=== PATIENT | female | born 1995 | race Caucasian/White ===

== ENCOUNTER 2017-11-02 18:41 | Emergency (ER) | payer OTHER ==
[2017-11-02 19:13] VITALS: TEMP 98.1
[2017-11-02] MEDS ORDERED: cefTRIAXone 250 MG VIAL IM STA (20:14)
[2017-11-02] MEDS ORDERED: traMADol 50 MG STARTER PACK 3 TAB BTL PO STA (20:55)
--- NOTE | 2017-11-02 20:56 | ED ---
Skin/Abscess/FB HPI - General Chief complaint: Skin/Abscess/Foreign Body Stated complaint: Cyst on abd.pain Time Seen by Provider: 11/02/17 20:04 Source: patient, RN notes reviewed, old records reviewed Mode of arrival: ambulatory Limitations: no limitations - History of Present Illness Initial comments: This patient is a 22 year old female with abcess in right groin for one week. She was seen at [facility] yesterday and started on bactrim and keflex.She has had one day of antibiotics. She reports the area opened up and she requests drainag. She denies any fever or chills. She states that she has no history of resistent infections. She states that it is painful to walk as the area rubs her inner thigh. - Related Data Home Medications Medication Instructions Recorded Confirmed ALPRAZolam [Xanax] 0.25 mg PO TID PRN 11/02/17 11/02/17 Buprenorphine HCl/Naloxone HCl 1 film SL BID 11/02/17 11/02/17 [Suboxone 8 mg-2 mg Sl Film] Previous Rx's Medication Instructions Recorded Cephalexin [Keflex] 500 mg PO Q6HR #40 cap 11/02/17 Ibuprofen [Motrin] 600 mg PO Q8HR PRN #20 tab 11/02/17 Sulfamethox-Tmp 800-160Mg [Bactrim 2 tab PO Q12HR 10 Days 11/02/17 DS 800-160 mg] traMADol HCl [Ultram] 50 mg PO Q4H PRN #10 tab 11/02/17 Allergies Allergy/AdvReac Type Severity Reaction Status Date / Time amoxicillin Allergy Anaphylaxis Verified 11/02/17 20:24 Penicillins Allergy Anaphylaxis Verified 11/02/17 20:24 Review of Systems ROS Statement: Those systems with pertinent positive or pertinent negative responses have been documented in the HPI. ROS Other: All systems not noted in ROS Statement are negative. Past Medical History Past Medical History: No Reported History Additional Past Medical History / Comment(s): Patient had a spontaneous vaginal delivery 35-5/7 weeks gestation on 11/01/2013. She had premature rupture membranes and labor. Patient also reports that she had a delivery last year with Dr. Dallas. History of Any Multi-Drug Resistant Organisms: None Reported Past Surgical History: No Surgical Hx Reported Additional Past Surgical History / Comment(s): vaginal delivery Past Anesthesia/Blood Transfusion Reactions: No Reported Reaction Past Psychological History: Anxiety, Depression Smoking Status: Current every day smoker Past Alcohol Use History: Occasional Past Drug Use History: None Reported - Past Family History Father History Unknown: Yes Family Medical History: No Reported History General Exam - General Exam Comments Initial Comments: This is a 22 year old female. No acute distress. Limitations: no limitations General appearance: alert, in no apparent distress Head exam: Present: atraumatic, normocephalic, normal inspection Eye exam: Present: normal appearance, PERRL, EOMI. Absent: scleral icterus, conjunctival injection, periorbital swelling ENT exam: Present: normal exam, mucous membranes moist Neck exam: Present: normal inspection. Absent: tenderness, meningismus, lymphadenopathy Respiratory exam: Present: normal lung sounds bilaterally. Absent: respiratory distress, wheezes, rales, rhonchi, stridor Cardiovascular Exam: Present: regular rate, normal rhythm, normal heart sounds. Absent: systolic murmur, diastolic murmur, rubs, gallop, clicks GI/Abdominal exam: Present: soft, normal bowel sounds, other (3cm abscess in right groin. Open and has purulent drainage.). Absent: distended, tenderness, guarding, rebound, rigid Extremities exam: Present: normal inspection, full ROM, normal capillary refill. Absent: tenderness, pedal edema, joint swelling, calf tenderness Back exam: Present: normal inspection Course Vital Signs 11/02/17 11/02/17 19:08 21:00 Temperature 98.1 F Pulse Rate 96 88 Respiratory 20 18 Rate Blood Pressure 103/69 125/85 O2 Sat by Pulse 100 98 Oximetry Procedures - Incision & Drainage Site: other (right inguinal region) Size (cm): 3 Anesthetic Used: lidocaine 1% Amount (mLs): 4 I&D Cleaning Method: Iodine Sterile Field Used?: Yes Scalpel Used: #11 I&D Drainage Obtained: Pus, Blood Packing: Iodoform Culture Obtained?: Yes Patient Tolerated Procedure: well, no complications Medical Decision Making - Medical Decision Making 22 year old femramiro with right groin abscess. She has had it for oen week, started antibiotics yesterday. She will increase her bactrim to 2 tabs BID for 10 days, and keflex q6H instead of Q8H. She underwent incision and drainage and the wound was packed. Pus removed and culture obtained. Given IM rocephin. She was given ultram and motrin for pain. Discussed ice packs and soaking in bath. Discussed packing removal in 2 days from surgeon. All questions answered and return parameters discussed. Disposition Clinical Impression: Groin abscess Disposition: HOME SELF-CARE Condition: Good Instructions: Abscess (ED) Additional Instructions: Patient advised to rest, apply ice over the area. Take the antibiotics as prescribed. Return to emergency department if any alarming signs or symptoms occur. Prescriptions: Cephalexin [Keflex] 500 mg PO Q6HR #40 cap Ibuprofen [Motrin] 600 mg PO Q8HR PRN #20 tab PRN Reason: Pain Sulfamethox-Tmp 800-160Mg [Bactrim DS 800-160 mg] 2 tab PO Q12HR 10 Days traMADol HCl [Ultram] 50 mg PO Q4H PRN #10 tab PRN Reason: Pain Referrals: Nel Hummel MD [STAFF PHYSICIAN] - 1-2 days Nonstaff,Physician [Primary Care Provider] - 1-2 days Richa Reyes DO [Doctor of Osteopathic Medicine] - 1-2 days Time of Disposition: 20:53
[2017-11-02 21:37] VITALS: BP 125/85; PULSE 88; RESP 18
== END 2017-11-02 21:38 | disposition home or self-care (01) ==
LOC: EC 18:41
DX: L02.214 Cutaneous abscess of groin (principal); F17.200 Nicotine dependence, unspecified, uncomplicated; Z79.891 Long term (current) use of opiate analgesic; Z88.0 Allergy status to penicillin
CPT/HCPCS: 87070; 87205; 99283; 10061; 96372; J0696

== ENCOUNTER 2017-11-05 15:59 | Emergency (ER) | payer OTHER ==
[2017-11-05 16:19] VITALS: BP 102/62; PULSE 93; RESP 18; TEMP 98.4
--- NOTE | 2017-11-05 16:45 | ED ---
General Adult HPI - General Chief complaint: Skin/Abscess/Foreign Body Stated complaint: abscess/female -revisit Time Seen by Provider: 11/05/17 16:32 Source: patient, RN notes reviewed Mode of arrival: ambulatory Limitations: no limitations - History of Present Illness Initial comments: 22-year-old female presents to the emergent chief complaint of recheck of abscess. She did drink 2 days ago the packing came out and she thought that she should be seen. He states that she started the antibiotics. She denies any fever chills. There is been no nausea or vomiting. She states that she continues to have some discomfort to that area she still has some pain with walking. She denies any other symptoms at this time.Patient denies any recent fever, chills, shortness of breath, chest pain, back pain, abdominal pain, nausea vomiting, numbness or tingling, dysuria or hematuria, constipation or diarrhea, headaches or visual changes, or any other current symptoms. - Related Data Home Medications Medication Instructions Recorded Confirmed ALPRAZolam [Xanax] 0.25 mg PO TID PRN 11/02/17 11/02/17 Buprenorphine HCl/Naloxone HCl 1 film SL BID 11/02/17 11/02/17 [Suboxone 8 mg-2 mg Sl Film] Previous Rx's Medication Instructions Recorded Cephalexin [Keflex] 500 mg PO Q6HR #40 cap 11/02/17 Ibuprofen [Motrin] 600 mg PO Q8HR PRN #20 tab 11/02/17 Sulfamethox-Tmp 800-160Mg [Bactrim 2 tab PO Q12HR 10 Days 11/02/17 DS 800-160 mg] traMADol HCl [Ultram] 50 mg PO Q4H PRN #10 tab 11/02/17 Allergies Allergy/AdvReac Type Severity Reaction Status Date / Time amoxicillin Allergy Anaphylaxis Verified 11/05/17 16:19 Penicillins Allergy Anaphylaxis Verified 11/05/17 16:19 Review of Systems ROS Statement: Those systems with pertinent positive or pertinent negative responses have been documented in the HPI. ROS Other: All systems not noted in ROS Statement are negative. Past Medical History Past Medical History: No Reported History Additional Past Medical History / Comment(s): Patient had a spontaneous vaginal delivery 35-5/7 weeks gestation on 11/01/2013. She had premature rupture membranes and labor. Patient also reports that she had a delivery last year with Dr. Dallas. History of Any Multi-Drug Resistant Organisms: None Reported Past Surgical History: No Surgical Hx Reported Additional Past Surgical History / Comment(s): vaginal delivery Past Anesthesia/Blood Transfusion Reactions: No Reported Reaction Past Psychological History: Anxiety, Depression Smoking Status: Current every day smoker Past Alcohol Use History: Occasional Past Drug Use History: None Reported - Past Family History Father History Unknown: Yes Family Medical History: No Reported History General Exam Limitations: no limitations General appearance: alert, in no apparent distress ENT exam: Present: normal exam, mucous membranes moist Neck exam: Present: normal inspection. Absent: tenderness, meningismus, lymphadenopathy Respiratory exam: Present: normal lung sounds bilaterally. Absent: respiratory distress, wheezes, rales, rhonchi, stridor Neurological exam: Present: alert, oriented X3 Skin exam: Present: warm, dry, intact, other (Well-healing abscess to the right groin that does have some mild drainage no associated induration or erythema) Course Vital Signs 11/05/17 16:15 Temperature 98.4 F Pulse Rate 93 Respiratory 18 Rate Blood Pressure 102/62 O2 Sat by Pulse 98 Oximetry Medical Decision Making - Medical Decision Making 22-year-old female presents for abscess recheck. This time we discussed care we discussed follow-up return parameters all questions. Patient stated that she understood and she is agreement this plan. All questions have been answered. She will be discharged. Disposition Clinical Impression: Abscess of groin, right Disposition: HOME SELF-CARE Condition: Stable Instructions: Abscess (ED), Abscess Incision and Drainage (ED) Additional Instructions: Please use medication as discussed. Please follow up with family doctor if symptoms have not improved over the next two days. Please return to the emergency room if your symptoms increase or worsen or for any other concerns. Referrals: Yonathan Webb MD [STAFF PHYSICIAN] - 1-2 days Time of Disposition: 16:45
== END 2017-11-05 16:50 | disposition home or self-care (01) ==
LOC: EC 15:59
DX: L02.214 Cutaneous abscess of groin (principal); F17.200 Nicotine dependence, unspecified, uncomplicated; Z79.899 Other long term (current) drug therapy; Z88.0 Allergy status to penicillin
CPT/HCPCS: 99282

== ENCOUNTER 2017-12-20 18:20 | Emergency (ER) | payer OTHER ==
[2017-12-20 18:26] VITALS: RESP 20
[2017-12-20] MEDS ORDERED: cefTRIAXone 250 MG VIAL IM STA (20:10)
[2017-12-20] MEDS ORDERED: metroNIDAZOLE 500 MG TAB PO STA (20:10)
[2017-12-20] MEDS ORDERED: AZITHROMYCIN 500 MG TAB PO STA (20:10)
--- NOTE | 2017-12-20 20:42 | ED ---
Female Urogenital HPI - General Chief complaint: Urogenital Stated complaint: TESTING Time Seen by Provider: 12/20/17 19:57 Source: patient Mode of arrival: ambulatory Limitations: no limitations - History of Present Illness Initial comments: 22-year-old female patient presents to the emergency department today with complaints of odorous vaginal discharge, dysuria, and suprapubic discomfort. Patient states that she has been having the symptoms for the last couple of weeks. Patient states that she did have a 3 some with her boyfriend and is concerned she now has an STD. Patient denies any chance of . States that she does have a Mirena IUD. Patient states that she has had bacterial vaginosis before feels she may have this again. Patient states she has been using insertable vaginal gel for this but doesn't seem to be helping her. Patient states that her boyfriend is also having symptoms. She denies any fevers or chills. Denies any nausea or vomiting. Denies any back pain. Denies any abnormal vaginal bleeding. Patient denies any recent rash, shortness breath, chest pain, diarrhea, constipation, back pain, numbness, tingling, dizziness, weakness, headache, visual changes, or any other complaints. - Related Data Home Medications Medication Instructions Recorded Confirmed ALPRAZolam [Xanax] 0.25 mg PO BID PRN 11/02/17 12/20/17 Buprenorphine HCl/Naloxone HCl 1 film SUBLINGUAL BID 11/02/17 12/20/17 [Suboxone 8 mg-2 mg Sl Film] Previous Rx's Medication Instructions Recorded Doxycycline Hyclate [Vibramycin] 100 mg PO BID 14 Days #28 cap 12/20/17 Allergies Allergy/AdvReac Type Severity Reaction Status Date / Time amoxicillin Allergy Anaphylaxis Verified 12/20/17 20:02 Penicillins Allergy Anaphylaxis Verified 12/20/17 20:02 Review of Systems ROS Statement: Those systems with pertinent positive or pertinent negative responses have been documented in the HPI. ROS Other: All systems not noted in ROS Statement are negative. Past Medical History Past Medical History: No Reported History Additional Past Medical History / Comment(s): Patient had a spontaneous vaginal delivery 35-5/7 weeks gestation on 11/01/2013. She had premature rupture membranes and labor. Patient also reports that she had a delivery last year with Dr. Hurtubise. History of Any Multi-Drug Resistant Organisms: None Reported Past Surgical History: No Surgical Hx Reported Additional Past Surgical History / Comment(s): vaginal delivery Past Anesthesia/Blood Transfusion Reactions: No Reported Reaction Past Psychological History: Anxiety, Depression Smoking Status: Current every day smoker Past Alcohol Use History: Occasional Past Drug Use History: None Reported - Past Family History Father History Unknown: Yes Family Medical History: No Reported History General Exam Limitations: no limitations General appearance: alert, in no apparent distress, other (This is a well- developed, well-nourished adult female patient in no acute distress. Vital signs upon presentation are temperature 99.8F, pulse 100, respirations 20, blood pressure 120/69, pulse ox 99% on room air.) Eye exam: Present: normal appearance, PERRL, EOMI. Absent: scleral icterus, conjunctival injection, periorbital swelling ENT exam: Present: normal exam, normal oropharynx, mucous membranes moist Respiratory exam: Present: normal lung sounds bilaterally. Absent: respiratory distress, wheezes, rales, rhonchi, stridor Cardiovascular Exam: Present: regular rate, normal rhythm, normal heart sounds. Absent: systolic murmur, diastolic murmur, rubs, gallop, clicks GI/Abdominal exam: Present: soft, normal bowel sounds. Absent: distended, tenderness, guarding, rebound, rigid External exam: Present: normal external exam Speculum exam: Present: normal speculum exam, vaginal discharge (Thick white), other (Strings noted for IUD). Absent: cervical discharge By manual exam: Present: cervical motion tenderness, adnexal tenderness Neurological exam: Present: alert, oriented X3, CN II-XII intact Psychiatric exam: Present: normal affect, normal mood Skin exam: Present: warm, dry, intact, normal color. Absent: rash Course Vital Signs 12/20/17 12/20/17 18:24 21:03 Temperature 99.8 F H 98 F Pulse Rate 100 80 Respiratory 20 20 Rate Blood Pressure 120/69 130/72 O2 Sat by Pulse 99 97 Oximetry Medical Decision Making - Medical Decision Making 22-year-old female patient presented to the emergency department today for complaints of vaginal discharge, dysuria, pelvic pain. Physical examination did reveal some suprapubic discomfort upon palpation. Pelvic exam revealed a thick white vaginal discharge. Patient had cervical motion tenderness and bilateral adnexal tenderness. Cultures were obtained. Urinalysis did show positive nitrite but no other concerning signs for infection. Patient has been taking Pyridium and did take Pyridium today. This is most likely false positive nitrite result. Urine has been cultured. We will treat patient for STD with Rocephin, azithromycin, and Flagyl. We will start her on doxycycline 100 mg twice a day for possibility of pelvic inflammatory disease. We did discuss risk of HIV given her risky sexual practices, she was educated regarding testing outpatient with the local health department. Return parameters discussed in detail. She is instructed follow with gynecology in her primary care physician. She verbalizes understanding and agrees with this plan. - Lab Data Lab Results 12/20/17 12/20/17 12/20/17 Range/Units 20:13 20:13 20:13 Urine Color Dark Yellow Urine Appearance Cloudy H (Clear) Urine pH 7.5 (5.0-8.0) Ur Specific [place] 1.022 (1.001-1.035) Urine Protein Trace H (Negative) Urine Glucose (UA) Negative (Negative) Urine Ketones Negative (Negative) Urine Blood Negative (Negative) Urine Nitrite Positive H (Negative) Urine Bilirubin 1+ H (Negative) Urine Urobilinogen 4.0 (<2.0) mg/dL Ur Leukocyte Esterase Negative (Negative) Urine RBC 1 (0-5) /hpf Urine WBC 3 (0-5) /hpf Ur Squamous Epith Cells 1 (0-4) /hpf Amorphous Sediment Moderate H (None) /hpf Urine Mucus Occasional H (None) /hpf Urine HCG, Qual Not Detected (Not Detectd) Trichomonas Ag (Rapid) Negative (Negative) Disposition Clinical Impression: STD (female), Pelvic inflammatory disease Disposition: HOME SELF-CARE Condition: Good Instructions: Sexually Transmitted Diseases (ED), Safe Sex (ED) Additional Instructions: 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 Return here immediately for any new, worsening, or concerning symptoms. Prescriptions: Doxycycline Hyclate [Vibramycin] 100 mg PO BID 14 Days #28 cap Is patient prescribed a controlled substance at d/c from ED?: No Referrals: Nonstaff,Physician [Primary Care Provider] - 1-2 days Jin Ware MD [STAFF PHYSICIAN] - 1-2 days Time of Disposition: 20:49
[2017-12-20 20:43] LABS: Amorphous Sediment,Urine Moderate /hpf; Appearance,Urine Cloudy (Clear); Bilirubin,Urine 1+ (Negative); Blood,Urine Negative (Negative); Color,Urine Dark Yellow; Glucose,Urine (UA) Negative (Negative); Ketones,Urine Negative (Negative); Leukocyte Esterase,Urine Negative (Negative); Mucus,Urine Occasional /hpf; Nitrite,Urine Positive (Negative); PH, Urine 7.5 (5.0-8.0); Protein,Urine Trace (Negative); RBC,Urine 1 /hpf (0-5); Specific Gravity,Urine 1.022 (1.001-1.035); Squamous Epithelial Cell,Urine 1 /hpf (0-4); WBC,Urine 3 /hpf (0-5)
[2017-12-20 21:05] VITALS: BP 130/72; PULSE 80; TEMP 98
[2017-12-21 14:55] LABS: C. trachomatis,PCR Negative (Neg,Equiv); Chlamydia trachomatis Source Cervix; N. gonorrhoeae,PCR Negative (Neg,Equiv); Neisseria Source Cervix
== END 2017-12-20 21:05 | disposition home or self-care (01) ==
LOC: EC 18:20
DX: A64 Unspecified sexually transmitted disease (principal); N73.9 Female pelvic inflammatory disease, unspecified; F17.200 Nicotine dependence, unspecified, uncomplicated; Z79.891 Long term (current) use of opiate analgesic; Z88.0 Allergy status to penicillin
CPT/HCPCS: 81001; 81025; 87808; 87491; 87591; 87070; 99283; 96372; J0696; 87205

== ENCOUNTER 2018-09-13 18:17 | Emergency (ER) | payer OTHER ==
[2018-09-13 18:29] VITALS: TEMP 98.2
--- NOTE | 2018-09-13 19:08 | ED ---
General Adult HPI - General Chief complaint: Abdominal Pain Stated complaint: poss miscarrage Time Seen by Provider: 09/13/18 18:39 Source: patient Mode of arrival: ambulatory Limitations: no limitations - Related Data Home Medications Medication Instructions Recorded Confirmed ALPRAZolam [Xanax] 2 mg PO BID 09/13/18 09/13/18 Ciprofloxacin HCl [Cipro] 500 mg PO BID 09/13/18 09/13/18 [id number] Acid 1 cap PO DAILY 09/13/18 09/13/18 [-U Capsule (formulary)] Previous Rx's Medication Instructions Recorded Cephalexin [Keflex] 500 mg PO Q6HR 3 Days #12 cap 09/13/18 Allergies Allergy/AdvReac Type Severity Reaction Status Date / Time amoxicillin Allergy Anaphylaxis Verified 09/13/18 18:50 Penicillins Allergy Anaphylaxis Verified 09/13/18 18:50 Review of Systems ROS Statement: Those systems with pertinent positive or pertinent negative responses have been documented in the HPI. ROS Other: All systems not noted in ROS Statement are negative. Past Medical History Past Medical History: No Reported History Additional Past Medical History / Comment(s): Patient had a spontaneous vaginal delivery 35-5/7 weeks gestation on 11/01/2013. She had premature rupture membranes and labor. Patient also reports that she had a delivery last year with Dr. Dallas. History of Any Multi-Drug Resistant Organisms: None Reported Past Surgical History: No Surgical Hx Reported Additional Past Surgical History / Comment(s): vaginal delivery Past Anesthesia/Blood Transfusion Reactions: No Reported Reaction Past Psychological History: Anxiety, Depression Smoking Status: Current every day smoker Past Alcohol Use History: Occasional Past Drug Use History: None Reported - Past Family History Father History Unknown: Yes Family Medical History: No Reported History General Exam Limitations: no limitations Course Vital Signs 09/13/18 09/13/18 18:26 19:22 Temperature 98.2 F Pulse Rate 97 85 Respiratory 20 16 Rate Blood Pressure 102/65 112/62 O2 Sat by Pulse 100 100 Oximetry Medical Decision Making - Medical Decision Making Dictation was produced using Datezr dictation software. please excuse any grammatical, word or spelling errors. Chief Complaint: 23-year-old female presents with vaginal bleeding and pelvic pain. History of Present Illness: 23-year-old female patient states she's proximally 7 weeks with twins. Patient was seen recently where an ultrasound was performed showing twins. Patient states she is having difficulty establishing care with [facility]. Patient states she is having episodic dark bleeding. The ROS documented in this emergency department record has been reviewed and confirmed by me. Those systems with pertinent positive or negative responses have been documented in the HPI. All other systems are other negative and/or noncontributory. PHYSICAL EXAM: General Impression: Alert and oriented x3, not in acute distress HEENT: Normocephalic atraumatic, extra-ocular movements intact, pupils equal and reactive to light bilaterally, mucous membranes moist. Cardiovascular: Heart regular rate and rhythm, S1&S2 audible, no murmurs, rubs or gallops Chest: Lungs clear to auscultation bilaterally, no rhonchi, no wheeze, no rales Abdomen: Bowel sounds present, abdomen soft, non-tender, non-distended, no organomegaly Musculoskeletal: Pulses present and equal in all extremities, no peripheral edema Motor: Power 5/5 bilaterally, no focal deficits noted Neurological: CN II-XII grossly intact, no focal motor or sensory deficits noted Skin: Intact with no visualized rashes Psych: Normal affect and mood ED course: 23-year-old female presents with pelvic cramping and vaginal bleeding and . Signs upon arrival are within acceptable limits. Laboratory evaluation obtained. Hemoglobin stable. Rest of labs unremarkable. Urinalysis shows 18 white blood cells. Patient given prescription for antibiotics. OB ultrasound shows single live intrauterine and possible second intrauterine gestational sac without pole. Patient refused pelvic exam. Patient given prescription for antibiotics. Discussed patient case with Dr. Petersen who is on OB call. Patient does not have established OB. Patient instructed to call office on Sunday for outpatient OB follow-up. vitamins. Blood is O+. No indication for rhogam. - Lab Data Result diagrams: 09/13/18 18:55 09/13/18 18:55 Lab Results 09/13/18 09/13/18 09/13/18 Range/Units 18:55 18:55 18:55 WBC 7.6 (3.8-10.6) k/uL RBC 4.54 (3.80-5.40) m/uL Hgb 13.8 (11.4-16.0) gm/dL Hct 41.7 (34.0-46.0) % MCV 91.9 (80.0-100.0) fL MCH 30.4 (25.0-35.0) pg MCHC 33.1 (31.0-37.0) g/dL RDW 12.7 (11.5-15.5) % Plt Count 234 (150-450) k/uL Neutrophils % 60 % Lymphocytes % 34 % Monocytes % 4 % Eosinophils % 1 % Basophils % 0 % Neutrophils # 4.5 (1.3-7.7) k/uL Lymphocytes # 2.6 (1.0-4.8) k/uL Monocytes # 0.3 (0-1.0) k/uL Eosinophils # 0.1 (0-0.7) k/uL Basophils # 0.0 (0-0.2) k/uL Sodium 139 (137-145) mmol/L Potassium 3.9 (3.5-5.1) mmol/L Chloride 104 (98-107) mmol/L Carbon Dioxide 27 (22-30) mmol/L Anion Gap 8 mmol/L BUN 7 (7-17) mg/dL Creatinine 0.67 (0.52-1.04) mg/dL Est GFR (CKD-EPI)AfAm >90 (>60 ml/min/1.73 sqM) Est GFR (CKD-EPI)NonAf >90 (>60 ml/min/1.73 sqM) Glucose 79 (74-99) mg/dL Calcium 10.0 (8.4-10.2) mg/dL Total Bilirubin 0.5 (0.2-1.3) mg/dL AST 24 (14-36) U/L ALT 46 (9-52) U/L Alkaline Phosphatase 56 (38-126) U/L Total Protein 7.8 (6.3-8.2) g/dL Albumin 5.0 (3.5-5.0) g/dL Urine Color Urine Appearance (Clear) Urine pH (5.0-8.0) Ur Specific [place] (1.001-1.035) Urine Protein (Negative) Urine Glucose (UA) (Negative) Urine Ketones (Negative) Urine Blood (Negative) Urine Nitrite (Negative) Urine Bilirubin (Negative) Urine Urobilinogen (<2.0) mg/dL Ur Leukocyte Esterase (Negative) Urine RBC (0-5) /hpf Urine WBC (0-5) /hpf Ur Squamous Epith Cells (0-4) /hpf Urine Bacteria (None) /hpf Urine Mucus (None) /hpf Urine HCG, Qual (Not Detectd) Blood Type O Positive Blood Type Recheck No Antibody Screen NEGATIVE Spec Expiration Date 09/16/2018 - 235409/13/18 09/13/18 Range/Units 18:55 18:55 WBC (3.8-10.6) k/uL RBC (3.80-5.40) m/uL Hgb (11.4-16.0) gm/dL Hct (34.0-46.0) % MCV (80.0-100.0) fL MCH (25.0-35.0) pg MCHC (31.0-37.0) g/dL RDW (11.5-15.5) % Plt Count (150-450) k/uL Neutrophils % % Lymphocytes % % Monocytes % % Eosinophils % % Basophils % % Neutrophils # (1.3-7.7) k/uL Lymphocytes # (1.0-4.8) k/uL Monocytes # (0-1.0) k/uL Eosinophils # (0-0.7) k/uL Basophils # (0-0.2) k/uL Sodium (137-145) mmol/L Potassium (3.5-5.1) mmol/L Chloride (98-107) mmol/L Carbon Dioxide (22-30) mmol/L Anion Gap mmol/L BUN (7-17) mg/dL Creatinine (0.52-1.04) mg/dL Est GFR (CKD-EPI)AfAm (>60 ml/min/1.73 sqM) Est GFR (CKD-EPI)NonAf (>60 ml/min/1.73 sqM) Glucose (74-99) mg/dL Calcium (8.4-10.2) mg/dL Total Bilirubin (0.2-1.3) mg/dL AST (14-36) U/L ALT (9-52) U/L Alkaline Phosphatase (38-126) U/L Total Protein (6.3-8.2) g/dL Albumin (3.5-5.0) g/dL Urine Color Yellow Urine Appearance Cloudy H (Clear) Urine pH 6.5 (5.0-8.0) Ur Specific [place] 1.013 (1.001-1.035) Urine Protein Trace H (Negative) Urine Glucose (UA) Negative (Negative) Urine Ketones Negative (Negative) Urine Blood Trace H (Negative) Urine Nitrite Negative (Negative) Urine Bilirubin Negative (Negative) Urine Urobilinogen <2.0 (<2.0) mg/dL Ur Leukocyte Esterase Negative (Negative) Urine RBC 2 (0-5) /hpf Urine WBC 18 H (0-5) /hpf Ur Squamous Epith Cells 29 H (0-4) /hpf Urine Bacteria Rare H (None) /hpf Urine Mucus Occasional H (None) /hpf Urine HCG, Qual Detected (Not Detectd) Blood Type Blood Type Recheck Antibody Screen Spec Expiration Date Disposition Clinical Impression: Threatened Disposition: HOME SELF-CARE Condition: Good Prescriptions: Cephalexin [Keflex] 500 mg PO Q6HR 3 Days #12 cap Is patient prescribed a controlled substance at d/c from ED?: No Referrals: Elisabet Petersen MD [STAFF PHYSICIAN] - 1-2 days Time of Disposition: 21:09
[2018-09-13 19:23] VITALS: RESP 16
[2018-09-13 19:25] LABS: Basophils % (A) 0 %; Eosinophils # (A) 0.1 k/uL (0-0.7); Eosinophils % (A) 1 %; HCT 41.7 % (34.0-46.0); HGB 13.8 gm/dL (11.4-16.0); Lymphocytes # (A) 2.6 k/uL (1.0-4.8); Lymphocytes % (A) 34 %; MCH 30.4 pg (25.0-35.0); MCHC 33.1 g/dL (31.0-37.0); MCV 91.9 fL (80.0-100.0); Mean Platelet Volume 6.9; Monocytes # (A) 0.3 k/uL (0-1.0); Monocytes % (A) 4 %; Neutrophils # (A) 4.5 k/uL (1.3-7.7); Neutrophils % (A) 60 %; Platelet Count 234 k/uL (150-450); RBC 4.54 m/uL (3.80-5.40); RDW 12.7 % (11.5-15.5); WBC 7.6 k/uL (3.8-10.6)
[2018-09-13 19:40] LABS: ALT 46 U/L (9-52); AST 24 U/L (14-36); Alkaline Phosphatase 56 U/L (38-126); Anion Gap 8 mmol/L; Appearance,Urine Cloudy (Clear); Bacteria,Urine Rare /hpf; Bilirubin,Urine Negative (Negative); Blood Urea Nitrogen 7 mg/dL (7-17); Blood,Urine Trace (Negative); Carbon Dioxide 27 mmol/L (22-30); Chloride 104 mmol/L (98-107); Color,Urine Yellow; Glucose 79 mg/dL (74-99); Glucose,Urine (UA) Negative (Negative); Ketones,Urine Negative (Negative); Leukocyte Esterase,Urine Negative (Negative); Mucus,Urine Occasional /hpf; Nitrite,Urine Negative (Negative); PH, Urine 6.5 (5.0-8.0); Potassium 3.9 mmol/L (3.5-5.1); Protein,Urine Trace (Negative); RBC,Urine 2 /hpf (0-5); Sodium 139 mmol/L (137-145); Specific Gravity,Urine 1.013 (1.001-1.035); Squamous Epithelial Cell,Urine 29 /hpf (0-4); Total Bilirubin 0.5 mg/dL (0.2-1.3); Total Protein 7.8 g/dL (6.3-8.2); Urobilinogen,Urine <2.0 mg/dL (<2.0); WBC,Urine 18 /hpf (0-5)
--- NOTE | 2018-09-13 20:53 | US ---
EXAMINATION TYPE: Transabdominal DATE OF EXAM: 11/13/17 COMPARISON: NONE CLINICAL HISTORY: Pain. bleeding in early OB, possible twins seen at other us not performed here EXAM PERFORMED: OBTA/OBTV EXAM MEASUREMENTS: GESTATIONAL AGE / DATING Physician Established: (6 weeks/5 days) EDC: 05/04/2019 Dates by LMP: LMP unknown Dates by First Scan: No previous this is first scan Dates by Current Scan for: (6 weeks/3 days) EDC: 05/06/2019 MATERNAL ANATOMY Uterus: 9.3 x 6.0 x 4.6cm Right Ovary: 3.5 x 2.3 x 2.2cm Left Ovary: 2.1 x 1.5 x 1.1cm Post CDS / Adnexa: no Presence of free fluid: no Presence of corpus luteal cyst: yes, right = 2.0cm Presence of subchorionic bleed: no GESTATION / SURVEY CRL: 0.9cm (6 weeks/6 days) Yolk Sac (normal less than 6mm): 0.3 Heart Rate: 118 bpm Rhythm: Normal IUP: Viable IUP Discernable second sac like structure more fundal with no discernable components within. Possib le resolving twin gestation versus other etiology. IMPRESSION: Single living intrauterine fetus. Possible second intrauterine gestational sac without a pole.
[2018-09-13 21:22] VITALS: BP 116/71; PULSE 93
== END 2018-09-13 21:15 | disposition home or self-care (01) ==
LOC: EC 18:17
DX: O20.0 Threatened abortion (principal); O99.341 Other mental disorders complicating pregnancy, first trimester; F32.9 Major depressive disorder, single episode, unspecified; F41.9 Anxiety disorder, unspecified; O99.331 Smoking (tobacco) complicating pregnancy, first trimester; F17.200 Nicotine dependence, unspecified, uncomplicated; Z3A.01 Less than 8 weeks gestation of pregnancy; Z53.29 Procedure and treatment not carried out because of patient's decision for other reasons; Z79.899 Other long term (current) drug therapy; Z88.0 Allergy status to penicillin
CPT/HCPCS: 36415; 76801; 76817; 80053; 81001; 81025; 85025; 86850; 86900; 86901; 99284

== ENCOUNTER 2018-10-02 14:55 | Emergency (ER) | payer OTHER ==
[2018-10-02 15:03] VITALS: PULSE 75; RESP 18; TEMP 98.6
[2018-10-02 15:16] VITALS: BP 107/66
[2018-10-02] MEDS ORDERED: AZITHROMYCIN 500 MG TAB PO STA (15:44)
--- NOTE | 2018-10-02 15:47 | ED ---
General Adult HPI - General Chief complaint: Abdominal Pain Stated complaint: Back Pain,urogenital Time Seen by Provider: 10/02/18 15:05 Source: patient, RN notes reviewed Mode of arrival: ambulatory Limitations: no limitations - History of Present Illness Initial comments: 23-year-old female presents to the emergency department for a chief complaint of concern for sexually transmitted diseases. Patient is approximately 9 weeks , states her last period was 07/25/2018. Patient states she was diagnosed with a urinary tract infection but lost the prescription and did not have it filled. She states she has been having dysuria since that time. She states her boyfriend is cheating on her and now she is concerned she has an STD. She denies increased vaginal discharge. She does have minimal vaginal bleeding on and off over the past few weeks, this is not worsening recently. Patient recently received an ultrasound 19 days ago here in the emergency department that showed a resolving twin gestation with one live intrauterine . Patient was referred to Dr. Persaud at that time but has not yet followed up. Patient has no other complaints at this time including shortness of breath, chest pain, abdominal pain, nausea or vomiting, headache, or visual changes. - Related Data Home Medications Medication Instructions Recorded Confirmed ALPRAZolam [Xanax] 2 mg PO BID 09/13/18 10/02/18 [id number] Acid 1 cap PO DAILY 09/13/18 10/02/18 [-U Capsule (formulary)] oxyCODONE HCL/ACETAMINOPHEN 1 tab PO ONCE 10/02/18 10/02/18 [Percocet 10-325 mg] Previous Rx's Medication Instructions Recorded Cephalexin [Keflex] 500 mg PO Q6HR 7 Days cap 10/02/18 Allergies Allergy/AdvReac Type Severity Reaction Status Date / Time amoxicillin Allergy Anaphylaxis Verified 10/02/18 16:12 magnesium Allergy Rash/Hives Verified 10/02/18 16:12 Penicillins Allergy Anaphylaxis Verified 10/02/18 16:12 tramadol [From Ultram] Allergy Rash/Hives Verified 10/02/18 16:12 Review of Systems ROS Statement: Those systems with pertinent positive or pertinent negative responses have been documented in the HPI. ROS Other: All systems not noted in ROS Statement are negative. Past Medical History Past Medical History: No Reported History Additional Past Medical History / Comment(s): Patient had a spontaneous vaginal delivery 35-5/7 weeks gestation on 11/01/2013. She had premature rupture membranes and labor. Patient also reports that she had a delivery last year with Dr. Dallas. History of Any Multi-Drug Resistant Organisms: None Reported Past Surgical History: No Surgical Hx Reported Additional Past Surgical History / Comment(s): vaginal delivery Past Anesthesia/Blood Transfusion Reactions: No Reported Reaction Past Psychological History: Anxiety, Depression Smoking Status: Current every day smoker Past Alcohol Use History: None Reported Past Drug Use History: None Reported - Past Family History Father History Unknown: Yes Family Medical History: No Reported History General Exam Limitations: no limitations General appearance: alert, in no apparent distress Head exam: Present: atraumatic, normocephalic, normal inspection Eye exam: Present: normal appearance, PERRL, EOMI. Absent: scleral icterus, conjunctival injection, periorbital swelling ENT exam: Present: normal exam, mucous membranes moist Neck exam: Present: normal inspection. Absent: tenderness, meningismus, lymphadenopathy Respiratory exam: Present: normal lung sounds bilaterally. Absent: respiratory distress, wheezes, rales, rhonchi, stridor Cardiovascular Exam: Present: regular rate, normal rhythm, normal heart sounds. Absent: systolic murmur, diastolic murmur, rubs, gallop, clicks GI/Abdominal exam: Present: soft, tenderness (Minimal suprapubic tenderness), normal bowel sounds. Absent: distended, guarding, rebound, rigid External exam: Present: normal external exam. Absent: erythema, swelling, lesions, lacerations, ecchymosis, other Speculum exam: Present: normal speculum exam. Absent: erythema, vaginal discharge, cervical discharge, vaginal bleeding, foreign body By manual exam: Present: normal by manual exam, adnexal tenderness, uterine tenderness. Absent: cervical motion tenderness Neurological exam: Present: alert, oriented X3, CN II-XII intact Psychiatric exam: Present: normal affect, normal mood Course Vital Signs 10/02/18 14:58 Temperature 98.6 F Pulse Rate 75 Respiratory 18 Rate Blood Pressure 107/66 O2 Sat by Pulse 98 Oximetry Medical Decision Making - Medical Decision Making 23-year-old female presents to the emergency department for a chief complaint of concern for sexually transmitted diseases. Swabs for gonorrhea chlamydia and Trichomonas were done, Trichomonas negative. However gonorrhea and chlamydia pending. Patient would like to be treated empirically for these. Urinalysis does show very minimal evidence of infection but given patient's dysuria she will be treated as she is . Patient recently had an ultrasound done earlier this month here that showed a live intrauterine with a resolving twin gestation. Patient is O+. No need for RhoGAM. She will follow up with [facility] in one to 2 days. Patient states she has been previously referred to Dr. Veloz. She will follow-up for culture results as well. She will return here if she has any worsening symptoms. - Lab Data Lab Results 10/02/18 10/02/18 Range/Units 15:48 15:48 Urine Color Yellow Urine Appearance Cloudy H (Clear) Urine pH 7.0 (5.0-8.0) Ur Specific [place] 1.017 (1.001-1.035) Urine Protein Trace H (Negative) Urine Glucose (UA) Negative (Negative) Urine Ketones Negative (Negative) Urine Blood Negative (Negative) Urine Nitrite Negative (Negative) Urine Bilirubin Negative (Negative) Urine Urobilinogen 2.0 (<2.0) mg/dL Ur Leukocyte Esterase Trace H (Negative) Urine WBC 5 (0-5) /hpf Ur Squamous Epith Cells 21 H (0-4) /hpf Urine Bacteria Many H (None) /hpf Urine Mucus Moderate H (None) /hpf Trichomonas Ag (Rapid) Negative (Negative) Disposition Clinical Impression: Urinary tract infection, Concern about STD in female without diagnosis, Threatened miscarriage Disposition: HOME SELF-CARE Condition: Good Additional Instructions: Please follow up with [facility] in one to 2 days. Follow up on culture results. Return here to the emergency department if you have any worsening symptoms. Prescriptions: Cephalexin [Keflex] 500 mg PO Q6HR 7 Days cap Is patient prescribed a controlled substance at d/c from ED?: No Referrals: Steve Carvajal DO [Doctor of Osteopathic Medicine] - 1-2 days Time of Disposition: 16:59
[2018-10-02 16:01] LABS: Appearance,Urine Cloudy (Clear); Bacteria,Urine Many /hpf; Bilirubin,Urine Negative (Negative); Blood,Urine Negative (Negative); Color,Urine Yellow; Glucose,Urine (UA) Negative (Negative); Ketones,Urine Negative (Negative); Leukocyte Esterase,Urine Trace (Negative); Mucus,Urine Moderate /hpf; Nitrite,Urine Negative (Negative); Protein,Urine Trace (Negative); Specific Gravity,Urine 1.017 (1.001-1.035); Squamous Epithelial Cell,Urine 21 /hpf (0-4); WBC,Urine 5 /hpf (0-5)
[2018-10-02] MEDS ORDERED: cefTRIAXone 250 MG VIAL IM STA (16:43)
[2018-10-02] MEDS ORDERED: CEPHALEXIN 500MG STARTER PACK 4 CAP BTL PO STA (16:58)
[2018-10-04 13:12] LABS: C. trachomatis,PCR Negative (Neg,Equiv); Chlamydia trachomatis Source Vagina
[2018-10-04 13:13] LABS: N. gonorrhoeae,PCR Negative (Neg,Equiv); Neisseria Source Vagina
== END 2018-10-02 17:09 | disposition home or self-care (01) ==
LOC: EC 14:55
DX: O23.41 Unspecified infection of urinary tract in pregnancy, first trimester (principal); O20.0 Threatened abortion; O99.341 Other mental disorders complicating pregnancy, first trimester; F41.9 Anxiety disorder, unspecified; F32.9 Major depressive disorder, single episode, unspecified; O99.331 Smoking (tobacco) complicating pregnancy, first trimester; F17.200 Nicotine dependence, unspecified, uncomplicated; Z79.891 Long term (current) use of opiate analgesic; Z79.899 Other long term (current) drug therapy; Z88.0 Allergy status to penicillin; Z88.8 Allergy status to other drugs, medicaments and biological substances; Z88.5 Allergy status to narcotic agent; Z3A.09 9 weeks gestation of pregnancy
CPT/HCPCS: 36415; 81001; 84702; 87808; 87491; 87591; 87086; 99284; 96372; J0696

== ENCOUNTER 2018-11-28 18:09 | Emergency (ER) | payer OTHER ==
[2018-11-28 18:24] VITALS: RESP 18; TEMP 98.5
--- NOTE | 2018-11-28 19:32 | ED ---
Abdominal Pain HPI - General Chief Complaint: Abdominal Pain Stated Complaint: Fall down stairs, abd pain Time Seen by Provider: 11/28/18 18:29 Source: patient, RN notes reviewed Mode of arrival: ambulatory Limitations: no limitations - History of Present Illness Initial Comments: 23-year-old female presents emergency Department with chief complaint of abdominal cramping and . Patient states she has A2 currently 16 weeks and states that she's had some mild cramping today. Patient states she fell down stairs 6 or 7 days ago on her buttocks denies any abdominal trauma. She has no dysuria. She states it's worse when she stands up she does feel some pulling sensation in her lower abdomen. Patient is concerned as she states that she has not felt the baby move and believes that she's felt that in the past. She denies any nausea and diarrhea constipation patient offers no complaints. - Related Data Home Medications Medication Instructions Recorded Confirmed ALPRAZolam [Xanax] 2 mg PO DAILY PRN 09/13/18 11/28/18 Allergies Allergy/AdvReac Type Severity Reaction Status Date / Time amoxicillin Allergy Anaphylaxis Verified 11/28/18 18:56 magnesium Allergy Rash/Hives Verified 11/28/18 18:56 Penicillins Allergy Anaphylaxis Verified 11/28/18 18:56 tramadol [From Ultram] Allergy Rash/Hives Verified 11/28/18 18:56 Review of Systems ROS Statement: Those systems with pertinent positive or pertinent negative responses have been documented in the HPI. ROS Other: All systems not noted in ROS Statement are negative. Past Medical History Past Medical History: No Reported History Additional Past Medical History / Comment(s): Patient had a spontaneous vaginal delivery 35-5/7 weeks gestation on 11/01/2013. She had premature rupture membranes and labor. Patient also reports that she had a delivery last year with Dr. Dallas. History of Any Multi-Drug Resistant Organisms: None Reported Past Surgical History: No Surgical Hx Reported Additional Past Surgical History / Comment(s): vaginal delivery Past Anesthesia/Blood Transfusion Reactions: No Reported Reaction Past Psychological History: Anxiety, Depression Smoking Status: Current every day smoker Past Alcohol Use History: None Reported Past Drug Use History: None Reported - Past Family History Father History Unknown: Yes Family Medical History: No Reported History General Exam Limitations: no limitations General appearance: alert, in no apparent distress Head exam: Present: atraumatic, normocephalic, normal inspection Neck exam: Present: normal inspection. Absent: tenderness, meningismus, lymphadenopathy Respiratory exam: Present: normal lung sounds bilaterally. Absent: respiratory distress, wheezes, rales, rhonchi, stridor Cardiovascular Exam: Present: regular rate, normal rhythm, normal heart sounds. Absent: systolic murmur, diastolic murmur, rubs, gallop, clicks GI/Abdominal exam: Present: soft, normal bowel sounds. Absent: distended, tenderness, guarding, rebound, rigid Back exam: Present: normal inspection Neurological exam: Present: alert, oriented X3, CN II-XII intact Course Vital Signs 11/28/18 11/28/18 18:22 20:31 Temperature 98.5 F Pulse Rate 89 68 Respiratory 18 18 Rate Blood Pressure 93/60 108/68 O2 Sat by Pulse 99 99 Oximetry Medical Decision Making - Medical Decision Making 23-year-old female presented for abdominal pain cramping . Patient had Compazine heart tone sole child was obtained secondary to possible twin on prior ultrasound. Patient has normal ultrasound single viable IUP will be discharged at this time no signs of infection - Lab Data Lab Results 11/28/18 Range/Units 19:20 Urine Color Yellow Urine Appearance Turbid H (Clear) Urine pH 6.5 (5.0-8.0) Ur Specific [place] 1.024 (1.001-1.035) Urine Protein Trace H (Negative) Urine Glucose (UA) Negative (Negative) Urine Ketones Negative (Negative) Urine Blood Negative (Negative) Urine Nitrite Negative (Negative) Urine Bilirubin Negative (Negative) Urine Urobilinogen 3.0 (<2.0) mg/dL Ur Leukocyte Esterase Small H (Negative) Urine RBC 5 (0-5) /hpf Ur Squamous Epith Cells 4 (0-4) /hpf Urine Bacteria Occasional H (None) /hpf Urine Mucus Moderate H (None) /hpf Urine Yeast (Budding) Many H (None) /hpf Disposition Clinical Impression: Abdominal pain during Disposition: HOME SELF-CARE Condition: Stable Instructions (If sedation given, give patient instructions): Abdominal Pain in (ED) Additional Instructions: Please return to the Emergency Department if symptoms worsen or any other concerns. Is patient prescribed a controlled substance at d/c from ED?: No Referrals: None,Stated [Primary Care Provider] - 1-2 days Time of Disposition: 20:42
[2018-11-28 19:51] LABS: Appearance,Urine Turbid (Clear); Bacteria,Urine Occasional /hpf; Bilirubin,Urine Negative (Negative); Blood,Urine Negative (Negative); Budding Yeast,Urine Many /hpf; Color,Urine Yellow; Glucose,Urine (UA) Negative (Negative); Ketones,Urine Negative (Negative); Leukocyte Esterase,Urine Small (Negative); Mucus,Urine Moderate /hpf; Nitrite,Urine Negative (Negative); PH, Urine 6.5 (5.0-8.0); Protein,Urine Trace (Negative); RBC,Urine 5 /hpf (0-5); Specific Gravity,Urine 1.024 (1.001-1.035); Squamous Epithelial Cell,Urine 4 /hpf (0-4)
--- NOTE | 2018-11-28 20:26 | US ---
EXAMINATION TYPE: US OB >= 14 wk fetus DATE OF EXAM: 11/28/2018 COMPARISON: 09/13/2018 CLINICAL HISTORY: PainFell down the stairs x 2 days ago. Abd pain with spotting once x 1 day ago. TECHNIQUE: Transabdominal (TA) GESTATIONAL AGE / DATING Physician Established: (17 weeks/2 days) EDC: 05/06/2019 Dates by LMP: (17 weeks/2 days) EDC: 05/06/2019 Dates by First Scan: (6 weeks/3 days) EDC: 05/06/2019 Dates by Current Scan: (17 weeks/2 days) EDC: 05/06/2019 SURVEY IUP: Single PLACENTA: Anterior PREVIA: No Previa DEANA: 10.35 cm Normal CERVICAL LENGTH (transabdominal: norm > 3.0cm): 3.2 cm BIOMETRY PRESENTATION: Vertex LIE: Longitudinal BPD: 3.47 cm 16 weeks / 5 days HC: 13.68 cm 17 weeks / 1 days AC: 11.82 cm 17 weeks / 4 days FL: 2.54 cm 17 weeks / 5 days ESTIMATED WEIGHT IN GRAMS: 199.31 grams ESTIMATED WEIGHT IN LBS/OZ: 0 lbs. 7 oz. WEIGHT PERCENTAGE BASED ON ESTABLISHED DATES: 61.3% HC/AC: 1.16cm Normal FL/AC: 21.48cm Normal HEART RATE: 134 bpm RHYTHM: Normal IMPRESSION: There is satisfactory growth compared to last exam. No complicating process seen.
[2018-11-28 20:31] VITALS: BP 108/68; PULSE 68
== END 2018-11-28 20:54 | disposition home or self-care (01) ==
LOC: EC 18:09
DX: O99.89 Other specified diseases and conditions complicating pregnancy, childbirth and the puerperium (principal); R10.9 Unspecified abdominal pain; O99.342 Other mental disorders complicating pregnancy, second trimester; F41.9 Anxiety disorder, unspecified; O99.332 Smoking (tobacco) complicating pregnancy, second trimester; F17.200 Nicotine dependence, unspecified, uncomplicated; Z79.899 Other long term (current) drug therapy; Z88.0 Allergy status to penicillin; Z88.8 Allergy status to other drugs, medicaments and biological substances; Z88.5 Allergy status to narcotic agent; Z3A.16 16 weeks gestation of pregnancy
CPT/HCPCS: 76805; 81001; 99284

== ENCOUNTER 2018-12-09 22:19 | Emergency (ER) | payer OTHER ==
[2018-12-09] MEDS ORDERED: SODIUM CHLORIDE 0.9% 1,000 ML IV ONE (22:33)
--- NOTE | 2018-12-09 22:48 | ED ---
General Adult HPI - General Chief complaint: Abdominal Pain Stated complaint: 19 Weeks Contractions Time Seen by Provider: 12/09/18 22:29 Source: patient Mode of arrival: wheelchair Limitations: no limitations - History of Present Illness Initial comments: this patient is 23-year-old woman who complains of having approximately 3 days of low back and low abdominal cramping discomfort. The patient states that it has been moderate intensity, waxing and waning. She has tried having a friend massage her back which only gave a little bit of relief yesterday. In addition, today the patient states that it felt like she had a gush of some sort of clear fluid from her vagina, that happened on 2 occasions. The patient states that she is approximately 19 weeks estimated by ultrasound. She has not seen the area mechanic yet but states she has appointment coming with Dr. Saleh. The patient denies any pain in the upper part of the abdomen or right upper quadrant. No change in urination or bowel movements. No vaginal bleeding. Onset/Timin -: days(s) Location: back, abdomen Radiation: back, abdomen Quality: dull, other (Cramping) Consistency: intermittent Improves with: none Worsens with: none Associated Symptoms: other (Discharge) Treatments Prior to Arrival: none - Related Data Home Medications Medication Instructions Recorded Confirmed ALPRAZolam [Xanax] 1 mg PO DAILY PRN 12/09/18 12/09/18 Previous Rx's Medication Instructions Recorded Cephalexin [Keflex] 500 mg PO Q6HR #28 cap 12/10/18 Allergies Allergy/AdvReac Type Severity Reaction Status Date / Time amoxicillin Allergy Anaphylaxis Verified 12/09/18 22:46 magnesium Allergy Rash/Hives Verified 12/09/18 22:46 Penicillins Allergy Anaphylaxis Verified 12/09/18 22:46 tramadol [From Ultram] Allergy Rash/Hives Verified 12/09/18 22:46 Patient : Yes Number of weeks : 19 Review of Systems ROS Statement: Those systems with pertinent positive or pertinent negative responses have been documented in the HPI. ROS Other: All systems not noted in ROS Statement are negative. Constitutional: Denies: fever, chills, weakness Respiratory: Denies: cough, dyspnea Cardiovascular: Denies: chest pain, palpitations, orthopnea, edema, syncope Gastrointestinal: Reports: as per HPI, abdominal pain. Denies: nausea, vomiting, diarrhea, constipation Genitourinary: Reports: as per HPI, discharge. Denies: dysuria, frequency, hematuria Musculoskeletal: Reports: as per HPI, back pain Skin: Denies: rash Neurological: Denies: headache, weakness Hematological/Lymphatic: Denies: easy bleeding Past Medical History Past Medical History: No Reported History Additional Past Medical History / Comment(s): Patient had a spontaneous vaginal delivery 35-5/7 weeks gestation on 11/01/2013. She had premature rupture membranes and labor. Patient also reports that she had a deli very last year with Dr. Dallas. History of Any Multi-Drug Resistant Organisms: None Reported Past Surgical History: No Surgical Hx Reported Additional Past Surgical History / Comment(s): vaginal delivery Past Anesthesia/Blood Transfusion Reactions: No Reported Reaction Past Psychological History: Anxiety, Depression Smoking Status: Current every day smoker Past Alcohol Use History: None Reported Past Drug Use History: None Reported - Past Family History Father History Unknown: Yes Family Medical History: No Reported History General Exam Limitations: no limitations General appearance: alert, in no apparent distress Head exam: Present: atraumatic, normocephalic Eye exam: Present: normal appearance. Absent: scleral icterus, conjunctival injection ENT exam: Present: normal oropharynx Respiratory exam: Present: normal lung sounds bilaterally. Absent: respiratory distress, wheezes, rales, rhonchi, stridor Cardiovascular Exam: Present: regular rate, normal rhythm, normal heart sounds. Absent: systolic murmur, diastolic murmur, rubs, gallop GI/Abdominal exam: Present: soft, normal bowel sounds. Absent: distended, tenderness, guarding, rebound, rigid, mass, pulsatile mass, hernia Extremities exam: Present: normal inspection, normal capillary refill. Absent: pedal edema, calf tenderness Back exam: Present: normal inspection. Absent: CVA tenderness (R), CVA tenderness (L) Neurological exam: Present: alert Skin exam: Present: warm, dry, intact, normal color. Absent: rash Course Vital Signs 12/09/18 12/10/18 22:24 00:17 Temperature 98.2 F Pulse Rate 87 69 Respiratory 20 18 Rate Blood Pressure 104/64 107/62 O2 Sat by Pulse 98 98 Oximetry Medical Decision Making - Medical Decision Making Patient is a 23-year-old woman, approximately 19 weeks , here for low abdominal pain and also possible discharge. The case is discussed with Dr. Huang, who had nursing from the labor and delivery unit, and test for amniotic fluid, which is negative. The patient's workup does reveal UTI and this is treated, and prescription provided. We discussed further care and follow-up as well as return parameters. The patient has an appointment with Dr. Therese sahni within the next few days. - Lab Data Result diagrams: 12/09/18 23:00 12/09/18 23:00 Lab Results 12/09/18 12/09/18 12/09/18 Range/Units 23:00 23:00 23:00 WBC 9.0 (3.8-10.6) k/uL RBC 4.07 (3.80-5.40) m/uL Hgb 12.4 (11.4-16.0) gm/dL Hct 36.4 (34.0-46.0) % MCV 89.5 (80.0-100.0) fL MCH 30.6 (25.0-35.0) pg MCHC 34.1 (31.0-37.0) g/dL RDW 13.5 (11.5-15.5) % Plt Count 228 (150-450) k/uL Neutrophils % 66 % Lymphocytes % 27 % Monocytes % 4 % Eosinophils % 2 % Basophils % 0 % Neutrophils # 5.9 (1.3-7.7) k/uL Lymphocytes # 2.4 (1.0-4.8) k/uL Monocytes # 0.3 (0-1.0) k/uL Eosinophils # 0.2 (0-0.7) k/uL Basophils # 0.0 (0-0.2) k/uL Sodium (137-145) mmol/L Potassium (3.5-5.1) mmol/L Chloride (98-107) mmol/L Carbon Dioxide (22-30) mmol/L Anion Gap mmol/L BUN (7-17) mg/dL Creatinine (0.52-1.04) mg/dL Est GFR (CKD-EPI)AfAm (>60 ml/min/1.73 sqM) Est GFR (CKD-EPI)NonAf (>60 ml/min/1.73 sqM) Glucose (74-99) mg/dL Calcium (8.4-10.2) mg/dL Total Bilirubin (0.2-1.3) mg/dL AST (14-36) U/L ALT (9-52) U/L Alkaline Phosphatase (38-126) U/L Total Protein (6.3-8.2) g/dL Albumin (3.5-5.0) g/dL Urine Color Urine Appearance (Clear) Urine pH (5.0-8.0) Ur Specific [place] (1.001-1.035) Urine Protein (Negative) Urine Glucose (UA) (Negative) Urine Ketones (Negative) Urine Blood (Negative) Urine Nitrite (Negative) Urine Bilirubin (Negative) Urine Urobilinogen (<2.0) mg/dL Ur Leukocyte Esterase (Negative) Urine RBC (0-5) /hpf Urine WBC (0-5) /hpf Ur Squamous Epith Cells (0-4) /hpf Urine Bacteria (None) /hpf Urine Mucus (None) /hpf Urine HCG, Qual Detected (Not Detectd) Blood Type O Positive Blood Type Recheck No 12/09/18 12/09/18 Range/Units 23:00 23:00 WBC (3.8-10.6) k/uL RBC (3.80-5.40) m/uL Hgb (11.4-16.0) gm/dL Hct (34.0-46.0) % MCV (80.0-100.0) fL MCH (25.0-35.0) pg MCHC (31.0-37.0) g/dL RDW (11.5-15.5) % Plt Count (150-450) k/uL Neutrophils % % Lymphocytes % % Monocytes % % Eosinophils % % Basophils % % Neutrophils # (1.3-7.7) k/uL Lymphocytes # (1.0-4.8) k/uL Monocytes # (0-1.0) k/uL Eosinophils # (0-0.7) k/uL Basophils # (0-0.2) k/uL Sodium 135 L (137-145) mmol/L Potassium 3.8 (3.5-5.1) mmol/L Chloride 107 (98-107) mmol/L Carbon Dioxide 19 L (22-30) mmol/L Anion Gap 9 mmol/L BUN 4 L (7-17) mg/dL Creatinine 0.38 L (0.52-1.04) mg/dL Est GFR (CKD-EPI)AfAm >90 (>60 ml/min/1.73 sqM) Est GFR (CKD-EPI)NonAf >90 (>60 ml/min/1.73 sqM) Glucose 94 (74-99) mg/dL Calcium 9.0 (8.4-10.2) mg/dL Total Bilirubin 0.3 (0.2-1.3) mg/dL AST 14 (14-36) U/L ALT 26 (9-52) U/L Alkaline Phosphatase 48 (38-126) U/L Total Protein 6.2 L (6.3-8.2) g/dL Albumin 3.5 (3.5-5.0) g/dL Urine Color Yellow Urine Appearance Cloudy H (Clear) Urine pH 6.5 (5.0-8.0) Ur Specific [place] 1.028 (1.001-1.035) Urine Protein 1+ H (Negative) Urine Glucose (UA) Negative (Negative) Urine Ketones Negative (Negative) Urine Blood Negative (Negative) Urine Nitrite Negative (Negative) Urine Bilirubin Negative (Negative) Urine Urobilinogen 2.0 (<2.0) mg/dL Ur Leukocyte Esterase Trace H (Negative) Urine RBC 3 (0-5) /hpf Urine WBC 11 H (0-5) /hpf Ur Squamous Epith Cells 11 H (0-4) /hpf Urine Bacteria Many H (None) /hpf Urine Mucus Many H (None) /hpf Urine HCG, Qual (Not Detectd) Blood Type Blood Type Recheck Disposition Clinical Impression: Abdominal pain during , Urinary tract infection Disposition: HOME SELF-CARE Condition: Good Instructions (If sedation given, give patient instructions): Abdominal Pain in (ED), Urinary Tract Infection in (ED) Prescriptions: Cephalexin [Keflex] 500 mg PO Q6HR #28 cap Is patient prescribed a controlled substance at d/c from ED?: No Referrals: None,Stated [Primary Care Provider] - 1-2 days Morris Saleh DO [REFERRING] - 1-2 days
[2018-12-09 23:13] LABS: Basophils % (A) 0 %; Eosinophils # (A) 0.2 k/uL (0-0.7); Eosinophils % (A) 2 %; HCT 36.4 % (34.0-46.0); HGB 12.4 gm/dL (11.4-16.0); Lymphocytes # (A) 2.4 k/uL (1.0-4.8); Lymphocytes % (A) 27 %; MCH 30.6 pg (25.0-35.0); MCHC 34.1 g/dL (31.0-37.0); MCV 89.5 fL (80.0-100.0); Mean Platelet Volume 7.3; Monocytes # (A) 0.3 k/uL (0-1.0); Monocytes % (A) 4 %; Neutrophils # (A) 5.9 k/uL (1.3-7.7); Neutrophils % (A) 66 %; Platelet Count 228 k/uL (150-450); RBC 4.07 m/uL (3.80-5.40); RDW 13.5 % (11.5-15.5)
[2018-12-09 23:17] LABS: Appearance,Urine Cloudy (Clear); Bacteria,Urine Many /hpf; Bilirubin,Urine Negative (Negative); Blood,Urine Negative (Negative); Color,Urine Yellow; Glucose,Urine (UA) Negative (Negative); Ketones,Urine Negative (Negative); Leukocyte Esterase,Urine Trace (Negative); Mucus,Urine Many /hpf; Nitrite,Urine Negative (Negative); PH, Urine 6.5 (5.0-8.0); Protein,Urine 1+ (Negative); RBC,Urine 3 /hpf (0-5); Specific Gravity,Urine 1.028 (1.001-1.035); Squamous Epithelial Cell,Urine 11 /hpf (0-4); WBC,Urine 11 /hpf (0-5)
[2018-12-09 23:24] LABS: ALT 26 U/L (9-52); AST 14 U/L (14-36); Albumin 3.5 g/dL (3.5-5.0); Alkaline Phosphatase 48 U/L (38-126); Anion Gap 9 mmol/L; Blood Urea Nitrogen 4 mg/dL (7-17); Carbon Dioxide 19 mmol/L (22-30); Chloride 107 mmol/L (98-107); Glucose 94 mg/dL (74-99); Potassium 3.8 mmol/L (3.5-5.1); Sodium 135 mmol/L (137-145); Total Bilirubin 0.3 mg/dL (0.2-1.3); Total Protein 6.2 g/dL (6.3-8.2)
[2018-12-10 00:18] VITALS: RESP 18
--- NOTE | 2018-12-10 00:20 | US ---
Obstetric Ultrasound, Second trimester INDICATION: Pain, cramping COMPARISON: Ultrasound 11/28/18 TECHNIQUE: Real-time sonographic evaluation of the is performed using grayscale and color flow. FINDINGS: There is a single live intrauterine with fetus in vertex presentation. The placenta is anterior, without evidence of previa. Amniotic fluid index measures 12.9 cm, within normal limits. The cervix measures 3.7 cm and appears closed. GESTATIONAL AGE / DATING Physician Established: (18 weeks/6 days) EDC: 10/06/2018 Dates by LMP: (18 weeks/6 days) EDC: 10/06/2018 Dates by First Scan: (17 weeks/2 days) EDC: 10/06/2018 Dates by Current Scan: (19 weeks/3 days) EDC: 05/02/2019 Beta HCG (if available): Not available at this time SURVEY IUP: Single PLACENTA: Anterior PREVIA: No Previa DEANA: 12.88 cm Normal CERVICAL LENGTH (transabdominal: norm > 3.0cm): 3.7 cm BIOMETRY PRESENTATION: Vertex LIE: Longitudinal BPD: 4.22 cm 18 weeks / 5 days HC: 16.53 cm 19 weeks / 2 days AC: 15.15 cm 20 weeks / 3 days FL: 3.28 cm 20 weeks / 2 days ESTIMATED WEIGHT IN GRAMS: 335.94 grams ESTIMATED WEIGHT IN LBS/OZ: 0 lbs. 12 oz. WEIGHT PERCENTAGE BASED ON ESTABLISHED DATES: 97% HC/AC: 1.09cm Normal FL/AC: 77.76cm Normal HEART RATE: 146 bpm RHYTHM: Normal Limited visualization of the anatomy is unremarkable. The maternal ovaries are not identified. IMPRESSION: Single-live intrauterine with EGA of 19 weeks 3 days by sonographic dating. The placenta is anterior. The amniotic fluid index is normal. The cervix is long and closed.
[2018-12-10] MEDS ORDERED: CEPHALEXIN 500 MG CAP PO STA (00:47)
[2018-12-10] MEDS ORDERED: ACETAMINOPHEN TAB 325 MG TAB PO STA (00:47)
[2018-12-10 01:14] VITALS: BP 108/69; PULSE 82; TEMP 98.1
== END 2018-12-10 01:13 | disposition home or self-care (01) ==
LOC: EC 22:19
DX: O23.42 Unspecified infection of urinary tract in pregnancy, second trimester (principal); O26.892 Other specified pregnancy related conditions, second trimester; O99.342 Other mental disorders complicating pregnancy, second trimester; F41.9 Anxiety disorder, unspecified; F32.9 Major depressive disorder, single episode, unspecified; O99.332 Smoking (tobacco) complicating pregnancy, second trimester; F17.200 Nicotine dependence, unspecified, uncomplicated; Z3A.19 19 weeks gestation of pregnancy; Z79.899 Other long term (current) drug therapy
CPT/HCPCS: 36415; 76805; 80053; 81001; 81025; 85025; 86900; 86901; 96360; 96361; 99284

== ENCOUNTER 2019-01-13 20:00 | Emergency (ER) | payer OTHER ==
[2019-01-13 20:16] VITALS: RESP 16; TEMP 97.9
[2019-01-13 21:31] LABS: Amorphous Sediment,Urine Moderate /hpf; Appearance,Urine Turbid (Clear); Bilirubin,Urine Negative (Negative); Blood,Urine Negative (Negative); Color,Urine Yellow; Glucose,Urine (UA) Negative (Negative); Ketones,Urine Negative (Negative); Leukocyte Esterase,Urine Large (Negative); Mucus,Urine Few /hpf; Nitrite,Urine Negative (Negative); Protein,Urine Trace (Negative); RBC,Urine 12 /hpf (0-5); Specific Gravity,Urine 1.022 (1.001-1.035); Squamous Epithelial Cell,Urine 107 /hpf (0-4); WBC,Urine 37 /hpf (0-5)
--- NOTE | 2019-01-13 21:35 | ED ---
Female Urogenital HPI - General Chief complaint: Urogenital Stated complaint: Poss UTI-24 wks Time Seen by Provider: 01/13/19 21:10 Source: patient Mode of arrival: ambulatory Limitations: no limitations - History of Present Illness Initial comments: This patient is 23-year-old woman who complains of having symptoms she believe are consistent with yeast infection. The patient states she has been having approximately 2 days of a thick whitish discharge, vulvar pruritus, and some dysuria. She also has been having some urinary frequency. Patient states she had been seen here for dysuria 2 weeks ago, was treated with a course of Keflex, and discharged. She states that she had taken all but 2 days of that course medication and was feeling better, and then when the symptoms recurred she took the last 2 days and medication but that has not fixing so she presents for further evaluation here. Complaint: dysuria, other Onset/Timin -: days(s) Location: labia Severity: mild Quality: burning Consistency: intermittent Improves with: none Worsens with: urination Patient : Yes Number of weeks : 24 Associated Symptoms: vaginal discharge, dysuria - Related Data Sexually active: No Home Medications Medication Instructions Recorded Confirmed ALPRAZolam [Xanax] 1 mg PO BID 12/09/18 01/13/19 78/Iron/Folate 1/Dha 1 each PO DAILY 01/13/19 01/13/19 [Prenate Dha Softgel] Previous Rx's Medication Instructions Recorded Nitrofurantoin Monohyd/M-Cryst 100 mg PO Q12HR #14 cap 01/13/19 [Macrobid] Allergies Allergy/AdvReac Type Severity Reaction Status Date / Time amoxicillin Allergy Anaphylaxis Verified 01/13/19 20:28 magnesium Allergy Rash/Hives Verified 01/13/19 20:28 Penicillins Allergy Anaphylaxis Verified 01/13/19 20:28 tramadol [From Ultram] Allergy Rash/Hives Verified 01/13/19 20:28 Review of Systems ROS Statement: Those systems with pertinent positive or pertinent negative responses have been documented in the HPI. ROS Other: All systems not noted in ROS Statement are negative. Constitutional: Denies: fever, chills Respiratory: Denies: cough, dyspnea Cardiovascular: Denies: chest pain, palpitations Gastrointestinal: Denies: abdominal pain, vomiting, diarrhea, melena, hematochezia Genitourinary: Reports: dysuria, frequency, discharge (Thick white discharge) Musculoskeletal: Denies: back pain Skin: Reports: pruritus (Vulvar). Denies: rash Neurological: Denies: headache, weakness, numbness Past Medical History Past Medical History: No Reported History Additional Past Medical History / Comment(s): Patient had a spontaneous vaginal delivery 35-5/7 weeks gestation on 11/01/2013. She had premature rupture membranes and labor. Patient also reports that she had a delivery last year with Dr. Dallas. History of Any Multi-Drug Resistant Organisms: None Reported Past Surgical History: No Surgical Hx Reported Additional Past Surgical History / Comment(s): vaginal delivery Past Anesthesia/Blood Transfusion Reactions: No Reported Reaction Past Psychological History: Anxiety, Depression Smoking Status: Current every day smoker Past Alcohol Use History: None Reported Past Drug Use History: None Reported - Past Family History Father History Unknown: Yes Family Medical History: No Reported History General Exam Limitations: no limitations General appearance: alert, in no apparent distress Head exam: Present: atraumatic, normocephalic Eye exam: Present: normal appearance. Absent: scleral icterus, conjunctival injection Respiratory exam: Present: normal lung sounds bilaterally. Absent: respiratory distress, wheezes, rales, rhonchi, stridor Cardiovascular Exam: Present: regular rate, normal rhythm, normal heart sounds. Absent: systolic murmur, diastolic murmur, rubs, gallop GI/Abdominal exam: Present: soft, other (Gravid uterus palpable to a few centimeters above the umbilicus. There are palpable movements. There is no tenderness of the fundus. No abdominal tenderness at all.). Absent: distended, tenderness, guarding, rebound, rigid, mass, pulsatile mass, hernia Extremities exam: Present: normal inspection. Absent: pedal edema, calf tenderness Neurological exam: Present: alert Skin exam: Present: warm, dry, intact, normal color. Absent: rash Course Vital Signs 01/13/19 01/13/19 20:11 21:16 Temperature 97.9 F Pulse Rate 106 H 96 Respiratory 16 Rate Blood Pressure 116/74 119/74 O2 Sat by Pulse 99 100 Oximetry Medical Decision Making - Lab Data Lab Results 01/13/19 Range/Units 21:00 Urine Color Yellow Urine Appearance Turbid H (Clear) Urine pH 7.0 (5.0-8.0) Ur Specific [place] 1.022 (1.001-1.035) Urine Protein Trace H (Negative) Urine Glucose (UA) Negative (Negative) Urine Ketones Negative (Negative) Urine Blood Negative (Negative) Urine Nitrite Negative (Negative) Urine Bilirubin Negative (Negative) Urine Urobilinogen 2.0 (<2.0) mg/dL Ur Leukocyte Esterase Large H (Negative) Urine RBC 12 H (0-5) /hpf Urine WBC 37 H (0-5) /hpf Ur Squamous Epith Cells 107 H (0-4) /hpf Amorphous Sediment Moderate H (None) /hpf Urine Mucus Few H (None) /hpf Disposition Clinical Impression: Urinary tract infection Disposition: HOME SELF-CARE Condition: Fair Instructions (If sedation given, give patient instructions): Urinary Tract Infection in Women (ED) Prescriptions: Nitrofurantoin Monohyd/M-Cryst [Macrobid] 100 mg PO Q12HR #14 cap Is patient prescribed a controlled substance at d/c from ED?: No Referrals: None,Stated [Primary Care Provider] - 1-2 days
[2019-01-13 21:46] VITALS: BP 119/74; PULSE 96
[2019-01-14 14:42] LABS: C. trachomatis,PCR Negative (Neg,Equiv); Chlamydia trachomatis Source Urine; N. gonorrhoeae,PCR Negative (Neg,Equiv); Neisseria Source Urine
== END 2019-01-13 22:52 | disposition home or self-care (01) ==
LOC: EC 20:00
DX: O23.42 Unspecified infection of urinary tract in pregnancy, second trimester (principal); O99.342 Other mental disorders complicating pregnancy, second trimester; F41.9 Anxiety disorder, unspecified; F32.9 Major depressive disorder, single episode, unspecified; O99.332 Smoking (tobacco) complicating pregnancy, second trimester; F17.200 Nicotine dependence, unspecified, uncomplicated; Z3A.24 24 weeks gestation of pregnancy; Z79.899 Other long term (current) drug therapy; Z88.0 Allergy status to penicillin; Z88.5 Allergy status to narcotic agent; Z88.8 Allergy status to other drugs, medicaments and biological substances
CPT/HCPCS: 81001; 87086; 87491; 87591; 99283

== ENCOUNTER 2019-02-16 00:43 | Outpatient (CLI) | payer OTHER ==
[2019-02-16 02:40] VITALS: BP 101/58; PULSE 90; RESP 16; TEMP 98.1
--- NOTE | 2019-02-18 08:25 | P.MSEPDOC ---
Presenting Problems - Arrival Data Date of Arrival on Unit: 02/16/19 Time of Arrival on Unit: 00:45 Mode of Transport: Wheelchair - Complaint OB-Reason for Admission/Chief Complaint: Possible Onset of Labor, Rule Out PROM Comment: claudia 3 days ago, all day yesterday Medical History - Information : 6 Para: 3 Term: 0 : 3 Abortions: Spontaneous or Elective: 2 Number of Living Children: 3 - Gestational Age Gestational Age by EHSAN (wks/days): 29 Weeks and 0 Days - History Complications: Prior , Smoker, Hx. Substance Abuse Comment: xanax abuse. late care. DOM Review of Systems - Review of Systems Constitutional: No problems Breast: No problems ENT: No problems Cardiovascular: No problems Respiratory: No problems Gastrointestinal: No problems Genitourinary: No problems Musculoskeletal: No problems Neurological: No problems Skin: No problems Vital Signs - Temperature Temperature: 98.1 F Temperature Source: Oral - Pulse Right Sitting Brachial Pulse Rate: 90 Pulse Assessment Method: Automatic Cuff - Respirations Respiratory Rate: 16 Oxygen Delivery Method: Room Air - Blood Pressure Right Arm Sitting Blood Pressure: 101/58 Blood Pressure Mean: 72 Blood Pressure Source: Automatic Cuff Medical Screen Scoring (Pre) - Cervical Exam Dilation: 0 cm = 0 Membranes: Intact - Uterine Contractions Frequency: N/A - Maternal Vital Signs Maternal Temperature: N/A Signs of Preeclampsia: N/A Maternal Respirations: N/A - Maternal Trauma Maternal Trauma: N/A - Total Score - Baby A Total Score - Baby A: 0 - Total Score - Baby B Total Score - Baby B: 0 - Total Score - Baby C Total Score - Baby C: 0 - Level of Risk - Baby A Level of Risk - Baby A: Low (0-5) - Level of Risk - Baby B Level of Risk - Baby B: Low (0-5) - Level of Risk - Baby C Level of Risk - Baby C: Low (0-5) Physician Notification (Pre) - Physician Notified Physician Notified Date: 02/16/19 Physician Notified Time: 02:05 Physician/Practitioner Notifed:: Izabella New Order Received: Yes Disposition - Disposition OB Disposition: Discharge to home, Written follow up instructions reviewed Discharge Date: 02/16/19 Discharge Time: 02:15 I agree with the RN Medical Screening Exam: Yes Risk & Benefit of care provided described in d/c instruction: Yes Diagnosis: FALSE LABOR BEFORE 37 COMPLETED WEEKS OF GEST, THIRD TRI
== END 2019-02-16 02:15 | disposition home or self-care (01) ==
LOC: FBPOP 00:43
PROVIDERS: ATTEND Obstetrics & Gynecology
DX: O47.03 False labor before 37 completed weeks of gestation, third trimester (principal); Z3A.29 29 weeks gestation of pregnancy
CPT/HCPCS: 59025; 84112; G0463; 99213

== ENCOUNTER 2019-03-30 13:14 | Outpatient (CLI) | payer OTHER ==
[2019-03-30 15:15] VITALS: BP 109/62; PULSE 86; RESP 18; TEMP 98.4
== END 2019-03-30 14:50 | disposition left against medical advice (07) ==
LOC: FBPOP 13:14
PROVIDERS: ATTEND Obstetrics & Gynecology
DX: R52 Pain, unspecified (principal)
CPT/HCPCS: 59025; G0463; 99213

== ENCOUNTER 2019-04-14 18:35 | Emergency (ER) | payer OTHER ==
[2019-04-14 18:44] VITALS: BP 110/73; PULSE 107; RESP 18; TEMP 97.9
[2019-04-14] MEDS ORDERED: LIDOCAINE 1% INJ 10MG/ML (20 ML MDV) SQ ONE (19:09)
[2019-04-14] MEDS ORDERED: CLINDAMYCIN 150 MG CAP PO STA (19:09)
[2019-04-14] MEDS ORDERED: ACETAMINOPHEN TAB 500 MG TAB PO STA (19:23)
--- NOTE | 2019-04-14 19:25 | ED ---
General Adult HPI - General Chief complaint: Dental/Oral Stated complaint: dental pain, 37wks preg Time Seen by Provider: 04/14/19 18:52 Source: patient Mode of arrival: ambulatory Limitations: no limitations - History of Present Illness Initial comments: 24-year-old female patient presents to the emergency department today for evaluation of right lower dental pain. Patient states that she has had pain for the last week. Patient states she has been taking Tylenol without much relief. States she did see her dentist however they will not perform any seizures since she is 37 weeks . Patient denies any fever or chills. Denies nausea or vomiting. Denies any trismus or difficulty swallowing. Patient states she has multiple broken teeth. Patient denies any recent rash, fever, chills, shortness breath, chest pain, abdominal pain, diarrhea, constipation, back pain, numbness, tingling, dizziness, weakness, hematuria, dysuria, urinary urgency, urinary frequency, headache, visual changes, or any other complaints. - Related Data Home Medications Medication Instructions Recorded Confirmed 78/Iron/Folate 1/Dha 1 cap PO HS 01/13/19 04/14/19 [Prenate Dha Softgel] ALPRAZolam [Xanax] 0.25 mg PO HS 04/14/19 04/14/19 Acetaminophen [Tylenol] 650 mg PO Q6H PRN 04/14/19 04/14/19 Previous Rx's Medication Instructions Recorded Clindamycin HCl [Cleocin] 450 mg PO Q8H #90 cap 04/14/19 Allergies Allergy/AdvReac Type Severity Reaction Status Date / Time amoxicillin Allergy Anaphylaxis Verified 04/14/19 19:00 magnesium Allergy Swelling Verified 04/14/19 19:00 Penicillins Allergy Anaphylaxis Verified 04/14/19 19:00 tramadol [From Ultram] Allergy Rash/Hives Verified 04/14/19 19:00 Review of Systems ROS Statement: Those systems with pertinent positive or pertinent negative responses have been documented in the HPI. ROS Other: All systems not noted in ROS Statement are negative. Past Medical History Past Medical History: No Reported History Additional Past Medical History / Comment(s): Patient had a spontaneous vaginal delivery 35-5/7 weeks gestation on 11/01/2013. She had premature rupture membranes and labor. Patient also reports that she had a delivery last year with Dr. Hurtubise. History of Any Multi-Drug Resistant Organisms: None Reported Past Surgical History: No Surgical Hx Reported Additional Past Surgical History / Comment(s): vaginal delivery Past Anesthesia/Blood Transfusion Reactions: No Reported Reaction Past Psychological History: Anxiety, Depression Smoking Status: Current every day smoker Past Alcohol Use History: None Reported Past Drug Use History: None Reported - Past Family History Father History Unknown: Yes Family Medical History: No Reported History General Exam Limitations: no limitations General appearance: alert, in no apparent distress, other (This is a well- developed, well-nourished adult female patient in no acute distress. Vital signs upon presentation are temperature 97.9F, pulse 107, respirations 18, blood pressure 110/73, pulse ox 98% on room air.) ENT exam: Present: mucous membranes moist, other (Patient has multiple broken t eeth, specifically the right molar. There is mild surrounding erythema. No evidence of drainable abscess. Patient has full range of motion of the jaw a). Absent: normal exam Respiratory exam: Present: normal lung sounds bilaterally. Absent: respiratory distress, wheezes, rales, rhonchi, stridor Cardiovascular Exam: Present: regular rate, normal rhythm, normal heart sounds. Absent: systolic murmur, diastolic murmur, rubs, gallop, clicks Course Vital Signs 04/14/19 18:42 Temperature 97.9 F Pulse Rate 107 H Respiratory 18 Rate Blood Pressure 110/73 O2 Sat by Pulse 98 Oximetry Procedures - Nerve Block Consent Obtained: verbal consent Local Anesthetic Used: Lidocaine 1% Amount of anesthesia used: 3 Side: right Intraoral Nerve Block: inferior alveolar Procedure Successful: Yes Complications: none Patient Tolerated Procedure: well Medical Decision Making - Medical Decision Making 24-year-old female patient presented to the emergency department today for evaluation of right lower dental pain. Physical examination did reveal surrounding gingival erythema but no evidence of drainable abscess. Should have a broken tooth with pulp exposure. She is afebrile with normal vital signs. I did perform an inferior alveolar nerve block which was successful. She was started on clindamycin. She is instructed to follow up with dentistry in her primary care physician for recheck as soon as possible. Return parameters were discussed in detail. She verbalizes understanding and agrees with this plan. Disposition Clinical Impression: Pain, dental Disposition: HOME SELF-CARE Condition: Good Instructions (If sedation given, give patient instructions): Toothache (ED) Additional Instructions: Complete antibiotic prescription in full. Continue tylenol and topical gels for pain relief. Follow up with dentistry and primary care physician as soon as possible. Return to the emergency department for any new, worsening, or concerning symptoms. Prescriptions: Clindamycin HCl [Cleocin] 450 mg PO Q8H #90 cap Is patient prescribed a controlled substance at d/c from ED?: No Referrals: None,Stated [Primary Care Provider] - 1-2 days Time of Disposition: 19:24
== END 2019-04-14 19:56 | disposition home or self-care (01) ==
LOC: EC 18:35
DX: O99.89 Other specified diseases and conditions complicating pregnancy, childbirth and the puerperium (principal); K08.89 Other specified disorders of teeth and supporting structures; O99.333 Smoking (tobacco) complicating pregnancy, third trimester; F17.200 Nicotine dependence, unspecified, uncomplicated; O99.343 Other mental disorders complicating pregnancy, third trimester; F41.9 Anxiety disorder, unspecified; Z79.899 Other long term (current) drug therapy; Z88.0 Allergy status to penicillin; Z88.6 Allergy status to analgesic agent; Z88.8 Allergy status to other drugs, medicaments and biological substances; Z3A.37 37 weeks gestation of pregnancy
CPT/HCPCS: 99282; 64400; J2001

== ENCOUNTER 2019-04-29 13:19 | Inpatient (IN) | payer OTHER ==
[2019-04-29] MEDS ORDERED: LIDOCAINE 0.5% (PF) 5 MG/ML (50 ML SDV) SQ PRN (13:21)
[2019-04-29] MEDS ORDERED: TERBUTALINE 1 MG/ML VIAL SQ PRN (13:21)
[2019-04-29] MEDS ORDERED: OXYTOCIN 10 UNIT/ML 1 ML VIAL IM PRN (13:21)
[2019-04-29] MEDS ORDERED: METHYLERGONOVINE 0.2 MG/ML 1 ML AMP IM PRN (13:21)
[2019-04-29] MEDS ORDERED: CARBOPROST TROMETHAMINE 250 MCG/ML 1 ML AMP IM PRN (13:21)
[2019-04-29] MEDS ORDERED: LACTATED RINGERS 1,000 ML IV SCH (13:30)
[2019-04-29] MEDS ORDERED: diphenhydrAMINE 50 MG CAP PO PRN (13:39)
[2019-04-29] MEDS ORDERED: WITCH HAZEL 1 EACH MED..PAD TOPICAL PRN (13:39)
[2019-04-29] MEDS ORDERED: ZOLPIDEM 5 MG TAB PO PRN (13:39)
[2019-04-29] MEDS ORDERED: HYDROCORTISONE 2.5% RECTAL CREAM 30 GM TUBE RECTAL PRN (13:39)
[2019-04-29] MEDS ORDERED: ACETAMINOPHEN TAB 325 MG TAB PO PRN (13:39)
[2019-04-29] MEDS ORDERED: diphenhydrAMINE 50 MG/ML 1 ML VIAL IVP PRN ×2 (13:39)
[2019-04-29] MEDS ORDERED: diphenhydrAMINE 25 MG CAP PO PRN (13:39)
[2019-04-29] MEDS ORDERED: LANOLIN CREAM 5 GM TUBE TOPICAL PRN (13:39)
[2019-04-29] MEDS ORDERED: BENZOCAINE/MENTHOL SPRAY 1 GM/SPRAY AEROSOL TOPICAL PRN (13:39)
[2019-04-29] MEDS ORDERED: SIMETHICONE 80 MG CHEWABLE PO PRN (13:39)
[2019-04-29 14:11] LABS: Basophils % (A) 0 %; Eosinophils # (A) 0.1 k/uL (0-0.7); Eosinophils % (A) 1 %; HCT 35.8 % (34.0-46.0); HGB 12.3 gm/dL (11.4-16.0); Lymphocytes # (A) 4.2 k/uL (1.0-4.8); Lymphocytes % (A) 30 %; MCH 30.5 pg (25.0-35.0); MCHC 34.5 g/dL (31.0-37.0); MCV 88.6 fL (80.0-100.0); Mean Platelet Volume 7.1; Monocytes # (A) 0.6 k/uL (0-1.0); Monocytes % (A) 4 %; Neutrophils # (A) 8.8 k/uL (1.3-7.7); Neutrophils % (A) 63 %; Platelet Count 272 k/uL (150-450); RBC 4.04 m/uL (3.80-5.40); RDW 13.5 % (11.5-15.5)
[2019-04-29 14:12] VITALS: BMI 27.4
[2019-04-29 14:12] LABS: Appearance,Urine Clear (Clear); Bilirubin,Urine Negative (Negative); Blood,Urine Negative (Negative); Color,Urine Yellow; Glucose,Urine (UA) Negative (Negative); Ketones,Urine Negative (Negative); Leukocyte Esterase,Urine Negative (Negative); Nitrite,Urine Negative (Negative); PH, Urine 6.5 (5.0-8.0); Protein,Urine Negative (Negative); Specific Gravity,Urine 1.009 (1.001-1.035); Urobilinogen,Urine <2.0 mg/dL (<2.0)
[2019-04-29] MEDS: OXYTOCIN 20 UNITS/1000 ML NS 1,000 ML IV SCH ×2 (14:15→17:25)
[2019-04-29] MEDS: IBUPROFEN 600 MG TAB PO PRN (14:20)
[2019-04-29 14:34] LABS: Amphetamine Screen,Urine Not Detected (NotDetected); Barbiturate Screen,Urine Not Detected (NotDetected); Benzodiazepines Screen,Urine Detected (NotDetected); Cocaine Screen,Urine Detected (NotDetected); Methadone Screen, Urine Not Detected (NotDetected); Opiate Screen,Urine Not Detected (NotDetected); Oxycodone Screen, Urine Detected (NotDetected); Phencyclidine Screen,Urine Not Detected (NotDetected); Tricyclic Antidepressant,Urine Not Detected (NotDetected); Urn Cannabinoid Scrn Not Detected (NotDetected)
--- NOTE | 2019-04-29 17:20 | P.HPOB ---
History of Present Illness H&P Date: 04/29/19 Chief Complaint: Intrauterine at term: Active labor Alda is a 24-year-old at approximately 39 weeks gestation based on patient's report. She relates that she's been seeing Dr. Saleh in [facility] for the last several months for her however, no records can be obtained despite requests from our hospital. Her Precis course she denies any issues with. She was brought in through the emergency room department and on arrival to labor and delivery she was dilated to 9 cm. She progressed rapidly in labor and delivered a viable female over an intact perineum. Please see that dictation. Her past medical history to she denies. She denies any family history or surgical history. We will make more times to get records as I suspect that some of this information is not accurate. A drug screen did return positive for benzodiazepines, oxycodone, and cocaine. On physical exam vital signs are stable and afebrile. Heart regular, lungs clear, extremities without pain. Katerine every 2 minutes. Category 1 tracing is noted. At the time of my exam we did do an artificial rupture membranes and she was completely dilated. This was not more than 15 minutes after arrival to the floor I believe. Assessment intrauterine term active labor Plan spontaneous vaginal delivery Past Medical History Past Medical History: No Reported History Additional Past Medical History / Comment(s): Patient had a spontaneous vaginal delivery 35-5/7 weeks gestation on 11/01/2013. She had premature rupture membranes and labor. Patient also reports that she had a delivery last year with Dr. Dallas. History of Any Multi-Drug Resistant Organisms: None Reported Past Surgical History: No Surgical Hx Reported Additional Past Surgical History / Comment(s): vaginal delivery Past Anesthesia/Blood Transfusion Reactions: No Reported Reaction Past Psychological History: Anxiety, Depression Smoking Status: Current every day smoker Past Alcohol Use History: None Reported Past Drug Use History: None Reported Additional Drug Use History / Comment(s): Xanax use - Past Family History Father History Unknown: Yes Family Medical History: No Reported History Medications and Allergies Home Medications Medication Instructions Recorded Confirmed Type 78/Iron/Folate 1/Dha 1 cap PO HS 01/13/19 04/14/19 History [Prenate Dha Softgel] ALPRAZolam [Xanax] 0.25 mg PO HS 04/14/19 04/14/19 History Acetaminophen [Tylenol] 650 mg PO Q6H PRN 04/14/19 04/14/19 History Clindamycin HCl [Cleocin] 450 mg PO Q8H #90 cap 04/14/19 Rx Allergies Allergy/AdvReac Type Severity Reaction Status Date / Time amoxicillin Allergy Anaphylaxis Verified 04/29/19 13:21 magnesium Allergy Swelling Verified 04/29/19 13:21 Penicillins Allergy Anaphylaxis Verified 04/29/19 13:21 tramadol [From Ultram] Allergy Rash/Hives Verified 04/29/19 13:21 Exam Osteopathic Statement: *. No significant issues noted on an osteopathic structural exam other than those noted in the History and Physical/Consult. Vital Signs Temp Pulse Resp BP Pulse Ox 04/29/19 16:00 64 15 111/72 04/29/19 15:43 97.7 F 73 16 103/65 04/29/19 15:05 63 17 121/68 04/29/19 14:38 68 17 105/71 04/29/19 14:24 60 17 113/74 04/29/19 14:13 70 16 109/61 04/29/19 13:54 75 17 109/63 04/29/19 13:43 80 17 108/58 97 Intake and Output 04/29/19 04/29/19 04/29/19 06:59 14:59 22:59 Other: Weight 72.575 kg Results Result Diagrams: 04/29/19 13:30 04/29/19 13:30 Abnormal Lab Results - Last 24 Hours (Table) 04/29/19 04/29/19 Range/Units 13:30 13:30 WBC 14.0 H (3.8-10.6) k/uL Neutrophils # 8.8 H (1.3-7.7) k/uL Ur Oxycodone Screen Detected H (NotDetected) U Benzodiazepines Scrn Detected H (NotDetected) Urine Cocaine Screen Detected H (NotDetected)
--- NOTE | 2019-04-29 17:21 | P.PROBDLV ---
Vaginal Delivery Note - . Vaginal Delivery Note: Alda progressed to complete and pushing with spontaneous vaginal delivery of a viable female over an intact perineum. Falling deliver the head patient had significant pain and was even effectually pushing, rather than placed on the cervix traction on the anterior shoulder I did reach in posteriorly and rotate the posterior shoulder counterclockwise allowing the anterior shoulder easily delivered. Once baby was delivered she was mouth and nares bulb suctioned and placed on mother's abdomen where the umbilical cord was allowed to pulsate for 30 seconds prior to clamping and cutting. Once this was accomplished nursery personnel was present and did assume care. scores were 9 and 9 at one and 5 minutes respectively and the weight was 7 lbs. 1 oz. Placenta was then delivered intact and Pitocin was added to the IV. Both mother and baby were st able following delivery. We'll make further attempts to obtain records from primary tight barrel inspector.
[2019-04-29 20:23] LABS: HIV 1 AB Non-Reactive (Non-Reactive); HIV AB P24 Non-Reactive (Non-Reactive); HIV P24 AG Non-Reactive (Non-Reactive)
[2019-04-29] MEDS: SENNOSIDES-DOCUSATE SODIUM 1 EACH TAB PO SCH (21:15)
[2019-04-29 21:45] VITALS: RESP 16
[2019-04-30] MEDS: IBUPROFEN 600 MG TAB PO PRN ×2 (00:41→07:39)
[2019-04-30] MEDS: SENNOSIDES-DOCUSATE SODIUM 1 EACH TAB PO SCH (07:40)
--- NOTE | 2019-04-30 08:37 | P.DS ---
Providers Date of admission: 04/29/19 13:23 Expected date of discharge: 04/30/19 Attending physician: Malissa Sierra Primary care physician: Stated None - Discharge Diagnosis(es) (1) Normal spontaneous vaginal delivery Current Visit: No Status: Acute Hospital Course: Patient presented with no care in active labor and delivered shortly thereafter. Her urine drug screen was positive for oxycodone, benzodiazepines, and cocaine. She was an altered mental status when she presented in labor. She underwent a normal vaginal delivery with Dr. Carvajal. she had a few episodes of passing very large clots. The uterus was evacuated manually and she was given Methergine, and extra Pitocin. The bleeding is very scant now. CBC will be done this morning to check her hemoglobin. Some of that hemoglobin is stable she will be discharged home today day #1 in stable condition to follow-up with me in 6 weeks. She denies nausea, vomiting, lightheadedness, chest pain, headache, shortness of breath or calf pain. Patient Condition at Discharge: Stable Plan - Discharge Summary New Discharge Prescriptions: New Ibuprofen [Motrin] 600 mg PO Q6HR PRN #30 tab PRN Reason: Mild Pain Or Fever >= 100.5 No Action 78/Iron/Folate 1/Dha [Prenate Dha Softgel] 1 cap PO HS Acetaminophen [Tylenol] 650 mg PO Q6H PRN PRN Reason: Pain ALPRAZolam [Xanax] 0.25 mg PO HS Clindamycin HCl [Cleocin] 450 mg PO Q8H #90 cap Discharge Medication List 78/Iron/Folate 1/Dha [Prenate Dha Softgel] 1 cap PO HS 01/13/19 [History] ALPRAZolam [Xanax] 0.25 mg PO HS 04/14/19 [History] Acetaminophen [Tylenol] 650 mg PO Q6H PRN 04/14/19 [History] Clindamycin HCl [Cleocin] 450 mg PO Q8H #90 cap 04/14/19 [Rx] Ibuprofen [Motrin] 600 mg PO Q6HR PRN #30 tab 04/30/19 [Rx] Follow up Appointment(s)/Referral(s): Malissa Sierra DO [Doctor of Osteopathic Medicine] - 6 Weeks Discharge Disposition: HOME SELF-CARE
[2019-04-30 09:05] LABS: Basophils # (A) 0.1 k/uL (0-0.2); Basophils % (A) 0 %; Eosinophils # (A) 0.2 k/uL (0-0.7); Eosinophils % (A) 1 %; HCT 30.5 % (34.0-46.0); HGB 10.4 gm/dL (11.4-16.0); Lymphocytes # (A) 4.9 k/uL (1.0-4.8); Lymphocytes % (A) 38 %; MCH 30.6 pg (25.0-35.0); MCV 90.2 fL (80.0-100.0); Mean Platelet Volume 7.7; Monocytes # (A) 0.6 k/uL (0-1.0); Monocytes % (A) 4 %; Neutrophils # (A) 7.2 k/uL (1.3-7.7); Neutrophils % (A) 55 %; Platelet Count 298 k/uL (150-450); RBC 3.38 m/uL (3.80-5.40); RDW 15.7 % (11.5-15.5); WBC 13.1 k/uL (3.8-10.6)
[2019-04-30 10:12] VITALS: BP 107/81; PULSE 78; TEMP 97.5
[2019-04-30 16:06] LABS: C. trachomatis,PCR Negative (Neg,Equiv); Chlamydia trachomatis Source Urine; N. gonorrhoeae,PCR Negative (Neg,Equiv); Neisseria Source Urine
== END 2019-04-30 12:45 | disposition home or self-care (01) | DRG 807 ==
LOC: FBPOP 13:19 → 4FBP 13:23
PROVIDERS: ADMIT Obstetrics & Gynecology; ATTEND Obstetrics & Gynecology
PROC: 10E0XZZ Delivery of Products of Conception, External Approach (ICD-10-PCS; principal; 2019-04-29)
DX: O99.334 Smoking (tobacco) complicating childbirth (principal); Z37.0 Single live birth; O99.344 Other mental disorders complicating childbirth; F32.9 Major depressive disorder, single episode, unspecified; F41.9 Anxiety disorder, unspecified; F17.200 Nicotine dependence, unspecified, uncomplicated; Z3A.39 39 weeks gestation of pregnancy; Z79.899 Other long term (current) drug therapy; Z88.5 Allergy status to narcotic agent; Z88.0 Allergy status to penicillin
CPT/HCPCS: 80306; 81003; 82947; 85025; 86762; 86780; 86850; 86900; 86901; 87340; 87390; 87491; 87591; 88307

== ENCOUNTER 2019-06-17 06:31 | Emergency (ER) | payer OTHER ==
[2019-06-17 06:45] VITALS: BP 117/74; PULSE 97; RESP 18; TEMP 98.3
[2019-06-17] MEDS ORDERED: IBUPROFEN 600 MG STARTER PACK 4 TAB BTL PO STA (06:52)
[2019-06-17] MEDS ORDERED: ACET/COD 300 MG/30 MG STARTER PACK 6 TAB BTL PO STA (06:52)
--- NOTE | 2019-06-17 06:54 | ED ---
ENT HPI - General Chief complaint: Dental/Oral Stated complaint: Dental Pain Time Seen by Provider: 06/17/19 06:47 Source: patient, RN notes reviewed Mode of arrival: ambulatory Limitations: no limitations - History of Present Illness Initial comments: This is a 24-year-old female sent emergency Department chief complaint right- sided dental pain. Patient states that symptoms started last 2 days. Patient has right-sided upper and lower dental pain. Patient states she had a problem approximately 2 months ago when she was states that she is not currently. She is appointment in 2 weeks with the dental clinic. Patient states that she cannot tolerate the pain she ran Motrin. Patient denies any. Chills. - Related Data Home Medications Medication Instructions Recorded Confirmed 78/Iron/Folate 1/Dha 1 cap PO HS 01/13/19 04/14/19 [Prenate Dha Softgel] ALPRAZolam [Xanax] 0.25 mg PO HS 04/14/19 04/14/19 Acetaminophen [Tylenol] 650 mg PO Q6H PRN 04/14/19 04/14/19 Previous Rx's Medication Instructions Recorded Clindamycin HCl [Cleocin] 450 mg PO Q8H #90 cap 04/14/19 Ibuprofen [Motrin] 600 mg PO Q6HR PRN #30 tab 04/30/19 Clindamycin HCl 300 mg PO Q6HR #40 cap 06/17/19 Ibuprofen [Motrin] 600 mg PO Q8HR PRN #30 tab 06/17/19 Allergies Allergy/AdvReac Type Severity Reaction Status Date / Time amoxicillin Allergy Anaphylaxis Verified 06/17/19 06:45 magnesium Allergy Swelling Verified 06/17/19 06:45 Penicillins Allergy Anaphylaxis Verified 06/17/19 06:45 tramadol [From Ultram] Allergy Rash/Hives Verified 06/17/19 06:45 Review of Systems ROS Statement: Those systems with pertinent positive or pertinent negative responses have been documented in the HPI. ROS Other: All systems not noted in ROS Statement are negative. Past Medical History Past Medical History: No Reported History Additional Past Medical History / Comment(s): Patient had a spontaneous vaginal delivery 35-5/7 weeks gestation on 11/01/2013. She had premature rupture membranes and labor. Patient also reports that she had a delivery last year with Dr. Dallas. History of Any Multi-Drug Resistant Organisms: None Reported Past Surgical History: No Surgical Hx Reported Additional Past Surgical History / Comment(s): vaginal delivery Past Anesthesia/Blood Transfusion Reactions: No Reported Reaction Past Psychological History: Anxiety, Depression Smoking Status: Current every day smoker Past Alcohol Use History: Occasional Past Drug Use History: None Reported - Past Family History Father History Unknown: Yes Family Medical History: No Reported History General Exam Limitations: no limitations General appearance: alert, in no apparent distress Head exam: Present: atraumatic, normocephalic, normal inspection Eye exam: Present: normal appearance, PERRL, EOMI. Absent: scleral icterus, conjunctival injection, periorbital swelling ENT exam: Present: mucous membranes moist, TM's normal bilaterally, normal external ear exam, other (No trismus). Absent: normal exam (Multiple dental caries, dental fillings noted no drainable abscess) Neck exam: Present: normal inspection, full ROM. Absent: tenderness, meningismus, lymphadenopathy Respiratory exam: Present: normal lung sounds bilaterally. Absent: respiratory distress, wheezes, rales, rhonchi, stridor Cardiovascular Exam: Present: regular rate, normal rhythm, normal heart sounds. Absent: systolic murmur, diastolic murmur, rubs, gallop, clicks Neurological exam: Present: alert, oriented X3, CN II-XII intact Skin exam: Present: warm, dry, intact, normal color. Absent: rash Course Vital Signs 06/17/19 06:43 Temperature 98.3 F Pulse Rate 97 Respiratory 18 Rate Blood Pressure 117/74 O2 Sat by Pulse 96 Oximetry Medical Decision Making - Medical Decision Making Patient was treated for Dental infection, dental pain was started on clindamycin as she has an ALLERGY to penicillin products. Patient given, codeine and ibuprofen. Disposition Clinical Impression: Pain, dental, Dental infection Disposition: HOME SELF-CARE Condition: Stable Instructions (If sedation given, give patient instructions): Toothache (ED) Additional Instructions: Please return to the Emergency Department if symptoms worsen or any other concerns. Prescriptions: Clindamycin HCl 300 mg PO Q6HR #40 cap Ibuprofen [Motrin] 600 mg PO Q8HR PRN #30 tab PRN Reason: Pain Is patient prescribed a controlled substance at d/c from ED?: No Referrals: None,Stated [Primary Care Provider] - 1-2 days Time of Disposition: 06:53
[2019-06-17] MEDS ORDERED: BUPIVACAINE-EPI 0.5%-1:200,000 10 ML VIAL SQ STA (07:01)
[2019-06-17] MEDS ORDERED: BUPIVACAINE (PF) 0.5% 30 ML VIAL SQ STA (07:07)
--- NOTE | 2019-06-17 07:23 | ED ---
Disposition Clinical Impression: Pain, dental, Dental infection Disposition: HOME SELF-CARE Condition: Stable Instructions (If sedation given, give patient instructions): Toothache (ED) Additional Instructions: Please return to the Emergency Department if symptoms worsen or any other concerns. Prescriptions: Clindamycin HCl 300 mg PO Q6HR #40 cap Ibuprofen [Motrin] 600 mg PO Q8HR PRN #30 tab PRN Reason: Pain Is patient prescribed a controlled substance at d/c from ED?: No Referrals: None,Stated [Primary Care Provider] - 1-2 days Procedures - Nerve Block Consent Obtained: verbal consent Local Anesthetic Used: Marcaine 0.5% Amount of anesthesia used: 2 (2ml per injection) Side: right Intraoral Nerve Block: superior alveolar, inferior alveolar Procedure Successful: Yes Complications: none Patient Tolerated Procedure: well, no complications
== END 2019-06-17 07:23 | disposition home or self-care (01) ==
LOC: EC 06:31
DX: K04.7 Periapical abscess without sinus (principal); Z88.0 Allergy status to penicillin; F41.9 Anxiety disorder, unspecified; F32.9 Major depressive disorder, single episode, unspecified; F17.200 Nicotine dependence, unspecified, uncomplicated; Z79.899 Other long term (current) drug therapy; Z88.5 Allergy status to narcotic agent; Z88.8 Allergy status to other drugs, medicaments and biological substances
CPT/HCPCS: 64400; 99282

== ENCOUNTER 2019-06-26 01:32 | Emergency (ER) | payer OTHER ==
[2019-06-26 01:45] VITALS: BP 122/86; PULSE 74; RESP 16; TEMP 98
--- NOTE | 2019-06-26 02:14 | ED ---
ENT HPI - General Chief complaint: Dental/Oral Stated complaint: Dental pain Time Seen by Provider: 06/26/19 01:53 Source: patient Mode of arrival: ambulatory Limitations: no limitations - History of Present Illness Initial comments: Alda is a 24-year-old female presents the ER today requesting digital block. Patient was seen and evaluated earlier in the week, at that time patient was diagnosed with a dental infection, she was treated with a digital block and given antibiotics. Patient stated she did not take the antibiotics as she thought she could go to a dentist they would pull her tooth however upon going to the dentist they advised that because her tooth was infected they could not pull it and advised her to start antibiotics. Patient states that the pain is worsening despite being compliant with antibiotics for the past one day. Denies other symptoms. - Related Data Home Medications Medication Instructions Recorded Confirmed 78/Iron/Folate 1/Dha 1 cap PO HS 01/13/19 04/14/19 [Prenate Dha Softgel] ALPRAZolam [Xanax] 0.25 mg PO HS 04/14/19 04/14/19 Acetaminophen [Tylenol] 650 mg PO Q6H PRN 04/14/19 04/14/19 Previous Rx's Medication Instructions Recorded Clindamycin HCl [Cleocin] 450 mg PO Q8H #90 cap 04/14/19 Ibuprofen [Motrin] 600 mg PO Q6HR PRN #30 tab 04/30/19 Clindamycin HCl 300 mg PO Q6HR #40 cap 06/17/19 Ibuprofen [Motrin] 600 mg PO Q8HR PRN #30 tab 06/17/19 Allergies Allergy/AdvReac Type Severity Reaction Status Date / Time amoxicillin Allergy Anaphylaxis Verified 06/17/19 06:45 magnesium Allergy Swelling Verified 06/17/19 06:45 Penicillins Allergy Anaphylaxis Verified 06/17/19 06:45 tramadol [From Ultram] Allergy Rash/Hives Verified 06/17/19 06:45 Review of Systems ROS Statement: Those systems with pertinent positive or pertinent negative responses have been documented in the HPI. ROS Other: All systems not noted in ROS Statement are negative. Past Medical History Past Medical History: No Reported History Additional Past Medical History / Comment(s): Patient had a spontaneous vaginal delivery 35-5/7 weeks gestation on 11/01/2013. She had premature rupture membranes and labor. Patient also reports that she had a delivery last year with Dr. Dallas. History of Any Multi-Drug Resistant Organisms: None Reported Past Surgical History: No Surgical Hx Reported Additional Past Surgical History / Comment(s): vaginal delivery Past Anesthesia/Blood Transfusion Reactions: No Reported Reaction Past Psychological History: Anxiety, Depression Smoking Status: Current every day smoker Past Alcohol Use History: Occasional Past Drug Use History: None Reported - Past Family History Father History Unknown: Yes Family Medical History: No Reported History General Exam - General Exam Comments Initial Comments: Physical Exam GENERAL: Patient is well-developed and well-nourished. Patient is nontoxic and well-hydrated appears uncomfortable HENT: Normocephalic, Atraumatic. Very poor dentition, multiple dental caries with a broken tooth #31 EYES: PERRL, EOMI PULMONARY: Unlabored respirations. CARDIOVASCULAR: RRR Warm and well perfused extremities ABDOMEN: Non-distended SKIN: No rashes or bruising : Deferred NEUROLOGIC: Alert and oriented Normal speech Normal gait MUSCULOSKELETAL: Moving all extremities with no apparent injury PSYCHIATRIC: No SI/HI Limitations: no limitations Course Vital Signs 06/26/19 01:43 Temperature 98.0 F Pulse Rate 74 Respiratory 16 Rate Blood Pressure 122/86 O2 Sat by Pulse 100 Oximetry Medical Decision Making - Medical Decision Making Patient was seen and evaluated, history is obtained from the patient, risks and benefits of dental block were discussed including risk of permanent nerve damage, vascular injury. Benefits including pain management were discussed. Patient consents to nerve block and a nerve block using lidocaine and bupivacaine was performed. She had good analgesia and was comfortable with plan for discharge home, continued antibiotics and follow up with dentistry. Disposition Clinical Impression: Dental caries Disposition: HOME SELF-CARE Condition: Stable Instructions (If sedation given, give patient instructions): Toothache (ED) Additional Instructions: Continue taking her antibiotics and follow up with the dentist Is patient prescribed a controlled substance at d/c from ED?: No Referrals: None,Stated [Primary Care Provider] - 1-2 days
[2019-06-26] MEDS ORDERED: LIDOCAINE 1% INJ 10MG/ML (20 ML MDV) SQ ONE (02:15)
[2019-06-26] MEDS ORDERED: BUPIVACAINE (PF) 0.5% 30 ML VIAL SQ STA (02:15)
== END 2019-06-26 02:50 | disposition home or self-care (01) ==
LOC: EC 01:32
DX: K02.9 Dental caries, unspecified (principal); S02.5XXA Fracture of tooth (traumatic), initial encounter for closed fracture; F32.9 Major depressive disorder, single episode, unspecified; F41.9 Anxiety disorder, unspecified; F17.200 Nicotine dependence, unspecified, uncomplicated; Z88.0 Allergy status to penicillin; Z88.5 Allergy status to narcotic agent; Z88.8 Allergy status to other drugs, medicaments and biological substances; Z79.899 Other long term (current) drug therapy; X58.XXXA Exposure to other specified factors, initial encounter
CPT/HCPCS: 99282; 64400; J2001

== ENCOUNTER 2019-08-11 18:10 | Emergency (ER) | payer OTHER ==
[2019-08-11 18:47] VITALS: TEMP 99.5
--- NOTE | 2019-08-11 18:47 | ED ---
ENT HPI - General Stated complaint: Dental pain/abcess Time Seen by Provider: 08/11/19 18:50 - History of Present Illness Initial comments: Patient is a 24-year-old female presenting to the emergency department complaints of right-sided dental pain for 2 days. Patient states she's had this pain before. Patient denies fever, chills, nausea, vomiting. Patient states she does have an appointment with the dentist next week. Patient has no other complaints at this time. Upon arrival to the ER, her vital signs are stable. - Related Data Home Medications Medication Instructions Recorded Confirmed 78/Iron/Folate 1/Dha 1 cap PO HS 01/13/19 04/14/19 [Prenate Dha Softgel] ALPRAZolam [Xanax] 0.25 mg PO HS 04/14/19 04/14/19 Acetaminophen [Tylenol] 650 mg PO Q6H PRN 04/14/19 04/14/19 Previous Rx's Medication Instructions Recorded Clindamycin HCl [Cleocin] 450 mg PO Q8H #90 cap 04/14/19 Ibuprofen [Motrin] 600 mg PO Q6HR PRN #30 tab 04/30/19 Ibuprofen [Motrin] 600 mg PO Q8HR PRN #30 tab 06/17/19 Clindamycin HCl 300 mg PO Q6HR #40 cap 08/11/19 Allergies Allergy/AdvReac Type Severity Reaction Status Date / Time amoxicillin Allergy Anaphylaxis Verified 06/17/19 06:45 magnesium Allergy Swelling Verified 06/17/19 06:45 Penicillins Allergy Anaphylaxis Verified 06/17/19 06:45 tramadol [From Ultram] Allergy Rash/Hives Verified 06/17/19 06:45 Review of Systems ROS Statement: Those systems with pertinent positive or pertinent negative responses have been documented in the HPI. ROS Other: All systems not noted in ROS Statement are negative. Past Medical History Past Medical History: No Reported History Additional Past Medical History / Comment(s): Patient had a spontaneous vaginal delivery 35-5/7 weeks gestation on 11/01/2013. She had premature rupture membranes and labor. Patient also reports that she had a delivery last year with Dr. Dallas. History of Any Multi-Drug Resistant Organisms: None Reported Past Surgical History: No Surgical Hx Reported Additional Past Surgical History / Comment(s): vaginal delivery Past Anesthesia/Blood Transfusion Reactions: No Reported Reaction Past Psychological History: Anxiety, Depression Smoking Status: Current every day smoker Past Alcohol Use History: Occasional Past Drug Use History: None Reported - Past Family History Father History Unknown: Yes Family Medical History: No Reported History General Exam - General Exam Comments Initial Comments: GENERAL: Well-appearing, well-nourished and in no acute distress. HEAD: Atraumatic, normocephalic. EYES: Pupils equal round and reactive to light, extraocular movements intact, sclera a nicteric, conjunctiva are normal. ENT: TMs normal, nares patent, oropharynx clear without exudates. Moist mucous membranes. Multiple dental caries, no abscess seen, pain with palpation of the right upper and lower gumlines. NECK: Normal range of motion, supple without lymphadenopathy or JVD. LUNGS: Breath sounds clear to auscultation bilaterally and equal. No wheezes rales or rhonchi. HEART: Regular rate and rhythm without murmurs, rubs or gallops. ABDOMEN: Soft, nontender, normoactive bowel sounds. No guarding, no rebound. No masses appreciated. : Deferred EXTREMITIES: Normal range of motion, no pitting or edema. No clubbing or cyanosis. NEUROLOGICAL: Normal speech, normal gait. PSYCH: Normal mood, normal affect. SKIN: Warm, Dry, normal turgor, no rashes or lesions noted. Course Vital Signs 08/11/19 08/11/19 18:44 18:47 Temperature 99.5 F Pulse Rate 111 H 100 Respiratory 16 15 Rate Blood Pressure 115/78 121/77 O2 Sat by Pulse 97 95 Oximetry Medical Decision Making - Medical Decision Making Patient is a 24-year-old female presenting with dental pain 2 days. Vital signs are stable. No abscess seen to drain. Patient be started on clindamycin for possible dental abscess as well as given Toradol injection today. She was sent home with Tylenol 3 starter pack. Patient will follow up with dentist STEVIE. She is in agreement with this plan of care. Return parameters were discussed with the patient she verbalized understanding. Disposition Clinical Impression: Dental caries, Pain, dental Disposition: HOME SELF-CARE Condition: Stable Instructions (If sedation given, give patient instructions): Dental Abscess (ED) Additional Instructions: Please return to the Emergency Department if symptoms worsen or any other concerns. Take antibiotic as prescribed. Follow-up with dentist STEVIE. Prescriptions: Clindamycin HCl 300 mg PO Q6HR #40 cap Is patient prescribed a controlled substance at d/c from ED?: No Referrals: None,Stated [Primary Care Provider] - 1-2 days
[2019-08-11] MEDS ORDERED: ACET/COD 300 MG/30 MG STARTER PACK 6 TAB BTL PO STA (19:00)
[2019-08-11] MEDS ORDERED: KETOROLAC 60 MG/2 ML VIAL IM STA (19:00)
[2019-08-11 19:08] VITALS: BP 121/77; PULSE 100; RESP 15
== END 2019-08-11 19:20 | disposition home or self-care (01) ==
LOC: EC 18:10
DX: K02.9 Dental caries, unspecified (principal); F41.9 Anxiety disorder, unspecified; F17.200 Nicotine dependence, unspecified, uncomplicated; Z88.0 Allergy status to penicillin; Z88.5 Allergy status to narcotic agent; Z88.8 Allergy status to other drugs, medicaments and biological substances; Z79.899 Other long term (current) drug therapy
CPT/HCPCS: 99282; 96372; J1885

== ENCOUNTER 2019-08-19 23:12 | Emergency (ER) | payer OTHER ==
[2019-08-19 23:17] VITALS: BP 125/87; PULSE 118; RESP 20; TEMP 97.7
[2019-08-19] MEDS ORDERED: cefTRIAXone 250 MG VIAL IM STA (23:40)
[2019-08-19] MEDS ORDERED: AZITHROMYCIN 500 MG TAB PO STA (23:41)
[2019-08-19] MEDS ORDERED: metroNIDAZOLE 500 MG TAB PO STA (23:41)
[2019-08-19] MEDS ORDERED: ACET/COD 300 MG/30 MG STARTER PACK 6 TAB BTL PO STA (23:43)
--- NOTE | 2019-08-20 00:32 | ED ---
ENT HPI - General Chief complaint: Dental/Oral Stated complaint: Dental Pain Time Seen by Provider: 08/19/19 23:32 Source: patient, RN notes reviewed, old records reviewed, Caregiver Mode of arrival: ambulatory Limitations: no limitations - History of Present Illness Initial comments: Patient is a 24-year-old female presented today for evaluation for concern for right upper dental pain. She was seen in the emergency department approximately a week ago for some alert complaints of pain. Patient reports that she also was concerned and wanted to discuss being treated for sexually transmitted infections. She reports that her boyfriend gave her some type of infection she does not know exactly what. He was treated for chlamydia and gonorrhea. Pat ient reports that she has had some vaginal discharge and irritation. She denies any abdominal pain. - Related Data Home Medications Medication Instructions Recorded Confirmed 78/Iron/Folate 1/Dha 1 cap PO HS 01/13/19 04/14/19 [Prenate Dha Softgel] ALPRAZolam [Xanax] 0.25 mg PO HS 04/14/19 04/14/19 Acetaminophen [Tylenol] 650 mg PO Q6H PRN 04/14/19 04/14/19 Previous Rx's Medication Instructions Recorded Clindamycin HCl [Cleocin] 450 mg PO Q8H #90 cap 04/14/19 Ibuprofen [Motrin] 600 mg PO Q6HR PRN #30 tab 04/30/19 Ibuprofen [Motrin] 600 mg PO Q8HR PRN #30 tab 06/17/19 Clindamycin HCl 300 mg PO Q6HR #40 cap 08/11/19 Allergies Allergy/AdvReac Type Severity Reaction Status Date / Time amoxicillin Allergy Anaphylaxis Verified 08/19/19 23:18 magnesium Allergy Swelling Verified 08/19/19 23:18 Penicillins Allergy Anaphylaxis Verified 08/19/19 23:18 tramadol [From Ultram] Allergy Rash/Hives Verified 08/19/19 23:18 Review of Systems ROS Statement: Those systems with pertinent positive or pertinent negative responses have been documented in the HPI. ROS Other: All systems not noted in ROS Statement are negative. Past Medical History Past Medical History: No Reported History Additional Past Medical History / Comment(s): Patient had a spontaneous vaginal delivery 35-5/7 weeks gestation on 11/01/2013. She had premature rupture membranes and labor. Patient also reports that she had a delivery last year with Dr. Dallas. History of Any Multi-Drug Resistant Organisms: None Reported Past Surgical History: No Surgical Hx Reported Additional Past Surgical History / Comment(s): vaginal delivery Past Anesthesia/Blood Transfusion Reactions: No Reported Reaction Past Psychological History: Anxiety, Depression Smoking Status: Current every day smoker Past Alcohol Use History: Occasional Past Drug Use History: None Reported - Past Family History Father History Unknown: Yes Family Medical History: No Reported History General Exam - General Exam Comments Initial Comments: Alert and oriented 24-year-old female. No distress. Limitations: no limitations General appearance: alert, in no apparent distress Head exam: Present: atraumatic, normocephalic, normal inspection Eye exam: Present: normal appearance, PERRL, EOMI. Absent: scleral icterus, conjunctival injection, periorbital swelling ENT exam: Present: normal exam, mucous membranes moist, other (Dental caries.) Neck exam: Present: normal inspection. Absent: tenderness, meningismus, lymphadenopathy Respiratory exam: Present: normal lung sounds bilaterally. Absent: respiratory distress, wheezes, rales, rhonchi, stridor Cardiovascular Exam: Present: regular rate, normal rhythm, normal heart sounds. Absent: systolic murmur, diastolic murmur, rubs, gallop, clicks GI/Abdominal exam: Present: soft, normal bowel sounds. Absent: distended, tenderness, guarding, rebound, rigid Extremities exam: Present: normal inspection, full ROM, normal capillary refill. Absent: tenderness, pedal edema, joint swelling, calf tenderness Back exam: Present: normal inspection Neurological exam: Present: alert, oriented X3, CN II-XII intact Psychiatric exam: Present: normal affect, normal mood Skin exam: Present: warm, dry, intact, normal color. Absent: rash Course Vital Signs 08/19/19 23:14 Temperature 97.7 F Pulse Rate 118 H Respiratory 20 Rate Blood Pressure 125/87 O2 Sat by Pulse 97 Oximetry Medical Decision Making - Medical Decision Making 24-year-old female presented today concern for dental pain. She also mentions was concern for sexually transmitted infections. Complains of some vaginal discharge. Patient was able to provide a urine sample. I discussed the Patient will be treated with IM medications. Before Patient was able to be treated she left without informing staff and left AGAINST MEDICAL ADVICE. Disposition Clinical Impression: Concern about STD in female without diagnosis, Pain due to dental caries Disposition: Left Against Medical Advice Condition: Stable Is patient prescribed a controlled substance at d/c from ED?: No Referrals: None,Stated [Primary Care Provider] - 1-2 days Time of Disposition: 00:30
[2019-08-20 00:51] LABS: Appearance,Urine Clear (Clear); Bilirubin,Urine Negative (Negative); Blood,Urine Negative (Negative); Color,Urine Yellow; Glucose,Urine (UA) Negative (Negative); Ketones,Urine Negative (Negative); Leukocyte Esterase,Urine Trace (Negative); Mucus,Urine Moderate /hpf; Nitrite,Urine Negative (Negative); PH, Urine 6.5 (5.0-8.0); Protein,Urine 1+ (Negative); RBC,Urine 2 /hpf (0-5); Specific Gravity,Urine 1.029 (1.001-1.035); Squamous Epithelial Cell,Urine 2 /hpf (0-4); WBC,Urine 12 /hpf (0-5)
[2019-08-21 11:02] LABS: N. gonorrhoeae,PCR Negative (Neg,Equiv); Neisseria Source Urine
[2019-08-21 11:11] LABS: C. trachomatis,PCR Negative (Neg,Equiv); Chlamydia trachomatis Source Urine
== END 2019-08-20 00:06 | disposition left against medical advice (07) ==
LOC: EC 23:12
DX: K02.9 Dental caries, unspecified (principal); Z71.1 Person with feared health complaint in whom no diagnosis is made; F41.9 Anxiety disorder, unspecified; F32.9 Major depressive disorder, single episode, unspecified; F17.200 Nicotine dependence, unspecified, uncomplicated; Z79.899 Other long term (current) drug therapy; Z88.0 Allergy status to penicillin; Z88.5 Allergy status to narcotic agent; Z88.8 Allergy status to other drugs, medicaments and biological substances
CPT/HCPCS: 81001; 81025; 87491; 87591; 99283

== ENCOUNTER 2019-11-02 01:25 | Emergency (ER) | payer OTHER ==
[2019-11-02 01:32] VITALS: RESP 18; TEMP 97.9
[2019-11-02] MEDS ORDERED: SODIUM CHLORIDE 0.9% 500 ML 500 ML IV ONE (01:50)
[2019-11-02] MEDS ORDERED: ALBUTEROL NEBULIZED 2.5 MG/3 ML INHALATION ONE (01:55)
--- NOTE | 2019-11-02 02:13 | XR ---
EXAMINATION TYPE: XR chest 2V DATE OF EXAM: 11/02/2019 COMPARISON: NONE HISTORY: Cough TECHNIQUE: FINDINGS: Heart and mediastinum are normal. Lungs are clear. Diaphragm is normal. Bony thorax appears normal. IMPRESSION: Normal chest. No change.
[2019-11-02 02:26] LABS: Basophils # (A) 0.1 k/uL (0-0.2); Basophils % (A) 0 %; Eosinophils # (A) 0.1 k/uL (0-0.7); Eosinophils % (A) 1 %; HCT 41.9 % (34.0-46.0); HGB 13.6 gm/dL (11.4-16.0); Lymphocytes # (A) 4.2 k/uL (1.0-4.8); Lymphocytes % (A) 29 %; MCH 27.7 pg (25.0-35.0); MCHC 32.4 g/dL (31.0-37.0); MCV 85.4 fL (80.0-100.0); Mean Platelet Volume 7.2; Monocytes # (A) 0.6 k/uL (0-1.0); Monocytes % (A) 4 %; Neutrophils # (A) 9.5 k/uL (1.3-7.7); Neutrophils % (A) 65 %; Platelet Count 345 k/uL (150-450); RBC 4.91 m/uL (3.80-5.40); RDW 13.9 % (11.5-15.5); WBC 14.8 k/uL (3.8-10.6)
[2019-11-02] MEDS ORDERED: ALBUTEROL INHALER 60 PUFF/8 GM INHALER (BULK) INHALATION ONE (02:30)
[2019-11-02 02:33] LABS: ALT 15 U/L (4-34); AST 20 U/L (14-36); African American GFR (CKD) >90 (>60 ml/min/1.73 sqM); Albumin 4.7 g/dL (3.5-5.0); Alcohol <10 mg/dL; Alkaline Phosphatase 83 U/L (38-126); Anion Gap 10 mmol/L; Blood Urea Nitrogen 9 mg/dL (7-17); Calcium 9.8 mg/dL (8.4-10.2); Carbon Dioxide 26 mmol/L (22-30); Chloride 102 mmol/L (98-107); Glucose 94 mg/dL (74-99); Magnesium 1.9 mg/dL (1.6-2.3); Non-African American GFR(CKD) >90 (>60 ml/min/1.73 sqM); Potassium 4.1 mmol/L (3.5-5.1); Sodium 138 mmol/L (137-145); Total Bilirubin 0.2 mg/dL (0.2-1.3)
[2019-11-02] MEDS ORDERED: ACETAMINOPHEN TAB 325 MG TAB PO STA (03:05)
--- NOTE | 2019-11-02 03:40 | ED ---
General Adult HPI - General Chief complaint: Upper Respiratory Infection Stated complaint: SOB, chest pain Time Seen by Provider: 11/02/19 01:36 Source: patient, RN notes reviewed, old records reviewed Mode of arrival: ambulatory Limitations: no limitations - History of Present Illness Initial comments: 24-year-old female patient no pertinent pmhx presents to ED with chief complaint of cough congestion shortness of breath. Patient reports that she was drinking alcohol heavily earlier today. Reports that she's been having difficulty sleeping. Reports that she is very anxious and feels that she is having difficulty breathing. Denies any pain at this time. Does not believe that she is . Denies any recent travel or positive coronavirus contacts. Denies any other complaints at this time. Systemic: Pt denies fatigue, fever/chills, rash. Pt denies weakness, night sweats, weight loss. Neuro: Pt denies headache, visual disturbances, syncope or pre-syncope. HEENT: Pt denies ocular discharge or irritation, otalgia, rhinorrhea, pharyngit is or notable lymphadenopathy. Cardiopulmonary: Pt denies chest pain, heart palpitations, dyspnea on exertion. Abdominal/GI: Pt denies abdominal pain, n/v/d. : Pt denies dysuria, burning w/ urination, frequency/urgency. Denies new onset urinary or bowel incontinence. MSK: Pt denies myalgia, loss of strength or function in extremities. Neuro: Pt denies new onset weakness, paresthesias. - Related Data Home Medications Medication Instructions Recorded Confirmed 78/Iron/Folate 1/Dha 1 cap PO HS 01/13/19 04/14/19 [Prenate Dha Softgel] ALPRAZolam [Xanax] 0.25 mg PO HS 04/14/19 04/14/19 Acetaminophen [Tylenol] 650 mg PO Q6H PRN 04/14/19 04/14/19 Previous Rx's Medication Instructions Recorded Clindamycin HCl [Cleocin] 450 mg PO Q8H #90 cap 04/14/19 Ibuprofen [Motrin] 600 mg PO Q6HR PRN #30 tab 04/30/19 Ibuprofen [Motrin] 600 mg PO Q8HR PRN #30 tab 06/17/19 Clindamycin HCl 300 mg PO Q6HR #40 cap 08/11/19 Allergies Allergy/AdvReac Type Severity Reaction Status Date / Time amoxicillin Allergy Anaphylaxis Verified 11/02/19 01:27 magnesium Allergy Swelling Verified 11/02/19 01:27 Penicillins Allergy Anaphylaxis Verified 11/02/19 01:27 tramadol [From Ultram] Allergy Rash/Hives Verified 11/02/19 01:27 Review of Systems ROS Statement: Those systems with pertinent positive or pertinent negative responses have been documented in the HPI. ROS Other: All systems not noted in ROS Statement are negative. Past Medical History Past Medical History: No Reported History Additional Past Medical History / Comment(s): Patient had a spontaneous vaginal delivery 35-5/7 weeks gestation on 11/01/2013. She had premature rupture membranes and labor. Patient also reports that she had a delive ry last year with Dr. Dallas. History of Any Multi-Drug Resistant Organisms: None Reported Past Surgical History: No Surgical Hx Reported Additional Past Surgical History / Comment(s): vaginal delivery Past Anesthesia/Blood Transfusion Reactions: No Reported Reaction Past Psychological History: Anxiety, Depression Smoking Status: Current every day smoker Past Alcohol Use History: Occasional Past Drug Use History: None Reported - Past Family History Father History Unknown: Yes Family Medical History: No Reported History General Exam - General Exam Comments Initial Comments: Constitutional: NAD, AOX3, Pt has pleasant affect. HEENT: NC/AT, trachea midline, neck supple, no lymphadenopathy. Posterior pharynx non erythematous, without exudates. External ears appear normal, without discharge. Mucous membranes moist. Eyes PERRLA, EOM intact. There is no scleral icterus. No pallor noted. Cardiopulmonary: RRR, no murmurs, rubs or gallops, no JVD noted. Lungs CTAB in anterior and posterior roque. No peripheral edema. Abdominal exam: Abdomen soft and non-distended. Abdomen non-tender to palpation in all 4 quadrants. Bowel sounds active in LLQ. No hepatosplenomegaly. No ecchymosis Neuro: CN II-XII grossly intact. No nuchal rigidity. No raccon eyes, no brunson sign, no hemotympanum. No cervical spinal tenderness. MSK: No posterior calf tenderness bilaterally, homans sign negative bilaterally. Posterior tibialis and radial pulse +2 bilaterally. Sensation intact in upper and lower extremities. Full active ROM in upper and lower extremities, 5/5 stregnth. Limitations: no limitations Course Vital Signs 11/02/19 01:27 Temperature 97.9 F Pulse Rate 99 Respiratory 18 Rate Blood Pressure 110/80 O2 Sat by Pulse 99 Oximetry Medical Decision Making - Medical Decision Making 24-year-old female patient no pertinent pmhx presents to ED with chief complaint of cough congestion shortness of breath. Patient reports that she was drinking alcohol heavily earlier today. Reports that she's been having difficulty sleeping. Reports that she is very anxious and feels that she is having difficulty breathing. Denies any pain at this time. Does not believe that she is . Denies any recent travel or positive coronavirus contacts. Denies any other complaints at this time. Does not believe that she is . Denies any recent travel or positive coronavirus contacts. Denies any other complaints at this time. Patient vital signs are stable, afebrile. Physical exam dentist acute pathology. Patient is PERC negative. CBC revealed leukocytosis of 14.8. Chest revealed no acute pathology. UA tox screen significant for positive benzodiazepines, opiates, cocaine. These findings were discussed with patient. Patient advised to refrain from or drug usage. Patient was further advises of quarantine for the next 14 days due to cough. Patient to follow with primary care provider tomorrow via phone call. Pt decline substance abuse referrals. At time of discharge patient appears well in no acute distress. Will Return to ER if condition worsens. Patient was given a albuterol inhaler in ED. Case discussed with Dr. Hubbard. - Lab Data Result diagrams: 11/02/19 02:05 11/02/19 02:05 Lab Results 11/02/19 11/02/19 11/02/19 Range/Units 02:03 02:05 02:05 WBC 14.8 H (3.8-10.6) k/uL RBC 4.91 (3.80-5.40) m/uL Hgb 13.6 (11.4-16.0) gm/dL Hct 41.9 (34.0-46.0) % MCV 85.4 (80.0-100.0) fL MCH 27.7 (25.0-35.0) pg MCHC 32.4 (31.0-37.0) g/dL RDW 13.9 (11.5-15.5) % Plt Count 345 (150-450) k/uL Neutrophils % 65 % Lymphocytes % 29 % Monocytes % 4 % Eosinophils % 1 % Basophils % 0 % Neutrophils # 9.5 H (1.3-7.7) k/uL Lymphocytes # 4.2 (1.0-4.8) k/uL Monocytes # 0.6 (0-1.0) k/uL Eosinophils # 0.1 (0-0.7) k/uL Basophils # 0.1 (0-0.2) k/uL Sodium 138 (137-145) mmol/L Potassium 4.1 (3.5-5.1) mmol/L Chloride 102 (98-107) mmol/L Carbon Dioxide 26 (22-30) mmol/L Anion Gap 10 mmol/L BUN 9 (7-17) mg/dL Creatinine 0.62 (0.52-1.04) mg/dL Est GFR (CKD-EPI)AfAm >90 (>60 ml/min/1.73 sqM) Est GFR (CKD-EPI)NonAf >90 (>60 ml/min/1.73 sqM) Glucose 94 (74-99) mg/dL Calcium 9.8 (8.4-10.2) mg/dL Magnesium 1.9 (1.6-2.3) mg/dL Total Bilirubin 0.2 (0.2-1.3) mg/dL AST 20 (14-36) U/L ALT 15 (4-34) U/L Alkaline Phosphatase 83 (38-126) U/L Total Protein 8.0 (6.3-8.2) g/dL Albumin 4.7 (3.5-5.0) g/dL Urine Color Urine Appearance (Clear) Urine pH (5.0-8.0) Ur Specific [place] (1.001-1.035) Urine Protein (Negative) Urine Glucose (UA) (Negative) Urine Ketones (Negative) Urine Blood (Negative) Urine Nitrite (Negative) Urine Bilirubin (Negative) Urine Urobilinogen (<2.0) mg/dL Ur Leukocyte Esterase (Negative) Urine RBC (0-5) /hpf Urine WBC (0-5) /hpf Ur Squamous Epith Cells (0-4) /hpf Hyaline Casts (0-2) /lpf Urine Mucus (None) /hpf Urine HCG, Qual Not Detected (Not Detectd) Urine Opiates Screen (NotDetected) Ur Oxycodone Screen (NotDetected) Urine Methadone Screen (NotDetected) Ur Propoxyphene Screen (NotDetected) Ur Barbiturates Screen (NotDetected) U Tricyclic Antidepress (NotDetected) Ur Phencyclidine Scrn (NotDetected) Ur Amphetamines Screen (NotDetected) U Methamphetamines Scrn (NotDetected) U Benzodiazepines Scrn (NotDetected) Urine Cocaine Screen (NotDetected) U Marijuana (THC) Screen (NotDetected) Serum Alcohol <10 mg/dL 11/02/19 Range/Units 02:30 WBC (3.8-10.6) k/uL RBC (3.80-5.40) m/uL Hgb (11.4-16.0) gm/dL Hct (34.0-46.0) % MCV (80.0-100.0) fL MCH (25.0-35.0) pg MCHC (31.0-37.0) g/dL RDW (11.5-15.5) % Plt Count (150-450) k/uL Neutrophils % % Lymphocytes % % Monocytes % % Eosinophils % % Basophils % % Neutrophils # (1.3-7.7) k/uL Lymphocytes # (1.0-4.8) k/uL Monocytes # (0-1.0) k/uL Eosinophils # (0-0.7) k/uL Basophils # (0-0.2) k/uL Sodium (137-145) mmol/L Potassium (3.5-5.1) mmol/L Chloride (98-107) mmol/L Carbon Dioxide (22-30) mmol/L Anion Gap mmol/L BUN (7-17) mg/dL Creatinine (0.52-1.04) mg/dL Est GFR (CKD-EPI)AfAm (>60 ml/min/1.73 sqM) Est GFR (CKD-EPI)NonAf (>60 ml/min/1.73 sqM) Glucose (74-99) mg/dL Calcium (8.4-10.2) mg/dL Magnesium (1.6-2.3) mg/dL Total Bilirubin (0.2-1.3) mg/dL AST (14-36) U/L ALT (4-34) U/L Alkaline Phosphatase (38-126) U/L Total Protein (6.3-8.2) g/dL Albumin (3.5-5.0) g/dL Urine Color Yellow Urine Appearance Clear (Clear) Urine pH 7.0 (5.0-8.0) Ur Specific [place] 1.025 (1.001-1.035) Urine Protein Trace H (Negative) Urine Glucose (UA) Negative (Negative) Urine Ketones Negative (Negative) Urine Blood Moderate H (Negative) Urine Nitrite Negative (Negative) Urine Bilirubin Negative (Negative) Urine Urobilinogen <2.0 (<2.0) mg/dL Ur Leukocyte Esterase Negative (Negative) Urine RBC 1 (0-5) /hpf Urine WBC 1 (0-5) /hpf Ur Squamous Epith Cells 10 H (0-4) /hpf Hyaline Casts 1 (0-2) /lpf Urine Mucus Rare H (None) /hpf Urine HCG, Qual (Not Detectd) Urine Opiates Screen Detected H (NotDetected) Ur Oxycodone Screen Not Detected (NotDetected) Urine Methadone Screen Not Detected (NotDetected) Ur Propoxyphene Screen Not Detected (NotDetected) Ur Barbiturates Screen Not Detected (NotDetected) U Tricyclic Antidepress Not Detected (NotDetected) Ur Phencyclidine Scrn Not Detected (NotDetected) Ur Amphetamines Screen Not Detected (NotDetected) U Methamphetamines Scrn Not Detected (NotDetected) U Benzodiazepines Scrn Detected H (NotDetected) Urine Cocaine Screen Detected H (NotDetected) U Marijuana (THC) Screen Not Detected (NotDetected) Serum Alcohol mg/dL - EKG Data -: EKG Interpreted by Me (and Dr. Hubbard) EKG Comments: Ventricular rate 84, HI interval 176, QRS 90, QT/QTC 390 [birth year]1970. No since rhythm, normal EKG, no concern for acute ischemia. Disposition Clinical Impression: Polysubstance abuse, Cough Disposition: HOME SELF-CARE Instructions (If sedation given, give patient instructions): Polysubstance Abuse (ED), Acute Cough (ED) Additional Instructions: Follow-up with primary care provider tomorrow. Abstain from all illicit drug use. Self quarantined for the next 14 days. Return to ER if condition worsens. Is patient prescribed a controlled substance at d/c from ED?: No Referrals: None,Stated [Primary Care Provider] - 1-2 days [facility] [NON-STAFF] - 1-2 days
[2019-11-02 03:47] LABS: Appearance,Urine Clear (Clear); Bilirubin,Urine Negative (Negative); Blood,Urine Moderate (Negative); Color,Urine Yellow; Glucose,Urine (UA) Negative (Negative); Hyaline Casts,Urine 1 /lpf (0-2); Ketones,Urine Negative (Negative); Leukocyte Esterase,Urine Negative (Negative); Mucus,Urine Rare /hpf; Nitrite,Urine Negative (Negative); Protein,Urine Trace (Negative); RBC,Urine 1 /hpf (0-5); Specific Gravity,Urine 1.025 (1.001-1.035); Squamous Epithelial Cell,Urine 10 /hpf (0-4); Urobilinogen,Urine <2.0 mg/dL (<2.0); WBC,Urine 1 /hpf (0-5)
[2019-11-02 04:07] LABS: Amphetamine Screen,Urine Not Detected (NotDetected); Barbiturate Screen,Urine Not Detected (NotDetected); Benzodiazepines Screen,Urine Detected (NotDetected); Cocaine Screen,Urine Detected (NotDetected); Methadone Screen, Urine Not Detected (NotDetected); Opiate Screen,Urine Detected (NotDetected); Oxycodone Screen, Urine Not Detected (NotDetected); Phencyclidine Screen,Urine Not Detected (NotDetected); Tricyclic Antidepressant,Urine Not Detected (NotDetected); Urn Cannabinoid Scrn Not Detected (NotDetected)
[2019-11-02 04:42] VITALS: BP 125/94; PULSE 100
== END 2019-11-02 04:35 | disposition home or self-care (01) ==
LOC: EC 01:25
DX: F19.10 Other psychoactive substance abuse, uncomplicated (principal); R05 Cough; D72.829 Elevated white blood cell count, unspecified; R82.5 Elevated urine levels of drugs, medicaments and biological substances; R09.89 Other specified symptoms and signs involving the circulatory and respiratory systems; R06.02 Shortness of breath; G47.9 Sleep disorder, unspecified; F32.9 Major depressive disorder, single episode, unspecified; F41.9 Anxiety disorder, unspecified; F17.200 Nicotine dependence, unspecified, uncomplicated; Z88.0 Allergy status to penicillin; Z88.5 Allergy status to narcotic agent; Z88.8 Allergy status to other drugs, medicaments and biological substances; Z79.899 Other long term (current) drug therapy; Z53.20 Procedure and treatment not carried out because of patient's decision for unspecified reasons
CPT/HCPCS: 99285; 36415; 93005; 80053; 83735; 85025; 81001; 81025; 80306; 71046; G0480; 80320

== ENCOUNTER 2020-07-14 21:24 | Emergency (ER) | payer OTHER ==
--- NOTE | 2020-07-14 22:19 | ED ---
General Adult HPI - General Chief complaint: Neuro Symptoms/Deficit Stated complaint: Feet/legs are numb Time Seen by Provider: 07/14/20 21:59 Source: patient Mode of arrival: ambulatory Limitations: no limitations - History of Present Illness Initial comments: This patient is 25-year-old woman who presents with complaint of having bilateral tingling of the feet and also feeling like her feet are swollen. This been going on a couple of weeks she states starting shortly after she had weaned off of Xanax that she had been using daily. The patient also subsequently stated she was having a little bit of foul-smelling vaginal discharge and a little bit of lower pelvic discomfort. She states that it an ex-partner of hers had reportedly tested positive for " a disease." Patient states that she had been treated prophylactically with a shot but had not followed up and continues to have a little bit of discharge. No fever or chills. No nausea or vomiting. No change in bowel movements. She does have a little bit of dysuria and frequency. Onset/Timin -: week(s) Location: left, right, lower extremity Radiation: non-radiation Quality: other Consistency: constant Improves with: none Worsens with: none Associated Symptoms: denies other symptoms Treatments Prior to Arrival: none - Related Data Home Medications Medication Instructions Recorded Confirmed No Known Home Medications 07/14/20 07/14/20 Allergies Allergy/AdvReac Type Severity Reaction Status Date / Time amoxicillin Allergy Anaphylaxis Verified 07/14/20 22:47 magnesium Allergy Swelling Verified 07/14/20 22:47 Penicillins Allergy Anaphylaxis Verified 07/14/20 22:47 tramadol [From Ultram] Allergy Rash/Hives Verified 07/14/20 22:47 Review of Systems ROS Statement: Those systems with pertinent positive or pertinent negative responses have been documented in the HPI. ROS Other: All systems not noted in ROS Statement are negative. Constitutional: Denies: fever, chills Respiratory: Denies: cough, dyspnea Cardiovascular: Reports: as per HPI, edema. Denies: chest pain, palpitations, syncope Gastrointestinal: Reports: as per HPI, abdominal pain. Denies: nausea, vomiting, diarrhea, constipation, melena, hematochezia Genitourinary: Reports: dysuria, frequency, discharge. Denies: urgency, hematuria Musculoskeletal: Denies: back pain Skin: Denies: rash, lesions Neurological: Reports: as per HPI, paresthesias. Denies: headache, weakness, numbness Past Medical History Past Medical History: No Reported History Additional Past Medical History / Comment(s): Patient had a spontaneous vaginal delivery 35-5/7 weeks gestation on 11/01/2013. She had premature rupture membranes and labor. Patient also reports that she had a delivery last year with Dr. Dallas. History of Any Multi-Drug Resistant Organisms: None Reported Past Surgical History: No Surgical Hx Reported Additional Past Surgical History / Comment(s): vaginal delivery Past Anesthesia/Blood Transfusion Reactions: No Reported Reaction Past Psychological History: Anxiety, Depression Smoking Status: Current every day smoker Past Alcohol Use History: Occasional Past Drug Use History: Prescription Drug Abuse - Past Family History Father History Unknown: Yes Family Medical History: No Reported History General Exam Limitations: no limitations General appearance: alert, in no apparent distress Head exam: Present: atraumatic, normocephalic Eye exam: Present: normal appearance. Absent: scleral icterus, conjunctival injection ENT exam: Present: normal oropharynx Neck exam: Present: normal inspection Respiratory exam: Present: normal lung sounds bilaterally. Absent: respiratory distress, wheezes, rales, rhonchi, stridor Cardiovascular Exam: Present: regular rate, normal rhythm, normal heart sounds. Absent: systolic murmur, diastolic murmur, rubs, gallop GI/Abdominal exam: Present: soft. Absent: distended, tenderness, guarding, rebound, rigid, mass, pulsatile mass, hernia Extremities exam: Present: normal inspection, normal capillary refill. Absent: pedal edema, calf tenderness Back exam: Present: normal inspection. Absent: CVA tenderness (R), CVA tenderness (L) Neurological exam: Present: alert. Absent: motor sensory deficit Skin exam: Present: warm, dry, intact, normal color. Absent: rash Course Vital Signs 07/14/20 21:29 Temperature 98.2 F Pulse Rate 105 H Respiratory 20 Rate Blood Pressure 119/79 O2 Sat by Pulse 97 Oximetry Medical Decision Making - Lab Data Result diagrams: 07/14/20 22:25 07/14/20 22:25 Lab Results 07/14/20 07/14/20 07/14/20 Range/Units 00:00 22:25 22:25 WBC 6.8 (3.8-10.6) k/uL RBC 3.96 (3.80-5.40) m/uL Hgb 12.6 (11.4-16.0) gm/dL Hct 37.0 (34.0-46.0) % MCV 93.4 (80.0-100.0) fL MCH 31.8 (25.0-35.0) pg MCHC 34.0 (31.0-37.0) g/dL RDW 17.0 H (11.5-15.5) % Plt Count 240 (150-450) k/uL MPV 7.2 Neutrophils % 43 % Lymphocytes % 48 % Monocytes % 5 % Eosinophils % 2 % Basophils % 1 % Neutrophils # 2.9 (1.3-7.7) k/uL Lymphocytes # 3.3 (1.0-4.8) k/uL Monocytes # 0.3 (0-1.0) k/uL Eosinophils # 0.1 (0-0.7) k/uL Basophils # 0.0 (0-0.2) k/uL Anisocytosis Slight Sodium (137-145) mmol/L Potassium (3.5-5.1) mmol/L Chloride (98-107) mmol/L Carbon Dioxide (22-30) mmol/L Anion Gap mmol/L BUN (7-17) mg/dL Creatinine (0.52-1.04) mg/dL Est GFR (CKD-EPI)AfAm (>60 ml/min/1.73 sqM) Est GFR (CKD-EPI)NonAf (>60 ml/min/1.73 sqM) Glucose (74-99) mg/dL Calcium (8.4-10.2) mg/dL Magnesium (1.6-2.3) mg/dL Total Bilirubin (0.2-1.3) mg/dL AST (14-36) U/L ALT (4-34) U/L Alkaline Phosphatase (38-126) U/L Total Protein (6.3-8.2) g/dL Albumin (3.5-5.0) g/dL Urine Color Light Yellow Urine Appearance Clear (Clear) Urine pH 7.0 (5.0-8.0) Ur Specific [place] 1.017 (1.001-1.035) Urine Protein Negative (Negative) Urine Glucose (UA) Negative (Negative) Urine Ketones Negative (Negative) Urine Blood Negative (Negative) Urine Nitrite Negative (Negative) Urine Bilirubin Negative (Negative) Urine Urobilinogen <2.0 (<2.0) mg/dL Ur Leukocyte Esterase Negative (Negative) Urine HCG, Qual (Not Detectd) Trichomonas Ag (Rapid) Negative (Negative) 07/14/20 07/14/20 Range/Units 22:25 22:25 WBC (3.8-10.6) k/uL RBC (3.80-5.40) m/uL Hgb (11.4-16.0) gm/dL Hct (34.0-46.0) % MCV (80.0-100.0) fL MCH (25.0-35.0) pg MCHC (31.0-37.0) g/dL RDW (11.5-15.5) % Plt Count (150-450) k/uL MPV Neutrophils % % Lymphocytes % % Monocytes % % Eosinophils % % Basophils % % Neutrophils # (1.3-7.7) k/uL Lymphocytes # (1.0-4.8) k/uL Monocytes # (0-1.0) k/uL Eosinophils # (0-0.7) k/uL Basophils # (0-0.2) k/uL Anisocytosis Sodium 138 (137-145) mmol/L Potassium 4.1 (3.5-5.1) mmol/L Chloride 105 (98-107) mmol/L Carbon Dioxide 28 (22-30) mmol/L Anion Gap 5 mmol/L BUN 18 H (7-17) mg/dL Creatinine 0.79 (0.52-1.04) mg/dL Est GFR (CKD-EPI)AfAm >90 (>60 ml/min/1.73 sqM) Est GFR (CKD-EPI)NonAf >90 (>60 ml/min/1.73 sqM) Glucose 86 (74-99) mg/dL Calcium 9.4 (8.4-10.2) mg/dL Magnesium 2.1 (1.6-2.3) mg/dL Total Bilirubin 0.3 (0.2-1.3) mg/dL AST 17 (14-36) U/L ALT 18 (4-34) U/L Alkaline Phosphatase 58 (38-126) U/L Total Protein 7.4 (6.3-8.2) g/dL Albumin 4.5 (3.5-5.0) g/dL Urine Color Urine Appearance (Clear) Urine pH (5.0-8.0) Ur Specific [place] (1.001-1.035) Urine Protein (Negative) Urine Glucose (UA) (Negative) Urine Ketones (Negative) Urine Blood (Negative) Urine Nitrite (Negative) Urine Bilirubin (Negative) Urine Urobilinogen (<2.0) mg/dL Ur Leukocyte Esterase (Negative) Urine HCG, Qual Not Detected (Not Detectd) Trichomonas Ag (Rapid) (Negative) Disposition Clinical Impression: Paresthesia, Pelvic pain Disposition: HOME SELF-CARE Condition: Good Instructions (If sedation given, give patient instructions): Pelvic Pain in Women (ED), Paresthesia (ED) Is patient prescribed a controlled substance at d/c from ED?: No Referrals: None,Stated [REFERRING] - 1-2 days Nida Cannon MD [REFERRING] - 1-2 days Malissa Sierra DO [Doctor of Osteopathic Medicine] - 1-2 days
[2020-07-14 22:53] LABS: Anisocytosis Slight; Basophils % (A) 1 %; Eosinophils # (A) 0.1 k/uL (0-0.7); Eosinophils % (A) 2 %; HGB 12.6 gm/dL (11.4-16.0); Lymphocytes # (A) 3.3 k/uL (1.0-4.8); Lymphocytes % (A) 48 %; MCH 31.8 pg (25.0-35.0); MCV 93.4 fL (80.0-100.0); Mean Platelet Volume 7.2; Monocytes # (A) 0.3 k/uL (0-1.0); Monocytes % (A) 5 %; Neutrophils # (A) 2.9 k/uL (1.3-7.7); Neutrophils % (A) 43 %; Platelet Count 240 k/uL (150-450); RBC 3.96 m/uL (3.80-5.40); WBC 6.8 k/uL (3.8-10.6)
[2020-07-14 22:55] LABS: Appearance,Urine Clear (Clear); Bilirubin,Urine Negative (Negative); Blood,Urine Negative (Negative); Color,Urine Light Yellow; Glucose,Urine (UA) Negative (Negative); Ketones,Urine Negative (Negative); Leukocyte Esterase,Urine Negative (Negative); Nitrite,Urine Negative (Negative); Protein,Urine Negative (Negative); Specific Gravity,Urine 1.017 (1.001-1.035); Urobilinogen,Urine <2.0 mg/dL (<2.0)
[2020-07-14 23:02] LABS: ALT 18 U/L (4-34); AST 17 U/L (14-36); African American GFR (CKD) >90 (>60 ml/min/1.73 sqM); Albumin 4.5 g/dL (3.5-5.0); Alkaline Phosphatase 58 U/L (38-126); Anion Gap 5 mmol/L; Blood Urea Nitrogen 18 mg/dL (7-17); Calcium 9.4 mg/dL (8.4-10.2); Carbon Dioxide 28 mmol/L (22-30); Chloride 105 mmol/L (98-107); Glucose 86 mg/dL (74-99); Magnesium 2.1 mg/dL (1.6-2.3); Non-African American GFR(CKD) >90 (>60 ml/min/1.73 sqM); Potassium 4.1 mmol/L (3.5-5.1); Sodium 138 mmol/L (137-145); Total Bilirubin 0.3 mg/dL (0.2-1.3); Total Protein 7.4 g/dL (6.3-8.2)
--- NOTE | 2020-07-15 01:18 | US ---
EXAM: US Pelvis Transabdominal and Transvaginal, Complete and US Duplex Arterial/Venous of the Pelvis, Complete CLINICAL HISTORY: ITS.REASON US Reason: pelvic pain TECHNIQUE: Real-time complete transabdominal and transvaginal pelvic ultrasound with image documentation. Transvaginal imaging was used for better evaluation of the endometrium and adnexa. Real-time duplex ultrasound scan of the arterial and venous flow of the pelvis with color Doppler flow and spectral waveform analysis. COMPARISON: No relevant prior studies available. FINDINGS: Uterus/cervix: The uterus measures 7.3 x 3.3 x 5.3 cm, 68 mL. The endometrial stripe measures 6 mm with normal smooth contour. No myometrial mass. Right ovary: The right ovary measures 4 x 2.3 x 2.3 cm, 11 mL. Doppler blood flow is normal. Left ovary: The left ovary measures 3.8 x 1.8 x 2 cm, 7 mL. There is a 1.4 x 1.3 cm cyst or follicle within it. Doppler both eyes normal. No torsion. Free fluid: No free fluid is seen within the cul-de-sac. There is a trace amount of free fluid in the adnexa. Bladder: Unremarkable as visualized. Wall is normal thickness for degree of distention. IMPRESSION: No acute findings in the pelvis.
[2020-07-15] MEDS ORDERED: AZITHROMYCIN 250 MG TAB PO STA (01:31)
[2020-07-15] MEDS ORDERED: cefTRIAXone IN SWFI 1,000 MG/10 ML SYRINGE IVP STA (01:31)
[2020-07-15] MEDS ORDERED: cefTRIAXone 1,000 MG VIAL (IM USE) IM STA (01:38)
[2020-07-15 01:56] VITALS: BP 115/78; PULSE 99; RESP 18; TEMP 98.1
[2020-07-16 14:02] LABS: C. trachomatis,PCR Negative (Neg,Equiv); Chlamydia trachomatis Source Cervix; N. gonorrhoeae,PCR Negative (Neg,Equiv); Neisseria Source Cervix
== END 2020-07-15 01:55 | disposition home or self-care (01) ==
LOC: EC 21:24
DX: R20.2 Paresthesia of skin (principal); R10.2 Pelvic and perineal pain; N89.8 Other specified noninflammatory disorders of vagina; R30.0 Dysuria; R35.0 Frequency of micturition; F17.200 Nicotine dependence, unspecified, uncomplicated; Z88.0 Allergy status to penicillin; Z88.1 Allergy status to other antibiotic agents; Z88.6 Allergy status to analgesic agent; Z88.8 Allergy status to other drugs, medicaments and biological substances
CPT/HCPCS: 36415; 80053; 83735; 85025; 81003; 81025; 87808; 87491; 87591; 93975; 76830; 99284; 96372; J0696

== ENCOUNTER 2020-12-07 14:13 | Emergency (ER) | payer OTHER ==
[2020-12-07 14:22] VITALS: BP 105/69; PULSE 101; RESP 18; TEMP 98.1
[2020-12-07] MEDS ORDERED: SODIUM CHLORIDE 0.9% 500 ML 500 ML IV ONE (14:51)
--- NOTE | 2020-12-07 15:05 | ED ---
Female Urogenital HPI - General Chief complaint: Vaginal Bleeding Stated complaint: Poss miscarriage Time Seen by Provider: 12/07/20 14:48 Source: patient Mode of arrival: ambulatory Limitations: no limitations - History of Present Illness Initial comments: 25yo female who is a patient previous of Dr Sierra under no current care presenting for cc of possible miscarriage. Patient states she's had vaginal bleeding for 2 days. She states she began having cramping that felt like a period midline lower pelvic. She denies unilateral pain she denies any severe pain she denies dysuria urgency frequency bloody stools or hematuria. Patient states that she passed a large clot yesterday and thought that this may be the baby". Patient states that she took a picture of which was provided on history taking. Patient states the bleeding has slowed down. She denies a nausea vomiting fevers. Patient denies additional complaints. Denies medication induced prior to this bleeding. On arrival patient appears well nontoxic in no distress. Ambulatory. BP Stable. - Related Data Home Medications Medication Instructions Recorded Confirmed No Known Home Medications 07/14/20 07/14/20 Allergies Allergy/AdvReac Type Severity Reaction Status Date / Time amoxicillin Allergy Anaphylaxis Verified 12/07/20 14:22 magnesium Allergy Swelling Verified 12/07/20 14:22 Penicillins Allergy Anaphylaxis Verified 12/07/20 14:22 tramadol [From Ultram] Allergy Rash/Hives Verified 12/07/20 14:22 Review of Systems ROS Statement: Those systems with pertinent positive or pertinent negative responses have been documented in the HPI. ROS Other: All systems not noted in ROS Statement are negative. Past Medical History Past Medical History: No Reported History Additional Past Medical History / Comment(s): Patient had a spontaneous vaginal delivery 35-5/7 weeks gestation on 11/01/2013. She had premature rupture membranes and labor. Patient also reports that she had a delivery last year with Dr. Dallas. History of Any Multi-Drug Resistant Organisms: None Reported Past Surgical History: No Surgical Hx Reported Additional Past Surgical History / Comment(s): vaginal delivery Past Anesthesia/Blood Transfusion Reactions: No Reported Reaction Past Psychological History: Anxiety, Depression Smoking Status: Current every day smoker Past Alcohol Use History: Occasional Past Drug Use History: Prescription Drug Abuse - Past Family History Father History Unknown: Yes Family Medical History: No Reported History General Exam - General Exam Comments Initial Comments: General: The patient is awake and alert, in no distress Eye: Pupils are equal, round and reactive to light, extra-ocular movements are intact. No nystagmus. There is normal conjunctiva bilaterally. No signs of icterus. Ears, nose, mouth and throat: There are moist mucous membranes and no oral lesions. Neck: The neck is supple, there is no tenderness or JVD. Cardiovascular: There is a regular rate and rhythm. No murmur, rub or gallop is appreciated. Respiratory: Lungs are clear to auscultation, respirations are non-labored, breath sounds are equal. No wheezes, stridor, rales, or rhonchi. Gastrointestinal: Soft, non-distended, non-tender abdomen without masses or organomegaly noted. There is no rebound or guarding present. : dark brown blood, not bright red. os open, no cervical motion or adnexal tenderness. Musculoskeletal: Normal ROM, no tenderness. Strength 5/5. Sensation intact. Radial and DP pulses equal bilaterally 2+. Neurological: A&O x 3. CN II-XII intact grossly, There are no obvious motor or sensory deficits. Coordination appears grossly intact. Speech is normal. Skin: Skin is warm and dry and no rashes or lesions are noted. Psychiatric: Cooperative, appropriate mood & affect, normal judgment. Limitations: no limitations Course Vital Signs 12/07/20 14:19 Temperature 98.1 F Pulse Rate 101 H Respiratory 18 Rate Blood Pressure 105/69 O2 Sat by Pulse 100 Oximetry Medical Decision Making - Medical Decision Making Abdomen soft nontender.. non tenderness or heavy bleeding on exam. pt US thickened endometrium without evidence of IUP no free fluid or adnexal masses. pt hcg elevated >5000. pt denies hx of ectopic or IUD use. consulted Dr Huang on [facility] disucssuing pt hx exam, HCG levels, blood type and US results. At this time we both feel this is likely spontaneous but agree that close outpatient f/u with serial hcg levels is appropriate to definitively rule out ectopic . Patient is agreeable to this care plan is aware of the imp ortance of follow-up with the differential diagnosis including ectopic although felt less likely and patient was discdharged appearing well. return parameters discussed at length. pt discharged appearing well. Dr León agreeable to care plan. hcg rx provided. - Lab Data Result diagrams: 12/07/20 15:09 12/07/20 15:09 Lab Results 12/07/20 12/07/20 12/07/20 Range/Units 15:09 15:09 15:09 WBC 7.5 (3.8-10.6) k/uL RBC 4.35 (3.80-5.40) m/uL Hgb 13.1 (11.4-16.0) gm/dL Hct 38.7 (34.0-46.0) % MCV 88.8 (80.0-100.0) fL MCH 30.1 (25.0-35.0) pg MCHC 33.9 (31.0-37.0) g/dL RDW 15.1 (11.5-15.5) % Plt Count 254 (150-450) k/uL MPV 7.0 Neutrophils % 64 % Lymphocytes % 29 % Monocytes % 3 % Eosinophils % 2 % Basophils % 0 % Neutrophils # 4.8 (1.3-7.7) k/uL Lymphocytes # 2.2 (1.0-4.8) k/uL Monocytes # 0.3 (0-1.0) k/uL Eosinophils # 0.2 (0-0.7) k/uL Basophils # 0.0 (0-0.2) k/uL Sodium 137 (137-145) mmol/L Potassium 4.1 (3.5-5.1) mmol/L Chloride 104 (98-107) mmol/L Carbon Dioxide 26 (22-30) mmol/L Anion Gap 7 mmol/L BUN 6 L (7-17) mg/dL Creatinine 0.59 (0.52-1.04) mg/dL Est GFR (CKD-EPI)AfAm >90 (>60 ml/min/1.73 sqM) Est GFR (CKD-EPI)NonAf >90 (>60 ml/min/1.73 sqM) Glucose 91 (74-99) mg/dL Calcium 9.3 (8.4-10.2) mg/dL Total Bilirubin 0.3 (0.2-1.3) mg/dL AST 22 (14-36) U/L ALT 27 (4-34) U/L Alkaline Phosphatase 53 (38-126) U/L Total Protein 7.5 (6.3-8.2) g/dL Albumin 4.5 (3.5-5.0) g/dL HCG, Quant 6638.6 mIU/mL Urine Color Yellow Urine Appearance Cloudy H (Clear) Urine pH 6.0 (5.0-8.0) Ur Specific [place] 1.027 (1.001-1.035) Urine Protein 1+ H (Negative) Urine Glucose (UA) Negative (Negative) Urine Ketones Negative (Negative) Urine Blood Moderate H (Negative) Urine Nitrite Negative (Negative) Urine Bilirubin Negative (Negative) Urine Urobilinogen 2.0 (<2.0) mg/dL Ur Leukocyte Esterase Small H (Negative) Urine RBC 2 (0-5) /hpf Urine WBC 8 H (0-5) /hpf Ur Squamous Epith Cells 18 H (0-4) /hpf Urine Bacteria Rare H (None) /hpf Urine Mucus Many H (None) /hpf Blood Type Blood Type Recheck Bld Type Recheck Status Antibody Screen Spec Expiration Date 12/07/20 Range/Units 15:09 WBC (3.8-10.6) k/uL RBC (3.80-5.40) m/uL Hgb (11.4-16.0) gm/dL Hct (34.0-46.0) % MCV (80.0-100.0) fL MCH (25.0-35.0) pg MCHC (31.0-37.0) g/dL RDW (11.5-15.5) % Plt Count (150-450) k/uL MPV Neutrophils % % Lymphocytes % % Monocytes % % Eosinophils % % Basophils % % Neutrophils # (1.3-7.7) k/uL Lymphocytes # (1.0-4.8) k/uL Monocytes # (0-1.0) k/uL Eosinophils # (0-0.7) k/uL Basophils # (0-0.2) k/uL Sodium (137-145) mmol/L Potassium (3.5-5.1) mmol/L Chloride (98-107) mmol/L Carbon Dioxide (22-30) mmol/L Anion Gap mmol/L BUN (7-17) mg/dL Creatinine (0.52-1.04) mg/dL Est GFR (CKD-EPI)AfAm (>60 ml/min/1.73 sqM) Est GFR (CKD-EPI)NonAf (>60 ml/min/1.73 sqM) Glucose (74-99) mg/dL Calcium (8.4-10.2) mg/dL Total Bilirubin (0.2-1.3) mg/dL AST (14-36) U/L ALT (4-34) U/L Alkaline Phosphatase (38-126) U/L Total Protein (6.3-8.2) g/dL Albumin (3.5-5.0) g/dL HCG, Quant mIU/mL Urine Color Urine Appearance (Clear) Urine pH (5.0-8.0) Ur Specific [place] (1.001-1.035) Urine Protein (Negative) Urine Glucose (UA) (Negative) Urine Ketones (Negative) Urine Blood (Negative) Urine Nitrite (Negative) Urine Bilirubin (Negative) Urine Urobilinogen (<2.0) mg/dL Ur Leukocyte Esterase (Negative) Urine RBC (0-5) /hpf Urine WBC (0-5) /hpf Ur Squamous Epith Cells (0-4) /hpf Urine Bacteria (None) /hpf Urine Mucus (None) /hpf Blood Type O Positive Blood Type Recheck O Pos Bld Type Recheck Status No Antibody Screen NEGATIVE Spec Expiration Date 12/10/20202308 Disposition Clinical Impression: Threatened , Vaginal bleeding during Disposition: HOME SELF-CARE Condition: Good Instructions (If sedation given, give patient instructions): Threatened Miscarriage (ED) Additional Instructions: Please use medication as discussed. Please follow-up withOBGYN on after repeating HCG levels as discussed. Prescription will be provided. Important to return for worsening pain/bleeding. Call to make appointment (tell office staff that Ifrah GEORGES consulted Dr. Huang in the ER who wanted follow-up on in office). Please return to emergency room if the symptoms increase or worsen or for any other concerns. Is patient prescribed a controlled substance at d/c from ED?: No Referrals: None,Stated [Primary Care Provider] - 1-2 days Nereyda Huang DO [Doctor of Osteopathic Medicine] - 12/09/20 Time of Disposition: 16:12
[2020-12-07 15:19] LABS: Basophils % (A) 0 %; Eosinophils # (A) 0.2 k/uL (0-0.7); Eosinophils % (A) 2 %; HCT 38.7 % (34.0-46.0); HGB 13.1 gm/dL (11.4-16.0); Lymphocytes # (A) 2.2 k/uL (1.0-4.8); Lymphocytes % (A) 29 %; MCH 30.1 pg (25.0-35.0); MCHC 33.9 g/dL (31.0-37.0); MCV 88.8 fL (80.0-100.0); Monocytes # (A) 0.3 k/uL (0-1.0); Monocytes % (A) 3 %; Neutrophils # (A) 4.8 k/uL (1.3-7.7); Neutrophils % (A) 64 %; Platelet Count 254 k/uL (150-450); RBC 4.35 m/uL (3.80-5.40); RDW 15.1 % (11.5-15.5); WBC 7.5 k/uL (3.8-10.6)
[2020-12-07 15:30] LABS: ALT 27 U/L (4-34); AST 22 U/L (14-36); African American GFR (CKD) >90 (>60 ml/min/1.73 sqM); Albumin 4.5 g/dL (3.5-5.0); Alkaline Phosphatase 53 U/L (38-126); Anion Gap 7 mmol/L; Appearance,Urine Cloudy (Clear); Bacteria,Urine Rare /hpf; Bilirubin,Urine Negative (Negative); Blood Urea Nitrogen 6 mg/dL (7-17); Blood,Urine Moderate (Negative); Calcium 9.3 mg/dL (8.4-10.2); Carbon Dioxide 26 mmol/L (22-30); Chloride 104 mmol/L (98-107); Color,Urine Yellow; Glucose 91 mg/dL (74-99); Glucose,Urine (UA) Negative (Negative); Ketones,Urine Negative (Negative); Leukocyte Esterase,Urine Small (Negative); Mucus,Urine Many /hpf; Nitrite,Urine Negative (Negative); Non-African American GFR(CKD) >90 (>60 ml/min/1.73 sqM); Potassium 4.1 mmol/L (3.5-5.1); Protein,Urine 1+ (Negative); RBC,Urine 2 /hpf (0-5); Sodium 137 mmol/L (137-145); Specific Gravity,Urine 1.027 (1.001-1.035); Squamous Epithelial Cell,Urine 18 /hpf (0-4); Total Bilirubin 0.3 mg/dL (0.2-1.3); Total Protein 7.5 g/dL (6.3-8.2); WBC,Urine 8 /hpf (0-5)
[2020-12-07 15:46] LABS: HCG,Quantitative Serum 6638.6 mIU/mL
--- NOTE | 2020-12-07 16:03 | US ---
EXAMINATION TYPE: Transabdominal DATE OF EXAM: 12/07/2020 3:30 PM COMPARISON: 07/15/2020 CLINICAL HISTORY: pain. Pelvic cramping and bleeding x 2 days EXAM PERFORMED: Transabdominal (TA) EXAM MEASUREMENTS: GESTATIONAL AGE / DATING Physician Established: Not established yet Dates by LMP: Unknown Dates by First Scan: This is 1st scan Dates by Current Scan for: No IUP seen at this time MATERNAL ANATOMY Uterus: 7.6 x 4.6 x 5.8cm, thickened endometrium Right Ovary: 3.3 x 2.0 x 2.5cm Left Ovary: 3.5 x 1.7 x 2.1cm Post CDS / Adnexa: wnl Presence of free fluid: no Presence of corpus luteal cyst: no Presence of subchorionic bleed: no GESTATION / SURVEY IUP: No IUP seen at this time Date of LMP: Unknown Beta HcG (if available): Not available at time of exam IMPRESSION: Thickened endometrium measuring 2 cm but no definite intrauterine . Differential diagnosis i ncludes normal too early to detect, missed , and ectopic . Correlate with serial beta hCG and pelvic ultrasound as clinically warranted.
== END 2020-12-07 16:29 | disposition home or self-care (01) ==
LOC: EC 14:13
DX: O20.0 Threatened abortion (principal); O99.330 Smoking (tobacco) complicating pregnancy, unspecified trimester; F17.200 Nicotine dependence, unspecified, uncomplicated; Z3A.00 Weeks of gestation of pregnancy not specified
CPT/HCPCS: 36415; 76801; 80053; 81001; 84702; 85025; 86850; 86900; 86901; 99284

== ENCOUNTER 2021-02-05 18:15 | Inpatient (IN) | payer MEDICAID, OTHER ==
[2021-02-05] MEDS ORDERED: SODIUM CHLORIDE 0.9% 1,000 ML IV STA (18:50)
[2021-02-05 19:52] LABS: Anisocytosis Slight; HCT 25.4 % (34.0-46.0); MCHC 35.8 g/dL (31.0-37.0); MCV 89.3 fL (80.0-100.0); Mean Platelet Volume 7.2; Platelet Count 248 k/uL (150-450); RBC 2.85 m/uL (3.80-5.40); WBC 3.2 k/uL (3.8-10.6)
[2021-02-05 19:56] LABS: Appearance,Urine Cloudy (Clear); Bilirubin,Urine Negative (Negative); Blood,Urine Negative (Negative); Color,Urine Yellow; Glucose,Urine (UA) Negative (Negative); Ketones,Urine Trace (Negative); Leukocyte Esterase,Urine Trace (Negative); Mucus,Urine Many /hpf; Nitrite,Urine Negative (Negative); Protein,Urine Trace (Negative); RBC,Urine 1 /hpf (0-5); Squamous Epithelial Cell,Urine 1 /hpf (0-4); WBC,Urine 1 /hpf (0-5)
[2021-02-05 19:57] LABS: HGB 9.1 gm/dL (11.4-16.0)
[2021-02-05 20:25] LABS: Amphetamine Screen,Urine Not Detected (NotDetected); Barbiturate Screen,Urine Not Detected (NotDetected); Benzodiazepines Screen,Urine Detected (NotDetected); Cocaine Screen,Urine Not Detected (NotDetected); Methadone Screen, Urine Not Detected (NotDetected); Opiate Screen,Urine Not Detected (NotDetected); Oxycodone Screen, Urine Not Detected (NotDetected); Phencyclidine Screen,Urine Not Detected (NotDetected); Tricyclic Antidepressant,Urine Not Detected (NotDetected); Urn Cannabinoid Scrn Not Detected (NotDetected)
[2021-02-05 20:38] LABS: ALT 19 U/L (4-34); AST 19 U/L (14-36); Acetaminophen <10.0 ug/mL; African American GFR (CKD) >90 (>60 ml/min/1.73 sqM); Albumin 3.9 g/dL (3.5-5.0); Alkaline Phosphatase 58 U/L (38-126); Anion Gap 8 mmol/L; Blood Urea Nitrogen 12 mg/dL (7-17); Calcium 9.1 mg/dL (8.4-10.2); Carbon Dioxide 27 mmol/L (22-30); Chloride 105 mmol/L (98-107); Glucose 89 mg/dL (74-99); Non-African American GFR(CKD) >90 (>60 ml/min/1.73 sqM); Potassium 4.4 mmol/L (3.5-5.1); Sodium 140 mmol/L (137-145); Total Bilirubin 0.4 mg/dL (0.2-1.3); Total Protein 6.6 g/dL (6.3-8.2)
[2021-02-05 21:22] LABS: Lymphocytes # (M) 2.43 k/uL (1.0-4.8); Monocytes # (M) 0.13 k/uL (0-1.0); Neutrophils # (M) 0.64 k/uL (1.3-7.7); Neutrophils % (M) 20 %; Nucleated Red Blood Cells 0 /100 WBC (0-0); Total Cells Counted 100
--- NOTE | 2021-02-05 23:15 | ED ---
General Adult HPI - General Source: patient, RN notes reviewed Mode of arrival: ambulatory Limitations: no limitations <Boo Romero - Last Filed: 02/05/21 23:12> <Jhonny Anglin - Last Filed: 02/06/21 01:11> - General Chief complaint: Recheck/Abnormal Lab/Rx Stated complaint: Confusion/Weakness Time Seen by Provider: 02/05/21 18:38 - History of Present Illness Initial comments: Patient is a 25 she'll female that presents to emergency department with some confusion and being out of it. Triage nurse notes that patient's friend dropped her off for confusion weakness. Patient thought she was here for a yeast infection. Patient didn't give triage nurse a bottle of Xanax. Patient denied taking any of the Xanax prior to arrival. Patient was in and out of sleeping but would wake up for questions and interview. She was in no apparent distress or pain while sitting up in bed. She denied any pain anywhere. She denied any chest pain shortness breath headache nausea vomiting diarrhea constipation fever fatigue chills. (Boo Romero) - Related Data Home Medications Medication Instructions Recorded Confirmed ALPRAZolam [Xanax] 0.5 mg PO BID 02/05/21 02/05/21 Buprenorphine HCl/Naloxone HCl 1 film SUBLINGUAL BID 02/05/21 02/05/21 [Suboxone 8 mg-2 mg Sl Film] Dextroamphetamine/Amphetamine 30 mg PO BID 02/05/21 02/05/21 [Dextroamp-Amphetamin 30 mg Tab] Allergies Allergy/AdvReac Type Severity Reaction Status Date / Time amoxicillin Allergy Anaphylaxis Verified 02/05/21 18:34 magnesium Allergy Swelling Verified 02/05/21 18:34 Penicillins Allergy Anaphylaxis Verified 02/05/21 18:34 tramadol [From Ultram] Allergy Rash/Hives Verified 02/05/21 18:34 Review of Systems ROS Other: All systems not noted in ROS Statement are negative. <Boo Romero - Last Filed: 02/05/21 23:12> ROS Other: All systems not noted in ROS Statement are negative. <Jhonny Anglin - Last Filed: 02/06/21 01:11> ROS Statement: Those systems with pertinent positive or pertinent negative responses have been documented in the HPI. Past Medical History Past Medical History: No Reported History Additional Past Medical History / Comment(s): Patient had a spontaneous vaginal delivery 35-5/7 weeks gestation on 11/01/2013. She had premature rupture membranes and labor. Patient also reports that she had a delivery last year with Dr. Dallas. History of Any Multi-Drug Resistant Organisms: None Reported Past Surgical History: No Surgical Hx Reported Additional Past Surgical History / Comment(s): vaginal delivery Past Anesthesia/Blood Transfusion Reactions: No Reported Reaction Past Psychological History: Anxiety, Depression Smoking Status: Current every day smoker Past Alcohol Use History: Occasional Past Drug Use History: Prescription Drug Abuse - Past Family History Father History Unknown: Yes Family Medical History: No Reported History <Boo Romero - Last Filed: 02/05/21 23:12> General Exam Limitations: no limitations General appearance: alert, in no apparent distress, lethargic Head exam: Present: atraumatic, normocephalic, normal inspection Eye exam: Present: normal appearance, PERRL, EOMI. Absent: scleral icterus, conjunctival injection, periorbital swelling Neck exam: Present: normal inspection Respiratory exam: Present: normal lung sounds bilaterally. Absent: respiratory distress, wheezes, rales, rhonchi, stridor Cardiovascular Exam: Present: regular rate, normal rhythm, normal heart sounds. Absent: systolic murmur, diastolic murmur, rubs, gallop, clicks GI/Abdominal exam: Present: soft, normal bowel sounds. Absent: distended, tenderness, guarding, rebound, rigid Extremities exam: Present: normal inspection, full ROM, normal capillary refill. Absent: tenderness, pedal edema, joint swelling, calf tenderness Neurological exam: Present: alert, oriented X3 Psychiatric exam: Present: normal affect, normal mood Skin exam: Present: warm, dry, intact, normal color. Absent: rash <Boo Romero - Last Filed: 02/05/21 23:12> Course <Jhonny Anglin - Last Filed: 02/06/21 01:11> Vital Signs 02/05/21 02/06/21 18:29 00:53 Temperature 99.1 F 99.9 F H Pulse Rate 84 74 Respiratory 18 18 Rate Blood Pressure 105/67 105/59 O2 Sat by Pulse 100 99 Oximetry - Reevaluation(s) Reevaluation #1: 02/06/21 01:11 Medical records reviewed (Jhonny Anglin) Reevaluation #2: 02/06/21 01:11 Patient is having vaginal bleeding currently in the ER patient will have ultrasound fetus in the morning 02/06/21 01:11 Patient has no abdominal pain (Jhonny Anglin) Medical Decision Making - Lab Data Result diagrams: 02/05/21 19:29 02/05/21 19:29 <Boo Romero - Last Filed: 02/05/21 23:12> - Lab Data Result diagrams: 02/05/21 19:29 02/05/21 19:29 <Jhonny Anglin - Last Filed: 02/06/21 01:11> - Medical Decision Making 25-year-old female dropped off by friend at the ER for confusion. Labs, urine drug screen, urinalysis, acetaminophen, 1 L normal saline ordered. Labs unremarkable, urine drug screen came back positive for benzodiazepines. Several hours into patient's ER visit nurse was notified that parents are but petitioning the patient for a EPS evaluation. Patient's with alcohol test was 0.000 and was medically cleared to speak with EPS. EPS will admit. Case discussed with Dr. Anglin (Boo Romero) I 5 female DF admitted for psychiatric evaluation and treatment. Patient took overdose of Ativan as a suicide attempt today. (Jhonny Anglin) - Lab Data Lab Results 02/05/21 02/05/21 02/05/21 Range/Units 19:29 19:29 19:29 WBC 3.2 L (3.8-10.6) k/uL RBC 2.85 L (3.80-5.40) m/uL Hgb 9.1 L D (11.4-16.0) gm/dL Hct 25.4 L (34.0-46.0) % MCV 89.3 (80.0-100.0) fL MCH 32.0 (25.0-35.0) pg MCHC 35.8 (31.0-37.0) g/dL RDW 17.0 H (11.5-15.5) % Plt Count 248 (150-450) k/uL MPV 7.2 Neutrophils % Not Reportable Neutrophils % (Manual) 20 % Lymphocytes % Not Reportable Lymphocytes % (Manual) 76 % Monocytes % Not Reportable Monocytes % (Manual) 4 % Eosinophils % Not Reportable Basophils % Not Reportable Neutrophils # Not Reportable Neutrophils # (Manual) 0.64 L (1.3-7.7) k/uL Lymphocytes # Not Reportable Lymphocytes # (Manual) 2.43 (1.0-4.8) k/uL Monocytes # Not Reportable Monocytes # (Manual) 0.13 (0-1.0) k/uL Eosinophils # Not Reportable Basophils # Not Reportable Nucleated RBCs 0 (0-0) /100 WBC Manual Slide Review Performed Anisocytosis Slight Sodium 140 (137-145) mmol/L Potassium 4.4 (3.5-5.1) mmol/L Chloride 105 (98-107) mmol/L Carbon Dioxide 27 (22-30) mmol/L Anion Gap 8 mmol/L BUN 12 (7-17) mg/dL Creatinine 0.67 (0.52-1.04) mg/dL Est GFR (CKD-EPI)AfAm >90 (>60 ml/min/1.73 sqM) Est GFR (CKD-EPI)NonAf >90 (>60 ml/min/1.73 sqM) Glucose 89 (74-99) mg/dL Calcium 9.1 (8.4-10.2) mg/dL Total Bilirubin 0.4 (0.2-1.3) mg/dL AST 19 (14-36) U/L ALT 19 (4-34) U/L Alkaline Phosphatase 58 (38-126) U/L Total Protein 6.6 (6.3-8.2) g/dL Albumin 3.9 (3.5-5.0) g/dL Urine Color Yellow Urine Appearance Cloudy H (Clear) Urine pH 6.0 (5.0-8.0) Ur Specific [place] 1.030 (1.001-1.035) Urine Protein Trace H (Negative) Urine Glucose (UA) Negative (Negative) Urine Ketones Trace H (Negative) Urine Blood Negative (Negative) Urine Nitrite Negative (Negative) Urine Bilirubin Negative (Negative) Urine Urobilinogen 2.0 (<2.0) mg/dL Ur Leukocyte Esterase Trace H (Negative) Urine RBC 1 (0-5) /hpf Urine WBC 1 (0-5) /hpf Ur Squamous Epith Cells 1 (0-4) /hpf Urine Mucus Many H (None) /hpf Urine HCG, Qual (Not Detectd) Urine Opiates Screen (NotDetected) Ur Oxycodone Screen (NotDetected) Urine Methadone Screen (NotDetected) Ur Propoxyphene Screen (NotDetected) Acetaminophen <10.0 ug/mL Ur Barbiturates Screen (NotDetected) U Tricyclic Antidepress (NotDetected) Ur Phencyclidine Scrn (NotDetected) Ur Amphetamines Screen (NotDetected) U Methamphetamines Scrn (NotDetected) U Benzodiazepines Scrn (NotDetected) Urine Cocaine Screen (NotDetected) U Marijuana (THC) Screen (NotDetected) Coronavirus (PCR) (Not Detectd) 02/05/21 02/05/21 02/05/21 Range/Units 19:32 19:48 22:48 WBC (3.8-10.6) k/uL RBC (3.80-5.40) m/uL Hgb (11.4-16.0) gm/dL Hct (34.0-46.0) % MCV (80.0-100.0) fL MCH (25.0-35.0) pg MCHC (31.0-37.0) g/dL RDW (11.5-15.5) % Plt Count (150-450) k/uL MPV Neutrophils % Neutrophils % (Manual) % Lymphocytes % Lymphocytes % (Manual) % Monocytes % Monocytes % (Manual) % Eosinophils % Basophils % Neutrophils # Neutrophils # (Manual) (1.3-7.7) k/uL Lymphocytes # Lymphocytes # (Manual) (1.0-4.8) k/uL Monocytes # Monocytes # (Manual) (0-1.0) k/uL Eosinophils # Basophils # Nucleated RBCs (0-0) /100 WBC Manual Slide Review Anisocytosis Sodium (137-145) mmol/L Potassium (3.5-5.1) mmol/L Chloride (98-107) mmol/L Carbon Dioxide (22-30) mmol/L Anion Gap mmol/L BUN (7-17) mg/dL Creatinine (0.52-1.04) mg/dL Est GFR (CKD-EPI)AfAm (>60 ml/min/1.73 sqM) Est GFR (CKD-EPI)NonAf (>60 ml/min/1.73 sqM) Glucose (74-99) mg/dL Calcium (8.4-10.2) mg/dL Total Bilirubin (0.2-1.3) mg/dL AST (14-36) U/L ALT (4-34) U/L Alkaline Phosphatase (38-126) U/L Total Protein (6.3-8.2) g/dL Albumin (3.5-5.0) g/dL Urine Color Urine Appearance (Clear) Urine pH (5.0-8.0) Ur Specific [place] (1.001-1.035) Urine Protein (Negative) Urine Glucose (UA) (Negative) Urine Ketones (Negative) Urine Blood (Negative) Urine Nitrite (Negative) Urine Bilirubin (Negative) Urine Urobilinogen (<2.0) mg/dL Ur Leukocyte Esterase (Negative) Urine RBC (0-5) /hpf Urine WBC (0-5) /hpf Ur Squamous Epith Cells (0-4) /hpf Urine Mucus (None) /hpf Urine HCG, Qual Detected (Not Detectd) Urine Opiates Screen Not Detected (NotDetected) Ur Oxycodone Screen Not Detected (NotDetected) Urine Methadone Screen Not Detected (NotDetected) Ur Propoxyphene Screen Not Detected (NotDetected) Acetaminophen ug/mL Ur Barbiturates Screen Not Detected (NotDetected) U Tricyclic Antidepress Not Detected (NotDetected) Ur Phencyclidine Scrn Not Detected (NotDetected) Ur Amphetamines Screen Not Detected (NotDetected) U Methamphetamines Scrn Not Detected (NotDetected) U Benzodiazepines Scrn Detected H (NotDetected) Urine Cocaine Screen Not Detected (NotDetected) U Marijuana (THC) Screen Not Detected (NotDetected) Coronavirus (PCR) Not Detected (Not Detectd) Disposition <Boo Romero - Last Filed: 02/05/21 23:12> Is patient prescribed a controlled substance at d/c from ED?: No <Jhonny Anglin - Last Filed: 02/06/21 01:11> Clinical Impression: Bleeding in early , Major depression, Suicidal ideation Disposition: ADMITTED IP TO THIS HOSP Condition: Fair
[2021-02-06] MEDS ORDERED: ACETAMINOPHEN TAB 325 MG TAB PO PRN (00:30)
[2021-02-06] MEDS ORDERED: MAGNESIUM HYDROXIDE 2,400 MG/10 ML CUP PO PRN (00:30)
[2021-02-06] MEDS ORDERED: MAG HYDROX/AL HYDROX/SIMETH 30 ML CUP PO PRN (00:30)
[2021-02-06] MEDS ORDERED: haloperidoL 5 MG TAB PO PRN (00:33)
--- NOTE | 2021-02-06 03:00 | US ---
EXAMINATION TYPE: Transabdominal DATE OF EXAM: 02/06/2021 2:30 AM COMPARISON: 12/07/2020 CLINICAL HISTORY: ectopic. 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 The tampon appeared to be retained gauze roll; patient has low grade fever today; patient had pelv ic US here in November; patient thinks she is . EXAM PERFORMED: Transvaginal (TV) and Transabdominal (TA) EXAM MEASUREMENTS: GESTATIONAL AGE / DATING Physician Established: Not yet established Dates by LMP: LMP unknown Dates by First Scan: No previous Dates by Current Scan for: No IUP or ectopic is seen MATERNAL ANATOMY Uterus: 8.3 x 4.3 x 4.2cm; complex fluid seen in [place] and cervix = 2.2 x 1.9 x 0.7cm Endometrium: thickened endometrium = 2.1cm with complex contents in lower endometrium; vascularity no delilah to upper endometrial contents. Right Ovary: multiple small follicles Left Ovary: multiple small follicles Presence of free fluid: small amount of free fluid seen in cul de sac = 2.7 x 1.6 x 0.9cm. Presence of corpus luteal cyst: not seen Color flow and PW Doppler is noted in bilateral ovary. GESTATION / SURVEY: No IUP seen and no ectopic is seen. Date of LMP: unsure Beta HcG (if available): Left ovary measures 12 x 7 mm. Right ovary measures 2.8 cm. IMPRESSION: The uterus is empty. No adnexal mass. There is tiny amount of free fluid in the cul-de-sac. There is some fluid in the vaginal vault and cervical canal.
[2021-02-06 05:53] VITALS: RESP 16
[2021-02-06] MEDS: HALOPERIDOL LACTATE 5 MG/ML 1 ML VIAL IM PRN ×2 (06:39→14:29)
[2021-02-06] MEDS: NON FORMULARY DRUG (Buprenorphine Hcl/Naloxone Hcl [Suboxone 8 Mg-2 Mg Sl Film] 1 EACH Fil SUBLINGUAL SCH ×2 (09:17→21:04)
[2021-02-06] MEDS: NICOTINE 14MG/24HR PATCH TRANSDERM SCH (09:33)
--- NOTE | 2021-02-06 10:05 | P.HP ---
Psychiatric H&P - . H&P Date: 02/06/21 History & Physical: IDENTIFYING DATA: Alda is a 25-year-old single female admitted to the psychiatric unit involuntarily. Her sister completed a Petition that read "I'm going to shoot up of a hot pack and kill myself" meaning heroin. She is go ing to her self. "I hate my life, I wish I was ." "I'm going to take a lot of Xanax and make everybody happy." HISTORY OF PRESENT ILLNESS: I reviewed the medical record and interviewed the patient. She had great difficulty concentrating and attending to the interview. She alleged that her presentation Hospital was a result of a misunderstanding. She has no recollection of telling her sister that she was planning to kill herself. She could not explain why her sister had called an ambulance or completed a petition. She has no recollection was speaking with her sister and could not explain how her sister became concerned and came to her home. She acknowledged she was upset over a breakup with her boyfriend but she did not take extra doses of Xanax and clonazepam in an attempt in her life. She talked about wanting to "get high" and taking "1 to many." She denied prior suicide attempts and gestures. She talked about struggling with "depression and anxiety" for which a nurse practitioner has been prescribed her Xanax (0.5 twice a day). She denied that she was thinking about or suicide prior to taking the overdose of Xanax. She denied that she is taking other drugs resulting in the overdose. Urine drug screen was positive only for benzodiazepines. Her cognitive impairment precluded obtaining comprehensive symptom history. She expressed chronic and free-floating subjective symptoms of depression and anxiety. There did not appear to be history of panic attacks, obsessions or compulsions. She denied a history of psychotic symptoms such as hallucinations, delusions or confusion (outside of her substance use). She denies that she has used other drugs to get high, help her sleep or change her mood such as heroin, or opioid pain medications, cocaine, crack, methamphetamine, hallucinogens and marijuana. PAST PSYCHIATRIC HISTORY: She has no prior psychiatric hospitalizations. She was apparently diagnosed with ADHD when she was 11 years old and treated with psychostimulants intermittently since. She also began meeting with counselors about the same time. She is currently prescribed Suboxone 8/2 mg twice a day, Xanax 0.5 mg twice a day and Adderall 30 mg twice a day by a nurse practitioner. She is not currently engaged with mental health services. PAST MEDICAL HISTORY: She has no history of chronic medical problems. ALLERGIES: During the record she has a history of ALLERGY to amoxicillin, penicillins and tramadol SUBSTANCE USE HISTORY: She was evasive about her substance abuse history. He alleged began using oral opiate medications "about 4 years ago". She stopped abusing the opiates after she was prescribed Suboxone. She is never been any substance abuse treatment program. She is never attended AA or NA. As mentioned above, she denied history of use of other drugs including heroin, cocaine and methamphetamine. FAMILY PSYCHIATRIC/SUBSTANCE USE HISTORY: Her sister have history is oral opiate use disorder. Her mother and a diagnosis of ADHD LEGAL HISTORY: She is no on probation, parole or is pending charges. She multiple past charges for possession of controlled substances. SOCIAL HISTORY: She has 2 sisters. Her parents are . She left school but received a GED. She is currently unemployed. She has 4 children out of wedlock from 2 different fathers. All the children were removed from her custody and placed in foster care. MENTAL STATUS EXAM: She presented as a disheveled appearing 25-year-old female with thick unkept hair. She made eye contact but had difficulty attending and concentrating on the interview. She had multiple tattoos on her arms. She had a flat facial expression. She is alert and oriented to person and place. She had unsteady gait and required assistance with ambulation. Her speech was spontaneous, dysarthric and slurred. Her affect was labile. She denied suicidal ideation or wishes. She denied homicidal ideation. She expresses feelings of helplessness regarding this hospitalization but denied feeling hopeless or worthless. He did not express ideas reference, paranoid ideation or delusions. Her thinking was concrete, attended but goal directed. She denied hallucinations did not appear to be responding to internal stimuli. Global impression of intellect is average to below. She has no insight or understanding illness or need for treatment. STRENGTHS: Good physical health, abstinence from oral opiate pain medications, supportive family WEAKNESSES: Abuse of benzodiazepines, unstable interpersonal relationships IMPRESSION: She is a 25-year-old single female who has a history of opiate use disorder and a purported diagnosis of ADHD. She presented to the psychiatric unit involuntarily after an overdose of benzodiazepines. Her sister completed the petition and described the patient is making suicidal statements prior to the overdose. However, the patient denies that the overdose was intentional. She has signs and symptoms of benzodiazepine intoxication with confusion and mental clouding. She should be treated inpatient basis with combination of psychopharmacology and multimodal therapy. PRINCIPLE DIAGNOSIS: Suicide attempt by overdose of benzodiazepine, benzodiazepine use disorder moderate, opiate use disorder severe on agonist therapy, unspecified mood disorder, rule out major depressive disorder, rule out personality disorder, tobacco use disorder RECOMMENDATION: Admitted to the psychiatric unit. Safety precautions one-to-one temporarily to prevent falls. Completed the second clinical certificate and proceeded with involuntary hospitalization. Hold benzodiazepines. Family to bring in her prescription of Suboxone 8/2 mg twice a day. There is no indication to continue her outpatient dose of Adderall at this time. Once the acute effects of benzodiazepines clear evaluate for treatment with an antidepressant and/or mood stabilizer. lithography contact worker completed initial psychosocial assessment to coordinate discharge and aftercare. Consult medicine for initial physical exam and medical history. Encourage participation in therapeutic groups and activities. Evaluate clinical status response to treatment daily basis. Allergies Allergy/AdvReac Type Severity Reaction Status Date / Time amoxicillin Allergy Anaphylaxis Verified 02/05/21 18:34 magnesium Allergy Swelling Verified 02/05/21 18:34 Penicillins Allergy Anaphylaxis Verified 02/05/21 18:34 tramadol [From Ultram] Allergy Rash/Hives Verified 02/05/21 18:34 Vital Signs Temp 99.0 F 02/06/21 05:44 Pulse 74 02/06/21 00:53 Resp 16 02/06/21 05:44 BP 101/64 02/06/21 05:44 Pulse Ox 100 02/06/21 05:44 Intake & Output 02/05/21 02/06/21 02/06/21 18:59 06:59 18:59 Weight 68.039 kg Laboratory Last Values WBC 3.2 k/uL (3.8-10.6) L 02/05/21 19:29 RBC 2.85 m/uL (3.80-5.40) L 02/05/21 19:29 Hgb 9.1 gm/dL (11.4-16.0) L D 02/05/21 19: Hct 25.4 % (34.0-46.0) L 02/05/21 19: MCV 89.3 fL (80.0-100.0) 02/05/21 19: MCH 32.0 pg (25.0-35.0) 02/05/21 19: MCHC 35.8 g/dL (31.0-37.0) 02/05/21: RDW 17.0 % (11.5-15.5) H 02/05/21 19: Plt Count 248 k/uL (150-450) 02/05/21 19: MPV 7.2 02/05/21 19: Neutrophils % Not Reportable 02/05/21 19: Neutrophils % (Manual) 20 % 02/05/21 19: Lymphocytes % Not Reportable 02/05/21 19: Lymphocytes % (Manual) 76 % 02/05/21 19: Monocytes % Not Reportable 02/05/21 19: Monocytes % (Manual) 4 % 02/05/21 19: Eosinophils % Not Reportable 02/05/21 19: Basophils % Not Reportable 02/05/21 19: Neutrophils # Not Reportable 02/05/21 19: Neutrophils # (Manual) 0.64 k/uL (1.3-7.7) L 02/05/21 19:29 Lymphocytes # Not Reportable 02/05/21 19: Lymphocytes # (Manual) 2.43 k/uL (1.0-4.8) 02/05/21 19: Monocytes # Not Reportable 02/05/21 19: Monocytes # (Manual) 0.13 k/uL (0-1.0) 02/05/21 19: Eosinophils # Not Reportable 02/05/21 19: Basophils # Not Reportable 02/05/21 19: Nucleated RBCs 0 /100 WBC (0-0) 02/05/21 19: Manual Slide Review Performed 02/05/21 19:29 Anisocytosis Slight 02/05/21 19: Sodium 140 mmol/L (137-145) 02/05/21 19: Potassium 4.4 mmol/L (3.5-5.1) 02/05/21 19:29 Chloride 105 mmol/L (98-107) 02/05/21 19: Carbon Dioxide 27 mmol/L (22-30) 02/05/21: Anion Gap 8 mmol/L 02/05/21 19: BUN 12 mg/dL (7-17) 02/05/21 19: Creatinine 0.67 mg/dL (0.52-1.04) 02/05/21 19: Est GFR (CKD-EPI)AfAm >90 (>60 ml/min/1.73 sqM) 02/05/21 19: Est GFR (CKD-EPI)NonAf >90 (>60 ml/min/1.73 sqM) 02/05/21: Glucose 89 mg/dL (74-99) 02/05/21: Calcium 9.1 mg/dL (8.4-10.2) 02/05/21: Total Bilirubin 0.4 mg/dL (0.2-1.3) 02/05/21: AST 19 U/L (14-36) 02/05/21: ALT 19 U/L (4-34) 02/05/21: Alkaline Phosphatase 58 U/L (38-126) 02/05/21: Total Protein 6.6 g/dL (6.3-8.2) 02/05/21: Albumin 3.9 g/dL (3.5-5.0) 02/05/21: HCG, Quant 9.7 mIU/mL 02/05/21: Urine Color Yellow 02/05/21: Urine Appearance Cloudy (Clear) H 02/05/21: Urine pH 6.0 (5.0-8.0) 02/05/21: Ur Specific [place] 1.030 (1.001-1.035) 02/05/21: Urine Protein Trace (Negative) H 02/05/21: Urine Glucose (UA) Negative (Negative) 02/05/21: Urine Ketones Trace (Negative) H 02/05/21: Urine Blood Negative (Negative) 02/05/21: Urine Nitrite Negative (Negative) 02/05/21: Urine Bilirubin Negative (Negative) 06/26/21 19:29 Urine Urobilinogen 2.0 mg/dL (<2.0) 02/05/21 19:29 Ur Leukocyte Esterase Trace (Negative) H 02/05/21 19:29 Urine RBC 1 /hpf (0-5) 02/05/21 19:29 Urine WBC 1 /hpf (0-5) 02/05/21 19:29 Ur Squamous Epith Cells 1 /hpf (0-4) 02/05/21 19:29 Urine Mucus Many /hpf (None) H 02/05/21 19:29 Urine HCG, Qual Detected (Not Detectd) 02/05/21 19:32 Urine Opiates Screen Not Detected (NotDetected) 02/05/21 19:48 Ur Oxycodone Screen Not Detected (NotDetected) 02/05/21 19:48 Urine Methadone Screen Not Detected (NotDetected) 02/05/21 19:48 Ur Propoxyphene Screen Not Detected (NotDetected) 02/05/21 19:48 Acetaminophen <10.0 ug/mL 02/05/21 19:29 Ur Barbiturates Screen Not Detected (NotDetected) 02/05/21 19:48 U Tricyclic Antidepress Not Detected (NotDetected) 02/05/21 19:48 Ur Phencyclidine Scrn Not Detected (NotDetected) 02/05/21 19:48 Ur Amphetamines Screen Not Detected (NotDetected) 02/05/21 19:48 U Methamphetamines Scrn Not Detected (NotDetected) 02/05/21 19:48 U Benzodiazepines Scrn Detected (NotDetected) H 02/05/21 19:48 Urine Cocaine Screen Not Detected (NotDetected) 02/05/21 19:48 U Marijuana (THC) Screen Not Detected (NotDetected) 02/05/21 19:48 Coronavirus (PCR) Not Detected (Not Detectd) 02/05/21 22:48 Blood Type O Positive 02/06/21 01:21 Blood Type Recheck O Pos 02/06/21 01:21 Bld Type Recheck Status No 02/06/21 01:21 Antibody Screen NEGATIVE 02/06/21 01:21 Spec Expiration Date 02/09/2021232002/06/21 01:21 02/06/21 09:30
--- NOTE | 2021-02-06 11:33 | P.OBCN ---
History of Present Illness Consult date: 02/06/21 Requesting physician: Jorge Flynn Reason for consult: other (positive quantitative hcg 9.7) Chief complaint: positive test History of present illness: This is a 25 female that presented to the hospital after attempted suicide. she stated she thought was , unknown last menstrual period. She states she did have about a week of heavy vaginal bleeding with clots. she had an elevated BCHG of 9.7. She states the bleeding has slowed significantly, and she is only noting minimal spotting only. Upon review of her prior admissions she is a 6 para 1324 with 3 prior spontaneous vaginal deliveries and one 39 week spontaneous vaginal delivery. Patient did receive care for at least one of the pregnancies with Dr. Saleh at [facility]. Review of Systems Constitutional: Reports fatigue, Denies chills, Denies fever Ears, nose, mouth and throat: Denies headache Cardiovascular: Denies edema Respiratory: Denies dyspnea Genitourinary: Reports Past Medical History Past Medical History: No Reported History Additional Past Medical History / Comment(s): Patient had a spontaneous vaginal delivery 35-5/7 weeks gestation on 11/01/2013. She had premature rupture membranes and labor. Patient also reports that she had a de livery last year with Dr. Carvajal. History of Any Multi-Drug Resistant Organisms: None Reported Past Surgical History: No Surgical Hx Reported Additional Past Surgical History / Comment(s): vaginal delivery Past Anesthesia/Blood Transfusion Reactions: No Reported Reaction Past Psychological History: Anxiety, Depression Smoking Status: Current every day smoker Past Alcohol Use History: Occasional Past Drug Use History: Prescription Drug Abuse - Past Family History Father History Unknown: Yes Family Medical History: No Reported History Medications and Allergies Home Medications Medication Instructions Recorded Confirmed Type ALPRAZolam [Xanax] 0.5 mg PO BID 02/05/21 02/05/21 History Buprenorphine HCl/Naloxone HCl 1 film SUBLINGUAL BID 02/05/21 02/05/21 History [Suboxone 8 mg-2 mg Sl Film] Dextroamphetamine/Amphetamine 30 mg PO BID 02/05/21 02/05/21 History [Dextroamp-Amphetamin 30 mg Tab] Allergies Allergy/AdvReac Type Severity Reaction Status Date / Time amoxicillin Allergy Anaphylaxis Verified 02/05/21 18:34 magnesium Allergy Swelling Verified 06/26/21 18:34 Penicillins Allergy Anaphylaxis Verified 02/05/21 18:34 tramadol [From Ultram] Allergy Rash/Hives Verified 02/05/21 18:34 Exam Osteopathic Statement: *. No significant issues noted on an osteopathic structural exam other than those noted in the History and Physical/Consult. Vital Signs Temp Pulse Resp BP BP Pulse Ox 02/06/21 05:44 99.0 F 16 101/64 100 02/06/21 00:53 99.9 F H 74 18 105/59 99 02/05/21 18:29 99.1 F 84 18 105/67 100 Intake and Output 02/05/21 02/06/21 02/06/21 22:59 06:59 14:59 Other: Weight 68.039 kg Patient is seen at the bedside, resting comfortably Results Result Diagrams: 02/05/21 19:29 02/05/21 19:29 Abnormal Lab Results - Last 24 Hours (Table) 02/05/21 02/05/21 02/05/21 Range/Units 19:29 19:29 19:48 WBC 3.2 L (3.8-10.6) k/uL RBC 2.85 L (3.80-5.40) m/uL Hgb 9.1 L D (11.4-16.0) gm/dL Hct 25.4 L (34.0-46.0) % RDW 17.0 H (11.5-15.5) % Neutrophils # (Manual) 0.64 L (1.3-7.7) k/uL Urine Appearance Cloudy H (Clear) Urine Protein Trace H (Negative) Urine Ketones Trace H (Negative) Ur Leukocyte Esterase Trace H (Negative) Urine Mucus Many H (None) /hpf U Benzodiazepines Scrn Detected H (NotDetected) Assessment and Plan (1) Incomplete Current Visit: Yes Status: Acute Code(s): O03.4 - INCOMPLETE SPONTANEOUS WITHOUT COMPLICATION SNOMED Code(s): 621418307 Plan: This 25-year-old 7 para 13-4 presented to the hospital early this morning with an attempt at suicide attempt. Patient had a positive UCG, Quant noted to be 9.7. Upon further questioning patient states she is aware that she is miscarrying a with passage of clots lasting 1 week. Would recommend repeat beta hCG in 2 days to ensure that it is falling. Ultrasound is consistent with patient's history. Should you have any further questions regarding this patient please feel free to call I will follow along.
[2021-02-06 14:59] LABS: Hemoglobin A1C 4.9 % (4.0-6.0)
[2021-02-06] MEDS ORDERED: traZODone HCL 100 MG TAB PO SCH (21:00)
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
[2021-02-07 07:16] LABS: Anisocytosis Slight; HCT 25.8 % (34.0-46.0); MCH 31.6 pg (25.0-35.0); MCHC 34.8 g/dL (31.0-37.0); MCV 90.8 fL (80.0-100.0); Mean Platelet Volume 6.9; Platelet Count 265 k/uL (150-450); RBC 2.84 m/uL (3.80-5.40); RDW 17.6 % (11.5-15.5); WBC 3.8 k/uL (3.8-10.6)
[2021-02-07] MEDS ORDERED: FERROUS SULFATE 325 MG TAB PO SCH (07:30)
[2021-02-07] MEDS: NON FORMULARY DRUG (Buprenorphine Hcl/Naloxone Hcl [Suboxone 8 Mg-2 Mg Sl Film] 1 EACH Fil SUBLINGUAL SCH (09:16)
[2021-02-07] MEDS: NICOTINE 14MG/24HR PATCH TRANSDERM SCH (09:16)
[2021-02-07 11:42] LABS: Chol/HDL Ratio 4.23
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
[2021-02-07 14:14] VITALS: BP 105/56; PULSE 97; TEMP 99.2
[2021-02-07 14:32] LABS: Anisocytosis Slight; Basophils % (A) 0 %; Eosinophils % (A) 1 %; HCT 28.5 % (34.0-46.0); HGB 9.8 gm/dL (11.4-16.0); Lymphocytes # (A) 1.6 k/uL (1.0-4.8); Lymphocytes % (A) 50 %; MCH 31.4 pg (25.0-35.0); MCHC 34.2 g/dL (31.0-37.0); MCV 91.8 fL (80.0-100.0); Mean Platelet Volume 7.1; Monocytes # (A) 0.3 k/uL (0-1.0); Monocytes % (A) 9 %; Neutrophils # (A) 1.2 k/uL (1.3-7.7); Neutrophils % (A) 39 %; Platelet Count 284 k/uL (150-450); Poikilocytosis Slight; RBC 3.11 m/uL (3.80-5.40); RDW 17.6 % (11.5-15.5); WBC 3.2 k/uL (3.8-10.6)
[2021-02-07 14:46] LABS: African American GFR (CKD) >90 (>60 ml/min/1.73 sqM); Anion Gap 10 mmol/L; Blood Urea Nitrogen 13 mg/dL (7-17); Calcium 9.5 mg/dL (8.4-10.2); Carbon Dioxide 27 mmol/L (22-30); Chloride 108 mmol/L (98-107); Glucose 137 mg/dL (74-99); Non-African American GFR(CKD) >90 (>60 ml/min/1.73 sqM); Potassium 4.6 mmol/L (3.5-5.1); Sodium 145 mmol/L (137-145)
[2021-02-07] MEDS ORDERED: LORazepam 2 MG/ML INJ ONE (16:03)
[2021-02-07] MEDS ORDERED: MORPHINE SULFATE 2 MG/ML SYRINGE IVP STA (16:10)
[2021-02-07] MEDS ORDERED: LORazepam 2 MG/ML INJ IV STA (16:29)
[2021-02-07 16:33] LABS: Glucose,Whole Blood 146 mg/dL (75-99)
[2021-02-07 16:43] LABS: Albumin 4.1 g/dL (3.5-5.0); Bilirubin,Unconjugated 0.3 mg/dL (0.0-1.1); Total Bilirubin 0.2 mg/dL (0.2-1.3); Total Protein 6.8 g/dL (6.3-8.2)
[2021-02-07] MEDS ORDERED: metroNIDAZOLE 500 MG TAB PO SCH (21:00)
--- NOTE | 2021-02-10 10:13 | P.DS ---
Providers Date of admission: 02/06/21 00:11 Expected date of discharge: 02/07/21 Attending physician: Woody Frias MD Consults: 02/06/21 00:30 Consult Physician Routine Consulting Provider: Bill Hadley Consult Reason/Comments: h and p Do you want consulting provider notified?: Yes 02/06/21 09:39 Consult Physician Routine Consulting Provider: Nereyda Huang Consult Reason/Comments: HCG detected, bleeding vaginally Do you want consulting provider notified?: Yes Primary care physician: Stated None - Discharge Diagnosis(es) (1) Psychosis Status: Acute Priority: High (2) Benzodiazepine abuse Status: Acute Priority: High Hospital Course: Admission HPI: Admission note was completed by Dr. Ortiz "Alda is a 25-year-old single female admitted to the psychiatric unit involuntarily. Her sister completed a Petition that read "I'm going to shoot up of a hot pack and kill myself" meaning heroin. She is going to her self. "I hate my life, I wish I was ." "I'm going to take a lot of Xanax and make everybody happy." I reviewed the medical record and interviewed the patient. She had great difficulty concentrating and attending to the interview. She alleged that her presentation Hospital was a result of a misunderstanding. She has no recollection of telling her sister that she was planning to kill herself. She could not explain why her sister had called an ambulance or completed a petition. She has no recollection was speaking with her sister and could not explain how her sister became concerned and came to her home. She acknowledged she was upset over a breakup with her boyfriend but she did not take extra doses of Xanax and clonazepam in an attempt in her life. She talked about wanting to "get high" and taking "1 to many." She denied prior suicide attempts and gestures. She talked about struggling with "depression and anxiety" for which a nurse practitioner has been prescribed her Xanax (0.5 twice a day). She denied that she was thinking about or suicide prior to taking the overdose of Xanax. She denied that she is taking other drugs resulting in the overdose. Urine drug screen was positive only for benzodiazepines. Her cognitive impairment precluded obtaining comprehensive symptom history. She expressed chronic and free-floating subjective symptoms of depression and anxiety. There did not appear to be history of panic attacks, obsessions or compulsions. She denied a history of psychotic symptoms such as hallucinations, delusions or confusion (outside of her substance use). She denies that she has used other drugs to get high, help her sleep or change her mood such as heroin, or opioid pain medications, cocaine, crack, methamphetamine, hallucinogens and marijuana." Hospital course: Upon admission to the unit patient was initially bizarre and aggressive. Patient was however started on the involuntary process as she was petitioned and a second clinical certificate was filed to the courts. Patient was started on Prolixin 2 mg twice a day for psychosis/aggression and also trazodone 100 mg daily at bedtime for insomnia/mood. Patient was however decompensating medically and physically and had low blood pressure, tachycardia and also weakness in her lower extremities. The A team was called and the patient was evaluated and transferred to medicine for further evaluation and treatment. Mental status exam: Please refer to progress note on 02/07/2021. Impression: Psychosis unspecified Benzodiazepine abuse Plan: -Patient was seen by the A team and was transferred to medicine due to hypotension, altered mental status and tachycardia along with lower extremity weakness. -Psychiatric consultation will see the patient once she is on the medical floors for further recommendations. - Patient Condition at Discharge: Critical Plan - Discharge Summary New Discharge Prescriptions: No Action metroNIDAZOLE [Flagyl] 500 mg PO TID 7 Days tab Cyanocobalamin [Vitamin B-12 Injection] 1,000 mcg IM DAILY 7 Days vial Discharge Medication List Cyanocobalamin [Vitamin B-12 Injection] 1,000 mcg IM DAILY 7 Days vial 02/09/21 [Rx] metroNIDAZOLE [Flagyl] 500 mg PO TID 7 Days tab 02/09/21 [Rx] Follow up Appointment(s)/Referral(s): None,Stated [Primary Care Provider] - 1-2 days Activity/Diet/Wound Care/Special Instructions: Activity and diet as tolerated. Avoid the use of street drugs and alcohol. Take all medications as prescribed. When you are in need of refills on your medications please contact your medical provider and/or outpatient psychiatrist to have this done. Please go to scheduled outpatient appointment for aftercare treatment. If symptoms return or become worse, call the crisis line at and/or go to the nearest emergency room for evaluation. Discharge Disposition: ADMITTED IP TO THIS HOSP
== END 2021-02-07 16:28 | disposition short-term general hospital (02) | DRG 881 ==
LOC: EC 18:15 → 3MHU 02-06 00:11
PROVIDERS: ADMIT Psychiatry & Neurology Psychiatry; ATTEND Psychiatry & Neurology Psychiatry
DX: F32.9 Major depressive disorder, single episode, unspecified (principal); F11.20 Opioid dependence, uncomplicated; F13.20 Sedative, hypnotic or anxiolytic dependence, uncomplicated; F17.200 Nicotine dependence, unspecified, uncomplicated; F41.9 Anxiety disorder, unspecified; G47.00 Insomnia, unspecified; O03.4 Incomplete spontaneous abortion without complication; T42.4X2A Poisoning by benzodiazepines, intentional self-harm, initial encounter; Z56.0 Unemployment, unspecified; Z79.899 Other long term (current) drug therapy; I95.9 Hypotension, unspecified; R00.0 Tachycardia, unspecified; Z20.822 Contact with and (suspected) exposure to COVID-19
CPT/HCPCS: 36415; 76801; 76817; 80048; 80053; 80061; 80076; 80143; 80306; 81001; 81025; 82075; 82550; 83036; 83615; 84443; 84702; 85025; 85027; 86140; 86850; 86900; 86901; 87635; 99285

== ENCOUNTER 2021-02-07 16:25 | Inpatient (IN) | payer OTHER ==
[2021-02-07] MEDS ORDERED: ONDANSETRON 4 MG/2 ML VIAL IVP PRN (17:39)
[2021-02-07] MEDS ORDERED: ACETAMINOPHEN TAB 325 MG TAB PO PRN (17:39)
--- NOTE | 2021-02-07 18:02 | P.HPIM ---
History of Present Illness H&P Date: 02/07/21 Chief Complaint: Altered mental status This is a 25-year-old female with past medical history significant for underlying psychosis, history of benzodiazepine abuse, and history of opiate abuse currently maintained on Suboxone as an outpatient that presented to the emergency room with suicidal ideation and was admitted to the psych unit for further management. Today, a rapid response was called by nursing staff regarding patient area upon arrival to the room, patient appeared catatonic and the rigid. She was profusely diaphoretic and her heart rate was up in the 140s and sometimes 150s and sinus tachycardia. Patient was still awake and able to answer yes or no questions. She was moaning. She was shaking significantly during the episode. It took a few minutes for nursing staff to establish peripheral IV and get medications from the pharmacy. Patient was given 2 mg IV Ativan which subsequently aborted that episode. Her heart rate improved to the 90s. Her shakiness resolved and patient appeared more comfortable and was able to answer questions appropriately. She did not have any postictal symptoms. She was started on IV fluid bolus and will be transferred to the medical floor for monitoring. Review of Systems Review of system: 14 points review of systems were obtained and were negative except to what were mentioned in the HPI. Past Medical History Past Medical History: No Reported History Additional Past Medical History / Comment(s): Patient had a spontaneous vaginal delivery 35-5/7 weeks gestation on 11/01/2013. She had premature rupture membranes and labor. Patient also reports that she had a delivery last year with Dr. Carvajal. History of Any Multi-Drug Resistant Organisms: None Reported Past Surgical History: No Surgical Hx Reported Additional Past Surgical History / Comment(s): vaginal delivery Past Anesthesia/Blood Transfusion Reactions: No Reported Reaction Past Psychological History: Anxiety, Depression Smoking Status: Current every day smoker Past Alcohol Use History: Occasional Past Drug Use History: Prescription Drug Abuse - Past Family History Father History Unknown: Yes Family Medical History: No Reported History Medications and Allergies Home Medications Medication Instructions Recorded Confirmed Type ALPRAZolam [Xanax] 0.5 mg PO BID 02/05/21 02/07/21 History Buprenorphine HCl/Naloxone HCl 1 film SUBLINGUAL BID 02/05/21 02/07/21 History [Suboxone 8 mg-2 mg Sl Film] Dextroamphetamine/Amphetamine 30 mg PO BID 02/05/21 02/07/21 History [Dextroamp-Amphetamin 30 mg Tab] Allergies Allergy/AdvReac Type Severity Reaction Status Date / Time amoxicillin Allergy Anaphylaxis Verified 02/05/21 18:34 magnesium Allergy Swelling Verified 02/05/21 18:34 Penicillins Allergy Anaphylaxis Verified 02/05/21 18:34 tramadol [From Ultram] Allergy Rash/Hives Verified 02/05/21 18:34 Physical Exam General: The patient is awake and alert, in no distress Eye: there is normal conjunctiva bilaterally. Neck: The neck is supple, there is no JVD. Cardiovascular: Normal S1-S2, no S3-S4, no murmurs. Respiratory: Lungs clear to auscultation bilaterally Gastrointestinal: Abdomen is soft, nontender Musculoskeletal: There is no pedal edema. Neurological:. Speech is normal. Skin: Skin is warm and dry Assessment and Plan Assessment: 1. 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 It is unclear to me what triggered this episode. I had a concern about possible neuroleptic malignant syndrome as she was just started on Prolixin but patient did not have a fever and her creatinine kinase and liver enzymes were checked and normal. I think this is a less likely seizure episode and if it is due to be very atypical. I would consult neurology for further evaluation. Obtain EEG. 2. Underlying psychosis with suicidal thoughts on presentation: Continue suicide precautions. Sitter at bedside. Consult psychiatry 3. History of benzodiazepine and opiate abuse: Maintained on Suboxone at home. May use her home medication here in the hospital 4. Recent miscarriage: Seen and evaluated by [facility]. Beta-hCG trending down. We will repeat in the morning. Today, I reviewed her medication list and lab work results. Her lab work is essentially normal. I would check urinalysis to rule out underlying UTI. We will continue telemetry monitoring and supportive care. IV fluid hydration with normal saline at 75 mL per hour.
[2021-02-07] MEDS: ALPRAZolam 0.5 MG TAB PO SCH (21:07)
[2021-02-07] MEDS: metroNIDAZOLE 500 MG TAB PO SCH (21:07)
[2021-02-07] MEDS: NON FORMULARY DRUG (Buprenorphine Hcl/Naloxone Hcl [Suboxone 8 Mg-2 Mg Sl Film] 1 EACH Fil SUBLINGUAL SCH (21:08)
[2021-02-07] MEDS: SODIUM CHLORIDE 0.9% 1,000 ML IV SCH (21:11)
[2021-02-08] MEDS ORDERED: HALOPERIDOL LACTATE 5 MG/ML 1 ML VIAL IM ONE (08:30)
[2021-02-08] MEDS: metroNIDAZOLE 500 MG TAB PO SCH ×3 (08:39→20:12)
[2021-02-08] MEDS: ALPRAZolam 0.5 MG TAB PO SCH (08:40)
[2021-02-08] MEDS: NON FORMULARY DRUG (Buprenorphine Hcl/Naloxone Hcl [Suboxone 8 Mg-2 Mg Sl Film] 1 EACH Fil SUBLINGUAL SCH ×2 (08:46→13:25)
[2021-02-08] MEDS: SODIUM CHLORIDE 0.9% 1,000 ML IV SCH (10:52)
--- NOTE | 2021-02-08 12:14 | P.PN ---
Progress Note - Text Progress Note Date: 02/08/21 25yo female that was seen previously by myself for incomplete Ab. she had stated to me that she knew she was miscarrying and had been bleeding for about a week. she had a quantitative HCG 9.7. she did have a negative qualitative today. some concern about a tampon that was noted on US, it was removed at the time of the US on 02/06. she has since been evaluated by medicine and transferred to a medical floor from the psychiatric floor. chart reviewed since consult done. impression/Plan complete Ab tampon, questionable retained for unknown time frame. It was removed at the time of the US, I did start her on oral flagyl for vaginal odor, suspected bacterial vaginosis. It is unlikely that this is the cause of her ongoing medical concerns. I would defer to medicine for current medical concerns obgyn hospitalist physician issues have resolved, at this time. miscarriage is complete and tampon has been removed.
[2021-02-08] MEDS: clonazePAM 0.5 MG TAB PO SCH ×2 (13:24→20:12)
[2021-02-08] MEDS ORDERED: HALOPERIDOL LACTATE 5 MG/ML 1 ML VIAL IM PRN (14:05)
--- NOTE | 2021-02-08 14:05 | P.CN ---
Psychiatric Consult - . Consult date: 02/08/21 Consult:: 02/08/21 12:48 IDENTIFYING DATA: Patient is a 25-year-old single , initially she was admitted to psychiatric unit then was transferred to medical floors. HISTORY OF PRESENT ILLNESS: Patient was initially admitted to the psychiatric unit over the weekend and was having episodes of aggression and bizarre behavior. Patient also was having weakness in her lower extremities and was combative toward staff members. Patient was started on psychotropic medications and yesterday had a rapid response called by the nursing staff. Patient was apparently in a "catatonic" state and was rigid and diaphoretic and had a heart rate between the 140s and 150s. Patient was given 2 mg of Ativan and then was transferred to the medical floors. Neurology was consulted and recommended a EEG which will be done today with follow-up afterwards. Patients nurse claims that she was agitated this morning however received her Xanax and improved and has been more calm and cooperative since then. Patient was seen at the bedside with her one-to-one sitter and was fairly persistent on discharge. She appears to have a brighter affect and claims that she is doing better overall. She was not showing any signs of tremor and denied any withdrawal symptoms. She states that she slept very little last night. She is denying any depression or anxiety today. She claims that she has a fair appetite. She denies any racing thoughts or any pa ranoid delusions. Any auditory or visual hallucinations and denies any suicidal or homicidal ideations intent or plan. She has concrete thought process. PAST PSYCHIATRIC HISTORY: She was apparently diagnosed with ADHD when she was 11 years old and treated with psychostimulants intermittently since. She also began meeting with counselors about the same time. She is currently prescribed Suboxone 8/2 mg twice a day, Xanax 0.5 mg twice a day and Adderall 30 mg twice a day by a nurse practitioner. She is not currently engaged with mental health services. PAST MEDICAL HISTORY: She has no history of chronic medical problems. ALLERGIES: During the record she has a history of ALLERGY to amoxicillin, penicillins and tramadol SUBSTANCE USE HISTORY: She was evasive about her substance abuse history. He alleged began using oral opiate medications "about 4 years ago". She stopped abusing the opiates after she was prescribed Suboxone. She is never been any substance abuse treatment program. She is never attended AA or NA. As mentioned above, she denied history of use of other drugs including heroin, cocaine and methamphetamine. FAMILY PSYCHIATRIC/SUBSTANCE USE HISTORY: Her sister have history is oral opiate use disorder. Her mother and a diagnosis of ADHD LEGAL HISTORY: She is no on probation, parole or is pending charges. She multiple past charges for possession of controlled substances. SOCIAL HISTORY: She has 2 sisters. Her parents are . She left school but received a GED. She is currently unemployed. She has 4 children out of wedlock from 2 different fathers. All the children were removed from her custody and placed in foster care. MENTAL STATUS EXAM: General Appearance: Patient appears to be stated age is alert, directable, and cooperative. Patient appears to have improving hygiene and grooming wearing hospital gown with fair eye contact. Behavior: Patient is calmly lying in bed without any agitated behavior. Speech: Patient's speech is fluent and nonpressured. concrete Mood/Affect: Patient reports their mood is "ok", affect is congruent and constricted Suicidality/Homicidality: Patient denies having any suicidal or homicidal ideation intent or plan. Perceptions: Patient denies any visual hallucinations and denies any auditory hallucinations Though content/process: [place], poverty of content. Logical. Persistent on discharge. Memory and concentration: AOX2-3, grossly intact for the purposes of this session. Judgment and insight: poor IMPRESSIONS: Psychosis unspecified, rule out secondary to substance abuse/withdrawal (BZD) Benzodiazepine abuse tobacco use disorder PLAN: -At this time patient DOES continue to meet criteria for inpatient psychiatric admission. Patient is currently in involuntary process and awaiting deferral and court date with the attorney lawyer. -Would recommend the following medication changes/additions: We'll start Klonopin 0.5 mg twice a day for anxiety/BZD w/d. haldol and ativan prn for agitation/aggression. -Continue 1:1 sitter for safety -Cannot leave AMA at this time as she is under involuntary status [-awaiting neuro recs and EEG testing/results. -When medically stable, patient is eligible for transfer to a psych bed when available. -Communicated plan to patient's nurse -Psychiatry will sign off at this time -Please contact with any questions.
[2021-02-08] MEDS ORDERED: LORazepam 1 MG TAB PO PRN (14:06)
--- NOTE | 2021-02-08 14:16 | P.PN ---
Subjective Progress Note Date: 02/08/21 Patient was calm and cooperative when I saw her. She was trying to leave the hospital AGAINST MEDICAL ADVICE this morning and apparently was slightly agitated that her symptoms improved after getting her morning dose of Xanax. Objective - Vital Signs Vital signs: Vital Signs Temp 98.7 F 02/08/21 11:31 Pulse 66 02/08/21 11:31 Resp 15 02/08/21 11:31 BP 109/71 02/08/21 11:31 Pulse Ox 96 02/08/21 11:31 Intake & Output 02/07/21 02/08/21 02/08/21 18:59 06:59 18:59 Intake Total 240 130 Output Total 300 220 Balance -60 -220 130 Weight 63.5 kg 71.9 kg Intake: IV 130 Sodium Chloride 0.9% 1, 130 000 ml @ 75 mls/hr IV . [id number] LEIGHANN Rx#:[id number] Oral 240 Output: Urine 300 220 Other: Voiding Method Bedside Commode Bedside Commode # Voids 1 1 - Exam General: The patient is awake and alert, in no distress Eye: there is normal conjunctiva bilaterally. Neck: The neck is supple, there is no JVD. Cardiovascular: Normal S1-S2, no S3-S4, no murmurs. Respiratory: Lungs clear to auscultation bilaterally Gastrointestinal: Abdomen is soft, nontender Musculoskeletal: There is no pedal edema. Neurological:. Speech is normal. Skin: Skin is warm and dry Assessment and Plan Assessment: This is a 25-year-old female who was admitted to the medical floor after a rapid response was called on her on the psych unit. Patient is currently being evaluated for the medical problems noted below 1. 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 It is unclear to me what triggered this episode. I had a concern about possible neuroleptic malignant syndrome as she was just started on Prolixin but patient did not have a fever and her creatinine kinase and liver enzymes were checked and normal. I think this is a less likely seizure episode and if it is due to be very atypical. I consulted neurology for further evaluation. EE awaiting G. 2. Underlying psychosis with suicidal thoughts on presentation: Continue suicide precautions. Sitter at bedside. Consulted psychiatry 3. History of benzodiazepine and opiate abuse: Maintained on Suboxone at home. May use her home medication here in the hospital 4. Recent miscarriage: Seen and evaluated by [facility]. Beta-hCG trending down. Suspected BV started on Flagyl Today, I reviewed her medication list and lab work results. Her lab work and urinalysis is essentially normal. Patient cannot leave the hospital AMA. Plan to discharge back to the psych unit tomorrow.
--- NOTE | 2021-02-08 14:45 | P.CNNES ---
History of Present Illness Consult date: 02/08/21 Requesting physician: Hira Kenney Reason for Consult: Catatonic episode History of Present Illness: Patient is a 25-year-old female who states that she came to the hospital record she tried to commit suicide. She states that she took 10 bars of Xanax and "they found her outside". Patient at present and states that she is feeling fine and wants to go home. She has 4 little children and wants to go with her family. She is adamant. On reviewing electric medical records, it appears patient was admitted to the psychiatric unit over the weekend and was having episodes of aggression and bizarre behavior. Patient was also noticed to have weakness in her lower extremities and was combative to worse staff members. Patient was started on psychotropic medications and yesterday had a rapid response called by nursing staff. Patient was apparently in a "catatonic" state and was rigid, diaphoretic and had a heart rate between 140s and-50s. Patient was given 2 mg of Ativan and then was transferred to the medical floor. Patient has been seen by psychiatrist and diagnosed with psychosis unless specified, rule out secondary to substance abuse/withdrawal/benzodiazepine. Tobacco use disorder. Patient's blood test shows review BCT 0.2 hemoglobin 9.8, platelets are normal to 84. MCV is normal 91.8. Chem-7 is normal. Hemoglobin A1c 4.9 on 02/05/2021. Hepatic panel normal. Total cholesterol 131, LDL 84, HDL 31 and triglycerides 80. Urine drug screen positive for benzodiazepine. Blood alcohol level negative. Patient had a negative RPR on 04/29/2019. HIV testing also negative back in 2019. Elementary monitoring so far showing sinus rhythm with sinus bradycardia and sinus tachycardia. Review of Systems Patient denies any chest pain shortness of breath wheezing or cough. Denies any abdominal pain nausea vomiting diarrhea. Denies any numbness or tingling. Denies any weakness although she is obviously weak. Denies any problems with vision, hoarseness, sore throat, dysphagia. No fever or chills. No neck pain and back pain. No problems with urine. No weight gain. Past Medical History Past Medical History: No Reported History Additional Past Medical History / Comment(s): Patient had a spontaneous vaginal delivery 35-5/7 weeks gestation on 11/01/2013. She had premature rupture membranes and labor. Patient states she also had a recent miscarriage. History of Any Multi-Drug Resistant Organisms: None Reported Past Surgical History: No Surgical Hx Reported Additional Past Surgical History / Comment(s): vaginal delivery Past Anesthesia/Blood Transfusion Reactions: No Reported Reaction Past Psychological History: Anxiety, Bipolar, Depression Smoking Status: Current every day smoker Past Alcohol Use History: Daily, Occasional Past Drug Use History: Prescription Drug Abuse Additional Drug Use History / Comment(s): Xanax use - Past Family History Father History Unknown: Yes Family Medical History: No Reported History Medications and Allergies Home Medications Medication Instructions Recorded Confirmed Type ALPRAZolam [Xanax] 0.5 mg PO BID 02/05/21 02/07/21 History Buprenorphine HCl/Naloxone HCl 1 film SUBLINGUAL BID 02/05/21 02/07/21 History [Suboxone 8 mg-2 mg Sl Film] Dextroamphetamine/Amphetamine 30 mg PO BID 02/05/21 02/07/21 History [Dextroamp-Amphetamin 30 mg Tab] Allergies Allergy/AdvReac Type Severity Reaction Status Date / Time amoxicillin Allergy Anaphylaxis Verified 02/05/21 18:34 magnesium Allergy Swelling Verified 02/05/21 18:34 Penicillins Allergy Anaphylaxis Verified 02/05/21 18:34 tramadol [From Ultram] Allergy Rash/Hives Verified 02/05/21 18:34 Physical Examination - Vital Signs Vital Signs: Vital Signs Temp Pulse Resp BP Pulse Ox 02/08/21 08:28 98.3 F 75 15 97/60 97 02/08/21 03:00 98.6 F 78 16 113/73 95 02/08/21 02:00 17 02/07/21 23:29 98.5 F 76 17 121/69 97 02/07/21 20:00 16 02/07/21 19:53 99.0 F 65 16 108/62 95 02/07/21 18:23 99.2 F 82 16 94/52 97 Intake and Output 02/07/21 02/08/21 02/08/21 22:59 06:59 14:59 Intake Total 240 Output Total 300 220 Balance -60 -220 Intake: Oral 240 Output: Urine 300 220 Other: Voiding Method Bedside Commode Bedside Commode # Voids 1 Weight 63.5 kg 71.9 kg Patient is a young female, who appears slightly older than her stated age. She appears delirious, slightly shaky, mildly encephalopathic. Patient has tremors of outstretched hands. Patient is alert awake oriented to time place and person. Patient knows it is January 2021 and that she is in [facility]. Speech and language functions are normal. Attention, concentration and fund of knowledge is slightly limited. Detailed testing deferred. On cranial examination, pupils are round and reacting to light, visual roque are full on confrontation, extraocular muscles are intact with no nystagmus. Face is symmetric, tongue protrudes to the midline. Palatal elevation and sensation normal, hearing and shoulder shrug normal, facial sensation normal. Shoulder shrug normal. On muscle strength testing, there is no pronator drift and the strength is normal in arms distally and proximally. In the lower limbs, her ankle dorsiflexion is about 4+, toe extension is 3+, knee extension 5. Hip flexion 4+. Deep tendon reflexes are 3 in the upper limbs, 3 at the knees, 1+ ankles and plantars are possibly upgoing bilaterally. Sensory to touch is equal with no neglect. Cerebellar function showed no ataxia for [id number] testing. No dysdiadochokinesia. Tone and bulk of muscles normal. Gait patient very unsteady on her feet. She required assist of one or 2.. On general examination, there is no carotid bruit or murmur, S1-S2 audible. Abdomen is soft nontender. Chest is clear. Peripheral pulses are present. No edema. Assessment and Plan Assessment: * Altered mental status, likely due to psychotic episode. Rule out TME. Seizu re appears less likely. * Generalized weakness more so in the lower extremity with brisk reflexes in bilateral Babinski, unclear cause. Rule out nutritional/vitamin deficiency. Rule out MS. * History of suicide attempt. * History of benzodiazepine and opiate abuse, currently on Suboxone. Plan: * EEG was performed, which revealed background slowing of mild to moderate degre e, suggestive of generalized cerebral dysfunction, as can be seen with encephalopathy of toxic metabolic or vascular causes or medication effect. No epileptiform activity was seen. * We will check detail. Workup including B12, folate, MMA, serum copper, B6, B1, HIV, RPR. * MRI of the brain and cervical spine and rule out MS. * Neurology will follow. Psychiatry also on board.
--- NOTE | 2021-02-08 15:38 | EEG ---
ELECTROENCEPHALOGRAM REPORT DATE OF SERVICE: 02/08/2021 PREAMBLE: This is 25-year-old female with an episode of abnormal mental status versus catatonia versus seizure. This study is performed to evaluate for any epileptiform activity. EEG FINDINGS: This is a 21 channel routine EEG recording in a patient utilizing 10/20 international system with referential and bipolar montages. Background consists of moderately well- developed and regulated mixed frequencies of 8-9 hertz alpha, with some 6-7 hertz theta activity seen in bihemispheric region. Background does not seem to be reactive to photic stimulation or to eye opening or closing. Different stages of sleep were not seen. No focal or generalized epileptiform activity was seen. IMPRESSION: This is a mildly abnormal EEG due to background slowing of mild to moderate degree. This is suggestive of generalized cerebral dysfunction as can be seen with toxic metabolic encephalopathy or due to diffuse structural brain abnormality. No epileptiform activity was seen. MMODL / IJN: [id number] /
[2021-02-08 20:38] LABS: HIV 2 AB Non-Reactive (Non-Reactive); HIV AB P24 Non-Reactive (Non-Reactive); HIV P24 AG Non-Reactive (Non-Reactive)
[2021-02-08] MEDS: LORazepam 2 MG/ML INJ IM PRN (20:40)
[2021-02-08 21:05] LABS: Folate, Serum 13.9 ng/mL
[2021-02-08] MEDS ORDERED: CYANOCOBALAMIN 1,000 MCG/ML 1 ML VIAL IM SCH (22:45)
[2021-02-09] MEDS: SODIUM CHLORIDE 0.9% 1,000 ML IV SCH ×2 (00:26→10:04)
--- NOTE | 2021-02-09 07:45 | MR ---
EXAMINATION TYPE: MR cervical spine wo con DATE OF EXAM: 02/09/2021 COMPARISON: None HISTORY: AMS, weakness, spasticity, rule out MS CONTRAST: Performed utilizing 0 mL intravenous Gadavist gadolinium contrast. TECHNIQUE: Multiplanar multiecho imaging on a 3.0 Deisy magnet is performed through the cervical spin e. FINDINGS: The craniovertebral junction is normal. Vertebral body alignment is normal. No focal disc herniations or significant disc bulges are evident. No spinal canal stenosis or neural foraminal stenosis is present. The spinal cord as visualized appears normal. No suspicious white matter changes are evident. No cord expansion is evident. No cord contact or defo rmity is evident. IMPRESSIONS: 1. Essentially normal MRI cervical spine. There is some limitation due to patient level of cooperatio n time of this exam.
--- NOTE | 2021-02-09 07:55 | MR ---
EXAMINATION TYPE: MR brain wo con DATE OF EXAM: 02/09/2021 COMPARISON: None HISTORY: AMS, weakness, spasticity, rule out MS CONTRAST: Performed utilizing 0 mL intravenous Gadavist gadolinium contrast. TECHNIQUE: Multiplanar, multiecho imaging on a 3.0 Deisy magnet is performed through the brain. Stud y is performed within 24 hours of arrival to the hospital. Patient was unable to cooperate with the e xamination. Contrast portion of the study and coronal T2 sequences were not obtained this time The craniovertebral junction is normal. The pituitary is normal. Diffusion-weighted imaging is performed. No abnormal hyperintensity is present to suggest an acute i ntracranial infarct or acute ischemic change. Suspicious signal change is not evident. No typical punctate hyperintensities to suggest multiple scl erosis. There is some vague periventricular white matter changes which are nonspecific. This is best visualized on the inversion recovery sequences there is not evident on the diffusion. Findings could be related to vasculitis. This be an atypical appearance for multiple sclerosis Ventricles and sulci are appropriate for the patient age. IMPRESSIONS: 1. There is some vague ill-defined periventricular white matter hyperintensity on inversion recovery weighted sequences. Some chronic vasculitis could be considered. This is an atypical presentation for multiple sclerosis. Brain otherwise appears normal. 2. There is some limitation of the examination with early termination of the exam due to patient coop eration.
[2021-02-09] MEDS: metroNIDAZOLE 500 MG TAB PO SCH ×3 (09:28→21:43)
[2021-02-09] MEDS: clonazePAM 0.5 MG TAB PO SCH ×2 (09:28→20:48)
[2021-02-09] MEDS: NON FORMULARY DRUG (Buprenorphine Hcl/Naloxone Hcl [Suboxone 8 Mg-2 Mg Sl Film] 1 EACH Fil SUBLINGUAL SCH ×2 (10:04→20:48)
[2021-02-09] MEDS ORDERED: THIAMINE 100 MG TAB PO SCH (12:30)
[2021-02-09] MEDS ORDERED: CYANOCOBALAMIN 1,000 MCG/ML 1 ML VIAL IM SCH (13:00)
--- NOTE | 2021-02-09 15:18 | P.PN ---
Subjective Progress Note Date: 02/09/21 Patient states she is feeling better. She wants to go home. Patient just had taken a shower, and feels better. Her telemetry monitoring showing sinus rhythm and heart rate in the 80s. Denies any new problems. Objective - Vital Signs Vital signs: Vital Signs Temp 99.5 F 02/09/21 12:41 Pulse 92 02/09/21 12:41 Resp 16 02/09/21 12:41 BP 103/57 02/09/21 12:41 Pulse Ox 97 02/09/21 12:41 Intake & Output 02/08/21 02/09/21 02/09/21 18:59 06:59 18:59 Intake Total 850 550 240 Output Total 1000 Balance 850 -450 240 Weight 65.1 kg Intake: IV 130 Sodium Chloride 0.9% 1, 130 000 ml @ 75 mls/hr IV . [id number] LEIGHANN Rx#:[id number] Oral 720 550 240 Output: Urine 1000 Straight 1000 Other: Voiding Method Bedside Commode Toilet # Voids 1 1 1 - Exam Patient's mental status, speech and language function are stable. She is less tremulous. She continues to be slightly slow. Cranial nerves are normal. On muscle strength testing the strength is normal in the arms distally and proximally. In the lower limbs, she is bilaterally symmetrically weak in hip flexion is 4 to 4-, knee extension 5, ankle dorsiflexion 3+ (weaker on the left), toe extension 3-4. Reflexes are 3 at the upper limbs, 2+ to 3 at the knees, 1+ ankles and plantars are flat. Patient has severely decreased proprioceptive sensation in the lower extremities. Fine touch appears normal. Patient has sensory gait ataxia. - Labs Labs: Abnormal Lab Results - Last 24 Hours (Table) 02/08/21 02/08/21 Range/Units 14:41 14:41 Vitamin B12 167.0 L (200.0-944.0) pg/mL Copper 2249 H (810-1990) ug/L Assessment and Plan Assessment: * Altered mental status, likely due to psychotic episode. Rule out TME. Seizure appears less likely. * Severe vitamin B12 deficiency. 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 Patient has spasticity, and severe posterior column dysfunction likely due to B12 deficiency. No evidence of MS on the brain and cervical spine MRI. No mass lesion. * History of suicide attempt. * History of benzodiazepine and opiate abuse, currently on Suboxone. Plan: * EEG was performed, which revealed background slowing of mild to moderate degree, suggestive of generalized cerebral dysfunction, as can be seen with encephalopathy of toxic metabolic or vascular causes or medication effect. No epileptiform activity was seen. * B12 very low 167, folate 13.9, serum copper is elevated 2249, RPR negative, HIV testing negative. Await B6, B1, MMA. We will check ceruloplasmin. * Patient has been started on vitamin B12 injection 1000 g IM daily. Patient must receive vitamin B12 1000 IM daily for 7 days, then weekly for a month and then twice a month subsequently. * Recommend patient follow up with neurologist as an outpatient. * MRI of the brain revealed some vague ill-defined periventricular white matter hyperintensity on inversion recovery related sequences. Some chronic vasculitis could be considered. This is an atypical presentation for MS. Brain otherwise appears normal. * MRI of the cervical spine is essentially normal. Some limitation due to patient level of cooperation. Addendum: B6 9 (borderline), Folate 13.9, B1 58, MMA >5.0 (Normal <0.40) Spoke to Dr Adam 02/11/2021. She informed me that pt is in MHU. She started Vitamin B6 50 mg daily and B complex, along recommended to continue with B12 strictly as mentioned above. Recommend patient follow up with neurologist as out patient.
[2021-02-09 16:22] VITALS: RESP 18
--- NOTE | 2021-02-09 18:24 | P.DS ---
Providers Date of admission: 02/07/21 17:15 Expected date of discharge: 02/09/21 [facility] Consults: 02/07/21 17:36 Consult Physician Routine Consulting Provider: Pj Chand Consult Reason/Comments: catatonic episode Do you want consulting provider notified?: Yes Placement Type Exists?: Yes 02/07/21 17:38 Consult Physician Routine Consulting Provider: Woody Frias Consult Reason/Comments: Schizophrenia Do you want consulting provider notified?: Yes 02/08/21 10:13 Consult Physician Routine Consulting Provider: Nereyda Huang Consult Reason/Comments: follow up Do you want consulting provider notified?: Yes Primary care physician: [facility] Hospital Course: Discharge Diagnosis: Vitamin B12 deficiency resulting in subacute combined degeneration of the cord- needs IM vitamin B 12 daily 7 days then once weekly 4 weeks Toxic metabolic atrophy likely secondary to psychotic episode Polysubstance abuse Recent miscarriage Retained tampon with suspected bacterial vaginosis Hospital Course: Patient is a 25-year-old female with a history of suicidal ideation, recent [facility] and Suboxone 8 use as she has a recovery opiate abuse who was transferred from the mental health unit due to catatonic episode. She underwent an extensive evaluation including MRI of the brain which showed no acute process, MRI of the cervical spine which showed no acute process, EEG which did not show any epileptic activity. She was seen by neurology. She was found to have vitamin B12 deficiency and was started on IM vitamin B12 injections. She was seen by [facility] and her beta hCG has normalized. She was discovered to have a retained tampon which was removed. She has been started on Flagyl for bacterial vaginosis. She was cleared by neurology and determined stable to return to mental health unit. I do recommend repeat copper level in approximately 2-4 weeks, this can be 2 times the upper limit of normal with and is in that range currently. Patient seen and examined at bedside. She wants to go home to her kids and is asking to be discharged. Denies any chest pain, shortness breath, nausea, or vomiting. Vital signs reviewed and stable. General: non toxic, no distress, appears at stated age Derm: warm, dry Head: atraumatic, normocephalic, symmetric Eyes: EOMI, no lid lag, anicteric sclera Mouth: no lip lesion, mucus membranes moist Cardiovascular: S1S2 reg, no murmur, positive posterior tibial pulse bilateral, Lungs: CTA bilateral, no rhonchi, no rales , no accessory muscle use Abdominal: soft, nontender to palpation, no guarding, no appreciable organomegaly Ext: no gross muscle atrophy, no edema, no contractures Neuro: CN II-XI grossly intact, no focal neuro deficits, moving all 4 extremites independently. Psych: Alert, oriented, appropriate affect A total of 25 minutes of time were spent preparing this [facility] . Plan - Discharge Summary Discharge Rx Participant: No New Discharge Prescriptions: New metroNIDAZOLE [Flagyl] 500 mg PO TID 7 Days tab Cyanocobalamin [Vitamin B-12 Injection] 1,000 mcg IM DAILY 7 Days vial Discontinued Dextroamphetamine/Amphetamine [Dextroamp-Amphetamin 30 mg Tab] 30 mg PO BID Buprenorphine HCl/Naloxone HCl [Suboxone 8 mg-2 mg Sl Film] 1 film SUBLINGUAL BID ALPRAZolam [Xanax] 0.5 mg PO BID Discharge Medication List Cyanocobalamin [Vitamin B-12 Injection] 1,000 mcg IM DAILY 7 Days vial 02/09/21 [Rx] metroNIDAZOLE [Flagyl] 500 mg PO TID 7 Days tab 02/09/21 [Rx] Discharge Disposition: TRANSFER TO PSYCH HOSP/UNIT
[2021-02-09] MEDS: LORazepam 2 MG/ML INJ IM PRN (23:18)
[2021-02-10] MEDS: SODIUM CHLORIDE 0.9% 1,000 ML IV SCH (00:15)
[2021-02-10 00:30] VITALS: BP 106/67; PULSE 102; TEMP 98.9
[2021-02-10 06:20] LABS: Methylmalonic Acid >5.00 umol/L (<0.40)
[2021-02-10] MEDS ORDERED: CYANOCOBALAMIN 1,000 MCG/ML 1 ML VIAL IM SCH (09:00)
[2021-02-11 06:11] LABS: Vit B1(Thiamine) 58 ug/L (38-122)
== END 2021-02-10 00:39 | DRG 884 ==
LOC: 3SCARD 17:15
PROVIDERS: ADMIT Internal Medicine; ATTEND Internal Medicine
PROC: 0UCG7ZZ Extirpation of Matter from Vagina, Via Natural or Artificial Opening (ICD-10-PCS; principal; 2021-02-08)
DX: F06.1 Catatonic disorder due to known physiological condition (principal); G92 Toxic encephalopathy; G32.0 Subacute combined degeneration of spinal cord in diseases classified elsewhere; R45.851 Suicidal ideations; F23 Brief psychotic disorder; F11.20 Opioid dependence, uncomplicated; F13.20 Sedative, hypnotic or anxiolytic dependence, uncomplicated; T19.2XXA Foreign body in vulva and vagina, initial encounter; R00.0 Tachycardia, unspecified; F29 Unspecified psychosis not due to a substance or known physiological condition; Z20.822 Contact with and (suspected) exposure to COVID-19; F17.210 Nicotine dependence, cigarettes, uncomplicated; F41.9 Anxiety disorder, unspecified; E53.8 Deficiency of other specified B group vitamins; Z91.5 Personal history of self-harm; F31.9 Bipolar disorder, unspecified; N76.0 Acute vaginitis; X58.XXXA Exposure to other specified factors, initial encounter; Z88.1 Allergy status to other antibiotic agents; Z88.0 Allergy status to penicillin; Z88.5 Allergy status to narcotic agent; Z87.59 Personal history of other complications of pregnancy, childbirth and the puerperium
CPT/HCPCS: 70551; 72141; 82390; 82525; 82607; 82746; 83921; 84207; 84425; 84703; 86780; 87390; 95816

== ENCOUNTER 2021-02-10 00:43 | Inpatient (IN) | payer MEDICAID ==
[2021-02-10] MEDS ORDERED: MAG HYDROX/AL HYDROX/SIMETH 30 ML CUP PO PRN (01:20)
[2021-02-10] MEDS ORDERED: MAGNESIUM HYDROXIDE 2,400 MG/10 ML CUP PO PRN (01:20)
[2021-02-10] MEDS ORDERED: ACETAMINOPHEN TAB 325 MG TAB PO PRN (01:20)
[2021-02-10] MEDS ORDERED: HALOPERIDOL LACTATE 5 MG/ML 1 ML VIAL IM PRN (01:24)
[2021-02-10] MEDS ORDERED: LORazepam 2 MG/ML INJ IM PRN (01:24)
[2021-02-10] MEDS: LORazepam 1 MG TAB PO PRN (02:04)
[2021-02-10] MEDS: haloperidoL 5 MG TAB PO PRN (02:04)
[2021-02-10] MEDS: NICOTINE 14MG/24HR PATCH TRANSDERM SCH (08:54)
[2021-02-10] MEDS: metroNIDAZOLE 500 MG TAB PO SCH ×3 (08:54→22:47)
--- NOTE | 2021-02-10 10:27 | P.HP ---
Psychiatric H&P - . H&P Date: 02/10/21 History & Physical: Allergies Allergy/AdvReac Type Severity Reaction Status Date / Time amoxicillin Allergy Anaphylaxis Verified 02/10/21 02:53 magnesium Allergy Swelling Verified 02/10/21 02:53 Penicillins Allergy Anaphylaxis Verified 02/10/21 02:53 tramadol From Ultram Allergy Rash/Hives Verified 02/10/21 02:53 Vital Signs Temp 100.3 F H 02/10/21 02:18 Pulse 92 02/10/21 02:18 Resp 18 02/10/21 02:18 BP 112/71 02/10/21 02:18 Pulse Ox 95 02/10/21 02:18 Intake & Output 02/09/21 02/10/21 02/10/21 18:59 06:59 18:59 Weight 68.4 kg 02/10/21 10:14 IDENTIFYING DATA: Patient is a 25-year-old single , initially she was admitted to psychiatric unit then was transferred to medical floors. HISTORY OF PRESENT ILLNESS: Patient was initially admitted to the psychiatric unit and was having episodes of aggression and bizarre behavior. Patient also was having weakness in her lower extremities and was combative toward staff members. Patient was started on psychotropic medications and yesterday had a rapid response called by the nursing staff. Patient was apparently in a "catatonic" state and was rigid and diaphoretic and had a heart rate between the 140s and 150s. Patient was given 2 mg of Ativan and then was transferred to the medical floors. Neurology was consulted and recommended a EEG and MRI. Patient was found to have a low vitamin B12 level and had subacute combined degeneration of the court and was being treated with vitamin B12 injections daily. Patient was also started on Klonopin in the medical floor and was medically stabilized and transferred back to the psychiatric unit last night. She was seen lying in her bed today and appeared to be somewhat confused and mildly shaky in her hands bilaterally. She did not know who the current president is however she does know that she is in "hospital". She repeatedly asked to go home. She was attempting to cooperate as best that she could improvement in her irritability. She claims that she did overdose before coming into the hospital. She states that her mood is "fine" and is denying any anxiety today. She is denying any paranoia. She states that she slept fairly last night. She claims that she has a fair appetite. She denies any racing thoughts or any paranoid delusions. Any auditory or visual hallucinations and denies any suicidal or homicidal ideations intent or plan. She has concrete thought process. PAST PSYCHIATRIC HISTORY: She was apparently diagnosed with ADHD when she was 11 years old and treated with psychostimulants intermittently since. She also began meeting with counselors about the same time. She is currently prescribed Suboxone 8/2 mg twice a day, Xanax 0.5 mg twice a day and Adderall 30 mg twice a day by a nurse practitioner. She is not currently engaged with mental health services. PAST MEDICAL HISTORY: She has no history of chronic medical problems. ALLERGIES: During the record she has a history of ALLERGY to amoxicillin, penicillins and tramadol SUBSTANCE USE HISTORY: She was evasive about her substance abuse history. He alleged began using oral opiate medications "about 4 years ago". She stopped abusing the opiates after she was prescribed Suboxone. She is never been any substance abuse treatment program. She is never attended AA or NA. As mentioned above, she denied history of use of other drugs including heroin, cocaine and methamphetamine. FAMILY PSYCHIATRIC/SUBSTANCE USE HISTORY: Her sister have history is oral opiate use disorder. Her mother and a diagnosis of ADHD LEGAL HISTORY: She is no on probation, parole or is pending charges. She multiple past charges for possession of controlled substances. SOCIAL HISTORY: She has 2 sisters. Her parents are . She left school but received a GED. She is currently unemployed. She has 4 children out of wedlock from 2 different fathers. All the children were removed from her custody and placed in foster care. MENTAL STATUS EXAM: General Appearance: Patient appears to be stated age is alert, directable, and cooperative. Patient appears to have improving hygiene and grooming wearing hospital gown with fair eye contact. Behavior: Patient is calmly lying in bed without any agitated behavior. Confused at times. Speech: Patient's speech is fluent and nonpressured. concrete Mood/Affect: Patient reports their mood is "ok", affect is congruent and constricted Suicidality/Homicidality: Patient denies having any suicidal or homicidal ideation intent or plan. Perceptions: Patient denies any visual hallucinations and denies any auditory hallucinations Though content/process: [place], poverty of content. bizarre. Persistent on discharge. Memory and concentration: AOX2-3, difficulty concentrating. Judgment and insight: poor STRENGTHS/WEAKNESSES: strength is that patient is resilient. 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 Patient has not signed medication consent and is placed in patient's chart. Patient will have her deferral today with her contracts attorney. -Medications : Will start patient on Klonopin 1 mg twice a day for withdrawal. Continue with daily vit B12 injections daily 1000mg with last dose on 02/15 and then switching to weekly injections. Trazodone 100 mg daily at bedtime when necessary for insomnia. -metronidazole for suspected BV infection -Ativan and Haldol PRN for agitation/aggression -Patient was informed of the risks, benefits and side effects of the medication -Internal Medicine consult to perform medical evaluation and physical. -NRT - nicotine patch -SW on board for discharge planning. Encourage patient to participate in groups to work on coping skills. Will await deferral and court date. 02/10/21 10:26
[2021-02-10] MEDS: CYANOCOBALAMIN 1,000 MCG/ML 1 ML VIAL IM SCH (11:47)
[2021-02-10] MEDS: clonazePAM 1 MG TAB PO SCH ×2 (11:48→22:47)
--- NOTE | 2021-02-10 14:08 | P.MDCNMH ---
History of Present Illness H&P Date: 02/10/21 Chief Complaint: Medical evaluation 25 year old woman with no medical history polysubstance abuse, MDD with SI, ADHD, narcotic dependence on suboxone presented to the MHU; medicine consulted for clearance. Patient had an episode of catatonia on the MHU during previous encounter a few days ago which prompted transfer to medical floor for evaluation. She recovered quickly from this episode and was cleared by neurology and psychiatry to return to the MHU. Today patient has no new complaints. Denies pain, fevers, chills. Review of Systems All Systems reviewed and pertinent positives and negatives noted in HPI, all other symptoms are negative Past Medical History Past Medical History: No Reported History Additional Past Medical History / Comment(s): Patient had a spontaneous vaginal delivery 35-5/7 weeks gestation on 11/01/2013. She had premature rupture membranes and labor. Patient states she also had a recent miscarriage. History of Any Multi-Drug Resistant Organisms: None Reported Past Surgical History: No Surgical Hx Reported Additional Past Surgical History / Comment(s): vaginal delivery Past Anesthesia/Blood Transfusion Reactions: No Reported Reaction Smoking Status: Current every day smoker - Past Family History Father History Unknown: Yes Family Medical History: No Reported History Medications and Allergies Home Medications Medication Instructions Recorded Confirmed Type Cyanocobalamin [Vitamin B-12 1,000 mcg IM DAILY 7 Days vial 02/09/21 02/10/21 Rx Injection] metroNIDAZOLE [Flagyl] 500 mg PO TID 7 Days tab 02/09/21 02/10/21 Rx Allergies Allergy/AdvReac Type Severity Reaction Status Date / Time amoxicillin Allergy Anaphylaxis Verified 02/10/21 02:53 magnesium Allergy Swelling Verified 02/10/21 02:53 Penicillins Allergy Anaphylaxis Verified 02/10/21 02:53 tramadol [From Ultram] Allergy Rash/Hives Verified 02/10/21 02:53 Physical Exam Osteopathic Statement: *. No significant issues noted on an osteopathic structural exam other than those noted in the History and Physical/Consult. Vitals: Vital Signs Temp Pulse Resp BP Pulse Ox 02/10/21 02:18 100.3 F H 92 18 112/71 95 Intake and Output 02/09/21 02/10/21 02/10/21 22:59 06:59 14:59 Other: Weight 68.4 kg Gen: awake, alert HEENT: normocephalic, atraumatic, good hearing acuity, moist mucous membranes Resp: good air exchange, breathing comfortably with no accessory muscle use CVS: good distal perfusion x 4, GI: soft, NTTP, ND : no SPT, no CVAT, brennan catheter not present MSK: no pitting edema, no clubbing Neuro: non-focal, moving all extremities Psych: cooperative, euthymic mood Cranial Nerve Examination - Cranial Nerves Cranial Nerve II- Optic: Intact Cranial Nerve III- Oculomotor: Intact Cranial Nerve IV- Trochlear: Intact Cranial Nerve V- Trigeminal: Intact Cranial Nerve - Abducens: Intact Cranial Nerve VII- Facial: Intact Cranial Nerve VIII- Auditory: Intact Cranial Nerve IX- Glossopharyngeal: Intact Cranial Nerve X- Vagus: Intact Cranial Nerve XI- Accessory: Intact Cranial Nerve XII- Hypoglossal: Intact Assessment and Plan Assessment: polysubstance abuse ADHD Anxiety Major depressive disorder Suicidal ideation Plan Patient's medical conditions are all stable, home medication reviewed and reconciled. We will continue patient's Flagyl for bacterial vaginosis. recommend [employer] consultation of ongoing vaginal bleeding. thank you for this consult. A member from the [facility] can be consult to [phone] via perfect serve if there are any questions or concerns.
[2021-02-11] MEDS: clonazePAM 1 MG TAB PO SCH (08:37)
[2021-02-11] MEDS: CYANOCOBALAMIN 1,000 MCG/ML 1 ML VIAL IM SCH ×2 (08:37→09:38)
[2021-02-11] MEDS: metroNIDAZOLE 500 MG TAB PO SCH ×3 (08:37→20:58)
[2021-02-11] MEDS: NICOTINE 14MG/24HR PATCH TRANSDERM SCH (08:39)
--- NOTE | 2021-02-11 11:01 | PN ---
PROGRESS NOTE DATE OF SERVICE: 02/11/2021 CHIEF COMPLAINT: The patient overdosed on a significant number of Xanax bars. She also had an episode of apparent nonresponsiveness when she was first admitted to the psychiatric unit. INTERVAL HISTORY: Patient has been doing fair. She had a quiet day yesterday. She comes out on the unit. She continued to use a wheelchair. She did attend some groups. It is noted in the 1530 groups that the following was documented, "these clothes gave me a flashback. I did not want to kill myself. I was just popping 1 pill after the other to get high. I would need to tell the doctor my revelation." The patient said that she slept fairly well last night. Today she has been up. She is very focused on going home, as she appears to have been every day since she has been in the hospital. She talked quite a bit about the idea of having been from her 2-year-old daughter. When I went through the issues that led to her coming into the hospital she did not seem to grasp the idea of how serious some of the issues were including that she was just "popping pills" one after the other as well as the episode she had that was labeled "catatonia" leading to transfer to the medical floor. The patient was vague about what she was aiming for in terms of followup care. She did mention substance abuse treatment program, though did not give any specifics. She also was vague about what mental health care she may have been receiving prior to coming into the hospital. The patient signed deferral papers relating to her petition, though she did not seem to have a clear understanding of what the deferral meant in regards to treatment. Also, she did not seem to have much clarity about her risk for withdrawal from benzodiazepines. She appears to tolerate her psychotropic medications for the most part. MENTAL STATUS: Patient came in a wheelchair. She kept making comments about how strong her legs were. She gave fair eye contact. She was quite restless. She tended to ramble and was very focused on discharge. She kept saying over and over that she signed a deferral which means she has the right to leave the hospital. When I attempted to explain issues relating to the petition process, she was not able to follow the conversation. It was noted that she had a mild degree of slurring of her words. She tended to be circular in the things she talked about. Her affect was intense and anxious. Her mood was depressed. She was moderately distressed. It was difficult to assess for thought disorder. She voiced no thoughts of harm. She did not respond directly to formal questions relating to orientation. ASSESSMENT: I will continue current diagnosis and treatment plan. We will continue to make efforts to engage the patient in individual and group therapeutic activities. I will reduce Klonopin to 0.5 mg twice a day with the aim of getting her off benzodiazepines altogether. I reviewed issues with the patient in regard to possible benzodiazepine withdrawal. I also noted that currently she may be at risk for seizures from benzodiazepine withdrawal, given that her history is unclear and given the seriousness of her situation coming into the hospital. We discussed the appropriateness of continuing treatment, aiming towards setting up a comprehensive discharge plan. We will focus on stabilization and discharge planning. CHARLENE / LARA: [id number] /
[2021-02-11] MEDS: PYRIDOXINE 50 MG TAB PO SCH (17:20)
[2021-02-11] MEDS: LORazepam 1 MG TAB PO PRN (17:23)
[2021-02-11] MEDS: clonazePAM 0.5 MG TAB PO SCH (20:57)
[2021-02-12] MEDS: LORazepam 1 MG TAB PO PRN ×3 (00:02→22:38)
[2021-02-12] MEDS: traZODone HCL 100 MG TAB PO PRN ×2 (00:04→22:38)
[2021-02-12] MEDS: CYANOCOBALAMIN 1,000 MCG/ML 1 ML VIAL IM SCH (08:12)
[2021-02-12] MEDS: NICOTINE 14MG/24HR PATCH TRANSDERM SCH (08:23)
[2021-02-12] MEDS: clonazePAM 0.5 MG TAB PO SCH ×2 (08:24→20:45)
[2021-02-12] MEDS: PRENATAL VIT-IRON-FOLIC ACID 1 EACH CAP PO SCH (08:24)
[2021-02-12] MEDS: PYRIDOXINE 50 MG TAB PO SCH (08:24)
[2021-02-12] MEDS: metroNIDAZOLE 500 MG TAB PO SCH ×3 (08:24→20:45)
--- NOTE | 2021-02-12 15:18 | P.PN ---
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 She aproached me several times today with various request such as to have new wheelchair, to have walker and to be discharged. She now denies that she had overdosed on medications or made a suicide attempt despite the statements on the petition that she told her sister that she was going to kill herself. She believes that a friend tampered with the Xanax that she bought from him. She complained that her medical doctor discontinued Xanax though she warned the doctor that she would experience withdrawal. She believes that her friend adulterated the Xanax with fentanyl. She would not belief that he urine drug screen was only positive for benzodiazepine. In addition, she believes that she signed a three-day notice and should be discharged today. I confirmed that she deferred the involuntary on 02/10/2021. Even after I explained what a deferral means she insisted that meant she can leave and 72 hours. Mental status exam: He presented as a casually groomed moderately obese young female who was pleasant on approach. Eye contact and appeared to attend to interview. She was sitting in a wheelchair. She had a bright facial expression. She is psychomotor retardation but no abnormal movements. She is able walk slowly with the aid of a walker. Her speech was spontaneous normal rate, volume and rhythm. Affect was bright, stable and appropriate. She denied suicidal ideation or wishes. She denied feeling hopeless, helpless or worthless. She did not express clear ideas reference, paranoid ideation or delusions. Her thinking was concrete and associations were but were organized. She denied hallucinations and did not appear to be responding to internal stimuli. Assessment: Overall, she is much improved from admission. However she is showing cognitive impairments and is overtly denying the circumstances that led to this hospitalization. Plan: Continue current treatment plan and safety precautions. Continue current psychotropic medications including Klonopin 0.5 mg twice a day, trazodone 200 mg at bedtime. Continue Habitrol for smoking cessation. Continue vitamin B12 1000 mg IM daily. Haldol and Ativan for anxiety, agitation acute psychosis. Encourage participation in therapeutic groups and activities. Evaluate clinical status response to treatment daily basis.
[2021-02-13] MEDS: haloperidoL 5 MG TAB PO PRN (03:00)
[2021-02-13 03:47] VITALS: RESP 16
[2021-02-13] MEDS: NICOTINE 14MG/24HR PATCH TRANSDERM SCH (07:53)
[2021-02-13] MEDS: metroNIDAZOLE 500 MG TAB PO SCH ×3 (07:54→20:27)
[2021-02-13] MEDS: clonazePAM 0.5 MG TAB PO SCH ×2 (07:54→20:27)
[2021-02-13] MEDS: PYRIDOXINE 50 MG TAB PO SCH (07:54)
[2021-02-13] MEDS: PRENATAL VIT-IRON-FOLIC ACID 1 EACH CAP PO SCH (07:54)
[2021-02-13] MEDS: CYANOCOBALAMIN 1,000 MCG/ML 1 ML VIAL IM SCH (11:06)
[2021-02-13] MEDS: LORazepam 1 MG TAB PO PRN (14:15)
--- NOTE | 2021-02-13 14:19 | P.PN ---
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 She reported that she is attempting to walk more with the aid of a walker but came into the interview using the wheelchair. She admits that she overdosed on Xanax but denied that it was a suicide attempt. She talked about overwhelming feelings of depression and anxiety that were only relief with Xanax and her primary care doctor for a purchase Xanax "off the streets." She continues to believe that the Xanax was tainted with fentanyl. I reminded her UDS was negative for opiates. She complained of poor sleep despite trazodone 100 mg at bedtime. We discussed options and decided on a trial of Seroquel 50 mg at bedtime. Mental status exam: He presented as a casually groomed moderately obese young female who was pleasant on approach. Eye contact and appeared to att end to interview. She was sitting in a wheelchair. She had a bright facial expression. She is psychomotor retardation but no abnormal movements. She is able walk slowly with the aid of a walker. Her speech was spontaneous normal rate, volume and rhythm. Affect was bright, stable and appropriate. She denied suicidal ideation or wishes. She denied feeling hopeless, helpless or worthless. She did not express clear ideas reference, paranoid ideation or delusions. Her thinking was concrete and associations were but were organized. She denied hallucinations and did not appear to be responding to internal stimuli. Assessment: Overall, she is much improved from admission. However she is showing cognitive impairments and is overtly denying the circumstances that led to this hospitalization. She continues using his wheelchair for complaints of unsteady gait. Plan: Continue current treatment plan and safety precautions. Continue trazodone. Begin Seroquel 50 mg at bedtime. Continue current psychotropic medications including Klonopin 0.5 mg twice a day. Continue Habitrol for smoking cessation. Continue vitamin B12 1000 mg IM daily. Haldol and Ativan for anxiety, agitation acute psychosis. Encourage participation in therapeutic groups and activities. Evaluate clinical status response to treatment daily basis.
[2021-02-13] MEDS: QUEtiapine 50 MG TAB PO SCH (20:27)
[2021-02-14] MEDS: clonazePAM 0.5 MG TAB PO SCH ×2 (06:22→20:30)
[2021-02-14] MEDS: CYANOCOBALAMIN 1,000 MCG/ML 1 ML VIAL IM SCH (07:58)
[2021-02-14] MEDS: PYRIDOXINE 50 MG TAB PO SCH (07:58)
[2021-02-14] MEDS: PRENATAL VIT-IRON-FOLIC ACID 1 EACH CAP PO SCH (07:58)
[2021-02-14] MEDS: NICOTINE 14MG/24HR PATCH TRANSDERM SCH (07:58)
[2021-02-14] MEDS: metroNIDAZOLE 500 MG TAB PO SCH ×3 (07:58→21:25)
[2021-02-14] MEDS: LORazepam 1 MG TAB PO PRN (10:44)
--- NOTE | 2021-02-14 10:47 | P.PN ---
Progress Note - Text Progress Note Date: 02/14/21 Interval History: Patient was seen [wandering the hallways] and was directable and agreeable to speak with magnetic tape typewriter operator in the office. Patient continues to be in a wheelchair however. To be and have a brighter affect today. She claims that her mood as been gradually improving and claims that her anxiety has been improving as well. She admitted to possibly withdrawing from benzodiazepines and states that she has been attempting to walk with a walker every now and then on the unit and her gait has been improving. She states that she has been improving with regrets her sleep has been eating fairly. She wants to remain on the same dose of her medications including the Seroquel at nighttime. She states that her sister is helping her get into physical rehab once she is discharged from the unit. She was fairly persistent on discharge. At this time patient denies any suicidal or homical ideations, intent or plan. Patient denies any auditory, visual hallucinations and denies any paranoia or delusions. Patient denies any side effects from the medications and has been compliant with meds. Mental Status Exam: General Appearance: Patient appears to be stated age is alert, directable, and cooperative. Patient appears to have improving hygiene and grooming wearing hospital gown with fair eye contact. Behavior: Patient is calmly sitting in the wheelchair without any agitated behavior. Speech: Patient's speech is fluent and nonpressured. Mood/Affect: Patient reports their mood is "ok", affect is congruent and constricted Suicidality/Homicidality: Patient denies having any suicidal or homicidal ideation intent or plan. Perceptions: Patient denies any visual hallucinations and denies any auditory hallucinations Though content/process: More goal directed and oriented. Persistent on discharge. Memory and concentration: AOX3, improvement in concentration today. Judgment and insight: Improving mildly Assessment Subacute combined degeneration of the spine (vitamin B12 deficiency) Psychosis unspecified likely secondary to substance abuse/withdrawal (BZD) Benzodiazepine abuse nicotine use disorder Plan: -Patient continues to meet criteria for inpatient psychiatric admission for symptom stabilization and safety. Patient has [not] signed [adult voluntary form and] was placed in patient's chart. -Medications: Continue Seroquel 50 mg daily at bedtime for mood stabilization/psychosis/insomnia. Continue with Klonopin 0.5 mg twice a day for anxiety. Patient is still receiving daily vitamin B12 injections 1000 mg. Her last dose will be due tomorrow and then will be weekly afterwards. -Patient's gait has been gradually improving. -When necessary Ativan and Haldol for agitation/aggression. -NRT - [nicotine patch] -SW on board for discharge planning. Encouraged the patient to participate in milieu. Patient ended up signing a deferral with her environmental attorney and is agreeable to treatment.
[2021-02-14] MEDS: hydrOXYzine pamoate 25 MG CAP PO PRN (15:33)
[2021-02-14] MEDS: LORazepam 0.5 MG TAB PO PRN (17:09)
[2021-02-14] MEDS: QUEtiapine 50 MG TAB PO SCH (21:25)
[2021-02-15] MEDS: hydrOXYzine pamoate 25 MG CAP PO PRN ×2 (04:46→12:29)
[2021-02-15 06:48] VITALS: TEMP 97.6
[2021-02-15] MEDS: NICOTINE 14MG/24HR PATCH TRANSDERM SCH (08:18)
[2021-02-15] MEDS: PYRIDOXINE 50 MG TAB PO SCH (08:19)
[2021-02-15] MEDS: metroNIDAZOLE 500 MG TAB PO SCH (08:19)
[2021-02-15] MEDS: clonazePAM 0.5 MG TAB PO SCH (08:19)
[2021-02-15] MEDS: CYANOCOBALAMIN 1,000 MCG/ML 1 ML VIAL IM SCH (08:19)
[2021-02-15] MEDS: PRENATAL VIT-IRON-FOLIC ACID 1 EACH CAP PO SCH (08:19)
--- NOTE | 2021-02-15 09:00 | P.DS ---
Providers Date of admission: 02/10/21 00:43 Expected date of discharge: 02/15/21 Attending physician: Woody Frias MD Consults: 02/10/21 01:20 Consult Physician Routine Consulting Provider: Bill Hadley Consult Reason/Comments: For H & P for Medical Follow Up Do you want consulting provider notified?: Yes Primary care physician: Stated None - Discharge Diagnosis(es) (1) Subacute combined degeneration of spinal cord Current Visit: Yes Status: Acute Priority: High (2) Psychotic disorder due to psychoactive substance Current Visit: Yes Status: Acute Priority: High (3) Benzodiazepine abuse Current Visit: Yes Status: Acute Priority: High (4) Nicotine dependence Current Visit: Yes Status: Acute Priority: Low Hospital Course: Admission HPI: Admission note was completed by song writer "Patient is a 25-year-old single , initially she was admitted to psychiatric unit then was transferred to medical floors. Patient was initially admitted to the psychiatric unit and was having episodes of aggression and bizarre behavior. Patient also was having weakness in her lower extremities and was combative toward staff members. Patient was started on psychotropic medications and yesterday had a rapid response called by the nursing staff. Patient was apparently in a "catatonic" state and was rigid and diaphoretic and had a heart rate between the 140s and 150s. Patient was given 2 mg of Ativan and then was transferred to the medical floors. Neurology was consulted and recommended a EEG and MRI. Patient was found to have a low vitamin B12 level and had subacute combined degeneration of the court and was being treated with vitamin B12 injections daily. Patient was also started on Klonopin in the medical floor and was medically stabilized and transferred back to the psychiatric unit last night. She was seen lying in her bed today and appeared to be somewhat confused and mildly shaky in her hands bilaterally. She did not know who the current president is however she does know that she is in "hospital". She repeatedly asked to go home. She was attempting to cooperate as best that she could improvement in her irritability. She claims that she did overdose before coming into the hospital. She states that her mood is "fine" and is denying any anxiety today. She is denying any paranoia. She states that she slept fairly last night. She claims that she has a fair appetite. She denies any racing thoughts or any paranoid delusions. Any auditory or visual hallucinations and denies any suicidal or homicidal ideations intent or plan. She has concrete thought process." Hospital course: Upon admission to the unit patient was initially bizarre, psychotic and aggressive. Patient was however admitted involuntarily and ended up signing a deferral with her facility practice specialist and agreeing to treatment. Patient was aggressive and confused however with treatment she got along well with other patients on the unit and followed unit protocol. Patient was compliant with the medications and denied any side effects throughout hospital course. Patient was started on Seroquel 50 mg daily at bedtime for mood stabilization/psychosis/insomnia. Patient was also started on Klonopin and decreased down to 0.5mg bid for BZD withrawal and anxiety. Patient spoke of her stressors and engaged in therapy both group and individual. Patient was also seen by medical team for history and physical exam. Patient had a neurology consultation for altered mental status and had an EEG performed which revealed background slowing of mild to moderate degree suggestive of generalized cerebral dysfunction and patient also was found to have a very low B12 level and blood work and was started on daily vitamin B12 injections and received a total of 7 doses prior to discharge. Patient had an MRI of the cervical spine without contrast on 02/09/2021 which showed an essentially normal MRI of the cervical spine. Patient also had a MRI of her brain without contrast on 02/09/2021 which showed some vague ill-defined periventricular white matter hyperintensity on inversion recovery weighted sequences with some chronic vasculitis that could be considered which could have suggested an atypical presentation for multiple sclerosis. There was limitation of the examination with early termination of the exam due to poor cooperation of the patient. 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 Patient was also found to have a miscarriage w hich was confirmed on ultrasound. Due to patient's subacute combined degeneration of her spinal cord, she had difficulties ambulating and was in a wheelchair however with vitamin B12 treatment patient gradually improved in terms of her gait and was using a walker on the day of discharge and felt stronger and will continue on with physical therapy upon discharge. Throughout the course of the hospitalization patient gradually improved with regards to mood, anxiety, psychosis, sleep and became more future oriented with improved insight and judgment. On the day of discharge patient denied any suicidal or homicidal ideations intent or plan denied any auditory or visual hallucinations. Patient endorsed wanting to live for her family and her future. The patient denied any access to guns or weapons. Patient denied any paranoia and did not endorse any delusions. Patient does have a significant history of substance abuse and was counseled on abstaining from all substances including alcohol and marijuana. Patient elected to do outpatient substance use treatment program through [facility]. Patient was also counseled on the medications and need for regular compliance and was encouraged to follow-up with their outpatient appointment for mental health and also for primary care. Prior to discharge a family meeting will be arranged by geriatric social worker to answer any questions and ensure safety upon discharge. Mental status exam: General Appearance: Patient appears to be stated age is alert, pleasant, and cooperative. Patient is in no acute distress and has improved hygiene and grooming Behavior: Patient is calmly seated without any agitated behavior. Speech: Patient's speech is fluent and nonpressured. Mood/Affect: Patient reports their mood is "better", affect is congruent and euthymic. Suicidality/Homicidality: Patient denies having any suicidal or homicidal ideation intent or plan. Perceptions: Patient denies any auditory or visual hallucinations. Though content/process: There is no evidence of any delusional thought content and thought process is linear and goal-directed. more future oriented Memory and concentration: AOX3, grossly intact for the purposes of this session. Can spell "WORLD" backwards correctly. 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 Patient will remain at chronically elevated risk for harm to self and/or others due to her impulsivity and substance abuse. -Continue medications: Seroquel 50 mg daily at bedtime for insomnia/psychosis/mood, we'll give patient 10 days of Klonopin 0.5 mg twice a day then to gradually titrate down/off as an outpatient. Shale Planer Operator spoke with akilah rajan in detail about the narcotics and controlled medications including Xanax and Suboxone that patient is taking and her high risk for abuse and overdose, patient agreed and wanted to cut back on this. song writer also messaged Dr. Vega who is physician perscribing these controlled medications and informed her of patients abuse and overdose. -Patient was counseled on the need for medication compliance and appropriate follow-up at mental health and also primary care for medical issues. Patient verbalized understanding and agreed. -Social work to arrange for and conduct family meeting to ensure safety upon discharge and answer any questions/concerns. Social work also to arrange for patients follow up appointments with [facility] for psychiatric care along with follow up with primary care provider. -Patient counseled on abstaining from recreational drugs and marijuana and alcohol. Was informed/educated on the adverse effects on their physical and mental health. Patient verbally agreed and understood. -Patient was instructed to return to the hospital or seek immediate medical care if their psychiatric or medical symptoms do worsen or reoccur. Allergies Allergy/AdvReac Type Severity Reaction Status Date / Time amoxicillin Allergy Anaphylaxis Verified 02/10/21 02:53 magnesium Allergy Swelling Verified 02/10/21 02:53 Penicillins Allergy Anaphylaxis Verified 02/10/21 02:53 tramadol [From Ultram] Allergy Rash/Hives Verified 02/10/21 02:53 Vital Signs Temp 97.6 F 02/15/21 06:48 Pulse 113 H 02/15/21 06:48 Resp 16 02/15/21 06:48 BP 104/79 02/15/21 06:48 Pulse Ox 98 02/11/21 06:03 Patient Condition at Discharge: Stable Plan - Discharge Summary New Discharge Prescriptions: New Nicotine 14Mg/24Hr Patch [Habitrol] 1 patch TRANSDERM DAILY 14 Days patch QUEtiapine [SEROquel] 50 mg PO HS 30 Days tab hydrOXYzine pamoate [Vistaril] 25 mg PO Q8HR PRN 30 Days cap PRN Reason: Anxiety Pyridoxine [Vitamin B-6] 50 mg PO DAILY 30 Days tab clonazePAM [KlonoPIN] 0.5 mg PO BID 10 Days tab Cqh-Ceti-Pnkgt Acid [-U Capsule (formulary)] 1 each PO DAILY 30 Days cap Continue metroNIDAZOLE [Flagyl] 500 mg PO TID 2 Days tab Changed Cyanocobalamin [Vitamin B-12 Injection] 1,000 mcg IM WEEKLY #4 vial Discharge Medication List Cyanocobalamin [Vitamin B-12 Injection] 1,000 mcg IM WEEKLY #4 vial 02/15/21 [Rx] Nicotine 14Mg/24Hr Patch [Habitrol] 1 patch TRANSDERM DAILY 14 Days patch 02/15/21 [Rx] [id number]-[id number]-Gvjmx Acid [-U Capsule (formulary)] 1 each PO DAILY 30 Days cap 02/15/21 [Rx] Pyridoxine [Vitamin B-6] 50 mg PO DAILY 30 Days tab 02/15/21 [Rx] QUEtiapine [SEROquel] 50 mg PO HS 30 Days tab 02/15/21 [Rx] clonazePAM [KlonoPIN] 0.5 mg PO BID 10 Days tab 02/15/21 [Rx] hydrOXYzine pamoate [Vistaril] 25 mg PO Q8HR PRN 30 Days cap 02/15/21 [Rx] metroNIDAZOLE [Flagyl] 500 mg PO TID 2 Days tab 02/15/21 [Rx] Follow up Appointment(s)/Referral(s): Jus Lezama [STAFF PHYSICIAN] - 1 Week (new patient, B 12 deficiency ) Activity/Diet/Wound Care/Special Instructions: Activity and diet as tolerated. Avoid the use of street drugs and alcohol. Take all medications as prescribed. When you are in need of refills on your medications please contact your medical provider and/or outpatient psychiatrist to have this done. Please go to scheduled outpatient appointment for aftercare treatment. If symptoms return or become worse, call the crisis line at and/or go to the nearest emergency room for evaluation. Discharge Disposition: HOME SELF-CARE
[2021-02-15] MEDS: LORazepam 0.5 MG TAB PO PRN (10:01)
[2021-02-15 10:03] VITALS: BP 117/68; PULSE 102
== END 2021-02-15 13:13 | disposition home or self-care (01) | DRG 881 ==
LOC: 3MHU 00:43
PROVIDERS: ADMIT Psychiatry & Neurology Psychiatry; ATTEND Psychiatry & Neurology Psychiatry
DX: F32.9 Major depressive disorder, single episode, unspecified (principal); F13.239 Sedative, hypnotic or anxiolytic dependence with withdrawal, unspecified; G32.0 Subacute combined degeneration of spinal cord in diseases classified elsewhere; F17.200 Nicotine dependence, unspecified, uncomplicated; G47.00 Insomnia, unspecified; F41.9 Anxiety disorder, unspecified; E53.8 Deficiency of other specified B group vitamins; O03.9 Complete or unspecified spontaneous abortion without complication; T19.2XXA Foreign body in vulva and vagina, initial encounter; T42.4X2A Poisoning by benzodiazepines, intentional self-harm, initial encounter; Z56.0 Unemployment, unspecified; Z79.899 Other long term (current) drug therapy

== ENCOUNTER 2021-04-06 13:22 | Emergency (ER) | payer OTHER ==
[2021-04-06 13:29] VITALS: BP 118/86; PULSE 96; RESP 18; TEMP 97.9
[2021-04-06] MEDS ORDERED: LORazepam 1 MG TAB PO STA (14:04)
[2021-04-06 14:30] LABS: Appearance,Urine Cloudy (Clear); Bacteria,Urine Rare /hpf; Bilirubin,Urine Negative (Negative); Blood,Urine Negative (Negative); Color,Urine Yellow; Glucose,Urine (UA) Negative (Negative); Hyaline Casts,Urine 1 /lpf (0-2); Ketones,Urine Negative (Negative); Leukocyte Esterase,Urine Large (Negative); Mucus,Urine Rare /hpf; Nitrite,Urine Negative (Negative); Protein,Urine Trace (Negative); RBC,Urine 2 /hpf (0-5); Specific Gravity,Urine 1.019 (1.001-1.035); Squamous Epithelial Cell,Urine 25 /hpf (0-4); Urobilinogen,Urine <2.0 mg/dL (<2.0); WBC,Urine 83 /hpf (0-5)
--- NOTE | 2021-04-06 14:32 | ED ---
General Adult HPI - General Chief complaint: Nausea/Vomiting/Diarrhea Stated complaint: Withdrawal/Seizures Time Seen by Provider: 04/06/21 13:25 Source: patient, RN notes reviewed, old records reviewed Mode of arrival: ambulatory Limitations: no limitations - History of Present Illness Initial comments: This is a 26-year-old female presents emergency Department complaining that she ran out of her Xanax chest ache and is having some withdrawal symptoms. Patient states she's very anxious and nauseated. Patient states she will be able to follow up with a primary to get a new prescription. Patient also states she has some dysuria that has been going on for a couple of days and she wonders if she has a urinary tract infection. Patient denies any back pain. Patient denies any fever chills per patient denies any abdominal pain. Patient denies any hematuria. Patient denies any urinary frequency. Patient denies any other symptoms at this time - Related Data Home Medications Medication Instructions Recorded Confirmed Cyanocobalamin [Vitamin B-12 1,000 mcg IM Q28D 04/06/21 Injection] Previous Rx's Medication Instructions Recorded QUEtiapine [SEROquel] 50 mg PO HS 30 Days tab 02/15/21 Sulfamethox-Tmp 800-160Mg [Bactrim 1 each PO Q12HR #14 tab 04/06/21 DS 800-160 mg] metroNIDAZOLE [Flagyl] 500 mg PO BID #14 tab 04/06/21 Allergies Allergy/AdvReac Type Severity Reaction Status Date / Time amoxicillin Allergy Anaphylaxis Verified 04/06/21 14:43 magnesium Allergy Swelling Verified 04/06/21 14:43 Penicillins Allergy Anaphylaxis Verified 04/06/21 14:43 tramadol [From Ultram] Allergy Rash/Hives Verified 04/06/21 14:43 Review of Systems ROS Statement: Those systems with pertinent positive or pertinent negative responses have been documented in the HPI. ROS Other: All systems not noted in ROS Statement are negative. Past Medical History Past Medical History: No Reported History Additional Past Medical History / Comment(s): Patient had a spontaneous vaginal delivery 35-5/7 weeks gestation on 11/01/2013. She had premature rupture membranes and labor. Patient states she also had a recent miscarriage. History of Any Multi-Drug Resistant Organisms: None Reported Past Surgical History: No Surgical Hx Reported Additional Past Surgical History / Comment(s): vaginal delivery Past Anesthesia/Blood Transfusion Reactions: No Reported Reaction Past Psychological History: Anxiety, Bipolar, Depression Smoking Status: Current every day smoker Past Alcohol Use History: None Reported Past Drug Use History: None Reported - Past Family History Father History Unknown: Yes Family Medical History: No Reported History General Exam - General Exam Comments Initial Comments: GENERAL: Patient is well-developed and well-nourished. Patient is nontoxic and well- hydrated and is in no acute distress. ENT: Neck is soft and supple. No significant lymphadenopathy is noted. Oropharynx is clear. Moist mucous membranes. Neck has full range of motion without eliciting any pain. EYES: The sclera were anicteric and conjunctiva were pink and moist. Extraocular movements were intact and pupils were equal round and reactive to light. Eyelids were unremarkable. PULMONARY: Unlabored respirations. Good breath sounds bilaterally. No audible rales rhonchi or wheezing was noted. CARDIOVASCULAR: There is a regular rate and rhythm without any murmurs gallops or rubs. ABDOMEN: Soft and nontender with normal bowel sounds. SKIN: Skin is clear with no lesions or rashes and otherwise unremarkable. NEUROLOGIC: Patient is alert and oriented x3. Cranial nerves II through XII are grossly intact. Motor and sensory are also intact. Normal speech, volume and content. Symmetrical smile. MUSCULOSKELETAL: Normal extremities with adequate strength and full range of motion. LYMPHATICS: No significant lymphadenopathy is noted PSYCHIATRIC: Normal psychiatric evaluation. Limitations: no limitations Course Vital Signs 04/06/21 13:26 Temperature 97.9 F Pulse Rate 96 Respiratory 18 Rate Blood Pressure 118/86 O2 Sat by Pulse 98 Oximetry Medical Decision Making - Medical Decision Making When I was about to discharge the patient she stated that she had symptoms are consistent with her previous diagnosis of bacterial vaginosis psychiatric the patient Flagyl. - Lab Data Lab Results 04/06/21 Range/Units 14:19 Urine Color Yellow Urine Appearance Cloudy H (Clear) Urine pH 7.0 (5.0-8.0) Ur Specific [place] 1.019 (1.001-1.035) Urine Protein Trace H (Negative) Urine Glucose (UA) Negative (Negative) Urine Ketones Negative (Negative) Urine Blood Negative (Negative) Urine Nitrite Negative (Negative) Urine Bilirubin Negative (Negative) Urine Urobilinogen <2.0 (<2.0) mg/dL Ur Leukocyte Esterase Large H (Negative) Urine RBC 2 (0-5) /hpf Urine WBC 83 H (0-5) /hpf Ur Squamous Epith Cells 25 H (0-4) /hpf Urine Bacteria Rare H (None) /hpf Hyaline Casts 1 (0-2) /lpf Urine Mucus Rare H (None) /hpf Disposition Clinical Impression: Benzodiazepine withdrawal, Urinary tract infection Disposition: HOME SELF-CARE Condition: Good Instructions (If sedation given, give patient instructions): Urinary Tract Inf ection in Women (ED) Prescriptions: Sulfamethox-Tmp 800-160Mg [Bactrim DS 800-160 mg] 1 each PO Q12HR #14 tab metroNIDAZOLE [Flagyl] 500 mg PO BID #14 tab Is patient prescribed a controlled substance at d/c from ED?: No Referrals: Nonstaff,Physician [Primary Care Provider] - 1-2 days Time of Disposition: 14:41
[2021-04-08 16:12] LABS: C. trachomatis,PCR Negative (Neg,Equiv); Chlamydia trachomatis Source Urine; N. gonorrhoeae,PCR Negative (Neg,Equiv); Neisseria Source Urine
== END 2021-04-06 14:58 | disposition home or self-care (01) ==
LOC: EC 13:22
DX: N39.0 Urinary tract infection, site not specified (principal); R11.2 Nausea with vomiting, unspecified; R19.7 Diarrhea, unspecified; R07.9 Chest pain, unspecified; F13.29 Sedative, hypnotic or anxiolytic dependence with unspecified sedative, hypnotic or anxiolytic-induced disorder; F17.200 Nicotine dependence, unspecified, uncomplicated; Z88.0 Allergy status to penicillin; Z88.6 Allergy status to analgesic agent; Z88.8 Allergy status to other drugs, medicaments and biological substances
CPT/HCPCS: 81001; 87077; 87086; 87186; 87491; 87591; 99284

== ENCOUNTER 2021-06-18 01:38 | Emergency (ER) | payer OTHER ==
[2021-06-18 02:12] VITALS: RESP 18
--- NOTE | 2021-06-18 02:57 | ED ---
Female Urogenital HPI - General Chief complaint: Urogenital Stated complaint: STD Test Time Seen by Provider: 06/18/21 02:43 Source: patient, RN notes reviewed, old records reviewed Mode of arrival: ambulatory Limitations: no limitations - History of Present Illness Initial comments: This is a 26-year-old female DF for evaluation presents today for evaluation of significant bowel pain. On further evaluation she does admit to possible see exposure. Denies chance of . No fevers no other complaints MD Complaint: pelvic pain -: unknown Location: suprapubic Radiation: suprapubic Severity: mild Severity scale (1-10): 2 Quality: cramping Consistency: intermittent Improves with: none Worsens with: none Last Menstrual Period: 04/27/21 Patient : No Associated Symptoms: vaginal discharge, other - Related Data Sexually active: Yes Home Medications Medication Instructions Recorded Confirmed ALPRAZolam [Xanax] 1 mg PO BID 04/06/21 04/06/21 Cyanocobalamin [Vitamin B-12 1,000 mcg IM Q28D 04/06/21 04/06/21 Injection] Dextroamphetamine/Amphetamine 30 mg PO BID 04/06/21 04/06/21 [Adderall] HYDROcodone/APAP 5-325MG [[place] 1 tab PO TID PRN 04/06/21 04/06/21 5-325] Previous Rx's Medication Instructions Recorded QUEtiapine [SEROquel] 50 mg PO HS 30 Days tab 02/15/21 Sulfamethox-Tmp 800-160Mg [Bactrim 1 each PO Q12HR #14 tab 04/06/21 DS 800-160 mg] metroNIDAZOLE [Flagyl] 500 mg PO BID #14 tab 04/06/21 metroNIDAZOLE [Flagyl] 500 mg PO BID #14 tab 06/18/21 Allergies Allergy/AdvReac Type Severity Reaction Status Date / Time amoxicillin Allergy Anaphylaxis Verified 06/18/21 02:07 magnesium Allergy Swelling Verified 06/18/21 02:07 Penicillins Allergy Anaphylaxis Verified 06/18/21 02:07 bupropion [From Wellbutrin] AdvReac suicidal Verified 06/18/21 02:07 tramadol [From Ultram] AdvReac Rash/Hives Verified 06/18/21 02:07 Review of Systems ROS Statement: Those systems with pertinent positive or pertinent negative responses have been documented in the HPI. ROS Other: All systems not noted in ROS Statement are negative. Past Medical History Past Medical History: No Reported History Additional Past Medical History / Comment(s): Patient had a spontaneous vaginal delivery 35-5/7 weeks gestation on 11/01/2013. She had premature rupture membranes and labor. Patient states she also had a recent miscarriage. History of Any Multi-Drug Resistant Organisms: None Reported Past Surgical History: No Surgical Hx Reported Additional Past Surgical History / Comment(s): vaginal delivery Past Anesthesia/Blood Transfusion Reactions: No Reported Reaction Past Psychological History: Anxiety, Bipolar, Depression Smoking Status: Current every day smoker Past Alcohol Use History: None Reported Past Drug Use History: None Reported - Past Family History Father History Unknown: Yes Family Medical History: No Reported History General Exam General appearance: alert, in no apparent distress Head exam: Present: atraumatic, normocephalic, normal inspection Eye exam: Present: normal appearance, PERRL, EOMI. Absent: scleral icterus, conjunctival injection, periorbital swelling ENT exam: Present: normal exam, mucous membranes moist Neck exam: Present: normal inspection. Absent: tenderness, meningismus, lymphadenopathy Respiratory exam: Present: normal lung sounds bilaterally. Absent: respiratory distress, wheezes, rales, rhonchi, stridor Cardiovascular Exam: Present: regular rate, normal rhythm, normal heart sounds. Absent: systolic murmur, diastolic murmur, rubs, gallop, clicks GI/Abdominal exam: Present: soft, normal bowel sounds. Absent: distended, tenderness, guarding, rebound, rigid Extremities exam: Present: normal inspection, full ROM, normal capillary refill. Absent: tenderness, pedal edema, joint swelling, calf tenderness Back exam: Present: normal inspection Neurological exam: Present: alert, oriented X3, CN II-XII intact Psychiatric exam: Present: normal affect, normal mood Skin exam: Present: warm, dry, intact, normal color. Absent: rash Course Vital Signs 06/18/21 06/18/21 02:07 04:23 Temperature 99.0 F 98.9 F Pulse Rate 96 91 Respiratory 18 18 Rate Blood Pressure 112/70 110/70 O2 Sat by Pulse 100 100 Oximetry - Reevaluation(s) Reevaluation #1: Medical record is reviewed Symptoms are improved here in the emergency department Patient is informed of results and questions answered Medical Decision Making - Medical Decision Making 26 female to the emergency department for evaluation of possible STD exposure. Cultures taken patient given antibiotics and can be discharged home - Lab Data Lab Results 06/18/21 06/18/21 06/18/21 Range/Units 03:23 03:23 03:23 Urine Color Yellow Urine Appearance Cloudy H (Clear) Urine pH 6.5 (5.0-8.0) Ur Specific [place] 1.027 (1.001-1.035) Urine Protein Trace H (Negative) Urine Glucose (UA) Negative (Negative) Urine Ketones Negative (Negative) Urine Blood Negative (Negative) Urine Nitrite Negative (Negative) Urine Bilirubin Negative (Negative) Urine Urobilinogen 4.0 (<2.0) mg/dL Ur Leukocyte Esterase Trace H (Negative) Urine WBC 8 H (0-5) /hpf Ur Squamous Epith Cells 12 H (0-4) /hpf Amorphous Sediment Few H (None) /hpf Urine Bacteria Rare H (None) /hpf Hyaline Casts 4 H (0-2) /lpf Urine Mucus Many H (None) /hpf Urine HCG, Qual Not Detected (Not Detectd) Chlamydia Source Urine Chlamydia DNA (PCR) Negative (Neg,Equiv) N. gonorrhoeae Source Urine N.gonorrhoeae DNA Probe Negative (Neg,Equiv) Disposition Clinical Impression: Cervicitis Disposition: HOME SELF-CARE Condition: Good Instructions (If sedation given, give patient instructions): Cervicitis (ED) Prescriptions: metroNIDAZOLE [Flagyl] 500 mg PO BID #14 tab Is patient prescribed a controlled substance at d/c from ED?: No Referrals: None,Stated [Primary Care Provider] - 1-2 days
[2021-06-18] MEDS ORDERED: IBUPROFEN 600 MG TAB PO STA (03:36)
[2021-06-18] MEDS ORDERED: AZITHROMYCIN 500 MG TAB PO STA (03:36)
[2021-06-18] MEDS ORDERED: Acetaminophen-Codeine 300-30mg TAB PO STA (03:36)
[2021-06-18] MEDS ORDERED: cefTRIAXone 250 MG VIAL IM STA (03:36)
[2021-06-18 03:47] LABS: Amorphous Sediment,Urine Few /hpf; Appearance,Urine Cloudy (Clear); Bacteria,Urine Rare /hpf; Bilirubin,Urine Negative (Negative); Blood,Urine Negative (Negative); Color,Urine Yellow; Glucose,Urine (UA) Negative (Negative); Hyaline Casts,Urine 4 /lpf (0-2); Ketones,Urine Negative (Negative); Leukocyte Esterase,Urine Trace (Negative); Mucus,Urine Many /hpf; Nitrite,Urine Negative (Negative); PH, Urine 6.5 (5.0-8.0); Protein,Urine Trace (Negative); Specific Gravity,Urine 1.027 (1.001-1.035); Squamous Epithelial Cell,Urine 12 /hpf (0-4); WBC,Urine 8 /hpf (0-5)
[2021-06-18] MEDS ORDERED: metroNIDAZOLE 500 MG TAB PO STA (04:10)
[2021-06-18 04:55] VITALS: BP 110/70; PULSE 91; TEMP 98.9
[2021-06-21 13:07] LABS: C. trachomatis,PCR Negative (Neg,Equiv); Chlamydia trachomatis Source Urine; N. gonorrhoeae,PCR Negative (Neg,Equiv); Neisseria Source Urine
== END 2021-06-18 04:23 | disposition home or self-care (01) ==
LOC: EC 01:38
DX: N72 Inflammatory disease of cervix uteri (principal); F31.9 Bipolar disorder, unspecified; F41.9 Anxiety disorder, unspecified; F17.200 Nicotine dependence, unspecified, uncomplicated; Z79.899 Other long term (current) drug therapy
CPT/HCPCS: 81001; 81025; 87491; 87591; 99284; 96372; J0696

== ENCOUNTER 2022-01-11 00:55 | Emergency (ER) | payer OTHER ==
--- NOTE | 2022-01-11 02:21 | ED ---
Psych HPI - General Chief Complaint: Psychiatric Symptoms Stated Complaint: Mental health Time Seen by Provider: 01/11/22 01:21 Source: patient, RN notes reviewed, old records reviewed Mode of arrival: ambulatory - History of Present Illness Initial Comments: This is a 26-year-old female to the emergency department for evaluation patient presents today for evaluation of severe anxiety does suffer from depression. Patient does admit to suicidal today. MD Complaint: suicidal ideation, feels depressed -: unknown Associated Psychiatric Symptoms: depression, suicidal ideation History of same: No Quality: intermittent Improves With: none Worsens With: none Treatments Prior to Arrival: placed on mental health hold - Related Data Home Medications Medication Instructions Recorded Confirmed ALPRAZolam [Xanax] 1 mg PO BID 04/06/21 04/06/21 Cyanocobalamin [Vitamin B-12 1,000 mcg IM Q28D 04/06/21 04/06/21 Injection] Dextroamphetamine/Amphetamine 30 mg PO BID 04/06/21 04/06/21 [Adderall] HYDROcodone/APAP 5-325MG [[place] 1 tab PO TID PRN 04/06/21 04/06/21 5-325] Previous Rx's Medication Instructions Recorded QUEtiapine [SEROquel] 50 mg PO HS 30 Days tab 02/15/21 Sulfamethox-Tmp 800-160Mg [Bactrim 1 each PO Q12HR #14 tab 04/06/21 DS 800-160 mg] metroNIDAZOLE [Flagyl] 500 mg PO BID #14 tab 04/06/21 metroNIDAZOLE [Flagyl] 500 mg PO BID #14 tab 06/18/21 Allergies Allergy/AdvReac Type Severity Reaction Status Date / Time amoxicillin Allergy Anaphylaxis Verified 06/18/21 02:07 magnesium Allergy Swelling Verified 06/18/21 02:07 Penicillins Allergy Anaphylaxis Verified 06/18/21 02:07 bupropion [From Wellbutrin] AdvReac suicidal Verified 06/18/21 02:07 tramadol [From Ultram] AdvReac Rash/Hives Verified 06/18/21 02:07 Review of Systems ROS Statement: Those systems with pertinent positive or pertinent negative responses have been documented in the HPI. ROS Other: All systems not noted in ROS Statement are negative. Past Medical History Past Medical History: No Reported History Additional Past Medical History / Comment(s): Patient had a spontaneous vaginal delivery 35-5/7 weeks gestation on 11/01/2013. She had premature rupture membranes and labor. Patient states she also had a recent miscarriage. History of Any Multi-Drug Resistant Organisms: None Reported Past Surgical History: No Surgical Hx Reported Additional Past Surgical History / Comment(s): vaginal delivery Past Anesthesia/Blood Transfusion Reactions: No Reported Reaction Past Psychological History: Anxiety, Bipolar, Depression Smoking Status: Current every day smoker Past Alcohol Use History: None Reported Past Drug Use History: None Reported - Past Family History Father History Unknown: Yes Family Medical History: No Reported History General Exam Limitations: no limitations General appearance: alert, in no apparent distress, anxious Head exam: Present: atraumatic, normocephalic, normal inspection Eye exam: Present: normal appearance, PERRL, EOMI. Absent: scleral icterus, conjunctival injection, periorbital swelling ENT exam: Present: normal exam, mucous membranes moist Neck exam: Present: normal inspection. Absent: tenderness, meningismus, lymphadenopathy Respiratory exam: Present: normal lung sounds bilaterally. Absent: respiratory distress, wheezes, rales, rhonchi, stridor Cardiovascular Exam: Present: normal rhythm, tachycardia, normal heart sounds. Absent: systolic murmur, diastolic murmur, rubs, gallop, clicks GI/Abdominal exam: Present: soft, normal bowel sounds. Absent: distended, tenderness, guarding, rebound, rigid Extremities exam: Present: normal inspection, full ROM, normal capillary refill. Absent: tenderness, pedal edema, joint swelling, calf tenderness Back exam: Present: normal inspection Neurological exam: Present: alert, oriented X3, CN II-XII intact Psychiatric exam: Present: normal affect, normal mood Skin exam: Present: warm, dry, intact, normal color. Absent: rash Course Vital Signs 01/11/22 01/11/22 01:00 05:33 Temperature 99 F 98.5 F Pulse Rate 119 H 92 Respiratory 16 18 Rate Blood Pressure 111/70 103/66 O2 Sat by Pulse 97 98 Oximetry - Reevaluation(s) Reevaluation #1: 01/11/22 medical record is reviewed Medically clear for psychiatric evaluation Medical Decision Making - Medical Decision Making 26 female seen and evaluated psychiatry here in the ER is okay for discharge home - Lab Data Lab Results 01/11/22 Range/Units 02:50 Urine Color Yellow Urine Appearance Clear (Clear) Urine pH 6.0 (5.0-8.0) Ur Specific [place] 1.034 (1.001-1.035) Urine Protein Negative (Negative) Urine Glucose (UA) Negative (Negative) Urine Ketones Trace H (Negative) Urine Blood Negative (Negative) Urine Nitrite Negative (Negative) Urine Bilirubin Negative (Negative) Urine Urobilinogen 2.0 (<2.0) mg/dL Ur Leukocyte Esterase Moderate H (Negative) Urine RBC 2 (0-5) /hpf Urine WBC 6 H (0-5) /hpf Calcium Oxalate Crystal Occasional H (None) /hpf Urine Mucus Occasional H (None) /hpf Urine Opiates Screen Not Detected (NotDetected) Ur Oxycodone Screen Not Detected (NotDetected) Urine Methadone Screen Not Detected (NotDetected) Ur Propoxyphene Screen Not Detected (NotDetected) Ur Barbiturates Screen Not Detected (NotDetected) U Tricyclic Antidepress Not Detected (NotDetected) Ur Phencyclidine Scrn Not Detected (NotDetected) Ur Amphetamines Screen Detected H (NotDetected) U Methamphetamines Scrn Not Detected (NotDetected) U Benzodiazepines Scrn Detected H (NotDetected) Urine Cocaine Screen Not Detected (NotDetected) U Marijuana (THC) Screen Not Detected (NotDetected) Disposition Clinical Impression: Depression Disposition: HOME SELF-CARE Condition: Fair Instructions (If sedation given, give patient instructions): Depression (ED) Is patient prescribed a controlled substance at d/c from ED?: No Referrals: None,Stated [Primary Care Provider] - 1-2 days
[2022-01-11 03:12] LABS: Appearance,Urine Clear (Clear); Bilirubin,Urine Negative (Negative); Blood,Urine Negative (Negative); Calcium Oxalate Crystals,Urine Occasional /hpf; Color,Urine Yellow; Glucose,Urine (UA) Negative (Negative); Ketones,Urine Trace (Negative); Leukocyte Esterase,Urine Moderate (Negative); Mucus,Urine Occasional /hpf; Nitrite,Urine Negative (Negative); Protein,Urine Negative (Negative); RBC,Urine 2 /hpf (0-5); Specific Gravity,Urine 1.034 (1.001-1.035); WBC,Urine 6 /hpf (0-5)
[2022-01-11 03:13] LABS: Amphetamine Screen,Urine Detected (NotDetected); Barbiturate Screen,Urine Not Detected (NotDetected); Benzodiazepines Screen,Urine Detected (NotDetected); Cocaine Screen,Urine Not Detected (NotDetected); Methadone Screen, Urine Not Detected (NotDetected); Opiate Screen,Urine Not Detected (NotDetected); Oxycodone Screen, Urine Not Detected (NotDetected); Phencyclidine Screen,Urine Not Detected (NotDetected); Tricyclic Antidepressant,Urine Not Detected (NotDetected); Urn Cannabinoid Scrn Not Detected (NotDetected)
[2022-01-11 05:35] VITALS: BP 103/66; PULSE 92; RESP 18; TEMP 98.5
== END 2022-01-11 05:36 | disposition home or self-care (01) ==
LOC: EC 00:55
DX: F32.A Depression, unspecified (principal); F17.200 Nicotine dependence, unspecified, uncomplicated; Z88.0 Allergy status to penicillin; Z88.8 Allergy status to other drugs, medicaments and biological substances; Z88.5 Allergy status to narcotic agent
CPT/HCPCS: 80306; 81001; 82075; 99284

== ENCOUNTER 2022-02-02 02:43 | Inpatient (IN) | payer MEDICAID, OTHER ==
--- NOTE | 2022-02-02 02:49 | ED ---
Psych HPI - General Stated Complaint: Mental Health Time Seen by Provider: 02/02/22 02:48 - Related Data Home Medications Medication Instructions Recorded Confirmed ALPRAZolam [Xanax] 1 mg PO BID 04/06/21 04/06/21 Cyanocobalamin [Vitamin B-12 1,000 mcg IM Q28D 04/06/21 04/06/21 Injection] Dextroamphetamine/Amphetamine 30 mg PO BID 04/06/21 04/06/21 [Adderall] HYDROcodone/APAP 5-325MG [[place] 1 tab PO TID PRN 04/06/21 04/06/21 5-325] Previous Rx's Medication Instructions Recorded QUEtiapine [SEROquel] 50 mg PO HS 30 Days tab 02/15/21 Sulfamethox-Tmp 800-160Mg [Bactrim 1 each PO Q12HR #14 tab 04/06/21 DS 800-160 mg] metroNIDAZOLE [Flagyl] 500 mg PO BID #14 tab 04/06/21 metroNIDAZOLE [Flagyl] 500 mg PO BID #14 tab 06/18/21 Allergies Allergy/AdvReac Type Severity Reaction Status Date / Time amoxicillin Allergy Anaphylaxis Verified 06/18/21 02:07 magnesium Allergy Swelling Verified 06/18/21 02:07 Penicillins Allergy Anaphylaxis Verified 06/18/21 02:07 bupropion [From Wellbutrin] AdvReac suicidal Verified 06/18/21 02:07 tramadol [From Ultram] AdvReac Rash/Hives Verified 06/18/21 02:07 Review of Systems ROS Statement: Those systems with pertinent positive or pertinent negative responses have been documented in the HPI. ROS Other: All systems not noted in ROS Statement are negative. Past Medical History Past Medical History: No Reported History Additional Past Medical History / Comment(s): Patient had a spontaneous vaginal delivery 35-5/7 weeks gestation on 11/01/2013. She had premature rupture membranes and labor. Patient states she also had a recent miscarriage. History of Any Multi-Drug Resistant Organisms: None Reported Past Surgical History: No Surgical Hx Reported Additional Past Surgical History / Comment(s): vaginal delivery Past Anesthesia/Blood Transfusion Reactions: No Reported Reaction Past Psychological History: Anxiety, Bipolar, Depression Smoking Status: Current every day smoker Past Alcohol Use History: None Reported Past Drug Use History: None Reported - Past Family History Father History Unknown: Yes Family Medical History: No Reported History Course Vital Signs 02/02/22 02:44 Temperature 98 F Pulse Rate 86 Respiratory 16 Rate Blood Pressure 133/81 O2 Sat by Pulse 98 Oximetry Disposition Clinical Impression: Acute anxiety, Acute psychosis, Major depression, Psychotic disorder due to psychoactive substance Disposition: TRANSFER TO PSYCH HOSP/UNIT Condition: Fair Is patient prescribed a controlled substance at d/c from ED?: No Referrals: [facility] Aubrey kenny [Primary Care Provider] - 1-2 days
[2022-02-02 02:54] VITALS: RESP 16
[2022-02-02] MEDS ORDERED: ACETAMINOPHEN TAB 325 MG TAB PO PRN (06:02)
[2022-02-02] MEDS ORDERED: MAG HYDROX/AL HYDROX/SIMETH 30 ML CUP PO PRN (06:02)
[2022-02-02] MEDS ORDERED: LORazepam 2 MG/ML INJ IM PRN (06:07)
[2022-02-02] MEDS: NICOTINE 14MG/24HR PATCH TRANSDERM SCH (10:11)
--- NOTE | 2022-02-02 13:24 | P.HP ---
Psychiatric H&P - . H&P Date: 02/02/22 History & Physical: Allergies Allergy/AdvReac Type Severity Reaction Status Date / Time amoxicillin Allergy Anaphylaxis Verified 02/02/22 10:10 magnesium Allergy Swelling Verified 02/02/22 10:10 Penicillins Allergy Anaphylaxis Verified 02/02/22 10:10 bupropion From Wellbutrin AdvReac suicidal Verified 02/02/22 10:10 tramadol From Ultram AdvReac Rash/Hives Verified 02/02/22 10:10 Vital Signs Temp 97.5 F L 02/02/22 07:01 Pulse 72 02/02/22 07:01 Resp 16 02/02/22 07:01 BP 109/69 02/02/22 07:01 Pulse Ox 98 02/02/22 07:01 FiO2 Intake & Output 02/01/22 02/02/22 02/02/22 18:59 06:59 18:59 Weight 68.039 kg 74.389 kg Laboratory Last Values Coronavirus (PCR) Not Detected (Not Detectd) 02/02/22 05:24 02/02/22 13:18 IDENTIFYING DATA: Patient is a 26-year-old female with history of depression and inhalant abuse, lives in [place] apparently in a house, has 4 kids were estranged. HPI: Patient presented to the hospital yesterday complaining of depression and suicidal ideations with a plan to overdose on pills. Anxiety is according to ER report. Patient claims that she isn't feeling overwhelmed grieving and thinking about her sister's which occurred 6 months ago. She states that her sister drove into the [place]. She claims that she has been using whippets up to 10 times a day and mainly uses nitrous oxide. She states that she relapsed recently due to her depression. She claims that "it's messing up my spine" and states that she isn't feeling alone. She claims that she does have depression and anxiety. She is claiming that her sleep has been poor appetite has been fair. Patient denies any suicidal or homicidal ideations intent or plan. At this time patient denies any auditory or visual hallucinations. Patient denies any flight of ideas racing thoughts and increased in goal directed behavior. Patient admits to using cigarettes daily and whippets up to 10 times a day. PAST PSYCHIATRIC HISTORY: Patient states that she has a history of substance abuse, psychosis and had subacute combined degeneration. She was previously on Seroquel in the past. She [facility]. Patient denies any psychiatric outpatient follow-up. Patient denies any history of suicide attempts in the past. PMH: As per medicine H&P ALLERGIES: as per EMR CHEMICAL DEPENDENCY HISTORY: as per HPI FAMILY PSYCHIATRIC/SUBSTANCE USE HISTORY: Claims that her mother had ADHD. SOCIAL HISTORY: Patient was born and raised in [facility]. She claims that she has 2 sisters. She has 4 kids were estranged to her. She states that now she lives in [place]. She claims that she is unemployed and has 4 kids.. MENTAL STATUS EXAM: General Appearance: Patient appears to be he has several tattoos stated age is alert, directable, and attempts to cooperate. Patient appears to have poor hygiene and grooming. Behavior: Patient is seated without any agitated behavior. Speech: Patient's speech is fluent and nonpressured. Mood/Affect: Patient reports their mood is depressed, affect is congruent and constricted. Suicidality/Homicidality: Patient denies having any homicidal ideation intent or plan. Denies any suicidal ideations intent or plan Perceptions: Patient denies any visual hallucinations and denies any auditory hallucinations Though content/process: There is no evidence of any delusional thought content and thought process is linear and goal-directed. Focused on her symptoms. Memory and concentration: AOX3, grossly intact for the purposes of this session. Can spell "WORLD" backwards Judgment and insight: poor STRENGTHS/WEAKNESSES: strength is that patient is resilient. Weakness is that patient has poor judgment and is impulsive INTELLECT: average IMPRESSIONS: Depressive disorder unspecified History of subacute combined degeneration Nicotine dependence Inhalant abuse nicotine dependence PLAN: -Patient is admitted under voluntary status to [facility]HU for stabilization of psychiatric symptoms and safety. Patient has signed adult voluntary form and medication consent and is placed in patient's chart. -Medications : Will start patient on Zoloft 50 mg daily at bedtime for depression and anxiety Seroquel 25 mg daily at bedtime for mood adjunct/insomnia. -Ativan and Haldol PRN for agitation/aggression -Patient was counselled on substance abuse and desired to cut back on use -Patient was informed of the risks, benefits and side effects of the medication and patient verbally consented to taking the medications. Patient signed med consent form and was placed in chart. -Internal Medicine consult to perform medical evaluation and physical. -NRT - nicotine patch -SW on board for discharge planning. Encourage patient to participate in groups to work on coping skills.
[2022-02-02] MEDS: IBUPROFEN 600 MG TAB PO PRN (17:11)
[2022-02-02] MEDS: LORazepam 1 MG TAB PO PRN (17:11)
[2022-02-02] MEDS ORDERED: SERTRALINE 50 MG TAB PO SCH (21:00)
[2022-02-02] MEDS ORDERED: QUEtiapine 25 MG TAB PO SCH (21:00)
[2022-02-03 06:48] VITALS: BP 122/70; PULSE 94; TEMP 97.2
[2022-02-03] MEDS: LORazepam 1 MG TAB PO PRN (06:48)
[2022-02-03] MEDS: NICOTINE 14MG/24HR PATCH TRANSDERM SCH (09:02)
[2022-02-03] MEDS: IBUPROFEN 600 MG TAB PO PRN (09:03)
[2022-02-03] MEDS ORDERED: hydrOXYzine pamoate 25 MG CAP PO PRN (10:09)
[2022-02-03] MEDS ORDERED: CYANOCOBALAMIN 500 MCG TAB PO SCH (10:30)
--- NOTE | 2022-02-03 11:24 | P.DS ---
Providers Date of admission: 02/02/22 05:53 Expected date of discharge: 02/03/22 Attending physician: Woody Frias MD Consults: 02/02/22 06:02 Consult Physician Routine Consulting Provider: Bill Hadley Consult Reason/Comments: For H & P for Medical Follow Up Do you want consulting provider notified?: Yes Primary care physician: [facility] Diagnosis(es) (1) Depressive disorder Current Visit: Yes Status: Acute Priority: High (2) Vitamin B 12 deficiency Current Visit: Yes Status: Acute Priority: Medium (3) Nicotine dependence Current Visit: Yes Status: Acute Priority: Low (4) Inhalant abuse Current Visit: Yes Status: Acute Priority: High Hospital Course: Admission HPI: Admission note was completed by health technical writer "Patient is a 26-year-old female with history of depression and inhalant abuse, lives in [place] apparently in a house, has 4 kids were estranged. Patient presented to the hospital yesterday complaining of depression and suicidal ideations with a plan to overdose on pills. Anxiety is according to ER report. Patient claims that she isn't feeling overwhelmed grieving and thinking about her sister's which occurred 6 months ago. She states that her sister drove into the [place]. She claims that she has been using whippets up to 10 times a day and mainly uses nitrous oxide. She states that she relapsed recently due to her depression. She claims that "it's messing up my spine" and states that she isn't feeling alone. She claims that she does have depression and anxiety. She is claiming that her sleep has been poor appetite has been fair. Patient denies any suicidal or homicidal ideations intent or plan. At this time patient denies any auditory or visual hallucinations. Patient denies any flight of ideas racing thoughts and increased in goal directed behavior. Patient admits to using cigarettes daily and whippets up to 10 times a day." Hospital course: Upon admission to the unit patient was directable and agreeable to commence treatment and signed adult voluntary form. Patient also signed AMA on day of discharge today. Patient got along well with other patients on the unit however was fairly defiant and oppositional and was caught several times being innappropriate with another male patient in his room. Patient was compliant with the medications and denied any side effects throughout hospital course. Patient was started on b12 oral replacement for suspected vitamin B12 deficiancey as patient has a history of this and associated neurological signs. Patient was also started on Zoloft 50 mg daily at bedtime for depression/anxiety, Seroquel 25 mg daily at bedtime for mood adjunct/insomnia. Patient was also seen by medical team for history and physical exam. Throughout the course of the hospitalization patient gradually improved with regards to mood, anxiety, sleep and returned back to their baseline level of functioning. On the day of discharge patient denied any suicidal or homicidal ideations intent or plan denied any auditory or visual hallucinations. Patient endorsed wanting to live for her future and her family. The patient denied any access to guns or weapons. Patient denied any paranoia and did not endorse any delusions. Patient does have a significant history of substance abuse and was counseled on abstaining from all substances including alcohol and marijuana. Patient was offered however declined inpatient substance-abuse rehab. Patient was also counseled on the medications and need for regular compliance and was encouraged to follow-up with their outpatient appointment for mental health and also for primary care. Mental status exam: General Appearance: Patient appears to have multiple tattoos, stated age is alert, focused on controlled medications and manipulative. Patient is in no acute distress and has improved hygiene and grooming Behavior: Patient is calmly seated without any agitated behavior. manipulative at times. more directable. Speech: Patient's speech is fluent and nonpressured. Mood/Affect: Patient reports their mood is "better", affect is congruent Suicidality/Homicidality: Patient denies having any suicidal or homicidal ideation intent or plan. Perceptions: Patient denies any auditory or visual hallucinations. Though content/process: There is no evidence of any delusional thought content and thought process is linear and goal-directed. more future oriented Memory and concentration: AOX3, grossly intact for the purposes of this session. Can spell "WORLD" backwards correctly. Judgment and insight: chronically poor, however has improved with guarded prognosis Impression: Depressive disorder unspecified Suspected Vitamin B12 deficiency Inhalant abuse Nicotine dependence Plan: -Continue with discharge today as patient has improved and stabilized psychiatrically and is not currently an imminent threat to herself and/or others. Patient will remain at chronically elevated risk for harm to self and/or others due to her impulsivity and substance abuse. -Continue medications: Zoloft 50 mg daily at bedtime for depression/anxiety, Seroquel 25 mg daily at bedtime for mood adjunct/insomnia. -Patient was counseled on the need for medication compliance and appropriate follow-up at mental health and also primary care for medical issues. Patient verbalized understanding and agreed. -Social work to help with discharge today. Social work also to arrange for patients follow up appointments with [facility] for psychiatric care along with follow up with primary care provider. -Patient counseled on abstaining from recreational drugs and marijuana and alcohol. Was informed/educated on the adverse effects on their physical and mental health. Patient verbally agreed and understood. Patient was offered substance abuse treatment however declined at this time. -Patient was instructed to return to the hospital or seek immediate medical care if their psychiatric or medical symptoms do worsen or reoccur. Allergies Allergy/AdvReac Type Severity Reaction Status Date / Time amoxicillin Allergy Anaphylaxis Verified 02/02/22 10:10 magnesium Allergy Swelling Verified 02/02/22 10:10 Penicillins Allergy Anaphylaxis Verified 02/02/22 10:10 bupropion [From Wellbutrin] AdvReac suicidal Verified 02/02/22 10:10 tramadol [From Ultram] AdvReac Rash/Hives Verified 02/02/22 10:10 Laboratory Results Coronavirus (PCR) Not Detected (Not Detectd) 02/02/22 05:24 Vital Signs Temp 97.2 F L 02/03/22 06:46 Pulse 94 02/03/22 06:46 Resp 16 02/03/22 06:46 BP 122/70 02/03/22 06:46 Pulse Ox 98 02/02/22 07:01 FiO2 Intake & Output 02/02/22 02/03/22 02/03/22 18:59 06:59 18:59 Weight 74.389 kg Patient Condition at Discharge: Stable Plan - Discharge Summary New Discharge Prescriptions: New Nicotine 14Mg/24Hr Patch [Habitrol] 1 patch TRANSDERM DAILY 14 Days patch Ibuprofen [Motrin] 600 mg PO Q8H PRN tab PRN Reason: Moderate To Severe Pain Sertraline [Zoloft] 50 mg PO HS 30 Days tab QUEtiapine [SEROquel] 25 mg PO HS 30 Days tab hydrOXYzine pamoate [Vistaril] 25 mg PO BID PRN 14 Days cap PRN Reason: Anxiety Cyanocobalamin (Vitamin B-12) [Vitamin B-12] 1,000 mcg PO DAILY 14 Days #14 tablet Continue Buprenorphine/Naloxone 8Mg/2Mg [Suboxone 8-2Mg Film] 1 film SL BID Discontinued ALPRAZolam [Xanax] 1 mg PO BID Discharge Medication List Buprenorphine/Naloxone 8Mg/2Mg [Suboxone 8-2Mg Film] 1 film SL BID 02/02/22 [History] Cyanocobalamin (Vitamin B-12) [Vitamin B-12] 1,000 mcg PO DAILY 14 Days #14 tablet 02/03/22 [Rx] Ibuprofen [Motrin] 600 mg PO Q8H PRN tab 02/03/22 [Rx] Nicotine 14Mg/24Hr Patch [Habitrol] 1 patch TRANSDERM DAILY 14 Days patch 02/03/22 [Rx] QUEtiapine [SEROquel] 25 mg PO HS 30 Days tab 02/03/22 [Rx] Sertraline [Zoloft] 50 mg PO HS 30 Days tab 02/03/22 [Rx] hydrOXYzine pamoate [Vistaril] 25 mg PO BID PRN 14 Days cap 02/03/22 [Rx] Follow up Appointment(s)/Referral(s): [facility] [Primary Care Provider] - 1-2 days Discharge Disposition: HOME SELF-CARE
[2022-02-03 12:17] LABS: Anisocytosis Slight; Basophils % (A) 0 %; Eosinophils # (A) 0.1 k/uL (0-0.7); Eosinophils % (A) 1 %; HCT 38.8 % (34.0-46.0); HGB 12.9 gm/dL (11.4-16.0); Lymphocytes # (A) 2.2 k/uL (1.0-4.8); Lymphocytes % (A) 23 %; MCH 35.5 pg (25.0-35.0); MCHC 33.1 g/dL (31.0-37.0); Macrocytosis Marked; Mean Platelet Volume 7.6; Monocytes # (A) 0.5 k/uL (0-1.0); Monocytes % (A) 5 %; Neutrophils # (A) 6.9 k/uL (1.3-7.7); Neutrophils % (A) 70 %; Platelet Count 285 k/uL (150-450); RBC 3.63 m/uL (3.80-5.40); RDW 16.6 % (11.5-15.5); WBC 9.8 k/uL (3.8-10.6)
[2022-02-03 12:51] LABS: ALT 23 U/L (4-34); AST 21 U/L (14-36); African American GFR (CKD) >90 (>60 ml/min/1.73 sqM); Albumin 4.6 g/dL (3.5-5.0); Alkaline Phosphatase 61 U/L (38-126); Anion Gap 8 mmol/L; Blood Urea Nitrogen 15 mg/dL (7-17); Calcium 9.5 mg/dL (8.4-10.2); Carbon Dioxide 25 mmol/L (22-30); Chloride 105 mmol/L (98-107); Glucose 84 mg/dL (74-99); Non-African American GFR(CKD) >90 (>60 ml/min/1.73 sqM); Potassium 5.1 mmol/L (3.5-5.1); Sodium 138 mmol/L (137-145); Total Bilirubin 0.5 mg/dL (0.2-1.3); Total Protein 7.7 g/dL (6.3-8.2)
[2022-02-03 18:24] LABS: Chol/HDL Ratio 3.33 Ratio; VLDL Calculation 18.34 mg/dL (5.00-40.00)
== END 2022-02-03 12:08 | disposition home or self-care (01) | DRG 881 ==
LOC: EC 02:43 → 3MHU 05:53
PROVIDERS: ADMIT Psychiatry & Neurology Psychiatry; ATTEND Psychiatry & Neurology Psychiatry
DX: F32.A Depression, unspecified (principal); R45.851 Suicidal ideations; Z63.4 Disappearance and death of family member; E53.8 Deficiency of other specified B group vitamins; F17.210 Nicotine dependence, cigarettes, uncomplicated; F18.10 Inhalant abuse, uncomplicated; F41.9 Anxiety disorder, unspecified; F91.3 Oppositional defiant disorder; G47.00 Insomnia, unspecified; Z63.8 Other specified problems related to primary support group; Z79.899 Other long term (current) drug therapy; Z20.822 Contact with and (suspected) exposure to COVID-19; Z88.5 Allergy status to narcotic agent; Z88.0 Allergy status to penicillin; Z88.8 Allergy status to other drugs, medicaments and biological substances
CPT/HCPCS: 80053; 80061; 82075; 82607; 84443; 85025; 87635; 99285

== ENCOUNTER 2023-03-16 06:06 | Inpatient (IN) | payer OTHER ==
[2023-03-16] MEDS ORDERED: LORazepam 2 MG/ML INJ IV STA ×3 (06:16→14:36)
[2023-03-16] MEDS ORDERED: KETOROLAC 15 MG/ML 1 ML VIAL IVP STA (06:17)
[2023-03-16] MEDS ORDERED: ONDANSETRON 4 MG/2 ML VIAL IVP STA (06:17)
[2023-03-16] MEDS ORDERED: SODIUM CHLORIDE 0.9% 2,000 ML IV STA (06:22)
[2023-03-16 06:28] LABS: Glucose,Whole Blood 94 mg/dL (70-110)
--- NOTE | 2023-03-16 06:30 | ED ---
Altered Mental Status HPI - General Chief Complaint: Altered Mental Status Stated Complaint: Altered Mental Status Time Seen by Provider: 03/16/23 06:13 Source: EMS, RN notes reviewed Mode of arrival: EMS Limitations: no limitations - History of Present Illness Initial Comments: This is a 28-year-old female who presents to the emergency department for al tered mental status. Patient was arrested on 03/12, and had been without her Valium since yesterday. She was supposed to be on 10mg TID. Prior to being taken to [facility], she was seen at [facility]. The officer with her is not sure why, but believes that it may have been for withdrawals or substance abuse. States that she's been acting somewhat bizarre since they picked her up on 03/12, however over the last 2 days she's been much more altered than usual. At one point she was found to be acting like a cat and was "meowing". She has also been shaking profusely, hallucinating, and is unsure where she is, according to EMS. When I went to examine the patient, she was shaking profusely and took a long time to formulate her responses. However, she was able to correctly provide me with her name, location, the year, and the president. Medication List: Diazepam 10mg TID Bactrim DS BID Tylenol 325mg TID PRN Fluoxetine Hcl 20mg qAM Hydroxyzine 25mg BID Complaint: altered mental status - Related Data Home Medications Medication Instructions Recorded Confirmed Acetaminophen Tab [Tylenol] 650 mg PO TID PRN 03/16/23 03/16/23 FLUoxetine HCL [PROzac] 20 mg PO DAILY 03/16/23 03/16/23 Sulfamethox-Tmp 800-160Mg [Bactrim 1 tab PO BID 03/16/23 03/16/23 DS 800-160 mg] diazePAM [Valium] See Taper PO DIRECTED 03/16/23 03/16/23 hydrOXYzine pamoate [Vistaril] 25 mg PO BID 03/16/23 03/16/23 Allergies Allergy/AdvReac Type Severity Reaction Status Date / Time amoxicillin Allergy Anaphylaxis Verified 03/16/23 08:32 magnesium Allergy Swelling Verified 03/16/23 08:32 Penicillins Allergy Anaphylaxis Verified 03/16/23 08:32 bupropion [From Wellbutrin] AdvReac suicidal Verified 03/16/23 08:32 tramadol [From Ultram] AdvReac Rash/Hives Verified 03/16/23 08:32 Review of Systems ROS Statement: Those systems with pertinent positive or pertinent negative responses have been documented in the HPI. ROS Other: All systems not noted in ROS Statement are negative. Past Medical History Past Medical History: No Reported History Additional Past Medical History / Comment(s): Patient had a spontaneous vaginal delivery 35-5/7 weeks gestation on 11/01/2013. She had premature rupture membranes and labor. Patient states she also had a recent miscarriage. History of Any Multi-Drug Resistant Organisms: None Reported Past Surgical History: No Surgical Hx Reported Additional Past Surgical History / Comment(s): vaginal delivery Past Anesthesia/Blood Transfusion Reactions: No Reported Reaction Past Psychological History: Anxiety, Bipolar, Depression Smoking Status: Current every day smoker Past Alcohol Use History: None Reported Past Drug Use History: None Reported - Past Family History Father History Unknown: Yes Family Medical History: No Reported History General Exam Limitations: no limitations General appearance: alert Head exam: Present: atraumatic, normocephalic, normal inspection Eye exam: Present: normal appearance, PERRL, EOMI. Absent: scleral icterus, conjunctival injection, periorbital swelling Respiratory exam: Present: normal lung sounds bilaterally. Absent: respiratory distress, wheezes, rales, rhonchi, stridor Cardiovascular Exam: Present: regular rate, normal rhythm, normal heart sounds. Absent: systolic murmur, diastolic murmur, rubs, gallop, clicks Neurological exam: Present: alert, oriented X3 Expanded Focused psych exam: Present: psychomotor agitation, restlessness Skin exam: Present: warm, dry, intact, normal color. Absent: rash Course Vital Signs 03/16/23 03/16/23 03/16/23 06:08 07:01 07:22 Temperature 100.9 F H Pulse Rate 97 95 95 Respiratory 20 16 20 Rate Blood Pressure 131/76 103/91 96/81 O2 Sat by Pulse 94 L 96 95 Oximetry 03/16/23 03/16/23 03/16/23 08:40 09:01 10:48 Temperature 100.1 F H 99.5 F Pulse Rate 85 79 80 Respiratory 20 Rate Blood Pressure 101/72 102/77 O2 Sat by Pulse 96 98 96 Oximetry 08/04/23 08/04/23 08/04/23 11:58 12:03 15:26 Temperature Pulse Rate 107 H 75 Respiratory 19 18 18 Rate Blood Pressure 99/54 102/65 O2 Sat by Pulse 92 L 98 Oximetry Medical Decision Making - Medical Decision Making This is a 28-year-old female who presents to the emergency department for altered mental status. Was pt. sent in by a medical professional or institution? @ -[facility] Did you speak to anyone other than the patient for history? @ -EMS and the guest services officer provided the majority of the information as listed in the HPI. Did you review nursing and triage notes? @ -Yes, and I agree, it is accurate with regards to the patient's symptoms. Were old charts reviewed? @ -ED report from [facility] on 03/11/23. Patient was brought to the emergency department in police custody for altered mental status and fci clearance. Patient was found in her vehicle with a decreased level of responsiveness. She had a nitrous oxide tank that she was in the process of huffing when police arrived. She also had crusted blue powder in her nostrils that was crushed up OxyContin. Patient was given Narcan in the emergency department with improvement in mental status. She was observed for several hours afterwards and medically cleared for fci. Differential Diagnosis? @ -Differential Altered Mental Status: Hypoglycemia, DKA, hypercapnia, ETOH, overdose, CO poisoning, trauma, myxedema coma, HTN encephalopathy, infection, encephalitis, psychosis, intercranial hemorrhage, hepatic encephalopathy, meningitis, CVA, this is not meant to be an all-inclusive list EKG interpreted by me (3pts min.)? @ -EKG interpreted by me demonstrating the following: Sinus rhythm. Ventricular rate 93 beats per minute, TN interval 181 ms, QRS duration 89 ms, QTC 423 ms. X-rays interpreted by me (1pt min.)? @ -Not obtained CT interpreted by me (1pt min.)? @ -Not obtained U/S interpreted by me (1pt. min.)? @ -Not obtained What testing was considered but not performed? (CT, X-rays, U/S, labs)? Why? @ -None What meds were considered but not given? Why? @ -None Did you discuss the management of the patient with other professionals? @ -Yes, Margie Quispe with [facility], who accepts the patient for admission. Did you reconcile home meds? @ -No Was smoking cessation discussed for >3mins.? @ -No Was critical care preformed (if so, how long)? @ -No Were there social determinants of health that impacted care today? How? (Homelessness, low income, unemployed, alcoholism, drug addiction, transportation, low edu. Level, literacy, decrease access to med. care, fci, rehab)? @ -No Was there de-escalation of care discussed even if they declined? (Discuss DNR or withdrawal of care, Hospice)? @ -No What co-morbidities impacted this encounter? (DM, HTN, Smoking, COPD, CAD, Cancer, CVA, Hep., AIDS, mental health diagnosis, sleep apnea, morbid obesity)? @ -Major depressive disorder, Vitamin B12 deficiency Was patient admitted / discharged? @ -Admitted. Patient was febrile on arrival and given a dose of Toradol as well as Zofran and Ativan. Ofirmev later administered for the fever as well. Seizure precautions were also initiated on arrival due to the patient's prominent tremors and risk for seizures with potential withdrawals. Creatinine kinase critically elevated at 3010. Lab work is also suggestive of dehydration and liver enzymes are mildly elevated. We did obtain documentation from [facility] on 03/11. As listed above, patient was brought in for fci clearance after being found altered inside of her vehicle. She was in possession of a nitrous oxide tank and OxyContin that she had been huffing. It is not entirely clear whether or not all of the patient's symptoms are related to withdrawals, a neurological problem, or psychiatric issues, or a combination of both. Patient admitted to medicine for rhabdomyolysis and altered mental status. CIWA protocol was initiated and she was started on D5 with sodium bicarb for further management as well. I did order a vitamin B12 level given her history of B12 deficiency. Results pending at the time of admission. Undiagnosed new problem with uncertain prognosis? @ -None Drug Therapy requiring intensive monitoring for toxicity (Heparin, Nitro, Insulin, Cardizem)? @ -None Were any procedures done? @ -None Diagnosis/symptom? @ -Rhabdomyolysis, AMS Acute, or Chronic, or Acute on Chronic? @ -Acute Uncomplicated (without systemic symptoms) or Complicated (systemic symptoms)? @ -Complicated Side effects of treatment? @ -None Exacerbation, Progression, or Severe Exacerbation] @ -Not applicable Poses a threat to life or bodily function? @ -Yes This case was discussed in detail with the attending ED physician, Dr. Juarez. Presentation, findings, and treatment plan discussed in detail as well. - Lab Data Result diagrams: 03/16/23 06:22 03/16/23 06:22 Lab Results 03/16/23 03/16/23 03/16/23 Range/Units 06:22 06:22 06:22 WBC 5.5 (3.8-10.6) k/uL RBC 4.02 (3.80-5.40) m/uL Hgb 12.1 (11.4-16.0) gm/dL Hct 34.8 (34.0-46.0) % MCV 86.7 (80.0-100.0) fL MCH 30.0 (25.0-35.0) pg MCHC 34.7 (31.0-37.0) g/dL RDW 16.8 H (11.5-15.5) % Plt Count 316 (150-450) k/uL MPV 7.8 Neutrophils % 37 % Lymphocytes % 54 % Monocytes % 7 % Eosinophils % 1 % Basophils % 0 % Neutrophils # 2.0 (1.3-7.7) k/uL Lymphocytes # 2.9 (1.0-4.8) k/uL Monocytes # 0.4 (0-1.0) k/uL Eosinophils # 0.0 (0-0.7) k/uL Basophils # 0.0 (0-0.2) k/uL Anisocytosis Slight PT (9.0-12.0) sec INR (<1.2) Sodium 142 (137-145) mmol/L Potassium 3.9 (3.5-5.1) mmol/L Chloride 107 (98-107) mmol/L Carbon Dioxide 19 L (22-30) mmol/L Anion Gap 16 mmol/L BUN 20 H (7-17) mg/dL Creatinine 1.08 H (0.52-1.04) mg/dL Est GFR (CKD-EPI)AfAm 80 (>60 ml/min/1.73 sqM) Est GFR (CKD-EPI)NonAf 70 (>60 ml/min/1.73 sqM) Glucose 89 (74-99) mg/dL POC Glucose (mg/dL) (70-110) mg/dL POC Glu [employer] ID Plasma Lactic Acid Mark (0.7-2.0) mmol/L Calcium 9.8 (8.4-10.2) mg/dL Total Bilirubin 0.9 (0.2-1.3) mg/dL AST 81 H (14-36) U/L ALT 67 H (4-34) U/L Alkaline Phosphatase 83 (38-126) U/L Creatine Kinase 3010 H* (30-135) U/L Troponin I <0.012 (0.000-0.034) ng/mL Total Protein 8.7 H (6.3-8.2) g/dL Albumin 5.1 H (3.5-5.0) g/dL Vitamin B12 (200.0-944.0) pg/mL HCG, Qual Not Detected Serum Alcohol <10 mg/dL Influenza Type A (PCR) (Not Detectd) Influenza Type B (PCR) (Not Detectd) RSV (PCR) (Not Detectd) SARS-CoV-2 (PCR) (Not Detectd) 03/16/23 03/16/23 03/16/23 Range/Units 06:26 06:27 06:27 WBC (3.8-10.6) k/uL RBC (3.80-5.40) m/uL Hgb (11.4-16.0) gm/dL Hct (34.0-46.0) % MCV (80.0-100.0) fL MCH (25.0-35.0) pg MCHC (31.0-37.0) g/dL RDW (11.5-15.5) % Plt Count (150-450) k/uL MPV Neutrophils % % Lymphocytes % % Monocytes % % Eosinophils % % Basophils % % Neutrophils # (1.3-7.7) k/uL Lymphocytes # (1.0-4.8) k/uL Monocytes # (0-1.0) k/uL Eosinophils # (0-0.7) k/uL Basophils # (0-0.2) k/uL Anisocytosis PT (9.0-12.0) sec INR (<1.2) Sodium (137-145) mmol/L Potassium (3.5-5.1) mmol/L Chloride (98-107) mmol/L Carbon Dioxide (22-30) mmol/L Anion Gap mmol/L BUN (7-17) mg/dL Creatinine (0.52-1.04) mg/dL Est GFR (CKD-EPI)AfAm (>60 ml/min/1.73 sqM) Est GFR (CKD-EPI)NonAf (>60 ml/min/1.73 sqM) Glucose (74-99) mg/dL POC Glucose (mg/dL) 94 (70-110) mg/dL POC Glu [employer]er ID Royer Hernandez Plasma Lactic Acid Mark 1.5 (0.7-2.0) mmol/L Calcium (8.4-10.2) mg/dL Total Bilirubin (0.2-1.3) mg/dL AST (14-36) U/L ALT (4-34) U/L Alkaline Phosphatase (38-126) U/L Creatine Kinase (30-135) U/L Troponin I (0.000-0.034) ng/mL Total Protein (6.3-8.2) g/dL Albumin (3.5-5.0) g/dL Vitamin B12 <150.0 L (200.0-944.0) pg/mL HCG, Qual Serum Alcohol mg/dL Influenza Type A (PCR) (Not Detectd) Influenza Type B (PCR) (Not Detectd) RSV (PCR) (Not Detectd) SARS-CoV-2 (PCR) (Not Detectd) 03/16/23 03/16/23 Range/Units 06:27 07:58 WBC (3.8-10.6) k/uL RBC (3.80-5.40) m/uL Hgb (11.4-16.0) gm/dL Hct (34.0-46.0) % MCV (80.0-100.0) fL MCH (25.0-35.0) pg MCHC (31.0-37.0) g/dL RDW (11.5-15.5) % Plt Count (150-450) k/uL MPV Neutrophils % % Lymphocytes % % Monocytes % % Eosinophils % % Basophils % % Neutrophils # (1.3-7.7) k/uL Lymphocytes # (1.0-4.8) k/uL Monocytes # (0-1.0) k/uL Eosinophils # (0-0.7) k/uL Basophils # (0-0.2) k/uL Anisocytosis PT 12.5 H (9.0-12.0) sec INR 1.2 H (<1.2) Sodium (137-145) mmol/L Potassium (3.5-5.1) mmol/L Chloride (98-107) mmol/L Carbon Dioxide (22-30) mmol/L Anion Gap mmol/L BUN (7-17) mg/dL Creatinine (0.52-1.04) mg/dL Est GFR (CKD-EPI)AfAm (>60 ml/min/1.73 sqM) Est GFR (CKD-EPI)NonAf (>60 ml/min/1.73 sqM) Glucose (74-99) mg/dL POC Glucose (mg/dL) (70-110) mg/dL POC Glu [employer]er ID Plasma Lactic Acid Mark (0.7-2.0) mmol/L Calcium (8.4-10.2) mg/dL Total Bilirubin (0.2-1.3) mg/dL AST (14-36) U/L ALT (4-34) U/L Alkaline Phosphatase (38-126) U/L Creatine Kinase (30-135) U/L Troponin I (0.000-0.034) ng/mL Total Protein (6.3-8.2) g/dL Albumin (3.5-5.0) g/dL Vitamin B12 (200.0-944.0) pg/mL HCG, Qual Serum Alcohol mg/dL Influenza Type A (PCR) Not Detected (Not Detectd) Influenza Type B (PCR) Not Detected (Not Detectd) RSV (PCR) Not Detected (Not Detectd) SARS-CoV-2 (PCR) Not Detected (Not Detectd) Disposition Clinical Impression: Rhabdomyolysis, Hallucinations, Altered mental status Disposition: ADMITTED IP TO THIS HOSP
[2023-03-16 06:47] LABS: Anisocytosis Slight; Basophils % (A) 0 %; Eosinophils % (A) 1 %; HCT 34.8 % (34.0-46.0); HGB 12.1 gm/dL (11.4-16.0); Lymphocytes # (A) 2.9 k/uL (1.0-4.8); Lymphocytes % (A) 54 %; MCHC 34.7 g/dL (31.0-37.0); MCV 86.7 fL (80.0-100.0); Mean Platelet Volume 7.8; Monocytes # (A) 0.4 k/uL (0-1.0); Monocytes % (A) 7 %; Neutrophils % (A) 37 %; Platelet Count 316 k/uL (150-450); RBC 4.02 m/uL (3.80-5.40); RDW 16.8 % (11.5-15.5); WBC 5.5 k/uL (3.8-10.6)
[2023-03-16 07:03] LABS: INR 1.2 (<1.2); Prothrombin Time 12.5 sec (9.0-12.0)
[2023-03-16 07:06] LABS: HCG,Qualitative Serum Not Detected
[2023-03-16 07:09] LABS: ALT 67 U/L (4-34); AST 81 U/L (14-36); African American GFR (CKD) 80 (>60 ml/min/1.73 sqM); Albumin 5.1 g/dL (3.5-5.0); Alcohol <10 mg/dL; Alkaline Phosphatase 83 U/L (38-126); Anion Gap 16 mmol/L; Blood Urea Nitrogen 20 mg/dL (7-17); Calcium 9.8 mg/dL (8.4-10.2); Carbon Dioxide 19 mmol/L (22-30); Chloride 107 mmol/L (98-107); Glucose 89 mg/dL (74-99); Non-African American GFR(CKD) 70 (>60 ml/min/1.73 sqM); Potassium 3.9 mmol/L (3.5-5.1); Sodium 142 mmol/L (137-145); Total Bilirubin 0.9 mg/dL (0.2-1.3); Total Protein 8.7 g/dL (6.3-8.2)
[2023-03-16 07:28] LABS: Creatine Kinase 3010 U/L (30-135)
[2023-03-16] MEDS ORDERED: SODIUM CHLORIDE 0.9% 1,000 ML IV STA ×2 (07:33)
[2023-03-16] MEDS ORDERED: ACETAMINOPHEN IV (For NPO) 1,000 MG in EMPTY BAG 1 BAG IVPB STA (07:43)
[2023-03-16] MEDS ORDERED: DEXTROSE 5% IN WATER 1,000 ML with SODIUM BICARB (1 MEQ/ML) 150 ML IV ONE (08:12)
[2023-03-16] MEDS ORDERED: NALOXONE 0.4 MG/ML 1 ML VIAL IV PRN (08:50)
[2023-03-16] MEDS ORDERED: ONDANSETRON 4 MG/2 ML VIAL IVP PRN (08:50)
[2023-03-16] MEDS ORDERED: LORazepam 2 MG/ML INJ IV PRN (11:00)
[2023-03-16] MEDS ORDERED: LORazepam 1 MG TAB PO PRN (11:00)
[2023-03-16] MEDS ORDERED: THIAMINE 100 MG/ML 2 ML VIAL IM STA (11:00)
[2023-03-16] MEDS: LORazepam 2 MG/ML INJ IV PRN ×4 (11:44→23:24)
[2023-03-16 13:01] LABS: Appearance,Urine Clear (Clear); Bilirubin,Urine 1+ (Negative); Blood,Urine Negative (Negative); Color,Urine Light Red; Glucose,Urine (UA) Negative (Negative); Ketones,Urine 1+ (Negative); Leukocyte Esterase,Urine Negative (Negative); Mucus,Urine Rare /hpf; Nitrite,Urine Negative (Negative); Protein,Urine 1+ (Negative); RBC,Urine 1 /hpf (0-5); Specific Gravity,Urine 1.034 (1.001-1.035); Squamous Epithelial Cell,Urine 1 /hpf (0-4); WBC,Urine 3 /hpf (0-5)
[2023-03-16 13:09] LABS: Amphetamine Screen,Urine Not Detected (NotDetected); Barbiturate Screen,Urine Not Detected (NotDetected); Benzodiazepines Screen,Urine Detected (NotDetected); Cocaine Screen,Urine Not Detected (NotDetected); Methadone Screen, Urine Not Detected (NotDetected); Opiate Screen,Urine Not Detected (NotDetected); Oxycodone Screen, Urine Not Detected (NotDetected); Phencyclidine Screen,Urine Not Detected (NotDetected); Tricyclic Antidepressant,Urine Not Detected (NotDetected); Urn Cannabinoid Scrn Not Detected (NotDetected)
[2023-03-16] MEDS ORDERED: Lacosamide IV (ages 17+ yrs) 200 MG/20 ML ML IVP STA (13:15)
[2023-03-16] MEDS ORDERED: QUEtiapine 50 MG TAB PO PRN (14:13)
--- NOTE | 2023-03-16 14:13 | P.CN ---
Psychiatric Consult - . Consult date: 03/16/23 Consult:: 03/16/23 13:18 IDENTIFYING DATA: Patient is a 28-year-old female with history of depression and inhalant abuse, coming from senior living. HPI: Patient presented to the hospital today accompanied by family preservation officer for evaluation of altered mental status and hallucinations. Patient apparently was arrested on 03/12 and has been in senior living and off her medications. Patient apparently has been taking 10 mg 3 times a day of Valium and appeared to have withdrawal symptoms bizarre and hallucinating and brought to the hospital. Patient was also taking Prozac and Vistaril as a home medication. Patient's CK level was elevated at over 3000. Patient was seen today at the bedside by health science writer for evaluation. Patient appeared to be trembling in her hands and her eyes were closed. She was not able to answer any questions at all and shook her head and looked away from health science writer. She began speaking very quickly and disorganized. She is fairly bizarre and had poor concentration, did not follow any commands. according to previous records gerda has a hx of cigarette use daily and whippets up to 10 times a day in the past, unsure of current subtance use. Due to patients mental status, reviewed the past psych and social hx from the EMR as follows. PAST PSYCHIATRIC HISTORY: Patient has a history of substance abuse, psychosis and had subacute combined degeneration. She was previously on Seroquel in the past. She was last psychiatrically admitted to the mental health unit in January 2022. Patient denies any psychiatric outpatient follow-up. Patient denies any history of suicide attempts in the past. PMH: As per ED H&P ALLERGIES: as per EMR CHEMICAL DEPENDENCY HISTORY: as per HPI FAMILY PSYCHIATRIC/SUBSTANCE USE HISTORY: Claims that her mother had ADHD. SOCIAL HISTORY: Patient was born and raised in [facility]. She claims that she has 2 sisters. She has 4 kids were estranged to her. She claims that she is unemployed and has 4 kids. MENTAL STATUS EXAM: General Appearance: Patient appears to be he has several tattoos stated age is lying in bed with eyes closed, handcuffed. talking to herself at times. Behavior: Patient is laying in bed, bizarre. Speech: Patient's speech is rapid and difficult to comprehend. Mood/Affect: Unable to assess Suicidality/Homicidality: Unable to assess Perceptions: Unable to assess. Patient was looking around the room and talking or soft. Though content/process: Rambling at times, incoherent. Memory and concentration: Unable to assess. Patient has poor concentration, unable to follow commands. Judgment and insight: poor IMPRESSIONS: Delirium, likely secondary to benzo withdrawal Depressive disorder unspecified History of subacute combined degeneration Nicotine dependence hx of Inhalant abuse PLAN: -At this time patient DOES NOT meet criteria for inpatient psychiatric admission. -Delirium precautions recommended with patient including - avoiding use of narcotics, limit anticholinergic medications when possible, frequent re- orientation, minimize use of restraints, open window shades during the day and close them at night -Would recommend the following medication changes/additions: resume patients valium home dose 10 mg tid to avoid withdrawal/delirum, prozac 20 mg daily for mood/anxiety. seroquel 50 mg qhs prn for insomnia/psychosis. -CIWA protocol with PRN Ativan for alcohol withdrawal. Continue to monitor vital signs. -Communicated plan to patient's nurse -Will continue to follow along -Please contact with any questions.
[2023-03-16] MEDS ORDERED: chlordiazePOXIDE 25 MG CAP PO SCH (14:15)
--- NOTE | 2023-03-16 15:11 | P.CNNES ---
History of Present Illness Consult date: 03/16/23 Requesting physician: Ellis Banuelos Reason for Consult: ams History of Present Illness: This is a 28-year-old woman who presented emergency department because of altered mental status. History is obtained from medical record. Procedure the patient was arrested on 03/12/2023 and has been without Valium since yesterday according to the ED note and she will supposed to be on 10 mg 1 tablet 3 times a day. Patient has been having some bizarre behavioral and been having a previous shaken with hallucination per the ED note. It seems that she's been having this is a somewhat bizarre behavioral since 03/12/2023 at least. It's reported that she's been the found acting like a cat, meowing. There is a concern that she may then withdrawn or substance abuse per the ED note. Upon reviewing prior neurological Notes him a she was seen by Dr. Jorge last on 02/09/2021 for altered mental status and he felt was likely due to psychotic episode. Rule out toxic metabolic encephalopathy. Seizure appears less likely per him. 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 No evidence of MS on the brain and the cervical spine MRI. No mass lesion. He stated that she had suicidal attempt. She has a history of benzoin opiate abuse. She had an EEG was reported as mild to moderate background slowing likely due to toxic metabolic or vascular causes or medication effect. No epileptiform activity was seen. For her vitamin B12 she was started on the [address] ease refer to Dr. Jorge's note for further details. Also upon reviewing her record the urine tox screen in the past was positive for cocaine twice. Some other workup during his hospital visit consisted of: Temperature is 100.9 and repeat is 100.1 the latest is 99.5. CBC with differential is RDW: 16.8 otherwise rest is normal. Creatnin 1.08, BUN is 20, AST is 81 ALT is 67. Plasma lactic acid vein is 1.5, serum glucose is 89 CK level is 3010 HCG qual is not detected. Urine drug screen is positive for benzo otherwise rest is not detected in the serum alcohol was less than 10. Review of Systems Review of system is limited but the prone positive and negative as per HPI. Past Medical History Past Medical History: No Reported History Additional Past Medical History / Comment(s): Patient had a spontaneous vaginal delivery 35-5/7 weeks gestation on 11/01/2013. She had premature rupture membranes and labor. Patient states she also had a recent miscarriage. History of Any Multi-Drug Resistant Organisms: None Reported Past Surgical History: No Surgical Hx Reported Additional Past Surgical History / Comment(s): vaginal delivery Past Anesthesia/Blood Transfusion Reactions: No Reported Reaction Past Psychological History: Anxiety, Bipolar, Depression Smoking Status: Current every day smoker Past Alcohol Use History: None Reported Past Drug Use History: None Reported - Past Family History Father History Unknown: Yes Family Medical History: No Reported History Medications and Allergies Home Medications Medication Instructions Recorded Confirmed Type Acetaminophen Tab [Tylenol] 650 mg PO TID PRN 03/16/23 03/16/23 History FLUoxetine HCL [PROzac] 20 mg PO DAILY 03/16/23 03/16/23 History Sulfamethox-Tmp 800-160Mg [Bactrim 1 tab PO BID 03/16/23 03/16/23 History DS 800-160 mg] diazePAM [Valium] See Taper PO DIRECTED 03/16/23 03/16/23 History hydrOXYzine pamoate [Vistaril] 25 mg PO BID 03/16/23 03/16/23 History Allergies Allergy/AdvReac Type Severity Reaction Status Date / Time amoxicillin Allergy Anaphylaxis Verified 03/16/23 08:32 magnesium Allergy Swelling Verified 03/16/23 08:32 Penicillins Allergy Anaphylaxis Verified 03/16/23 08:32 bupropion [From Wellbutrin] AdvReac suicidal Verified 03/16/23 08:32 tramadol [From Ultram] AdvReac Rash/Hives Verified 03/16/23 08:32 Physical Examination - Vital Signs Vital Signs: Vital Signs Temp Pulse Resp BP Pulse Ox 03/16/23 12:03 18 03/16/23 11:58 107 H 19 99/54 92 L 03/16/23 10:48 99.5 F 80 96 03/16/23 09:01 79 20 102/77 98 03/16/23 08:40 100.1 F H 85 101/72 96 03/16/23 07:22 95 20 96/81 95 03/16/23 07:01 95 16 103/91 96 03/16/23 06:08 100.9 F H 97 20 131/76 94 L Intake and Output 03/15/23 03/16/23 03/16/23 22:59 06:59 14:59 Other: Weight 86.183 kg GENERAL: The patient is lying in bed and does not appear in acute distress. HENT: Supple neck and no nuchal rigidity. NEUROLOGICAL: Very Limited because of her confusion and behavioral. Patient is severely encephalopathic and briefly the awake a ball to voice. She's oriented to self. She followed very few minimal simple commands such as sticking her tongue and smiling. She's talking nonsensical No facial weakness. As diffuse body shakes that has recurrent and that's asynchronous Motor is a strength is unable to be assessed but she'll left bilateral upper extremities on her own of gravity. Sensory is unable to assess Cerebellar unable to assess Reflexes is 2 positive throughout. Plantars appear upper bilaterally Results - Laboratory Findings CBC and BMP: 03/16/23 06:22 03/16/23 06:22 Abnormal Lab Findings: Abnormal Labs 03/16/23 03/16/23 03/16/23 06:22 06:22 06:27 RDW 16.8 H PT 12.5 H INR 1.2 H Carbon Dioxide 19 L BUN 20 H Creatinine 1.08 H AST 81 H ALT 67 H Creatine Kinase 3010 H* Total Protein 8.7 H Albumin 5.1 H Urine Protein Urine Ketones Urine Bilirubin Urine Mucus U Benzodiazepines Scrn 03/16/23 03/16/23 12:50 12:50 RDW PT INR Carbon Dioxide BUN Creatinine AST ALT Creatine Kinase Total Protein Albumin Urine Protein 1+ H Urine Ketones 1+ H Urine Bilirubin 1+ H Urine Mucus Rare H U Benzodiazepines Scrn Detected H Assessment and Plan Assessment: This is a 28-year-old woman who presented emergency department from skilled nursing because of altered mental status with hallucination, his our behavioral. She was arrested on 03/12/2023. Seems the patient has been without Valium since yesterday per record and she supposed to be on 10 mg 1 tablet 3 times a day. During this visit she has low-grade fever but no leukocytosis and no nuchal rigidity but has severe confusion. She has elevated CK level with nonrhythmic shaking. In January 2021 she was altered and she was seen by Dr. Luisito leahy felt likely due to psychotic episode and he felt seizure appears less likely. Altered mental status with body tremor: Appears due to withdrawn from medication (Valium). Rule out any underlying infection or ?seizure. Rhabdomyolysis due to her continuos body jerks Previous altered mental status in January 2021 and she had MRI the brain MRI of the cervical spine as well as EEG and was felt due to psychotic episode in the EEG was negative for seizures patient shows a mild to moderate generalized cerebral dysfunction. But no epileptiform discharges. 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 History of polysubstance abuse History of suicidal attempt Plan: I ordered a CT of the head with and without as well as a routine EEG to rule out any underlying seizure or discharges. Ordered TSH, ammonia level, folate. Vitamin B12. I ordered DIEGO, ESR and CRP. Consulted I.D. because of low grade fever. I felt patient had rash and warms on right knee >left. I started her on Thiamine 100mg daily and Vitamin B12 1000mcg IM daily. Also started her on Vimpat 50mg bid IV for concern for seizure with loading dose 100mg once. Psychiatry team started her on Valium 10mg 1 tab daily Seroquel 50mg PRN qhs for psychosis. Patient received a total of 4mg Ativan. Will defer the rest of management to primary team and other specialist. The plan is discussed with her nurse. Thank you for the consultation. UPDATE: Preliminary routine EEG report: Is abnormal. The background slowing is suggestive of mild encephalopathy possibly due to medication effect (Ativan). The excessive beta activity is likely due to medication effect (Ativan). Otherwise, no focal slowing, epileptiform discharges or seizure on the EEG. Since EEG is negative for seizure, I discontinued Vimpat. Time with Patient: Greater than 30
--- NOTE | 2023-03-16 17:20 | EEG ---
ELECTROENCEPHALOGRAM REPORT CLINICAL HISTORY: This is a 28-year-old woman, who presented to the emergency department because of confusion and body jerks. The video EEG is obtained to evaluate for seizure and epileptiform discharges. RELEVANT MEDICATIONS: Ativan and has multiple doses of Ativan. EEG TYPE: A routine 21-channel EEG using the 10/20 electrode placement system is performed. DESCRIPTION: Wakefulness is only obtained. During awake state, the background consists of low-to- moderate voltage of 7 Hz activity. There is no physiological sleep architecture seen. There is no focal slowing. There is diffuse excessive beta activity during the study. There is [id number] diffuse myogenic artifact throughout the study. INTERICTAL AND ICTAL: None. ACTIVATION PROCEDURE: Hyperventilation and photic stimulation are not performed. CLINICAL INTERPRETATION: This is an abnormal routine EEG. The background slowing is suggestive of mild encephalopathy, likely due to medication effect (Ativan). Also, excessive beta activity is likely due to medication effect (Ativan). Otherwise, there is no focal slowing, epileptiform discharges, or seizure on the EEG. Clinical correlation is recommended. MMODL / IJN: [id number] /
--- NOTE | 2023-03-16 17:56 | P.HPIM ---
History of Present Illness H&P Date: 03/16/23 Chief Complaint: Altered mental status 28-year-old female who presents to the emergency department for altered mental status. Patient was arrested on 03/12, and had been without her Valium since yesterday. She was supposed to be on 10mg TID. Prior to being taken to senior living, she was seen at [facility]. The officer with her is not sure why, but believes that it may have been for withdrawals or substance abuse. States that she's been acting somewhat bizarre since they picked her up on 03/12, however over the last 2 days she's been much more altered than usual. At one point she was found to be acting like a cat and was "meowing". She has also been shaking profusely, hallucinating, and is unsure where she is, according to EMS. When I went to examine the patient, she was shaking profusely and took a long time to formulate her responses. However, she was able to correctly provide me with her name, location, the year, and the president. CBC with differential is RDW: 16.8 otherwise rest is normal. Ran is 1.08, BUN is 20, AST is 81 ALT is 67. Plasma-Lyte as vein is 1.5, serum glucose is 89 CK level is 3010 HCG qual is not detected. Urine drug screen is positive for benzo otherwise rest is not detected in the serum alcohol was less than 10. she was seen by Dr. Kumar last on 02/09/2021 for altered mental status and he felt was likely due to psychotic episode. Rule out toxic metabolic encephalopathy. Seizure appears less likely per him. 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 No evidence of MS on the brain and the cervical spine MRI. No mass lesion. He stated that she had suicidal attempt. She has a history of benzoin opiate abuse. She had an EEG was reported as mild to moderate background slowing likely due to toxic metabolic or vascular causes or medication effect. No epileptiform activity was seen. For her vitamin B12 she was started on the 1000 g IM. Review of Systems ROS unobtainable: due to mental status Past Medical History Past Medical History: No Reported History Additional Past Medical History / Comment(s): Patient had a spontaneous vaginal delivery 35-5/7 weeks gestation on 11/01/2013. She had premature rupture membranes and labor. Patient states she also had a recent miscarriage. History of Any Multi-Drug Resistant Organisms: None Reported Past Surgical History: No Surgical Hx Reported Additional Past Surgical History / Comment(s): vaginal delivery Past Anesthesia/Blood Transfusion Reactions: No Reported Reaction Past Psychological History: Anxiety, Bipolar, Depression Smoking Status: Current every day smoker Past Alcohol Use History: None Reported Past Drug Use History: None Reported - Past Family History Father History Unknown: Yes Family Medical History: No Reported History Medications and Allergies Home Medications Medication Instructions Recorded Confirmed Type Acetaminophen Tab [Tylenol] 650 mg PO TID PRN 03/16/23 03/16/23 History FLUoxetine HCL [PROzac] 20 mg PO DAILY 03/16/23 03/16/23 History Sulfamethox-Tmp 800-160Mg [Bactrim 1 tab PO BID 03/16/23 03/16/23 History DS 800-160 mg] diazePAM [Valium] See Taper PO DIRECTED 03/16/23 03/16/23 History hydrOXYzine pamoate [Vistaril] 25 mg PO BID 03/16/23 03/16/23 History Allergies Allergy/AdvReac Type Severity Reaction Status Date / Time amoxicillin Allergy Anaphylaxis Verified 03/16/23 08:32 magnesium Allergy Swelling Verified 03/16/23 08:32 Penicillins Allergy Anaphylaxis Verified 03/16/23 08:32 bupropion [From Wellbutrin] AdvReac suicidal Verified 03/16/23 08:32 tramadol [From Ultram] AdvReac Rash/Hives Verified 03/16/23 08:32 Physical Exam Vitals: Vital Signs Temp Pulse Resp BP Pulse Ox 03/16/23 12:03 18 03/16/23 11:58 107 H 19 99/54 92 L 03/16/23 10:48 99.5 F 80 96 03/16/23 09:01 79 20 102/77 98 03/16/23 08:40 100.1 F H 85 101/72 96 03/16/23 07:22 95 20 96/81 95 03/16/23 07:01 95 16 103/91 96 03/16/23 06:08 100.9 F H 97 20 131/76 94 L Intake and Output 03/15/23 03/16/23 03/16/23 22:59 06:59 14:59 Other: Weight 86.183 kg General appearance: alert Head exam: Present: atraumatic, normocephalic, normal inspection Eye exam: Present: normal appearance, PERRL, EOMI. Absent: scleral icterus, conjunctival injection, periorbital swelling Respiratory exam: Present: normal lung sounds bilaterally. Absent: respiratory distress, wheezes, rales, rhonchi, stridor Cardiovascular Exam: Present: regular rate, normal rhythm, normal heart sounds. Absent: systolic murmur, diastolic murmur, rubs, gallop, clicks Neurological exam: Present: alert, oriented X3 Expanded Focused psych exam: Present: psychomotor agitation, restlessness Skin exam: Present: warm, dry, intact, normal color. Absent: rash Results CBC & Chem 7: 03/16/23 06:22 03/16/23 06:22 Labs: Abnormal Lab Results - Last 24 Hours (Table) 03/16/23 03/16/23 03/16/23 Range/Units 06:22 06:22 06:27 RDW 16.8 H (11.5-15.5) % PT 12.5 H (9.0-12.0) sec INR 1.2 H (<1.2) Carbon Dioxide 19 L (22-30) mmol/L BUN 20 H (7-17) mg/dL Creatinine 1.08 H (0.52-1.04) mg/dL AST 81 H (14-36) U/L ALT 67 H (4-34) U/L Creatine Kinase 3010 H* (30-135) U/L Total Protein 8.7 H (6.3-8.2) g/dL Albumin 5.1 H (3.5-5.0) g/dL Assessment and Plan Assessment: 1. Altered mental status Appears due to withdrawn from medication (Valium). Rule out any underlying infection or ?seizure. CT of the head with and without as well as a routine EEG to rule out any underlying seizure or discharges. Ordered TSH, ammonia level, folate. Vitamin B12. I ordered DIEGO, ESR and CRP. Consulted I.D. because of low grade fever. I felt patient had rash and warms on right knee >left. Neurology started her on Thiamine 100mg daily and Vitamin B12 1000mcg IM daily. Also started her on Vimpat 50mg bid IV for concern for seizure with loading dose 100mg once. 2. Acute renal injury; patient is started on IV fluids in form of normal saline at rate of 100 mL an hour; we will monitor strict CECIL's, daily weights, renal function and electrolytes; avoid nephrotoxins and hypotension 4. Rhabdomyolysis; IV fluid hydration as indicated above; we will monitor and trend CPK 5. Transaminitis; possibly related to substance abuse; we will monitor liver enzymes with plans to obtain hepatic ultrasound if liver enzymes continue to trend up 6. Substance abuse; urine drug screen is positive benzodiazepines; patient has had cocaine in the system on previous occasions 7. Agitation/hallucinations; psychiatry is consulted DVT prophylaxis; SCDs CODE STATUS; full code
[2023-03-16] MEDS: diazePAM 5 MG TAB PO SCH ×2 (18:03→19:45)
[2023-03-16] MEDS: CYANOCOBALAMIN 1,000 MCG/ML 1 ML VIAL IM SCH (18:06)
--- NOTE | 2023-03-16 18:06 | XR ---
EXAMINATION TYPE: XR chest 2V DATE OF EXAM: 03/16/2023 COMPARISON: 11/02/2019 INDICATION: Fever TECHNIQUE: Frontal and lateral views of the chest are obtained. FINDINGS: The heart size is normal. The pulmonary vasculature is normal. The lungs are clear. IMPRESSION: 1. No acute pulmonary process.
[2023-03-16] MEDS: KETOROLAC 15 MG/ML 1 ML VIAL IVP PRN (20:20)
[2023-03-16] MEDS ORDERED: Lacosamide IV (ages 17+ yrs) 200 MG/20 ML ML IVP SCH (21:00)
--- NOTE | 2023-03-16 22:05 | CT ---
EXAMINATION TYPE: CT brain wo/w con DATE OF EXAM: 03/16/2023 COMPARISON: None INDICATION: confusion and ams DLP: 2945.1 mGycm, Automated exposure control for dose reduction was used. CONTRAST: None CT of the brain is performed utilizing 3 mm thick sections through the posterior fossa and 3 mm thick sections through the remaining calvarium. Study is performed within 24 hours of arrival to the hosp [facility]. No abnormal hyperdensity is present to suggest an acute intracranial hemorrhage. No mass lesion is evident. No acute infarcts are evident. Ventricles and sulci are appropriate for the patient age. No enhancement is evident. Paranasal sinuses and mastoid air cells within the [id number] are clear. IMPRESSIONS: 1. No acute intracranial processes pre or postcontrast. Follow-up MRI can be performed clinically i ndicated.
--- NOTE | 2023-03-16 22:17 | P.CONS ---
History of Present Illness - Reason for Consult Consult date: 03/16/23 - History of Present Illness Patient is a 28-year-old female with a past medical history negative for anxiety bipolar depression smoker history of drug use patient has been brought into the hospital for evaluation of mental status changes apparently the patient was arrested on 03/12/2023 circumstances of her arrest are not very clear patient was evaluated at [facility] and was cleared for kyle ent to go to the penitentiary however the patient was noticed to have a worsening of her mental status and making unusual sounds and profound shaking with the same the patient was brought into the [facility] for evaluation on arrival to the ER patient was noticed to be febrile temperature of 100.9 F the patient was slightly tachycardic however not hypotensive or hypoxic patient did have a normal white count with no left shift BUN and creatinine mildly elevated AST ALT was mildly elevated patient did have a negative UA urine hCG was negative patient did tested negative for influenza RSV and COVID patient has been eval by psych and neurology and neurology subsequently consulted infectious disease for further evaluation, the patient is currently afebrile and did not provide any history no vomiting or diarrhea has been reported Past Medical History Past Medical History: No Reported History Additional Past Medical History / Comment(s): Patient had a spontaneous vaginal delivery 35-5/7 weeks gestation on 11/01/2013. She had premature rupture membranes and labor. Patient states she also had a recent miscarriage. History of Any Multi-Drug Resistant Organisms: None Reported Past Surgical History: No Surgical Hx Reported Additional Past Surgical History / Comment(s): vaginal delivery Past Anesthesia/Blood Transfusion Reactions: No Reported Reaction Past Psychological History: Anxiety, Bipolar, Depression Smoking Status: Current every day smoker Past Alcohol Use History: None Reported Past Drug Use History: None Reported - Past Family History Father History Unknown: Yes Family Medical History: No Reported History Medications and Allergies Home Medications Medication Instructions Recorded Confirmed Type Acetaminophen Tab [Tylenol] 650 mg PO TID PRN 03/16/23 03/16/23 History FLUoxetine HCL [PROzac] 20 mg PO DAILY 03/16/23 03/16/23 History Sulfamethox-Tmp 800-160Mg [Bactrim 1 tab PO BID 03/16/23 03/16/23 History DS 800-160 mg] diazePAM [Valium] See Taper PO DIRECTED 03/16/23 03/16/23 History hydrOXYzine pamoate [Vistaril] 25 mg PO BID 03/16/23 03/16/23 History Allergies Allergy/AdvReac Type Severity Reaction Status Date / Time amoxicillin Allergy Anaphylaxis Verified 03/16/23 08:32 magnesium Allergy Swelling Verified 03/16/23 08:32 Penicillins Allergy Anaphylaxis Verified 03/16/23 08:32 bupropion [From Wellbutrin] AdvReac suicidal Verified 03/16/23 08:32 tramadol [From Ultram] AdvReac Rash/Hives Verified 03/16/23 08:32 Physical Exam Vitals: Vital Signs Temp Pulse Resp BP Pulse Ox 03/16/23 12:03 18 03/16/23 11:58 107 H 19 99/54 92 L 03/16/23 10:48 99.5 F 80 96 03/16/23 09:01 79 20 102/77 98 03/16/23 08:40 100.1 F H 85 101/72 96 03/16/23 07:22 95 20 96/81 95 03/16/23 07:01 95 16 103/91 96 03/16/23 06:08 100.9 F H 97 20 131/76 94 L Intake and Output 03/16/23 03/16/23 03/16/23 06:59 14:59 22:59 Other: Weight 86.183 kg Results CBC & Chem 7: 03/16/23 06:22 03/16/23 06:22 Labs: Abnormal Lab Results - Last 24 Hours (Table) 03/16/23 03/16/23 03/16/23 Range/Units 06:22 06:22 06:27 RDW 16.8 H (11.5-15.5) % PT 12.5 H (9.0-12.0) sec INR 1.2 H (<1.2) Carbon Dioxide 19 L (22-30) mmol/L BUN 20 H (7-17) mg/dL Creatinine 1.08 H (0.52-1.04) mg/dL AST 81 H (14-36) U/L ALT 67 H (4-34) U/L Creatine Kinase 3010 H* (30-135) U/L Total Protein 8.7 H (6.3-8.2) g/dL Albumin 5.1 H (3.5-5.0) g/dL Urine Protein (Negative) Urine Ketones (Negative) Urine Bilirubin (Negative) Urine Mucus (None) /hpf U Benzodiazepines Scrn (NotDetected) 03/16/23 03/16/23 Range/Units 12:50 12:50 RDW (11.5-15.5) % PT (9.0-12.0) sec INR (<1.2) Carbon Dioxide (22-30) mmol/L BUN (7-17) mg/dL Creatinine (0.52-1.04) mg/dL AST (14-36) U/L ALT (4-34) U/L Creatine Kinase (30-135) U/L Total Protein (6.3-8.2) g/dL Albumin (3.5-5.0) g/dL Urine Protein 1+ H (Negative) Urine Ketones 1+ H (Negative) Urine Bilirubin 1+ H (Negative) Urine Mucus Rare H (None) /hpf U Benzodiazepines Scrn Detected H (NotDetected) Assessment and Plan Plan: 1patient with SIRS in this patient with the fever and tachycardia possible related to drug withdrawal as the patient do not have obvious focus of infection and did have a normal white count no neck rigidity urine was negative chest x- ray negative for any acute infiltrate I do not see any cellulitis or rash to the right knee or the leg area 2-we will check inflammatory markers CRP procalcitonin and blood culture has been ordered 3-if no improvement in mentation and CT brain negative may benefit from LP we will discuss with neurology 4-for now hold on any systemic antibiotic therapy We will follow on clinical condition and cultures to further adjust medication if needed Thank you for this consultation we will follow the patient along with you Dictation was produced using [employer] dictation software. please excuse any grammatical, word or spelling errors. Time with Patient: Greater than 30
[2023-03-17] MEDS: KETOROLAC 15 MG/ML 1 ML VIAL IVP PRN (01:39)
[2023-03-17] MEDS: LORazepam 2 MG/ML INJ IV PRN ×2 (02:25→04:32)
[2023-03-17 08:27] LABS: ALT 63 U/L (4-34); AST 58 U/L (14-36); African American GFR (CKD) >90 (>60 ml/min/1.73 sqM); Albumin 3.5 g/dL (3.5-5.0); Alkaline Phosphatase 60 U/L (38-126); Anion Gap 6 mmol/L; Bilirubin, Delta 0.3 mg/dL (0.0-0.2); Bilirubin,Unconjugated 0.5 mg/dL (0.0-1.1); Blood Urea Nitrogen 6 mg/dL (7-17); Calcium 8.2 mg/dL (8.4-10.2); Carbon Dioxide 27 mmol/L (22-30); Chloride 107 mmol/L (98-107); Glucose 84 mg/dL (74-99); Non-African American GFR(CKD) >90 (>60 ml/min/1.73 sqM); Potassium 3.4 mmol/L (3.5-5.1); Sodium 140 mmol/L (137-145); Total Bilirubin 0.8 mg/dL (0.2-1.3); Total Protein 6.1 g/dL (6.3-8.2)
[2023-03-17 08:34] LABS: Creatine Kinase 1357 U/L (30-135)
[2023-03-17 08:46] LABS: C Reactive Protein <0.5 mg/dL (<1.0)
[2023-03-17 08:49] LABS: Anisocytosis Slight; Basophils % (A) 0 %; Eosinophils % (A) 0 %; HCT 28.7 % (34.0-46.0); Lymphocytes # (A) 2.7 k/uL (1.0-4.8); Lymphocytes % (A) 61 %; MCH 30.1 pg (25.0-35.0); MCHC 34.2 g/dL (31.0-37.0); Mean Platelet Volume 7.6; Monocytes # (A) 0.3 k/uL (0-1.0); Monocytes % (A) 6 %; Neutrophils # (A) 1.4 k/uL (1.3-7.7); Neutrophils % (A) 31 %; Platelet Count 227 k/uL (150-450); RBC 3.27 m/uL (3.80-5.40); RDW 16.4 % (11.5-15.5); WBC 4.5 k/uL (3.8-10.6)
[2023-03-17] MEDS: CYANOCOBALAMIN 1,000 MCG/ML 1 ML VIAL IM SCH (08:58)
[2023-03-17] MEDS: THIAMINE 100 MG/ML 2 ML VIAL IVP SCH (08:59)
[2023-03-17] MEDS ORDERED: THIAMINE 100 MG TAB PO SCH (09:00)
[2023-03-17] MEDS: FLUoxetine HCL 20 MG CAP PO SCH (09:20)
[2023-03-17] MEDS: diazePAM 5 MG TAB PO SCH ×3 (11:23→22:44)
--- NOTE | 2023-03-17 11:52 | P.PN ---
Subjective Progress Note Date: 03/17/23 I am following-up seeing the patient and it seems she is doing somewhat better. She states she was inhaling nitrous oxide but was not consistent with story since she stated she did it with friend but later stated had no friends and it appears she has confusion. Objective - Vital Signs Vital signs: Vital Signs Temp 98.7 F 03/17/23 09:00 Pulse 59 L 03/17/23 09:00 Resp 16 03/17/23 09:00 BP 107/68 03/17/23 09:00 Pulse Ox 95 03/17/23 09:00 FiO2 Intake & Output 03/16/23 03/17/23 03/17/23 18:59 06:59 18:59 Weight 86.183 kg Other: Voiding Method Bedpan Bedpan Diaper Diaper # Voids 1 1 - Exam Gen. is the patient is lying in bed and that is not in acute distress. Neuro: She is drowsy but is awake couple to voice at. She seems more awake couple today and responsive compared to yesterday. She is oriented to self, time but stated she was at home. She is able to identify objects such as cup, mireles, phone and per the she stated clock. She is able to follow simple commands. Again she seems more awake and responsive today compared to yesterday but continues to be confused somewhat and at times talks tangential. The pupils are round equal reactive to light. Visual roque are full throughout. Extraocular movement is intact. No facial weakness. No dysarthria Motor is a strength is moving all extremities equally throughout. Sensory is normal to touch throughout. Cerebellar normal for finger to nose. Reflex: brachioradialis, biceps, patellar are 3+. Triceps and ankles are 2+. Plantars are upgoing bilaterally. Some other workup during his hospital visit consisted of: Temperature is 100.9 and repeat is 100.1 the latest is 99.5 No further fevers. ESR 16 CBC with differential is RDW: 16.8 otherwise rest is normal. Creatnin 1.08, BUN is 20, AST is 81 ALT is 67. Plasma lactic acid vein is 1.5, serum glucose is 89 CK level is 3010 and repeat CK level is 1357 Ammonia level is less than 9 TSH is 1.440 Folate is 14.30 A knee is negative Vitamin B12 is <150 which is considered deficient HCG qual is not detected. Urine drug screen is positive for benzo otherwise rest is not detected in the serum alcohol was less than 10. Routine EEG is abnormal. The background slowing is suggestive of mild encephalopathy likely due to medication effect (Ativan). Also the excessive beta activity is likely due to medication effect (Ativan). Otherwise there is no focal slowing, epileptiform discharges or seizure on the EEG. - Labs CBC & Chem 7: 03/17/23 07:21 03/17/23 07:21 Labs: Abnormal Lab Results - Last 24 Hours (Table) 03/16/23 03/16/23 03/16/23 Range/Units 06:27 12:50 12:50 RBC (3.80-5.40) m/uL Hgb (11.4-16.0) gm/dL Hct (34.0-46.0) % RDW (11.5-15.5) % Potassium (3.5-5.1) mmol/L BUN (7-17) mg/dL Calcium (8.4-10.2) mg/dL Delta Bilirubin (0.0-0.2) mg/dL AST (14-36) U/L ALT (4-34) U/L Creatine Kinase (30-135) U/L Total Protein (6.3-8.2) g/dL Vitamin B12 <150.0 L (200.0-944.0) pg/mL Urine Protein 1+ H (Negative) Urine Ketones 1+ H (Negative) Urine Bilirubin 1+ H (Negative) Urine Mucus Rare H (None) /hpf U Benzodiazepines Scrn Detected H (NotDetected) 03/17/23 03/17/23 Range/Units 07:21 07:21 RBC 3.27 L (3.80-5.40) m/uL Hgb 9.8 L D (11.4-16.0) gm/dL Hct 28.7 L (34.0-46.0) % RDW 16.4 H (11.5-15.5) % Potassium 3.4 L (3.5-5.1) mmol/L BUN 6 L (7-17) mg/dL Calcium 8.2 L (8.4-10.2) mg/dL Delta Bilirubin 0.3 H (0.0-0.2) mg/dL AST 58 H (14-36) U/L ALT 63 H (4-34) U/L Creatine Kinase 1357 H* (30-135) U/L Total Protein 6.1 L (6.3-8.2) g/dL Vitamin B12 (200.0-944.0) pg/mL Urine Protein (Negative) Urine Ketones (Negative) Urine Bilirubin (Negative) Urine Mucus (None) /hpf U Benzodiazepines Scrn (NotDetected) Assessment and Plan Assessment: This is a 28-year-old woman who presented emergency department from [facility]f because of altered mental status with hallucination, his our behavioral. She was arrested on 03/12/2023. Seems the patient has been without Valium since yesterday per record and she supposed to be on 10 mg 1 tablet 3 times a day. During this visit she has low-grade fever but no leukocytosis and no nuchal rigidity but has severe confusion. She has elevated CK level with nonrhythmic shaking. In January 2021 she was altered and she was seen by Dr. Luisito leahy felt likely due to psychotic episode and he felt seizure appears less likely. * Altered mental status with body tremor: Appears due to withdrawn from medication/Benzo (Valium and Xanax). No seizure on EEG or discharges. --mentation improving today. * Also on examination has brisk reflexes of uppers and lower extremities with upgoing plantars bilaterally with confusion due to Vitamin B12 deficiency and patient stated she ?possibly uses Nitrous oxide. Rule out any abnromality on cervical or brain as result of B12 deficiency. * Ongoing B12 deficiency <150 * Rhabdomyolysis due to her continuos body jerks--trending down (body jerks improving) * Previous altered mental status in January 2021 and she had MRI the brain MRI of the cervical spine as well as EEG and was felt due to psychotic episode in the EEG was negative for seizures patient shows a mild to moderate generalized cerebral dysfunction. But no epileptiform discharges. 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 * History of polysubstance abuse * History of suicidal attempt Plan: Also on examination has brisk reflexes of uppers and lower extremities with upgoing plantars bilaterally with confusion due to Vitamin B12 deficiency and patient stated she ?possibly uses Nitrous oxide. Rule out any abnromality on cervical or brain as result of B12 deficiency. Rule out any subacute combined degeneration. Recommend MRI Brain and C-spine once stable to cooperate for examination. Continue Thiamine 100mg daily and Vitamin B12 1000mcg IM daily. Consider Nitrous oxide level and will defer management to primary team. No need for antiepileptic drug since no seizures on EEG or discharges and her tremor is due to withdrawal and she is improving today. Psychiatry team started her on Valium 10mg 1 tab daily Seroquel 50mg PRN qhs for psychosis. I.D. is consulted because of fever and stated due to drug withdrawal and I agree. No further fevers. She is on CIWA protocol. Will defer the rest of management to primary team and other specialist. The plan is discussed with her nurse and primary attending. UPDATE: I was notified by nurse that her tremor is worse and had blank stare. I ordered 1mg Ativan and started her on Vimpat 50mg bid. Again I highly doubt this is seizure especially since was having extensive tremor yesterday and no seizure. Will discontinue antiepileptic once improved. I ordered copper and zinc level. Time with Patient: Less than 30
[2023-03-17] MEDS ORDERED: LORazepam 2 MG/ML INJ IV STA (13:34)
[2023-03-17] MEDS: Lacosamide IV (ages 17+ yrs) 200 MG/20 ML ML IVP SCH ×2 (17:08→19:59)
--- NOTE | 2023-03-17 17:13 | P.CN ---
Psychiatric Consult - . Consult date: 03/17/23 Consult:: 03/17/23 17:06 Patient was seen today at the bedside by service writer advisor for evaluation. Patient is trembling in her hands but had reasonable eye contact was pleasant and cooperative. She began speaking very quickly and disorganized. She is fairly bizarre and had poor concentration, she thought today was Sunday but knew it was 2022. She knew that the president was Doyle Muniz. But then she would ramble off saying strange things. She acknowledged that she been using drugs and that some people had turned her in and I should go and get them and bring them to her room so she could talk to them. And she was talking about someone n ryley Carlos but couldn't explain who he wants, then explained he was not Bill but was Morris. MENTAL STATUS EXAM: General Appearance: Patient has several tattoos, appears to be her stated age, is lying in bed but was alert. Sometime she seemed to be talking to herself at times. Behavior: Patient is laying in bed, bizarre. Speech: Patient's speech is rapid and difficult to comprehend. Mood/Affect: Unable to assess Suicidality/Homicidality: Unable to assess she denied this Perceptions: Unable to assess. Patient was looking around the room and talking or soft. Though content/process: Rambling at times, incoherent. Memory and concentration: Unable to assess. Patient has poor concentration, unable to follow commands. Judgment and insight: poor IMPRESSIONS: She has been, "huffing" things for years they can damaged brain and this is quite likely to be the end result Delirium, likely secondary to benzo withdrawal Depressive disorder unspecified History of subacute combined degeneration Nicotine dependence hx of Inhalant abuse PLAN: No changes recommended at this time he doesn't continue to improve may need to have social work figure where she can go and she will be cared for after the hospital. -At this time patient DOES NOT meet criteria for inpatient psychiatric admission she could not participate in any of the program. -Delirium precautions recommended with patient including - avoiding use of narcotics, limit anticholinergic medications when possible, frequent re- orientation, minimize use of restraints, open window shades during the day and close them at night -Would continue the following medication changes/additions: resume patients valium home dose 10 mg tid to avoid withdrawal/delirum, prozac 20 mg daily for mood/anxiety. seroquel 50 mg qhs prn for insomnia/psychosis. She seems psychotic so much as just unable to make any sense. -CIWA protocol with PRN Ativan for alcohol withdrawal. Continue to monitor vital signs. -Communicated plan to patient's nurse -Will continue to follow along -Please contact with any questions.
[2023-03-17 18:50] LABS: HGB 9.8 gm/dL (11.4-16.0)
[2023-03-18] MEDS: LORazepam 2 MG/ML INJ IV PRN (04:16)
[2023-03-18 09:11] LABS: African American GFR (CKD) >90 (>60 ml/min/1.73 sqM); Anion Gap 11 mmol/L; Blood Urea Nitrogen 7 mg/dL (7-17); Calcium 8.7 mg/dL (8.4-10.2); Carbon Dioxide 25 mmol/L (22-30); Chloride 105 mmol/L (98-107); Creatine Kinase 769 U/L (30-135); Glucose 106 mg/dL (74-99); Non-African American GFR(CKD) >90 (>60 ml/min/1.73 sqM); Potassium 3.4 mmol/L (3.5-5.1); Sodium 141 mmol/L (137-145)
[2023-03-18] MEDS: diazePAM 5 MG TAB PO SCH ×3 (09:50→21:45)
[2023-03-18] MEDS: Lacosamide IV (ages 17+ yrs) 200 MG/20 ML ML IVP SCH ×2 (09:50→21:45)
[2023-03-18] MEDS: FLUoxetine HCL 20 MG CAP PO SCH (09:50)
[2023-03-18] MEDS: THIAMINE 100 MG/ML 2 ML VIAL IVP SCH (09:51)
[2023-03-18] MEDS: CYANOCOBALAMIN 1,000 MCG/ML 1 ML VIAL IM SCH (09:51)
--- NOTE | 2023-03-18 11:48 | P.PN ---
Subjective Progress Note Date: 03/18/23 I am following up with patient and again she confirmed she has been inhaling Nitrous Oxide canisters and stated last use was 1 week ago. She stated she had history of seizure in the past. Per A.M. nurse yesterday she had blank stares and that is why I started her on Vimpat 50mg bid. Objective - Vital Signs Vital signs: Vital Signs Temp 98.8 F 03/18/23 08:00 Pulse 86 03/18/23 08:00 Resp 18 03/18/23 08:00 BP 117/75 03/18/23 08:00 Pulse Ox 98 03/18/23 08:00 FiO2 Intake & Output 03/17/23 03/18/23 03/18/23 18:59 06:59 18:59 Intake Total 240 120 Balance 240 120 Intake: Oral 240 120 Other: Voiding Method Toilet Toilet Toilet # Voids 2 3 # Bowel Movements 1 1 - Exam Gen. is the patient is lying in bed and that is not in acute distress. Neuro: She is drowsy but is awake couple to voice. She is again more responsive compared to the last two days. She is oriented to self, place and time. She is able to name watch and glasses. She continues to have some mumbling and talks tangential. The pupils are round equal reactive to light. Visual roque are full throughout. Extraocular movement is intact. No facial weakness. No dysarthria Motor is a strength is moving all extremities equally throughout. Has intermittent body jerks/tremors that are brief but improved compared to initial presentation. Sensory is normal to touch throughout. Cerebellar normal for finger to nose. Reflex: brachioradialis, biceps, patellar are 3+. Triceps and ankles are 2+. Plantars are upgoing bilaterally. Some other workup during his hospital visit consisted of: Temperature is 100.9 and repeat is 100.1 the latest is 99.5 No further fevers. ESR 16 CBC with differential is RDW: 16.8 otherwise rest is normal. Creatnin 1.08, BUN is 20, AST is 81 ALT is 67. Plasma lactic acid vein is 1.5, serum glucose is 89 CK level is 3010 and repeat CK level is 1357 Ammonia level is less than 9 TSH is 1.440 Folate is 14.30 A knee is negative Vitamin B12 is <150 which is considered deficient HCG qual is not detected. Urine drug screen is positive for benzo otherwise rest is not detected in the serum alcohol was less than 10. Routine EEG is abnormal. The background slowing is suggestive of mild encephalopathy likely due to medication effect (Ativan). Also the excessive beta activity is likely due to medication effect (Ativan). Otherwise there is no focal slowing, epileptiform discharges or seizure on the EEG. - Labs CBC & Chem 7: 03/17/23 07:21 03/18/23 08:31 Labs: Abnormal Lab Results - Last 24 Hours (Table) 03/17/23 03/18/23 Range/Units 07:21 08:31 Hgb 9.8 L D (11.4-16.0) gm/dL Potassium 3.4 L (3.5-5.1) mmol/L Glucose 106 H (74-99) mg/dL Creatine Kinase 769 H (30-135) U/L Microbiology - Last 24 Hours (Table) 03/16/23 15:26 Blood Culture - Preliminary Blood Assessment and Plan Assessment: This is a 28-year-old woman who [facility] of [facility] status with hallucination, his our behavioral. She was arrested on 03/12/2023. Seems the patient has been without Valium since yesterday per record and she supposed to be on 10 mg 1 tablet 3 times a day. During this visit she has low-grade fever but no leukocytosis and no nuchal rigidity but has severe confusion. She has elevated CK level with nonrhythmic shaking. In January 2021 she was altered and she was seen by Dr. Luisito leahy felt likely due to psychotic episode and he felt seizure appears less likely. * Altered mental status with body tremor: Appears due to withdrawn from medication/Benzo (Valium and Xanax). No seizure on EEG or discharges. --mentation improving. * Also on examination has brisk reflexes of uppers and lower extremities with upgoing plantars bilaterally with confusion due to Vitamin B12 deficiency and patient stated she using Nitrous oxide. Rule out any abnromality on cervical or brain as result of B12 deficiency. * Ongoing B12 deficiency <150 * Rhabdomyolysis due to her continuos body jerks--trending down (body jerks improving) * Previous altered mental status in January 2021 and she had MRI the brain MRI of the cervical spine as well as EEG and was felt due to psychotic episode in the EEG was negative for seizures patient shows a mild to moderate generalized cerebral dysfunction. But no epileptiform discharges. 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 * History of polysubstance abuse * History of suicidal attempt Plan: Also on examination has brisk reflexes of uppers and lower extremities with upgoing plantars bilaterally with confusion due to Vitamin B12 deficiency and patient stated she ?possibly uses Nitrous oxide. Rule out any abnromality on cervical or brain as result of B12 deficiency. Rule out any subacute combined degeneration. Ordered MRI Brain and C-spine and to be completed once stable to cooperate for examination. Continue Thiamine 100mg daily and Vitamin B12 1000mcg IM daily. Consider Nitrous oxide level and will defer management to primary team. I started her on Vimpat 50mg bid since per nurse had starting episode yesterday A.M. Per patient she does have history of seizures. She had current EEG in our facility and prior EEG which were negative for seizures. Psychiatry team started her on Valium 10mg 1 tab daily Seroquel 50mg PRN qhs for psychosis. I.D. is consulted because of fever and stated due to drug withdrawal and I agree. No further fevers. She is on CIWA protocol. Will defer the rest of management to primary team and other specialist. The plan is discussed with her nurse. Dr. Jorge will start neurology service tomorrow A.M. Time with Patient: Less than 30
--- NOTE | 2023-03-18 16:40 | P.PN ---
Subjective Progress Note Date: 03/17/23 Principal diagnosis: Fever Patient is a 28-year-old female with a past medical history negative for anxiety bipolar depression smoker history of drug use patient has been brought into the hospital for evaluation of mental status changes, patient did have low-grade fever 100.9 on admission. Normal white count and initial workup. on today's evaluation that is 03/17/2023, the patient is afebrile, the patient is breathing comfortably on room air the patient remains to be lethargic and did not answer any question or vomiting diarrhea or any other changes reported by [facility] nursing staff. Patient did have a normal white count of 4.5 with no left shift creatinine 0.66, pro calcitonin 2 has been normal Objective - Vital Signs Vital signs: Vital Signs Temp 98.7 F 03/17/23 09:00 Pulse 59 L 03/17/23 09:00 Resp 16 03/17/23 09:00 BP 107/68 03/17/23 09:00 Pulse Ox 95 03/17/23 09:00 FiO2 Intake & Output 03/16/23 03/17/23 03/17/23 18:59 06:59 18:59 Weight 86.183 kg Other: Voiding Method Bedpan Bedpan Diaper Diaper # Voids 1 1 - Exam GENERAL DESCRIPTION: Middle-aged female lying in bed in no distress RESPIRATORY SYSTEM: Unlabored breathing , decreased breath sounds at bases HEART: S1 S2 regular rate and rhythm , ABDOMEN: Soft , no tenderness EXTREMITIES: No edema feet - Labs CBC & Chem 7: 03/17/23 07:21 03/18/23 08:31 Labs: Abnormal Lab Results - Last 24 Hours (Table) 03/16/23 03/16/23 03/16/23 Range/Units 06:27 12:50 12:50 RBC (3.80-5.40) m/uL Hgb (11.4-16.0) gm/dL Hct (34.0-46.0) % RDW (11.5-15.5) % Potassium (3.5-5.1) mmol/L BUN (7-17) mg/dL Calcium (8.4-10.2) mg/dL Delta Bilirubin (0.0-0.2) mg/dL AST (14-36) U/L ALT (4-34) U/L Creatine Kinase (30-135) U/L Total Protein (6.3-8.2) g/dL Vitamin B12 <150.0 L (200.0-944.0) pg/mL Urine Protein 1+ H (Negative) Urine Ketones 1+ H (Negative) Urine Bilirubin 1+ H (Negative) Urine Mucus Rare H (None) /hpf U Benzodiazepines Scrn Detected H (NotDetected) 03/17/23 03/17/23 Range/Units 07:21 07:21 RBC 3.27 L (3.80-5.40) m/uL Hgb 9.8 L D (11.4-16.0) gm/dL Hct 28.7 L (34.0-46.0) % RDW 16.4 H (11.5-15.5) % Potassium 3.4 L (3.5-5.1) mmol/L BUN 6 L (7-17) mg/dL Calcium 8.2 L (8.4-10.2) mg/dL Delta Bilirubin 0.3 H (0.0-0.2) mg/dL AST 58 H (14-36) U/L ALT 63 H (4-34) U/L Creatine Kinase 1357 H* (30-135) U/L Total Protein 6.1 L (6.3-8.2) g/dL Vitamin B12 (200.0-944.0) pg/mL Urine Protein (Negative) Urine Ketones (Negative) Urine Bilirubin (Negative) Urine Mucus (None) /hpf U Benzodiazepines Scrn (NotDetected) Assessment and Plan (1) Fever Current Visit: Yes Status: Acute Code(s): R50.9 - FEVER, UNSPECIFIED SNOMED Code(s): 630412859 Plan: 1patient with SIRS in this patient with the fever and tachycardia possible related to drug withdrawal as the patient do not have obvious focus of infection and did have a normal white count no neck rigidity urine was negative chest x- ray negative for any acute infiltrate I do not see any cellulitis or rash to the right knee or the leg area 2-patient did have normal procalcitonin and blood culture currently pending 3-patient did have resolution of the fever without antibiotic therapy and low clinical suspicion for infection and hence will monitor the patient closely off antibiotic therapy Dictation was produced using dragon dictation software. please excuse any grammatical, word or spelling errors. Time with Patient: Less than 30
--- NOTE | 2023-03-18 16:42 | P.PN ---
Subjective Progress Note Date: 03/18/23 Principal diagnosis: Fever Patient is a 28-year-old female with a past medical history negative for anxiety bipolar depression smoker history of drug use patient has been brought into the hospital for evaluation of mental status changes, patient did have low-grade fever 100.9 on admission. Normal white count and initial workup. on today's evaluation that is 03/18/2023, the patient remains to be afebrile, the patient is breathing comfortably on room air , the patient is more awake and alert and baked to her baseline the patient knows that [facility] any headache no chest pain shortness of breath or cough no abdominal pain patient is feeling better and would like to take a shower Patient did have a normal white count of 4.5 with no left shift as of yesterday, no CBC was done today creatinine is 0.72, pro calcitonin 2 has been normal Objective - Vital Signs Vital signs: Vital Signs Temp 98.8 F 03/18/23 08:00 Pulse 86 03/18/23 14:00 Resp 18 03/18/23 14:00 BP 117/75 03/18/23 08:00 Pulse Ox 98 03/18/23 08:00 FiO2 Intake & Output 03/17/23 03/18/23 03/18/23 18:59 06:59 18:59 Intake Total 240 120 Balance 240 120 Intake: Oral 240 120 Other: Voiding Method Toilet Toilet Toilet # Voids 2 3 # Bowel Movements 1 1 - Exam GENERAL DESCRIPTION: Middle-aged female lying in bed in no distress RESPIRATORY SYSTEM: Unlabored breathing , decreased breath sounds at bases HEART: S1 S2 regular rate and rhythm , ABDOMEN: Soft , no tenderness EXTREMITIES: No edema feet - Labs CBC & Chem 7: 03/17/23 07:21 03/18/23 08:31 Labs: Abnormal Lab Results - Last 24 Hours (Table) 03/17/23 03/18/23 Range/Units 07:21 08:31 Hgb 9.8 L D (11.4-16.0) gm/dL Potassium 3.4 L (3.5-5.1) mmol/L Glucose 106 H (74-99) mg/dL Creatine Kinase 769 H (30-135) U/L Microbiology - Last 24 Hours (Table) 03/16/23 15:26 Blood Culture - Preliminary Blood Assessment and Plan (1) Fever Current Visit: Yes Status: Acute Code(s): R50.9 - FEVER, UNSPECIFIED SNOMED Code(s): 646820060 Plan: 1patient with SIRS in this patient with the fever and tachycardia possible related to drug withdrawal as the patient do not have obvious focus of infection and did have a normal white count no neck rigidity urine was negative chest x- ray negative for any acute infiltrate I do not see any cellulitis or rash to the right knee or the leg area 2-patient did have normal procalcitonin and blood culture so far negative 3-patient did have resolution of the fever as well as resolution of her mental status changes and she is being to her baseline/normal, without antibiotic therapy and low clinical suspicion for infection and hence will monitor the patient closely off antibiotic therapy Dictation was produced using [employer] dictation software. please excuse any grammatical, word or spelling errors. Time with Patient: Less than 30
--- NOTE | 2023-03-18 17:28 | P.PN ---
Subjective Progress Note Date: 03/17/23 28-year-old female who presents to the emergency department for altered mental status. Patient was arrested on 03/12, and had been without her Valium since yesterday. She was supposed to be on 10mg TID. Prior to being taken to prison, she was seen at [facility]. The officer with her is not sure why, but believes that it may have been for withdrawals or substance abuse. States that she's been acting somewhat bizarre since they picked her up on 03/12, however over the last 2 days she's been much more altered than usual. At one point she was found to be acting like a cat and was "meowing". She has also been shaking profusely, hallucinating, and is unsure where she is, according to EMS. When I went to examine the patient, she was shaking profusely and took a long time to formulate her responses. However, she was able to correctly provide me with her name, location, the year, and the president. CBC with differential is RDW: 16.8 otherwise rest is normal. Ran is 1.08, BUN is 20, AST is 81 ALT is 67. Plasma-Lyte as vein is 1.5, serum glucose is 89 CK level is 3010 HCG qual is not detected. Urine drug screen is positive for benzo otherwise rest is not detected in the serum alcohol was less than 10. she was seen by Dr. Kumar last on 02/09/2021 for altered mental status and he felt was likely due to psychotic episode. Rule out toxic metabolic encephalopathy. Seizure appears less likely per him. 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 No evidence of MS on the brain and the cervical spine MRI. No mass lesion. He stated that she had suicidal attempt. She has a history of benzoin opiate abuse. She had an EEG was reported as mild to moderate background slowing likely due to toxic metabolic or vascular causes or medication effect. No epileptiform activity was seen. For her vitamin B12 she was started on the 1000 g IM. Objective - Vital Signs Vital signs: Vital Signs Temp 98.4 F 03/17/23 12:00 Pulse 67 03/17/23 12:00 Resp 16 03/17/23 12:00 BP 119/76 08/05/23 12:00 Pulse Ox 95 03/17/23 12:00 FiO2 Intake & Output 03/16/23 03/17/23 03/17/23 18:59 06:59 18:59 Weight 86.183 kg Other: Voiding Method Bedpan Bedpan Diaper Diaper # Voids 1 1 - Exam General appearance: alert Head exam: Present: atraumatic, normocephalic, normal inspection Eye exam: Present: normal appearance, PERRL, EOMI. Absent: scleral icterus, conjunctival injection, periorbital swelling Respiratory exam: Present: normal lung sounds bilaterally. Absent: respiratory distress, wheezes, rales, rhonchi, stridor Cardiovascular Exam: Present: regular rate, normal rhythm, normal heart sounds. Absent: systolic murmur, diastolic murmur, rubs, gallop, clicks Neurological exam: Present: alert, oriented X3 Expanded Focused psych exam: Present: psychomotor agitation, restlessness Skin exam: Present: warm, dry, intact, normal color. Absent: rash - Labs CBC & Chem 7: 03/17/23 07:21 03/18/23 08:31 Labs: Abnormal Lab Results - Last 24 Hours (Table) 03/16/23 03/17/23 03/17/23 Range/Units 06:27 07:21 07:21 RBC 3.27 L (3.80-5.40) m/uL Hgb 9.8 L D (11.4-16.0) gm/dL Hct 28.7 L (34.0-46.0) % RDW 16.4 H (11.5-15.5) % Potassium 3.4 L (3.5-5.1) mmol/L BUN 6 L (7-17) mg/dL Calcium 8.2 L (8.4-10.2) mg/dL Delta Bilirubin 0.3 H (0.0-0.2) mg/dL AST 58 H (14-36) U/L ALT 63 H (4-34) U/L Creatine Kinase 1357 H* (30-135) U/L Total Protein 6.1 L (6.3-8.2) g/dL Vitamin B12 <150.0 L (200.0-944.0) pg/mL Assessment and Plan Assessment: 1. Altered mental status Appears due to withdrawn from medication (Valium). Rule out any underlying infection or ?seizure. CT of the head with and without as well as a routine EEG to rule out any underlying seizure or discharges. Ordered TSH, ammonia level, folate. Vitamin B12. I ordered DIEGO, ESR and CRP. Consulted I.D. because of low grade fever. I felt patient had rash and warms on right knee >left. Neurology started her on Thiamine 100mg daily and Vitamin B12 1000mcg IM daily. Also started her on Vimpat 50mg bid IV for concern for seizure with loading dose 100mg once. 2. Acute renal injury; patient is started on IV fluids in form of normal saline at rate of 100 mL an hour; we will monitor strict CECIL's, daily weights, renal function and electrolytes; avoid nephrotoxins and hypotension 4. Rhabdomyolysis; IV fluid hydration as indicated above; we will monitor and trend CPK 5. Transaminitis; possibly related to substance abuse; we will monitor liver enzymes with plans to obtain hepatic ultrasound if liver enzymes continue to trend up 6. Substance abuse; urine drug screen is positive benzodiazepines; patient has had cocaine in the system on previous occasions 7. Agitation/hallucinations; psychiatry is consulted DVT prophylaxis; SCDs CODE STATUS; full code
--- NOTE | 2023-03-18 17:33 | P.PN ---
Subjective Progress Note Date: 03/18/23 28-year-old female who presents to the emergency department for altered mental status. Patient was arrested on 03/12, and had been without her Valium since yesterday. She was supposed to be on 10mg TID. Prior to being taken to longterm, she was seen at [facility]. The officer with her is not sure why, but believes that it may have been for withdrawals or substance abuse. States that she's been acting somewhat bizarre since they picked her up on 03/12, however over the last 2 days she's been much more altered than usual. At one point she was found to be acting like a cat and was "meowing". She has also been shaking profusely, hallucinating, and is unsure where she is, according to EMS. When I went to examine the patient, she was shaking profusely and took a long time to formulate her responses. However, she was able to correctly provide me with her name, location, the year, and the president. CBC with differential is RDW: 16.8 otherwise rest is normal. Ran is 1.08, BUN is 20, AST is 81 ALT is 67. Plasma-Lyte as vein is 1.5, serum glucose is 89 CK level is 3010 HCG qual is not detected. Urine drug screen is positive for benzo otherwise rest is not detected in the serum alcohol was less than 10. she was seen by Dr. Kumar last on 02/09/2021 for altered mental status and he felt was likely due to psychotic episode. Rule out toxic metabolic encephalopathy. Seizure appears less likely per him. 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 No evidence of MS on the brain and the cervical spine MRI. No mass lesion. He stated that she had suicidal attempt. She has a history of benzoin opiate abuse. She had an EEG was reported as mild to moderate background slowing likely due to toxic metabolic or vascular causes or medication effect. No epileptiform activity was seen. For her vitamin B12 she was started on the 1000 g IM. 03/18/2023 -- the patient is seen and evaluated in room at bedside; remains afebrile, the patient is breathing comfortably on room air , the patient is more awake and alert and baked to her baseline the patient knows that she is in the hospital denies any headache no chest pain shortness of breath or cough no abdominal pain patient is feeling better and would like to take a shower Patient did have a normal white count of 4.5 with no left shift as of yesterday, no CBC was done today creatinine is 0.72, pro calcitonin 2 has been normal - patient with SIRS in this patient with the fever and tachycardia possible related to drug withdrawal as the patient do not have obvious focus of infection and did have a normal white count no neck rigidity urine was negative chest x- ray negative for any acute infiltrate I do not see any cellulitis or rash to the right knee or the leg area - patient did have normal procalcitonin and blood culture so far negative; ID on board and recommending to monitor patient without antibiotics Neurology on board and following for altered mental status; seems to be related to polysubstance abuse; please refer to neurology note for detailed recommendations Objective - Vital Signs Vital signs: Vital Signs Temp 98.8 F 03/18/23 08:00 Pulse 86 03/18/23 14:00 Resp 18 03/18/23 14:00 BP 117/75 03/18/23 08:00 Pulse Ox 98 03/18/23 08:00 FiO2 Intake & Output 03/17/23 03/18/23 03/18/23 18:59 06:59 18:59 Intake Total 240 120 Balance 240 120 Intake: Oral 240 120 Other: Voiding Method Toilet Toilet Toilet # Voids 2 3 # Bowel Movements 1 1 - Exam General appearance: alert Head exam: Present: atraumatic, normocephalic, normal inspection Eye exam: Present: normal appearance, PERRL, EOMI. Absent: scleral icterus, conjunctival injection, periorbital swelling Respiratory exam: Present: normal lung sounds bilaterally. Absent: respiratory distress, wheezes, rales, rhonchi, stridor Cardiovascular Exam: Present: regular rate, normal rhythm, normal heart sounds. Absent: systolic murmur, diastolic murmur, rubs, gallop, clicks Neurological exam: Present: alert, oriented X3 Expanded Focused psych exam: Present: psychomotor agitation, restlessness Skin exam: Present: warm, dry, intact, normal color. Absent: rash - Labs CBC & Chem 7: 03/17/23 07:21 03/18/23 08:31 Labs: Abnormal Lab Results - Last 24 Hours (Table) 03/17/23 03/18/23 Range/Units 07:21 08:31 Hgb 9.8 L D (11.4-16.0) gm/dL Potassium 3.4 L (3.5-5.1) mmol/L Glucose 106 H (74-99) mg/dL Creatine Kinase 769 H (30-135) U/L Microbiology - Last 24 Hours (Table) 03/16/23 15:26 Blood Culture - Preliminary Blood Assessment and Plan Assessment: 1. Altered mental status Appears due to withdrawn from medication (Valium). Rule out any underlying infection or ?seizure. CT of the head with and without as well as a routine EEG to rule out any underlying seizure or discharges. Ordered TSH, ammonia level, folate. Vitamin B12. I ordered DIEGO, ESR and CRP. Consulted I.D. because of low grade fever. I felt patient had rash and warms on right knee >left. Neurology started her on Thiamine 100mg daily and Vitamin B12 1000mcg IM daily. Also started her on Vimpat 50mg bid IV for concern for seizure with loading dose 100mg once. 2. Acute renal injury; patient is started on IV fluids in form of normal saline at rate of 100 mL an hour; we will monitor strict CECIL's, daily weights, renal function and electrolytes; avoid nephrotoxins and hypotension 4. Rhabdomyolysis; IV fluid hydration as indicated above; we will monitor and trend CPK 5. Transaminitis; possibly related to substance abuse; we will monitor liver enzymes with plans to obtain hepatic ultrasound if liver enzymes continue to trend up 6. Substance abuse; urine drug screen is positive benzodiazepines; patient has had cocaine in the system on previous occasions 7. Agitation/hallucinations; psychiatry is consulted DVT prophylaxis; SCDs CODE STATUS; full code
[2023-03-19] MEDS: ACETAMINOPHEN TAB 325 MG TAB PO PRN ×2 (00:09→09:28)
[2023-03-19] MEDS: diazePAM 5 MG TAB PO SCH ×3 (09:24→21:31)
[2023-03-19] MEDS: FLUoxetine HCL 20 MG CAP PO SCH (09:25)
[2023-03-19] MEDS: Lacosamide IV (ages 17+ yrs) 200 MG/20 ML ML IVP SCH ×2 (09:26→21:31)
[2023-03-19] MEDS: CYANOCOBALAMIN 1,000 MCG/ML 1 ML VIAL IM SCH (09:26)
[2023-03-19] MEDS: THIAMINE 100 MG/ML 2 ML VIAL IVP SCH (09:27)
[2023-03-19 10:10] LABS: African American GFR (CKD) >90 (>60 ml/min/1.73 sqM); Anion Gap 11 mmol/L; Blood Urea Nitrogen 8 mg/dL (7-17); Calcium 8.8 mg/dL (8.4-10.2); Carbon Dioxide 23 mmol/L (22-30); Chloride 106 mmol/L (98-107); Creatine Kinase 313 U/L (30-135); Glucose 119 mg/dL (74-99); Non-African American GFR(CKD) >90 (>60 ml/min/1.73 sqM); Potassium 3.3 mmol/L (3.5-5.1); Sodium 140 mmol/L (137-145)
[2023-03-19] MEDS ORDERED: Potassium Replacement Protocol 1 EACH MISC MISCELLANE PRN (14:01)
[2023-03-19] MEDS: POTASSIUM CHLORIDE ER 20 MEQ TAB.ER PO SCH ×2 (14:28→16:24)
--- NOTE | 2023-03-19 14:43 | P.PN ---
Subjective Progress Note Date: 03/19/23 28-year-old female who presents to the emergency department for altered mental status. Patient was arrested on 03/12, and had been without her Valium since yesterday. She was supposed to be on 10mg TID. Prior to being taken to assisted, she was seen at [facility]. The officer with her is not sure why, but believes that it may have been for withdrawals or substance abuse. States that she's been acting somewhat bizarre since they picked her up on 03/12, however over the last 2 days she's been much more altered than usual. At one point she was found to be acting like a cat and was "meowing". She has also been shaking profusely, hallucinating, and is unsure where she is, according to EMS. When I went to examine the patient, she was shaking profusely and took a long time to formulate her responses. However, she was able to correctly provide me with her name, location, the year, and the president. CBC with differential is RDW: 16.8 otherwise rest is normal. Ran is 1.08, BUN is 20, AST is 81 ALT is 67. Plasma-Lyte as vein is 1.5, serum glucose is 89 CK level is 3010 HCG qual is not detected. Urine drug screen is positive for benzo otherwise rest is not detected in the serum alcohol was less than 10. she was seen by Dr. Kumar last on 02/09/2021 for altered mental status and he felt was likely due to psychotic episode. Rule out toxic metabolic encephalopathy. Seizure appears less likely per him. 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 No evidence of MS on the brain and the cervical spine MRI. No mass lesion. He stated that she had suicidal attempt. She has a history of benzoin opiate abuse. She had an EEG was reported as mild to moderate background slowing likely due to toxic metabolic or vascular causes or medication effect. No epileptiform activity was seen. For her vitamin B12 she was started on the 1000 g IM. 03/18/2023 -- the patient is seen and evaluated in room at bedside; remains afebrile, the patient is breathing comfortably on room air , the patient is more awake and alert and baked to her baseline the patient knows that she is in the hospital denies any headache no chest pain shortness of breath or cough no abdominal pain patient is feeling better and would like to take a shower Patient did have a normal white count of 4.5 with no left shift as of yesterday, no CBC was done today creatinine is 0.72, pro calcitonin 2 has been normal - patient with SIRS in this patient with the fever and tachycardia possible related to drug withdrawal as the patient do not have obvious focus of infection and did have a normal white count no neck rigidity urine was negative chest x- ray negative for any acute infiltrate I do not see any cellulitis or rash to the right knee or the leg area - patient did have normal procalcitonin and blood culture so far negative; ID on board and recommending to monitor patient without antibiotics Neurology on board and following for altered mental status; seems to be related to polysubstance abuse; please refer to neurology note for detailed recommendations 03/19. Patient seen and examined. No acute issues overnight. Patient is alert and oriented REVIEW OF SYSTEMS: CONSTITUTIONAL: No fever, no malaise,. CARDIOVASCULAR: No chest pain, no palpitations, no syncope. PULMONARY: No shortness of breath, no cough, GASTROINTESTINAL: No diarrhea, no nausea, no vomiting, no abdominal pain. NEUROLOGICAL: No headaches, no weakness, PHYSICAL EXAMINATION: GENERAL: The patient is alert and oriented x3, not in any acute distress. Well developed, well nourished. HEENT: Pupils are round and equally reacting to light. EOMI. No scleral icterus. No conjunctival pallor. Normocephalic, atraumatic. No pharyngeal erythema. No thyromegaly. CARDIOVASCULAR: S1 and S2 present. No murmurs, rubs, or gallops. PULMONARY: Chest is clear to auscultation, no wheezing or crackles. ABDOMEN: Soft, nontender, nondistended, normoactive bowel sounds. No palpable organomegaly. MUSCULOSKELETAL: No joint swelling or deformity. EXTREMITIES: No cyanosis, clubbing, or pedal edema. NEUROLOGICAL: Gross neurological examination did not reveal any focal deficits. SKIN: No rashes. Assessment and plan 1. Acute metabolic encephalopathy ECG negative for any seizures MRI ordered Neurology started her on Thiamine 100mg daily and Vitamin B12 1000mcg IM daily. Also started her on Vimpat 50mg bid IV for concern for seizure with loading dose 100mg once. Psychiatry evaluated the patient, recommended resume patients valium home dose 10 mg tid to avoid withdrawal/delirum, prozac 20 mg daily for mood/anxiety. seroquel 50 mg qhs prn for insomnia/psychosis ID evaluated the patient recommended to monitor patient off antibiotics 2. Acute renal injury; patient is started on IV fluids in form of normal saline at rate of 100 mL an hour; we will monitor strict CECIL's, daily weights, renal function and electrolytes; avoid nephrotoxins and hypotension 4. Rhabdomyolysis; IV fluid hydration as indicated above; we will monitor and trend CPK 5. Transaminitis; possibly related to substance abuse; we will monitor liver enzymes with plans to obtain hepatic ultrasound if liver enzymes continue to trend up 6. Substance abuse; urine drug screen is positive benzodiazepines; patient has had cocaine in the system on previous occasions 7. Agitation/hallucinations; Psychiatry evaluated the patient, recommended resume patients valium home dose 10 mg tid to avoid withdrawal/delirum, prozac 20 mg daily for mood/anxiety. seroquel 50 mg qhs prn for insomnia/psychosis Labs and medication were reviewed.. Continue same treatment. Continue with symptomatic treatment. Resume home medication. Monitor labs and vitals. DVT and GI prophylaxis. Further recommendations as per clinical course of the patient Dictation was produced using [employer] dictation software. please excuse any grammatical, word or spelling errors. Objective - Vital Signs Vital signs: Vital Signs Temp 99.8 F H 03/19/23 04:00 Pulse 66 03/19/23 08:00 Resp 18 03/19/23 08:00 BP 104/73 03/19/23 04:00 Pulse Ox 99 03/19/23 04:00 FiO2 Intake & Output 03/18/23 03/19/23 03/19/23 18:59 06:59 18:59 Intake Total 120 Balance 120 Intake: Oral 120 Other: Voiding Method Toilet Toilet # Voids 1 1 # Bowel Movements 1 - Labs CBC & Chem 7: 03/17/23 07:21 03/19/23 09:12 Labs: Abnormal Lab Results - Last 24 Hours (Table) 03/19/23 Range/Units 09:12 Potassium 3.3 L (3.5-5.1) mmol/L Glucose 119 H (74-99) mg/dL Creatine Kinase 313 H (30-135) U/L Microbiology - Last 24 Hours (Table) 03/16/23 15:26 Blood Culture - Preliminary Blood
--- NOTE | 2023-03-19 15:22 | P.PN ---
Subjective Progress Note Date: 03/19/23 Patient initially seen by Dr. Pj Chand. Please refer to his note for details. Patient is a 28-year-old female, who has been seen by myself in the past for B12 deficiency. It was felt patient has possible subacute combined degeneration of the cord. Patient presented with tremor, confusion. Patient states she was "Whippits", which is nitrous oxide via tank. She was using nitrous oxide and continues to have vitamin B12 deficiency with B12 <150. Its Patient was started again on B12 replacement. MRI of the brain and cervical spine was ordered. EEG is negative. Patient has mentioned that she has had seizure and was told she has blank stares. Dr. Chand started patient on Vimpat 50 mg twice a day. Patient states she came to the hospital because she overdosed on a medication. Patient states she has history of seizures, which were drug- induced. She claims that she has done Xanax, fentanyl, sniffed cocaine in the past. Never did any IV drug use or any heroin. Patient states that she had seizures unrelated to drugs as well. She does not remember what seizure medication she was ever placed on. Patient complains of weakness in the legs and feet. Some other workup during his hospital visit consisted of: Temperature is 100.9 and repeat is 100.1 the latest is 99.5 No further fevers. ESR 16 CBC with differential is RDW: 16.8 otherwise rest is normal. Creatnin 1.08, BUN is 20, AST is 81 ALT is 67. Plasma lactic acid vein is 1.5, serum glucose is 89 CK level is 3010 and repeat CK level is 1357 Ammonia level is less than 9 TSH is 1.440 Folate is 14.30 A knee is negative Vitamin B12 is <150 which is considered deficient HCG qual is not detected. Urine drug screen is positive for benzo otherwise rest is not detected in the serum alcohol was less than 10. Routine EEG is abnormal. The background slowing is suggestive of mild encephalopathy likely due to medication effect (Ativan). Also the excessive beta activity is likely due to medication effect (Ativan). Otherwise there is no focal slowing, epileptiform discharges or seizure on the EEG. Objective - Vital Signs Vital signs: Vital Signs Temp 99.8 F H 03/19/23 04:00 Pulse 66 03/19/23 08:00 Resp 18 03/19/23 08:00 BP 104/73 03/19/23 04:00 Pulse Ox 99 03/19/23 04:00 FiO2 Intake & Output 03/18/23 03/19/23 03/19/23 18:59 06:59 18:59 Intake Total 120 Balance 120 Intake: Oral 120 Other: Voiding Method Toilet Toilet # Voids 1 1 # Bowel Movements 1 - Exam Patient's mental status, speech and language functions are normal. Patient's muscle strength appears equal in the upper limbs. In the lower limbs, patient has weakness in the ankles, about 5-with giveaway weakness. Reflexes are very brisk, 3+ in the arms and legs, and bilateral Babinski. - Labs CBC & Chem 7: 03/20/23 06:41 03/20/23 06:41 Labs: Abnormal Lab Results - Last 24 Hours (Table) 03/19/23 Range/Units 09:12 Potassium 3.3 L (3.5-5.1) mmol/L Glucose 119 H (74-99) mg/dL Creatine Kinase 313 H (30-135) U/L Microbiology - Last 24 Hours (Table) 03/16/23 15:26 Blood Culture - Preliminary Blood Assessment and Plan Assessment: * Altered mental status with body tremor: Appears due to withdrawn from medication/Benzo (Valium and Xanax). No seizure on EEG or discharges. --me ntation improving. * Also on examination has brisk reflexes of uppers and lower extremities with upgoing plantars bilaterally with confusion, which possibly could be due to Vitamin B12 deficiency and substance abuse related to using Nitrous oxide. Rule out any abnromality on cervical or brain as result of B12 deficiency. * Ongoing B12 deficiency with most recent levels of B12 <150 * Rhabdomyolysis due to her continuos body jerks--trending down (body jerks improving) * Previous altered mental status in January 2021 and she had MRI the brain MRI of the cervical spine as well as EEG and was felt due to psychotic episode in the EEG was negative for seizures patient shows a mild to moderate generalized cerebral dysfunction. But no epileptiform discharges. 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 * History of polysubstance abuse * History of suicidal attempt Plan: Patient has history of severe vitamin B12 deficiency. She also uses nitrous oxide, which may be contributing to B12 deficiency. On examination, patient has brisk reflexes of uppers and lower extremities with upgoing plantars bilaterally with confusion. Rule out any abnromality on cervical or brain as result of B12 deficiency. Rule out any subacute combined degeneration. Check parietal cell antibodies to rule out pernicious anemia. Await MRI Brain and C-spine Continue Thiamine 100mg daily and Vitamin B12 1000mcg IM daily. Dr. Pj Chand started her on Vimpat 50mg bid since per nurse had starting episode yesterday A.M. Per patient she does have history of seizures. She had current EEG in our facility and prior EEG which were negative for seizures. Psychiatry team started her on Valium 10mg 1 tab daily Seroquel 50mg PRN qhs for psychosis. I.D. is consulted because of fever and stated due to drug withdrawal and I agree. No further fevers. Telemetry monitoring so far showing sinus rhythm with sinus bradycardia. No other arrhythmia. She is on CIWA protocol. Will defer the rest of management to primary team and other specialist. Addendum: MRI of the brain revealed unchanged weak areas of periventricular white matter change which is suboptimally evaluated, unchanged from 02/09/2021. Findings could relate to patient's nitrous oxide abuse. No evidence of intracranial mass or acute/subacute infarct. I personally reviewed MRI, agree with the findings. MRI of the cervical spine revealed extremely limited MRI cervical spine secondary to motion artifact. No evidence for significant spinal canal or neural foraminal stenosis. Cord signal is very poor evaluated due to motion. I personally reviewed MRI, agree with the findings. Neurologically clear for discharge, if cleared from a medical and psychiatry standpoint. Discussed with nursing staff at 11:45 PM.
--- NOTE | 2023-03-19 20:27 | MR ---
EXAMINATION TYPE: MR brain/cspine wo DATE OF EXAM: 03/19/2023 7:50 PM COMPARISON: 6 MRI brain 02/09/2021, MRI C-spine 02/09/2021. CLINICAL INDICATION:Female, 28 years old with history of body tremor, am, brisk reflex. Nitrous oxid e use; PHH, Body Tremor, am, brisk reflex, Nitrous oxide use TECHNIQUE: Multi planar, multi sequence imaging was performed through the brain including: T1, T2, Inversion rec overy, Diffusion weighted imaging, and gradient echo imaging. No gadolinium was given. Multi planar, multi sequence imaging was performed utilizing: T1-weighted, T2-weighted, and turbo inv ersion recovery imaging of the cervical spine. IV Contrast: None FINDINGS: There is a high FLAIR signal present bilaterally along the ventricles and the baker radiata and cent rum semiovale, best appreciated on series 501 image 22. This is less well appreciated on T2-weighted imaging and no correlating finding appreciated on T1-weighted imaging. Midline structures show no abn ormality. Diffusion-weighted imaging shows no evidence of restricted diffusion. The susceptibility we ighted images do not reveal any evidence for micro-hemorrhage. The bone marrow signal is within normal limits. Paranasal sinuses and mastoid air cells: No significant paranasal sinus disease. Visualized orbits: Orbital contents are intact. Cspine: Extreme motion limited exam. No evidence for significant spinal canal or neural foraminal rachna nosis within the limitations of the exam. The spinal cord is suboptimally evaluated due to extensive motion. IMPRESSION: 1. Unchanged vague areas of periventricular white matter change which is suboptimally evaluated give n. Unchanged from 02/09/2021. Findings could relate to patient's Nitrous oxide use. 2. No evidence of intracranial mass or acute/subacute infarct. 3. Extremely limited MRI cervical spine secondary to motion. No evidence for significant spinal rosa l or neural foraminal stenosis. Cord signal is very poorly evaluated due to motion. Consider repeat e xam.
[2023-03-20 06:56] LABS: Anisocytosis Slight; HGB 12.2 gm/dL (11.4-16.0); MCH 30.9 pg (25.0-35.0); MCHC 34.8 g/dL (31.0-37.0); MCV 88.8 fL (80.0-100.0); Mean Platelet Volume 7.7; Platelet Count 288 k/uL (150-450); RBC 3.95 m/uL (3.80-5.40); WBC 7.5 k/uL (3.8-10.6)
[2023-03-20 07:15] LABS: ALT 46 U/L (4-34); AST 22 U/L (14-36); African American GFR (CKD) >90 (>60 ml/min/1.73 sqM); Albumin 4.1 g/dL (3.5-5.0); Alkaline Phosphatase 59 U/L (38-126); Anion Gap 10 mmol/L; Blood Urea Nitrogen 8 mg/dL (7-17); Carbon Dioxide 22 mmol/L (22-30); Chloride 110 mmol/L (98-107); Glucose 96 mg/dL (74-99); Non-African American GFR(CKD) >90 (>60 ml/min/1.73 sqM); Potassium 3.6 mmol/L (3.5-5.1); Sodium 142 mmol/L (137-145); Total Protein 6.9 g/dL (6.3-8.2)
[2023-03-20] MEDS: CYANOCOBALAMIN 1,000 MCG/ML 1 ML VIAL IM SCH (11:28)
[2023-03-20] MEDS: THIAMINE 100 MG/ML 2 ML VIAL IVP SCH (11:28)
[2023-03-20] MEDS: FLUoxetine HCL 20 MG CAP PO SCH (11:29)
[2023-03-20] MEDS: diazePAM 5 MG TAB PO SCH (11:29)
[2023-03-20 13:17] VITALS: PULSE 68; RESP 17
[2023-03-20] MEDS: Lacosamide IV (ages 17+ yrs) 200 MG/20 ML ML IVP SCH (13:18)
--- NOTE | 2023-03-20 14:00 | P.DS ---
Providers Date of admission: 03/16/23 08:53 Expected date of discharge: 03/20/23 Attending physician: Cl Horan Consults: 03/16/23 12:34 Consult Physician Routine Consulting Provider: Pj Chand Consult Reason/Comments: AMS Do you want consulting provider notified?: Yes 03/16/23 12:40 Consult Physician Routine Consulting Provider: Woody Frias Consult Reason/Comments: AMS/Hallucinations Do you want consulting provider notified?: Yes 03/16/23 14:28 Consult Physician Urgent Consulting Provider: Ezio Bolaños Consult Reason/Comments: fever Do you want consulting provider notified?: Yes Primary care physician: Stated None Hospital Course: Discharge diagnoses; Acute metabolic encephalopathy resolved EEG negative for any seizures MRI brain negative for any evidence of ventricular mass or acute/subacute infarct. MRI cervical spine showed no evidence of significant spinal canal or neural foraminal stenosis Neurology started her on Thiamine 100mg daily and Vitamin B12 1000mcg IM daily. Neurology recommended discharging patient on vimpat 50 mg twice a Psychiatry evaluated the patient, recommended resume patients valium home dose 10 mg tid to avoid withdrawal/delirum, prozac 20 mg daily for mood/anxiety. seroquel 50 mg qhs prn for insomnia/psychosis ID evaluated the patient recommended to monitor patient off antibiotics 2. Acute renal injury; is ordered 4. Rhabdomyolysis; resolved 5. Transaminitis; possibly related to substance abuse; we will monitor liver enzymes with plans to obtain hepatic ultrasound if liver enzymes continue to trend up 6. Substance abuse; urine drug screen is positive benzodiazepines; patient has had cocaine in the system on previous occasions 7. Agitation/hallucinations; Psychiatry evaluated the patient, recommended resume patients valium home dose 10 mg tid to avoid withdrawal/delirum, prozac 20 mg daily for mood/anxiety. seroquel 50 mg qhs prn for insomnia/psychosis Hospital course; 28-year-old female who presents to the emergency department for altered mental status. Patient was arrested on 03/12, and had been without her Valium since yesterday. She was supposed to be on 10mg TID. Prior to being taken to care home, she was seen at [facility]. The officer with her is not sure why, but believes that it may have been for withdrawals or substance abuse. States that she's been acting somewhat bizarre since they picked her up on 03/12, however over the last 2 days she's been much more altered than usual. At one point she was found to be acting like a cat and was "meowing". She has also been shaking profusely, hallucinating, and is unsure where she is, according to EMS. When I went to examine the patient, she was shaking profusely and took a long time to formulate her responses. However, she was able to correctly provide me with her name, location, the year, and the president. CBC with differential is RDW: 16.8 otherwise rest is normal. Ran is 1.08, BUN is 20, AST is 81 ALT is 67. Plasma-Lyte as vein is 1.5, serum glucose is 89 CK level is 3010 HCG qual is not detected. Urine drug screen is positive for benzo otherwise rest is not detected in the serum alcohol was less than 10. she was seen by Dr. Kumar last on 02/09/2021 for altered mental status and he felt was likely due to psychotic episode. Rule out toxic metabolic encephalopathy. Seizure appears less likely per him. 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 No evidence of MS on the brain and the cervical spine MRI. No mass lesion. He stated that she had suicidal attempt. She has a history of benzoin opiate abuse. She had an EEG was reported as mild to moderate background slowing likely due to toxic metabolic or vascular causes or medication effect. No epileptiform activity was seen. For her vitamin B12 she was started on the 1000 g IM. 03/18/2023 -- the patient is seen and evaluated in room at bedside; remains afebrile, the patient is breathing comfortably on room air , the patient is more awake and alert and baked to her baseline the patient knows that she is in the hospital denies any headache no chest pain shortness of breath or cough no abdominal pain patient is feeling better and would like to take a shower Patient did have a normal white count of 4.5 with no left shift as of yesterday, no CBC was done today creatinine is 0.72, pro calcitonin 2 has been normal - patient with SIRS in this patient with the fever and tachycardia possible related to drug withdrawal as the patient do not have obvious focus of infection and did have a normal white count no neck rigidity urine was negative chest x- ray negative for any acute infiltrate I do not see any cellulitis or rash to the right knee or the leg area - patient did have normal procalcitonin and blood culture so far negative; ID on board and recommending to monitor patient without antibiotics Neurology on board and following for altered mental status; seems to be related to polysubstance abuse; please refer to neurology note for detailed recommendations 03/19. Patient seen and examined. No acute issues overnight. Patient is alert and oriented 03/20. Patient seen and examined. No acute issues overnight. Neurology cleared the patient for discharge PHYSICAL EXAMINATION: GENERAL: The patient is alert and oriented x3, not in any acute distress. Well developed, well nourished. HEENT: Pupils are round and equally reacting to light. EOMI. No scleral icterus. No conjunctival pallor. Normocephalic, atraumatic. No pharyngeal erythema. No thyromegaly. CARDIOVASCULAR: S1 and S2 present. No murmurs, rubs, or gallops. PULMONARY: Chest is clear to auscultation, no wheezing or crackles. ABDOMEN: Soft, nontender, nondistended, normoactive bowel sounds. No palpable organomegaly. MUSCULOSKELETAL: No joint swelling or deformity. EXTREMITIES: No cyanosis, clubbing, or pedal edema. NEUROLOGICAL: Gross neurological examination did not reveal any focal deficits. SKIN: No rashes. Dictation was produced using [employer] dictation software. please excuse any grammatical, word or spelling errors. Patient Condition at Discharge: Good Plan - Discharge Summary New Discharge Prescriptions: New QUEtiapine [SEROquel] 50 mg PO HS PRN #30 tab PRN Reason: insomnia/psychosis diazePAM [Valium] 10 mg PO TID #30 tab Lacosamide [Vimpat] 50 mg PO BID #30 tablet Thiamine [Vitamin B-1] 100 mg PO DAILY #30 tablet Cyanocobalamin [Vitamin B-12] 1,000 mcg PO DAILY #30 tablet Continue Acetaminophen Tab [Tylenol] 650 mg PO TID PRN PRN Reason: Fever And/ Or Pain FLUoxetine HCL [PROzac] 20 mg PO DAILY hydrOXYzine pamoate [Vistaril] 25 mg PO BID Discontinued Sulfamethox-Tmp 800-160Mg [Bactrim DS 800-160 mg] 1 tab PO BID diazePAM [Valium] See Taper PO DIRECTED Discharge Medication List Acetaminophen Tab [Tylenol] 650 mg PO TID PRN 03/16/23 [History] FLUoxetine HCL [PROzac] 20 mg PO DAILY 03/16/23 [History] hydrOXYzine pamoate [Vistaril] 25 mg PO BID 03/16/23 [History] Cyanocobalamin [Vitamin B-12] 1,000 mcg PO DAILY #30 tablet 03/20/23 [Rx] Lacosamide [Vimpat] 50 mg PO BID #30 tablet 03/20/23 [Rx] QUEtiapine [SEROquel] 50 mg PO HS PRN #30 tab 03/20/23 [Rx] Thiamine [Vitamin B-1] 100 mg PO DAILY #30 tablet 03/20/23 [Rx] diazePAM [Valium] 10 mg PO TID #30 tab 03/20/23 [Rx] Follow up Appointment(s)/Referral(s): None,Stated [Primary Care Provider] - 1-2 days Patient Instructions/Handouts: Rhabdomyolysis (DC), Psychiatric Hallucinations (DC) Discharge Disposition: OTHER INSTITUTION NOT DEFINED
[2023-03-20] MEDS ORDERED: QUEtiapine 25 MG TAB PO STA (14:07)
--- NOTE | 2023-03-20 14:11 | P.PN ---
Progress Note - Text Progress Note Date: 03/20/23 Interval history: Patient was seen today for psychiatric follow-up regarding patient's delirium and other psychiatric issues. Patient was seen today and was watching television. She was agreeable to technical proposal writer today. She appeared to be more pleasant and cooperative during the interview. She states that she was feeling somewhat anxious this morning and also at this moment. She notes that she is going back to skilled nursing. She states that she is concerned about her vitamin B12 deficiency, we spoke about that for a bit. She asked questions about her medications. She appeared to have improvement in concentration and also was more appropriate and cooperative. She claims that her mood is fair. She is denying any auditory or visual hallucinations. She is denying any suicidal or homicidal ideations intent or plan today. Mental status examination: General Appearance: Patient appears to be he has several tattoos stated age is lying in bed with alert, attempts to cooperate. Wearing hospital gown. Behavior: Patient is laying in bed, alert today, cooperative. Speech: Patient's speech is clear, fluent. Mood/Affect: Her mood is fair however is endorsing anxiety, affect is constricted. Suicidality/Homicidality: Denies Perceptions: Denies Though content/process: More goal oriented, not endorsing any delusions or paranoia. Memory and concentration: Patient is alert and oriented 3. Patient has improved concentration, able to follow commands today. Judgment and insight: Improving mildly IMPRESSIONS: Delirium, likely secondary to benzo withdrawal Depressive disorder unspecified History of subacute combined degeneration Nicotine dependence hx of Inhalant abuse PLAN: -At this time patient DOES NOT meet criteria for inpatient psychiatric admission. -Delirium precautions recommended with patient including - avoiding use of narcotics, limit anticholinergic medications when possible, frequent re- orientation, minimize use of restraints, open window shades during the day and close them at night -Would recommend the following medication changes/additions: Continue valium home dose 10 mg tid to avoid withdrawal/delirum, prozac 20 mg daily for mood/anxiety. increase seroquel 100 mg qhs for insomnia/psychosis. -Communicated plan to patient's nurse -at this time psychiatry will sign off -Please contact with any questions.
[2023-03-20 15:30] VITALS: BP 113/67; TEMP 98.5
[2023-03-20] MEDS ORDERED: QUEtiapine 100 MG TAB PO SCH (21:00)
== END 2023-03-20 14:55 | DRG 52 ==
LOC: EC 06:06 → 3SCARD 08:53
PROVIDERS: ADMIT Hospitalist; ATTEND Hospitalist
DX: G92.8 Other toxic encephalopathy (principal); F13.131 Sedative, hypnotic or anxiolytic abuse with withdrawal delirium; G32.0 Subacute combined degeneration of spinal cord in diseases classified elsewhere; N17.9 Acute kidney failure, unspecified; M62.82 Rhabdomyolysis; F11.10 Opioid abuse, uncomplicated; F31.9 Bipolar disorder, unspecified; Z20.822 Contact with and (suspected) exposure to COVID-19; G47.00 Insomnia, unspecified; R74.01 Elevation of levels of liver transaminase levels; R45.1 Restlessness and agitation; E53.8 Deficiency of other specified B group vitamins; F41.9 Anxiety disorder, unspecified; Z79.899 Other long term (current) drug therapy; Z88.0 Allergy status to penicillin; Z88.8 Allergy status to other drugs, medicaments and biological substances; Z88.5 Allergy status to narcotic agent
CPT/HCPCS: 36415; 70470; 70551; 71046; 72141; 80048; 80053; 80076; 80306; 80320; 81001; 82140; 82525; 82550; 82607; 82746; 83516; 83605; 84145; 84443; 84484; 84630; 84703; 85025; 85027; 85610; 85652; 85730; 86038; 86140; 87040; 87636; 93005; 94760; 95816; 96361; 96365; 96366; 96367; 96372; 96375; 96376; 99285